=== PATIENT | female | born 1980 | race Caucasian/White ===

== ENCOUNTER 2022-07-12 13:32 | Emergency (ER) | payer MEDICARE, OTHER, MEDICAID, SELFPAY ==
[2022-07-12 14:13] VITALS: BP 127/93; PULSE 88; RESP 18; TEMP 36.2; O2SAT 96; BMI 22.5
--- NOTE | 2022-07-12 14:41 | CRLHL7_ITS ---
For Patients: As a result of the Century Cures Act, medical imaging exams and procedure reports are released immediately into your electronic medical record. You may view this report before your referring provider. If you have questions, please contact your health care provider. INDICATION: Headache, history of MS. Chest pain. TECHNIQUE: Chest 2 views. COMPARISON: None. FINDINGS: No focal consolidation, pleural effusion, or pneumothorax. Normal heart size and pulmonary vascularity. The bones are unremarkable. IMPRESSION: No acute cardiopulmonary findings. Dictated by Judy Mckeon MD @ 07/12/2022 3:40:51 PM (Electronically Signed)
--- NOTE | 2022-07-12 14:41 | CRLHL7_ITS ---
For Patients: As a result of the Century Cures Act, medical imaging exams and procedure reports are released immediately into your electronic medical record. You may view this report before your referring provider. If you have questions, please contact your health care provider. INDICATION: Headache and dizziness. History of MS. TECHNIQUE: CT head without contrast. COMPARISON: None. FINDINGS: CSF spaces: Within normal limits for age. Brain parenchyma and extra-axial spaces: The boss-white differentiation is normal. No sign of mass, hemorrhage, or midline shift. No extra-axial fluid collection. Skull base and calvarium: The visualized paranasal sinuses and mastoid air cells demonstrate no acute or significant findings. The visualized orbits are grossly unremarkable. No skull fractures. IMPRESSION: Unremarkable noncontrast head CT. Please note that all CT scans at this facility use dose modulation, iterative reconstruction, and/or weight-based dosing when appropriate to reduce radiation dose to as low as reasonably achievable. Dictated by Jorge Wallace MD @ 07/12/2022 3:40:21 PM (Electronically Signed)
--- NOTE | 2022-07-12 15:16 | ED.GENADULT ---
HPI - General Adult General Chief complaint: Headache/Migraine <Betzaida Arboleda MD - Last Filed: 07/12/22 15:51> Stated complaint: Headaches Possible M/S flare up <Betzaida Arboleda MD - Last Filed: 07/12/22 15:51> Time Seen by Provider: 07/12/22 14:22 <Betzaida Arboleda MD - Last Filed: 07/12/22 15:51> Source: patient <Betzaida Arboleda MD - Last Filed: 07/12/22 15:51> Mode of arrival: ambulatory <Betzaida Arboleda MD - Last Filed: 07/12/22 15:51> Limitations: no limitations <Betzaida Arboleda MD - Last Filed: 07/12/22 15:51> History of Present Illness HPI narrative: 42-year-old female coming in today with multiple concerns. Number on rash in her head she just noticed, it is uncomfortable. 2. She has a terrible headache. She states that she has never had a headache this bad before she describes as a pressure inside her head. She is very concerned about this. She has taken [id number] medications and they have not helped at all. 3. she feels very tired, low energy. She has tingly all over. She denies any chest pain. Every now and then she will feel short of breath. No fevers or chills. No changes in her appetite. No diarrhea. No urinary symptoms. No abdominal pain. Patient does have history of multiple sclerosis, she is not on any treatment for that and she does not see a neurologist. 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 Past medical history also notable for anxiety, bipolar disorder history of dental abscess and chronic pain. Patient takes Seroquel, Paxil, Adderall, and gabapentin. She denies any night sweats or weight changes that are unintentional. <Betzaida Arboleda MD - Last Filed: 07/12/22 15:51> Related Data Home medications: Home Medications Medication Instructions Recorded Confirmed dextroamphetamine-amphetamine ER PO 07/12/22 20 mg 24hr capsule,extend release gabapentin 300 mg capsule mg 07/12/22 gabapentin 400 mg capsule mg 07/12/22 paroxetine HCl 40 mg tablet mg PO 07/12/22 quetiapine 25 mg tablet mg 07/12/22 Previous Rx's Medication Instructions Recorded triamcinolone acetonide 0.1 % 1 applic topical BID Rash #30 grams 07/12/22 topical cream <Betzaida Arboleda MD - Last Filed: 07/12/22 15:51> Allergies/adverse reactions: Allergies Allergy/AdvReac Type Severity Reaction Status Date / Time No Known Drug Allergies Allergy Verified 07/12/22 14:09 <Betzaida Arboleda MD - Last Filed: 07/12/22 15:51> Review of Systems Status of ROS: Reports: 10 or more systems reviewed and unremarkable except as noted in History and below <Betzaida Arboleda MD - Last Filed: 07/12/22 15:51> [facility] Medical History: Medical History (Updated 07/12/22 @ 16:45 by Beto Marmolejo MD) Rash <Betzaida Arboleda MD - Last Filed: 07/12/22 15:51> Exam Narrative: Exam Narrative: Well-nourished well-developed patient in no acute distress. Alert and oriented. Answers questions appropriately. Mood and affect are appropriate. Thoughts are goal oriented and rational. No tangential or magical thinking noted. Patient speaks in full sentences without needing to catch her breath. Speech is not slurred or pressured. Voice sounds normal. HEENT: Normocephalic atraumatic. Pupils are equally round reactive to light. Extraocular muscles are intact. Conjunctivae are moist without any icterus noted. Moist mucous membranes. Posterior pharynx is normal. Neck is soft without any lymphadenopathy or thyromegaly. No masses are appreciated. Patient does have what appears to be a folliculitis scattered throughout the scalp with some scabbing. Cardiovascular: Heart is regular rate and rhythm S1 and S2 are present without any murmurs. Lungs: Clear to auscultation bilaterally no wheezes rhonchi or rales are appreciated. Patient takes deep breaths without any discomfort. Abdomen: Soft and nontender nondistended with normal bowel sounds. No guarding or rebound. No masses or organomegaly appreciated. Extremities: Bilateral lower extremities are without edema. Normal DP and PT pulses. Skin: Well perfused without any obvious rashes. <Betzaida Arboleda MD - Last Filed: 07/12/22 15:51> Const: Vital Signs, click to edit/add: Vital Signs - 24 hr 07/12/22 14:13 Temperature 97.1 F L Pulse Rate [Right Pulse Oximeter] 88 Respiratory Rate 18 Blood Pressure [Ri ght Upper Arm] 127/93 H Pulse Oximetry 96 Oxygen Delivery Me thod Room Air <Betzaida Arboleda MD - Last Filed: 07/12/22 15:51> Vital Signs, click to edit/add: Vital Signs - 24 hr 07/12/22 14:13 Temperature 97.1 F L Pulse Rate [Right Pulse Oximeter] 88 Respiratory Rate 18 Blood Pressure [Ri ght Upper Arm] 127/93 H Pulse Oximetry 96 Oxygen Delivery Me thod Room Air <Beto Marmolejo MD - Last Filed: 07/12/22 16:46> Course Course Hospital Course: IV was established. Head CT was done and was normal. Chest x-ray was unremarkable. Care be transferred to oncoming physician. <Betzaida Arboleda MD - Last Filed: 07/12/22 15:51> Reevaluation(s) Reevaluation #1: Pt does not want to wait to continue her workup including waiting for her urine that she prescribed. I did explain the risk of doing so but she states that she understands and would very much like to leave. <Beto Marmolejo MD - Last Filed: 07/12/22 16:46> Time: 16:43 <Beto Marmolejo MD - Last Filed: 07/12/22 16:46> Vital Signs Vital signs: Initial Vital Signs Temperature 97.1 F L 07/12/22 14:13 Temperature Source Temporal Artery Scan 07/12/22 14:13 Pulse Rate 88 07/12/22 14:13 Respiratory Rate 18 07/12/22 14:13 Blood Pressure 127/93 H 07/12/22 14:13 Blood Pressure Mean 104 07/12/22 14:13 Blood Pressure Position Sitting 07/12/22 14:13 Pulse Oximetry 96 07/12/22 14:13 Oxygen Delivery Method 07/12/22 14:13 Vital Signs Temperature 97.1 F L 07/12/22 14:13 Pulse Rate 88 07/12/22 14:13 Respiratory Rate 18 07/12/22 14:13 Blood Pressure 127/93 H 07/12/22 14:13 Pulse Oximetry 96 07/12/22 14:13 Oxygen Delivery Method 07/12/22 14:13 Temperature 97.1 F L 07/12/22 14:13 Pulse Rate 88 07/12/22 14:13 Respiratory Rate 18 07/12/22 14:13 Blood Pressure 127/93 H 07/12/22 14:13 Pulse Oximetry 96 07/12/22 14:13 Oxygen Delivery Method 07/12/22 14:13 <Betzaida Arboleda MD - Last Filed: 07/12/22 15:51> Initial Vital Signs Temperature 97.1 F L 07/12/22 14:13 Temperature Source Temporal Artery Scan 07/12/22 14:13 Pulse Rate 88 07/12/22 14:13 Respiratory Rate 18 07/12/22 14:13 Blood Pressure 127/93 H 07/12/22 14:13 Blood Pressure Mean 104 07/12/22 14:13 Blood Pressure Position Sitting 07/12/22 14:13 Pulse Oximetry 96 07/12/22 14:13 Oxygen Delivery Method 07/12/22 14:13 Vital Signs Temperature 97.1 F L 07/12/22 14:13 Pulse Rate 88 07/12/22 14:13 Respiratory Rate 18 07/12/22 14:13 Blood Pressure 127/93 H 07/12/22 14:13 Pulse Oximetry 96 07/12/22 14:13 Oxygen Delivery Method 07/12/22 14:13 Temperature 97.1 F L 07/12/22 14:13 Pulse Rate 88 07/12/22 14:13 Respiratory Rate 18 07/12/22 14:13 Blood Pressure 127/93 H 07/12/22 14:13 Pulse Oximetry 96 07/12/22 14:13 Oxygen Delivery Method 07/12/22 14:13 <Beto Marmolejo MD - Last Filed: 07/12/22 16:46> Medical Decision Making Lab Data Labs: Lab Results 07/12/22 07/12/22 07/12/22 Range/Units 15:40 15:40 15:40 WBC 4.83 (4.50-11.00) K/uL RBC 4.79 (4.00-5.20) m/uL Hgb 13.6 (12.0-16.0) gm/dL Hct 40.7 (33.0-51.0) % MCV 85 (80-100) fL MCH 28 (26-34) pg MCHC 33 (32-36) gm/dL RDW Coeff of Tyrell 14.0 (11.5-15.5) % Plt Count 291 (140-440) K/uL Neut % (Auto) 42.7 (42.0-72.0) % Lymph % (Auto) 44.1 H (20-44) % [place] % (Auto) 11.2 H (0.0-11.0) % Eos % (Auto) 1.4 (0.0-7.0) % Baso % (Auto) 0.4 (0.0-3.0) % Neut # (Auto) 2.06 (1.7-7.0) K/uL Lymph # (Auto) 2.10 (0.90-2.90) K/uL [place] # (Auto) 0.50 (0.00-0.90) K/UL Eos # (Auto) 0.07 (0.00-0.50) K/uL Baso # (Auto) 0.02 (0.00-0.30) K/uL Abs Immat Gran (auto) 0.01 (0.00-0.30) K/uL Sodium 139 (135-149) mmol/L Potassium 3.8 (3.6-5.1) mmol/L Chloride 107 (96-114) mmol/L Carbon Dioxide 27 (20-32) mmol/L BUN 15 (5-24) mg/dL Creatinine 0.7 (0.5-1.5) mg/dL Estimated Creat Clear 102.85 Estimated GFR 111 ml/min Glucose 98 (60-115) mg/dL Lactate (0.5-1.9) mmol/L Calcium 8.8 (8.4-10.6) mg/dL Total Bilirubin 0.4 (0.1-1.5) mg/dL Direct Bilirubin 0.1 (0.0-0.5) mg/dL AST 21 (12-35) U/L ALT 11 (4-35) U/L Alkaline Phosphatase 68 (40-150) U/L Troponin I < 0.01 L (0.01-0.04) ng/mL C-Reactive Protein < 0.5 L (0.5-1.0) mg/dL Total Protein 7.3 (6.0-8.3) g/dL Albumin 4.2 (3.3-5.0) g/dL Monoscreen Negative (Negative) 07/12/22 Range/Units 15:40 WBC (4.50-11.00) K/uL RBC (4.00-5.20) m/uL Hgb (12.0-16.0) gm/dL Hct (33.0-51.0) % MCV (80-100) fL MCH (26-34) pg MCHC (32-36) gm/dL RDW Coeff of Tyrell (11.5-15.5) % Plt Count (140-440) K/uL Neut % (Auto) (42.0-72.0) % Lymph % (Auto) (20-44) % [place] % (Auto) (0.0-11.0) % Eos % (Auto) (0.0-7.0) % Baso % (Auto) (0.0-3.0) % Neut # (Auto) (1.7-7.0) K/uL Lymph # (Auto) (0.90-2.90) K/uL [place] # (Auto) (0.00-0.90) K/UL Eos # (Auto) (0.00-0.50) K/uL Baso # (Auto) (0.00-0.30) K/uL Abs Immat Gran (auto) (0.00-0.30) K/uL Sodium (135-149) mmol/L Potassium (3.6-5.1) mmol/L Chloride (96-114) mmol/L Carbon Dioxide (20-32) mmol/L BUN (5-24) mg/dL Creatinine (0.5-1.5) mg/dL Estimated Creat Clear Estimated GFR ml/min Glucose (60-115) mg/dL Lactate 1.2 (0.5-1.9) mmol/L Calcium (8.4-10.6) mg/dL Total Bilirubin (0.1-1.5) mg/dL Direct Bilirubin (0.0-0.5) mg/dL AST (12-35) U/L ALT (4-35) U/L Alkaline Phosphatase (40-150) U/L Troponin I (0.01-0.04) ng/mL C-Reactive Protein (0.5-1.0) mg/dL Total Protein (6.0-8.3) g/dL Albumin (3.3-5.0) g/dL Monoscreen (Negative) <Betzaida Arboleda MD - Last Filed: 07/12/22 15:51> Lab Results 07/12/22 07/12/22 07/12/22 Range/Units 15:40 15:40 15:40 WBC 4.83 (4.50-11.00) K/uL RBC 4.79 (4.00-5.20) m/uL Hgb 13.6 (12.0-16.0) gm/dL Hct 40.7 (33.0-51.0) % MCV 85 (80-100) fL MCH 28 (26-34) pg MCHC 33 (32-36) gm/dL RDW Coeff of Tyrell 14.0 (11.5-15.5) % Plt Count 291 (140-440) K/uL Neut % (Auto) 42.7 (42.0-72.0) % Lymph % (Auto) 44.1 H (20-44) % [place] % (Auto) 11.2 H (0.0-11.0) % Eos % (Auto) 1.4 (0.0-7.0) % Baso % (Auto) 0.4 (0.0-3.0) % Neut # (Auto) 2.06 (1.7-7.0) K/uL Lymph # (Auto) 2.10 (0.90-2.90) K/uL [place] # (Auto) 0.50 (0.00-0.90) K/UL Eos # (Auto) 0.07 (0.00-0.50) K/uL Baso # (Auto) 0.02 (0.00-0.30) K/uL Abs Immat Gran (auto) 0.01 (0.00-0.30) K/uL Sodium 139 (135-149) mmol/L Potassium 3.8 (3.6-5.1) mmol/L Chloride 107 (96-114) mmol/L Carbon Dioxide 27 (20-32) mmol/L BUN 15 (5-24) mg/dL Creatinine 0.7 (0.5-1.5) mg/dL Estimated Creat Clear 102.85 Estimated GFR 111 ml/min Glucose 98 (60-115) mg/dL Lactate (0.5-1.9) mmol/L Calcium 8.8 (8.4-10.6) mg/dL Total Bilirubin 0.4 (0.1-1.5) mg/dL Direct Bilirubin 0.1 (0.0-0.5) mg/dL AST 21 (12-35) U/L ALT 11 (4-35) U/L Alkaline Phosphatase 68 (40-150) U/L Troponin I < 0.01 L (0.01-0.04) ng/mL C-Reactive Protein < 0.5 L (0.5-1.0) mg/dL Total Protein 7.3 (6.0-8.3) g/dL Albumin 4.2 (3.3-5.0) g/dL Monoscreen Negative (Negative) 07/12/22 Range/Units 15:40 WBC (4.50-11.00) K/uL RBC (4.00-5.20) m/uL Hgb (12.0-16.0) gm/dL Hct (33.0-51.0) % MCV (80-100) fL MCH (26-34) pg MCHC (32-36) gm/dL RDW Coeff of Tyrell (11.5-15.5) % Plt Count (140-440) K/uL Neut % (Auto) (42.0-72.0) % Lymph % (Auto) (20-44) % [place] % (Auto) (0.0-11.0) % Eos % (Auto) (0.0-7.0) % Baso % (Auto) (0.0-3.0) % Neut # (Auto) (1.7-7.0) K/uL Lymph # (Auto) (0.90-2.90) K/uL [place] # (Auto) (0.00-0.90) K/UL Eos # (Auto) (0.00-0.50) K/uL Baso # (Auto) (0.00-0.30) K/uL Abs Immat Gran (auto) (0.00-0.30) K/uL Sodium (135-149) mmol/L Potassium (3.6-5.1) mmol/L Chloride (96-114) mmol/L Carbon Dioxide (20-32) mmol/L BUN (5-24) mg/dL Creatinine (0.5-1.5) mg/dL Estimated Creat Clear Estimated GFR ml/min Glucose (60-115) mg/dL Lactate 1.2 (0.5-1.9) mmol/L Calcium (8.4-10.6) mg/dL Total Bilirubin (0.1-1.5) mg/dL Direct Bilirubin (0.0-0.5) mg/dL AST (12-35) U/L ALT (4-35) U/L Alkaline Phosphatase (40-150) U/L Troponin I (0.01-0.04) ng/mL C-Reactive Protein (0.5-1.0) mg/dL Total Protein (6.0-8.3) g/dL Albumin (3.3-5.0) g/dL Monoscreen (Negative) <Beto Marmolejo MD - Last Filed: 07/12/22 16:46> Imaging Data CT scan - head: Attestation: I have reviewed the pertinent imaging results. <Betzaida Arboleda MD - Last Filed: 07/12/22 15:51> Radiologist's impression: CT head without contrast. COMPARISON: None. FINDINGS: CSF spaces: Within normal limits for age. Brain parenchyma and extra-axial spaces: The boss-white differentiation is normal. No sign of mass, hemorrhage, or midline shift. No extra-axial fluid collection. Skull base and calvarium: The visualized paranasal sinuses and mastoid air cells demonstrate no acute or significant findings. The visualized orbits are grossly unremarkable. No skull fractures. IMPRESSION: Unremarkable noncontrast head CT. <Betzaida Arboleda MD - Last Filed: 07/12/22 15:51> Discharge Plan Discharge Clinical Impression: Folliculitis <Betzaida Arboleda MD - Last Filed: 07/12/22 15:51> Condition: Stable <Betzaida Arboleda MD - Last Filed: 07/12/22 15:51> Instructions: Folliculitis (ED) <Betzaida Arboleda MD - Last Filed: 07/12/22 15:51> Activity Level: No Restrictions <Betzaida Arboleda MD - Last Filed: 07/12/22 15:51> No Restrictions <Beto Marmolejo MD - Last Filed: 07/12/22 16:46> Discharge Diet: Regular <Betzaida Arboleda MD - Last Filed: 07/12/22 15:51> Regular <Beto Marmolejo MD - Last Filed: 07/12/22 16:46> Prescriptions: New triamcinolone acetonide 0.1 % cream 1 applic topical BID Qty: 30 0RF No Action quetiapine 25 mg tablet Label Comments: TAKE 2 TO 3 TABLETS BY MOUTH AT BEDTIME DIRECTED gabapentin 400 mg capsule Label Comments: TAKE 1 CAPSULE BY MOUTH THREE TIMES DAILY dextroamphetamine-amphetamine 20 mg capsule,extended release 24hr PO Label Comments: TAKE 1 CAPSULE BY MOUTH IN THE MORNING gabapentin 300 mg capsule Label Comments: TAKE 1 CAPSULE BY MOUTH THREE TIMES DAILY paroxetine HCl 40 mg tablet PO Label Comments: TAKE 1 TABLET BY MOUTH EVERY DAY <Betzaida Arboleda MD - Last Filed: 07/12/22 15:51> Follow Up/Referrals: Provider,Not a Local [Primary Care Provider] - <Betzaida Arboleda MD - Last Filed: 07/12/22 15:51>
[2022-07-12] MEDS: KETOROLAC 30 MG/ML inj IVP (15:43)
[2022-07-12] MEDS: diphenhydrAMINE 50 MG/ML inj 25 MG IVP (15:43)
[2022-07-12 15:45] LABS: Lactate* 1.2 mmol/L (0.5-1.9)
[2022-07-12 15:48] LABS: Basophils Absolute Auto 0.02 K/uL (0.00-0.30); Basophils Percent Auto 0.4 % (0.0-3.0); Eosinophils Absolute Auto 0.07 K/uL (0.00-0.50); Eosinophils Percent Auto 1.4 % (0.0-7.0); Hematocrit 40.7 % (33.0-51.0); Hemoglobin* 13.6 gm/dL (12.0-16.0); Immature Granulocytes Abs Auto 0.01 K/uL (0.00-0.30); Lymphocytes Percent Auto 44.1 % (20-44); Mean Corpuscular HGB Conc 33 gm/dL (32-36); Mean Corpuscular Hemoglobin 28 pg (26-34); Mean Corpuscular Volume 85 fL (80-100); Monocytes Percent Auto 11.2 % (0.0-11.0); Neutrophils Absolute Auto 2.06 K/uL (1.7-7.0); Neutrophils Percent Auto 42.7 % (42.0-72.0); Platelet Count* 291 K/uL (140-440); Red Blood Count 4.79 m/uL (4.00-5.20); White Blood Count* 4.83 K/uL (4.50-11.00)
[2022-07-12 15:51] LABS: Slide Review Reflex No
--- NOTE | 2022-07-12 16:01 | ED.NURSE ---
Patient refused Covid swab
[2022-07-12 16:03] LABS: Albumin* 4.2 g/dL (3.3-5.0); Chloride* 107 mmol/L (96-114); Sodium* 139 mmol/L (135-149)
[2022-07-12 16:04] LABS: Potassium* 3.8 mmol/L (3.6-5.1)
[2022-07-12 16:06] LABS: Creatinine* 0.7 mg/dL (0.5-1.5); Est. Creatinine Clearance* 102.85; Estimated Glomerular Filt Rate 111 ml/min
[2022-07-12 16:07] LABS: Alanine Aminotransferase* 11 U/L (4-35); Alkaline Phosphatase* 68 U/L (40-150); Aspartate Amino Transferase* 21 U/L (12-35); Bilirubin Direct* 0.1 mg/dL (0.0-0.5); Bilirubin Total* 0.4 mg/dL (0.1-1.5); Blood Urea Nitrogen* 15 mg/dL (5-24); Calcium* 8.8 mg/dL (8.4-10.6); Carbon Dioxide* 27 mmol/L (20-32); Glucose* 98 mg/dL (60-115); Total Protein* 7.3 g/dL (6.0-8.3)
[2022-07-12 16:11] LABS: C Reactive Protein* < 0.5 mg/dL (0.5-1.0)
[2022-07-12 16:17] LABS: Mono Screen* Negative (Negative)
[2022-07-12 16:23] LABS: Troponin I* < 0.01 ng/mL (0.01-0.04)
[2022-07-12 16:47] LABS: Erythrocyte SedimentationRate* 7 mm/hr (2-20)
[2022-07-12 16:49] LABS: Appearance Urine Cloudy (Clear); Bilirubin Urine Negative (Negative); Blood Urine Negative (Negative); Color Urine Yellow (Yellow); Glucose Urine Negative (Negative); Ketones Urine Negative (Negative); Leukocyte Esterase Urine Negative (Negative); Nitrite Urine Negative (Negative); Protein Urine Negative (Negative); Urobilinogen Urine 0.2 (0.2-1.0)
[2022-07-12 16:58] LABS: HCG Qualitative* Negative (Negative)
[2022-07-12 17:05] LABS: Bacteria Urine Moderate; Squamous Epithelial Cell Urine Moderate (None-Few)
[2022-07-12 17:07] LABS: Thyroid Stimulating Hormone* 0.757 uIU/mL (0.270-4.20)
== END 2022-07-12 17:12 | disposition home or self-care (01) ==
PROVIDERS: Emergency Provider Family Medicine
DX: L73.8 Other specified follicular disorders (principal); R51.9 Headache, unspecified
CPT/HCPCS: 36415; 70450; 71046; 80048; 80076; 81001; 83605; 84443; 84484; 84703; 85025; 85651; 86140; 86308; 87086; 87631; 93005; 96374; 96375; 99283; 99284; 99285; J1200; J1885

== ENCOUNTER 2022-09-12 19:44 | Emergency (ER) | payer MEDICARE, OTHER, SELFPAY ==
[2022-09-12 20:03] VITALS: BP 119/84; PULSE 90; RESP 18; TEMP 36.6; O2SAT 99; BMI 20.8
[2022-09-12 20:35] VITALS: BP 119/84; PULSE 90; RESP 18; TEMP 36.6
--- NOTE | 2022-09-12 20:51 | ED.GENADULT ---
HPI - General Adult General Date Seen: 09/12/22 Chief complaint: Ear/Nose/Throat Problem Stated complaint: Congested Ear Pain Time Seen by Provider: 09/12/22 20:01 Source: patient History of Present Illness HPI narrative: Patient is a 42-year-old who has had an upper respiratory infection for the past week. About an hour ago she says she was walking [place] when she developed pain in her right ear, it feels full and uncomfortable. She does not have a fever. No shortness of breath, chest pain, rashes, vomiting, or other complaints. Declines viral testing. Social history positive for tobacco. Related Data Home Medications Medication Instructions Recorded Confirmed dextroamphetamine-amphetamine ER PO 07/12/22 20 mg 24hr capsule,extend release gabapentin 300 mg capsule mg 07/12/22 gabapentin 400 mg capsule mg 07/12/22 paroxetine HCl 40 mg tablet mg PO 07/12/22 quetiapine 25 mg tablet mg 07/12/22 Previous Rx's Medication Instructions Recorded triamcinolone acetonide 0.1 % 1 applic topical BID Rash #30 grams 07/12/22 topical cream Allergies Allergy/AdvReac Type Severity Reaction Status Date / Time No Known Drug Allergies Allergy Verified 09/12/22 20:05 Review of Systems Status of ROS: Reports: 6 or more systems reviewed and unremarkable except as noted in History and below [facility] Medical History No significant past medical history Surgical History No significant past surgical history Social History Smoking Status: Smoker, status unknown Second hand tobacco smoke exposure: No Non-prescribed substance use: former substance user Exam Narrative: Exam Narrative: Vital signs as noted above. In general, an alert, well-appearing patient. Head: Normocephalic, atraumatic. Eyes: Pupils are equal reactive. Extraocular movements are full. Conjunctivae are normal. ENT: Mucous membranes are moist. Throat is normal. Nares are congested. TMs and canals are normal bilaterally Neck: Supple without lymphadenopathy. Heart: Regular rate and rhythm. No murmur or rub. Lungs: Clear bilaterally. No increased work of breathing, crackles or wheezes. Extremities: Well perfused. No edema. No calf tenderness. Pulses intact. Neurologic: Patient is alert and oriented to person and place. Speech is fluent. Face is symmetric. Moves all extremities equally. Affect: Normal. Skin: Warm and dry. Well perfused. Const: Vital Signs, click to edit/add: Vital Signs - 24 hr 09/12/22 20:03 09/12/22 20:35 Temperature 97.9 F 97.9 F Pulse Rate [Right Pulse Oximeter] 90 90 Respiratory Rate 18 18 Blood Pressure [Ri ght Upper Arm] 119/84 119/84 Pulse Oximetry 99 Oxygen Delivery Me thod Room Air Documenting provider has reviewed patient's vital signs: yes Course Course Hospital Course: No evidence of otitis externa or otitis media. Suspect symptoms are secondary to nasal and sinus congestion and eustachian tube malfunction. Recommend use of decongestants such as Sudafed. Told her we can try using prednisone as well, but regardless the symptoms can take a number of days to resolve. For severe or worsening pain, new symptoms such as fever, should be needed. Ibuprofen or Tylenol as needed for discomfort. Vital Signs Vital signs: Initial Vital Signs Temperature 97.9 F 09/12/22 20:03 Temperature Source Temporal Artery Scan 09/12/22 20:03 Pulse Rate 90 09/12/22 20:03 Respiratory Rate 18 09/12/22 20:03 Blood Pressure 119/84 09/12/22 20:03 Blood Pressure Mean 95 09/12/22 20:03 Blood Pressure Position Sitting 09/12/22 20:03 Pulse Oximetry 99 09/12/22 20:03 Oxygen Delivery Method 09/12/22 20:03 Vital Signs Temperature 97.9 F 09/12/22 20:03 Pulse Rate 90 09/12/22 20:03 Respiratory Rate 18 09/12/22 20:03 Blood Pressure 119/84 09/12/22 20:03 Pulse Oximetry 99 09/12/22 20:03 Oxygen Delivery Method 09/12/22 20:03 Temperature 97.9 F 09/12/22 20:35 Pulse Rate 90 09/12/22 20:35 Respiratory Rate 18 09/12/22 20:35 Blood Pressure 119/84 09/12/22 20:35 Pulse Oximetry 99 09/12/22 20:03 Oxygen Delivery Method 09/12/22 20:03 Discharge Plan Discharge Clinical Impression: Sensation of fullness in right ear, Upper respiratory infection Patient Disposition: Home, Self-Care Condition: Stable Instructions: Upper Respiratory Infection (DC) Additional Instructions: Ibuprofen or Tylenol as needed. Prednisone as prescribed. Primary care follow-up if not improving over the next 1-2 weeks. Prescriptions: No Action quetiapine 25 mg tablet Label Comments: TAKE 2 TO 3 TABLETS BY MOUTH AT BEDTIME DIRECTED gabapentin 400 mg capsule Label Comments: TAKE 1 CAPSULE BY MOUTH THREE TIMES DAILY dextroamphetamine-amphetamine 20 mg capsule,extended release 24hr PO Label Comments: TAKE 1 CAPSULE BY MOUTH IN THE MORNING gabapentin 300 mg capsule Label Comments: TAKE 1 CAPSULE BY MOUTH THREE TIMES DAILY paroxetine HCl 40 mg tablet PO Label Comments: TAKE 1 TABLET BY MOUTH EVERY DAY triamcinolone acetonide 0.1 % cream 1 applic topical BID Qty: 30 0RF Follow Up/Referrals: Provider,Not a Local [Primary Care Provider] - Stand Alone Forms: [employer] Info Instructions
== END 2022-09-12 21:13 | disposition home or self-care (01) ==
LOC: ED 20:49
PROVIDERS: Emergency Provider Emergency Medicine
DX: H92.01 Otalgia, right ear (principal); J06.9 Acute upper respiratory infection, unspecified
CPT/HCPCS: 87502; 87634; 87635; 99283; 99284

== ENCOUNTER 2022-09-14 07:51 | Emergency (ER) | payer MEDICARE, OTHER, SELFPAY ==
[2022-09-14 07:56] VITALS: BP 150/87; PULSE 66; RESP 24; TEMP 35.9; O2SAT 95; BMI 20.4
--- NOTE | 2022-09-14 09:00 | ED.NURSE ---
Patient was discharged. Prescription for amoxicillin and fluconazole sent into pharmacy. Discharge instructions reviewed and understood by patient. Left via ambulatory.
--- NOTE | 2022-09-14 14:48 | ED_ITS ---
HPI - Ear Problem General Date Seen: 09/14/22 Chief complaint: Ear/Nose/Throat Problem Stated complaint: ear pain Time Seen by Provider: 09/14/22 07:57 Source: patient Mode of arrival: ambulatory Limitations: no limitations History of Present Illness HPI Narrative: 42-year-old female seen today for continued right ear pain, she was seen a couple days ago, and told she probably has some fluid in her ears, offered prednisone, which she did not take, and presents here with ongoing ear pain, she describes going down her entire neck down her back, with this. She has still able to hear out of her urine maybe a little bit of discharge she says also. She does have a history of ear problems in the past, has not been swimming, no history of trauma, no fevers chills or sweats associated with this. A little bit of cold symptoms for the last 2 weeks, Complaint: ear pain, ear discharge and decreased hearing Location: right ear Duration: constant Severity: moderate Relieving factors: nothing Exacerbating factors: position of head and palpation Discharge from ear: yes - clear Treatment prior to arrival: none Related Data Home Medications Medication Instructions Recorded Confirmed dextroamphetamine-amphetamine ER PO 07/12/22 20 mg 24hr capsule,extend release gabapentin 300 mg capsule mg 07/12/22 gabapentin 400 mg capsule mg 07/12/22 paroxetine HCl 40 mg tablet mg PO 07/12/22 quetiapine 25 mg tablet mg 07/12/22 Previous Rx's Medication Instructions Recorded triamcinolone acetonide 0.1 % 1 applic topical BID Rash #30 grams 07/12/22 topical cream amoxicillin 500 mg tablet 500 mg PO TID #30 tabs 09/14/22 fluconazole 150 mg tablet 150 mg PO DAILY #1 tab 09/14/22 (Diflucan) Allergies Allergy/AdvReac Type Severity Reaction Status Date / Time No Known Drug Allergies Allergy Verified 09/12/22 20:05 Review of Systems Status of ROS: Reports: 10 or more systems reviewed and unremarkable except as noted in History and below [facility] Medical History No significant past medical history Surgical History No significant past surgical history Social History Smoking Status: Smoker, status unknown Second hand tobacco smoke exposure: No Non-prescribed substance use: former substance user Exam Narrative: Exam Narrative: Examination shows a pleasant lady in room 4 she is in no apparent distress, she follows my commands normally, and has normal vital signs. Examination the right ear shows that with drawn and retracted right TM, that is red, there is no external redness, she has no swelling noted of her mastoid and really no tenderness, she has shotty lymphadenopathy bilaterally in her anterior and posterior chains, her neck is supple with absence of meningismus, her mouth opening is normal, chest is clear heart sounds are normal, skin shows no petechiae or rashes Const: Vital Signs, click to edit/add: Vital Signs - 24 hr 09/14/22 07:56 Temperature 96.7 F L Pulse Rate [Pulse Oximeter] 66 Respiratory Rate 24 Blood Pressure [Le ft Upper Arm] 150/87 H Pulse Oximetry 95 Oxygen Delivery Me thod Room Air Course Vital Signs Vital signs: Initial Vital Signs Temperature 96.7 F L 09/14/22 07:56 Temperature Source Temporal Artery Scan 09/14/22 07:56 Pulse Rate 66 09/14/22 07:56 Respiratory Rate 24 09/14/22 07:56 Blood Pressure 150/87 H 09/14/22 07:56 Blood Pressure Mean 108 09/14/22 07:56 Blood Pressure Position Sitting 09/14/22 07:56 Pulse Oximetry 95 09/14/22 07:56 Oxygen Delivery Method 09/14/22 07:56 Vital Signs Temperature 96.7 F L 09/14/22 07:56 Pulse Rate 66 09/14/22 07:56 Respiratory Rate 24 09/14/22 07:56 Blood Pressure 150/87 H 09/14/22 07:56 Pulse Oximetry 95 09/14/22 07:56 Oxygen Delivery Method 09/14/22 07:56 Temperature 96.7 F L 09/14/22 07:56 Pulse Rate 66 09/14/22 07:56 Respiratory Rate 24 09/14/22 07:56 Blood Pressure 150/87 H 09/14/22 07:56 Pulse Oximetry 95 09/14/22 07:56 Oxygen Delivery Method 09/14/22 07:56 Medical Decision Making MDM Narrative Medical decision making narrative: I do not think it would be unreasonable to put her on medications at this point, explained the Tylenol and ibuprofen regularly along with a warm water cloth under year, she asked about drops into her ear I explained to her the pain drops that she was asking about her contraindicated if we think she may have a rupture, she was comfortable this plan discharged ambulatory follow-up with ENT as needed Discharge Plan Discharge Clinical Impression: Acute ear pain, Otitis media Patient Disposition: Home, Self-Care Condition: Stable Instructions: Ear Infection (ED), Earache (ED) Additional Instructions: Home rest and continue with the antibiotics, continue with the tylenol and motrin. Decongestants would be helpful. follwoup with ENT if ongoing symptoms Prescriptions: New amoxicillin 500 mg tablet 500 mg PO TID Qty: 30 0RF fluconazole [Diflucan] 150 mg tablet 150 mg PO DAILY Qty: 1 0RF No Action quetiapine 25 mg tablet Label Comments: TAKE 2 TO 3 TABLETS BY MOUTH AT BEDTIME DIRECTED gabapentin 400 mg capsule Label Comments: TAKE 1 CAPSULE BY MOUTH THREE TIMES DAILY dextroamphetamine-amphetamine 20 mg capsule,extended release 24hr PO Label Comments: TAKE 1 CAPSULE BY MOUTH IN THE MORNING gabapentin 300 mg capsule Label Comments: TAKE 1 CAPSULE BY MOUTH THREE TIMES DAILY paroxetine HCl 40 mg tablet PO Label Comments: TAKE 1 TABLET BY MOUTH EVERY DAY triamcinolone acetonide 0.1 % cream 1 applic topical BID Qty: 30 0RF Follow Up/Referrals: Provider,Not a Local [Referring] - Francis Bains MD [Staff Physician] - Stand Alone [facility]
== END 2022-09-14 09:02 | disposition home or self-care (01) ==
LOC: ED 08:59
PROVIDERS: Emergency Provider Family Medicine; PCP Student in an Organized Health Care Education/Training Program
DX: H66.91 Otitis media, unspecified, right ear (principal); H92.01 Otalgia, right ear
CPT/HCPCS: 99283

== ENCOUNTER 2023-07-17 11:19 | Emergency (ER) | payer MEDICARE, OTHER, SELFPAY ==
[2023-07-17 11:53] VITALS: BP 143/83; PULSE 83; RESP 18; TEMP 36.8; O2SAT 96; BMI 17.2
--- NOTE | 2023-07-17 13:32 | ED.GENADULT ---
HPI - General Adult General Time Seen by Provider: 13:32 Date Seen: 07/17/23 Chief complaint: Skin/Abscess/Foreign Body Stated complaint: head infection Time Seen by Provider: 07/17/23 12:57 History of Present Illness HPI narrative: This is a 43-year-old female who presents to the ER today with her 19-year-old son. He is being seen for URI symptoms and sore throat and she wants to be seen for a swollen painful rash on the vertex of her scalp. She reports that she has had this swollen painful rash on her scalp for the past couple months, since early May. She had been seen more than once by her providers at the [facility]. She says she was put on 2 different courses of antibiotics. While on the medications it sounds like her infection got a little bit better but never resolved. She says in follow-up she apparently had some swabs that revealed 2 strains of staph. And she says that 1 of her providers told her that they were only treating ?half? of her infection. She has been off antibiotics now for several weeks and the areas been getting bigger. It is scaly. It is painful. Somewhat boggy. Sometimes it weeps some fluid. The hair in the area has been falling out. I reviewed her medical record through [employer] [facility] to see Lucy. According to those records past medical history includes MS, cavernous malformation, heterozygous factor 5 Leiden deficiency, toxic multinodular goiter, anxiety/depression, bipolar, schizophrenia, stimulant abuse (in remission), ADHD, depression, kidney stones, nicotine dependence, seizures, chronic pain , controlled substance agreement (possibly for Adderall for ADHD?) 05/04-[facility]. She had a scalp infection related to being scratched by her dog about a month prior to the visit. Wound culture was sent. It grew Staphylococcus pseudointermedius as well as GroupA strep. Rx bactrim because she has a history of MRSA. 05/08-ER visit to [place]. She had apparently been scratched by her dog on her head a month prior to the visit. She had ongoing pain. She had been in the urgent care and had wound culture. She had been started on Bactrim and was recommended to continue this.. 05/15-visit for scalp infection-diagnosed with cellulitis. Per the record she had had a dog bite, had been prescribed some antibiotics. Then had some ongoing pain in her scalp leading up to that ER visit. According to the doctor note, ? There are several scabbed over lesions on the crown of the head. One is quarter sized, scabbed over, without any drainage. The other is dime sized. There is some mild surrounding induration, but no fluctuance, drainage, or surrounding erythema is noted. Prescription for level flexes in 7 infected mg daily for 7 days. Also prescription for Diflucan that she can use for concomitant yeast infection. 06/16- repeat visit to the ER. Ongoing scalp infection. Per exam note, ?There are more supple erythematous rash raised lesion and's on the crown of the scalp that are exquisitely tender to touch. There is crusting of the skin on some of the lesions. No active drainage. There is an area of the size of a quarter over the vertex of the scalp which appears crusted and minimally depressed. Reports that it has gotten somewhat better while on antibiotics but never resolved. Prescribed amoxicillin and doxycycline. Advised to follow up with primary care in 3-5 days. Also prescribed p.r.n. doxycycline Patient reports that she finished her course of antibiotics in June but has been ongoing pain and swelling in her scalp since then. It has been getting a little bit worse. The area has been spreading. It is scaly and slightly raise. There is also some bogginess to it. It has been draining a little bit of fluid. The hair in the area where the rash is has been falling out. Related Data Home Medications Medication Instructions Recorded Confirmed gabapentin 400 mg capsule 1,200 mg 07/12/22 dextroamphetamine-amphetamine ER PO 07/17/23 10 mg 24hr capsule,extend release paroxetine HCl 30 mg tablet mg PO 07/17/23 quetiapine 100 mg tablet mg 07/17/23 Previous Rx's Medication Instructions Recorded griseofulvin microsize 500 mg 500 mg PO Q12H #60 tabs 07/17/23 tablet hydrocodone 5 mg-acetaminophen 325 1 tab PO Q4-6H PRN pain #10 tabs 07/17/23 mg tablet Allergies Allergy/AdvReac Type Severity Reaction Status Date / Time No Known Drug Allergies Allergy Verified 09/12/22 20:05 [facility] Medical History No significant past medical history Surgical History No significant past surgical history Social History Smoking Status: Smoker, status unknown Second hand tobacco smoke exposure: No Non-prescribed substance use: former substance user Exam Narrative: Exam Narrative: Constitutional: Appears well-developed and well-nourished. Alert. Conversant. Non toxic. HENT: Head: Atraumatic. Nose: Nose normal. Mouth/Throat: Oral mucosa is clear and moist. no trismus. Pharynx normal. Tonsils symmetric. No tonsillar enlargement, erythema, or exudate. Eyes: Conjunctivae normal. EOM normal. Pupils equal, round, and reactive to light. No scleral icterus. Neck: Normal range of motion. Neck supple. No tracheal deviation present. Cardiovascular: Normal rate, regular rhythm. No gallop. No friction rub. No murmur heard. Symmetric radial artery pulses Pulmonary/Chest: Effort normal. No stridor. No respiratory distress. No wheezes. No rales. No rhonchi . Musculoskeletal: RUE: Normal range of motion. No tenderness. No deformity LUE: Normal range of motion. No tenderness. No deformity RLE: Normal range of motion. No edema. No tenderness. No deformity LLE: Normal range of motion. No edema. No tenderness. No deformity Lymph: No cervical adenopathy. Neurological: Alert and oriented to person, place, and time. Normal strength. CN II-VII intact. No sensory deficit. GCS eye subscore is 4. GCS verbal subscore is 5. GCS motor subscore is 6. Normal coordination Skin: She has an erythematous raised, dry lichenified rash with some scaling of the skin. Overall size is approximately 6 x 4 cm and it is very irregular in shape, on the vertex of her scalp. Portions of the rash are somewhat boggy appearing. There is no serous or purulent drainage at this time. There is a roughly 3-4 cm round dry ulcer in the anterior portion of it. Other than her scalp, Skin is warm and dry. No rash noted. No pallor. Normal capillary refill. Psychiatric: Normal mood. Normal affect. Const: Vital Signs, click to edit/add: Vital Signs - 24 hr 07/17/23 11:53 Temperature 98.2 F Pulse Rate [Right Pulse Oximeter] 83 Respiratory Rate 18 Blood Pressure [Ri ght Upper Arm] 143/83 H Pulse Oximetry 96 Oxygen Delivery Me thod Room Air Course Vital Signs Vital signs: Initial Vital Signs Temperature 98.2 F 07/17/23 11:53 Temperature Source Temporal Artery Scan 07/17/23 11:53 Pulse Rate 83 07/17/23 11:53 Respiratory Rate 18 07/17/23 11:53 Blood Pressure 143/83 H 07/17/23 11:53 Blood Pressure Mean 103 07/17/23 11:53 Blood Pressure Position Sitting 07/17/23 11:53 Pulse Oximetry 96 07/17/23 11:53 Oxygen Delivery Method Room Air 07/17/23 11:53 Vital Signs Temperature 98.2 F 07/17/23 11:53 Pulse Rate 83 07/17/23 11:53 Respiratory Rate 18 07/17/23 11:53 Blood Pressure 143/83 H 07/17/23 11:53 Pulse Oximetry 96 07/17/23 11:53 Oxygen Delivery Method Room Air 07/17/23 11:53 Temperature 98.2 F 07/17/23 11:53 Pulse Rate 83 07/17/23 11:53 Respiratory Rate 18 07/17/23 11:53 Blood Pressure 143/83 H 07/17/23 11:53 Pulse Oximetry 96 07/17/23 11:53 Oxygen Delivery Method Room Air 07/17/23 11:53 Medical Decision Making MDM Narrative Medical decision making narrative: This is a 43-year-old female with a complex past history presenting to the ER today. She is here with her son because he is being seen for sore throat and an URI symptoms. She has had a painful rash on the vertex of her scalp that is been there since May. She has been seen several times in the [facility] system and at the ER in [place]. She has been put on multiple rounds of antibiotics for what is presumed to be a scalp cellulitis. These have included doxycycline, Bactrim, Levaquin . Despite that the lesion and rash have been continuing. Based on my initial physical exam I am suspicious that this is probably a kerion from tinea capitis. I informed the patient of this and she was extremely skeptical. She is endorsing a lot of pain in her skull as well. We did attempt perform a scraping of the lesion to get some skin flakes for FEMI prep to look for fungal elements. Patient was not able to tolerate this. I did attempt to obtain some skin flakes by using a moistened cotton tip applicator. Sent this for FEMI prep and unfortunately no fungal elements were seen. I am not confident that we have an adequate specimen from her skin to make this test reliable. Clinically I still suspect this is a kerion. We also obtain CT scan to make sure there was no bony erosive lesion or osteomyelitis. CT scan does show evidence for what appears to be an osteoma which is stable and unchanged from prior. I do think there is an overlying skin infection. We will start the patient on griseofulvin 500 mg b.i.d. for 30 days. She will follow-up with her primary care provider within I week to recheck. Discussed that it may take some time for this to start to get better if it is truly a kerion. Discussed precautions for return to the ER and need for follow-up. Patient and her son verbalized understanding. Lab Data Labs: Lab Results 07/17/23 Range/Units 14:00 FEMI Result No Fungal Elements (None Seen) FEMI Prep Source Skin Discharge Plan Discharge Clinical Impression: Kerion Patient Disposition: Home, Self-Care Condition: Stable Instructions: Skin Yeast Infection (ED) Additional Instructions: As we discussed, please start on the new [id number] follow-up with your regular doctor for recheck within 7-10 days. If you have spreading rash, increasing swelling, high fever, or any concerns, please come back to the ER right away to be rechecked. Prescriptions: New griseofulvin microsize 500 mg tablet 500 mg PO Q12H Qty: 60 0RF Rx Instructions: must administer with high-fat meal or food hydrocodone-acetaminophen 5-325 mg tablet 1 tab PO Q4-6H PRN (Reason: pain) Qty: 10 0RF No Action gabapentin 400 mg capsule 1,200 mg Patient Comments: TAKE 1 CAPSULE BY MOUTH THREE TIMES DAILY quetiapine 100 mg tablet paroxetine HCl 30 mg tablet PO Patient Comments: TAKE 2 TABLETS BY MOUTH EVERY DAY dextroamphetamine-amphetamine 10 mg capsule,extended release 24hr PO Patient Comments: TAKE 1 CAPSULE BY MOUTH EVERY MORNING Follow Up/Referrals: HARSH HUSAIN DO [Primary Care Provider] - Stand Alone Forms: [facility] Info Instructions
--- NOTE | 2023-07-17 14:02 | CRLHL7_ITS ---
For Patients: As a result of the Century Cures Act, medical imaging exams and procedure reports are released immediately into your electronic medical record. You may view this report before your referring provider. If you have questions, please contact your health care provider. Indication: Scalp lesion with swelling Technique: Noncontrast head CT Comparison: Head CT 07/12/2022 Findings: Oval homogeneous dense 1.8 x 0.8 centimeter exophytic osseous lesion off the right frontal bone, outer table this is unchanged in appearance and size from July/2022 probably reflecting an osteoma. No other lesions are seen no acute intracranial hemorrhage or mass. No midline shift no abnormal extra-axial air or fluid collections are seen. Impression: 1. No acute intracranial hemorrhage or mass. 2. Exophytic bony lesion off the right frontal bone unchanged in appearance and size from July 2022 likely reflecting an osteoma. Please note that all CT scans at this facility use dose modulation, iterative reconstruction, and/or weight-based dosing when appropriate to reduce radiation dose to as low as reasonably achievable. Dictated by Melisa Mccormack MD @ 07/17/2023 2:43:31 PM (Electronically Signed)
== END 2023-07-17 15:52 | disposition home or self-care (01) ==
PROVIDERS: Emergency Provider Emergency Medicine; PCP Student in an Organized Health Care Education/Training Program
DX: B35.0 Tinea barbae and tinea capitis (principal)
CPT/HCPCS: 70450; 87210; 99283; 99284

== ENCOUNTER 2023-11-27 13:21 | Emergency (ER) | payer OTHER, MEDICARE, SELFPAY ==
[2023-11-27 13:26] VITALS: BP 120/74; PULSE 72; RESP 18; TEMP 36.9; O2SAT 98; BMI 17.2
--- NOTE | 2023-11-27 13:42 | XR_ITS ---
Patient: DORIE EISENBERG Facility:?[facility] Patient ID:?[id number] Site Patient ID:?[id number]. Site :?[id number] Study:?XRay-Chest Portable-11/27/2023 1:59:04 PM Ordering Physician:Alejo Grimaldo Final Report: Indication: Chest pain. Technique: Chest one view Comparison: Chest radiograph 07/12/2022. FINDINGS: The cardiomediastinal silhouette size is normal. There is no focal pulmonary opacity, pleural effusion or pneumothorax. The visualized osseous structures are unremarkable for age. Impression: No acute cardiopulmonary abnormality. Dictated by Luz Marina Williamson MD @ 11/27/2023 2:12:47 PM Signed by:?Luz Marina Williamson MD @11/27/2023 2:12:47 PM (Electronic Signature)
--- NOTE | 2023-11-27 13:49 | ED_ITS ---
HPI - General Adult General Chief complaint: Unspecified Complaint, Adult Stated complaint: Heart attack 2 weeks ago, pain all over, headache Time Seen by Provider: 11/27/23 13:34 History of Present Illness HPI narrative: Patient is a 43-year-old female who lives in [place] who has a history of anxiety/depression/bipolar 1 disorder/polysubstance abuse including methamphetamine in the past was seen for non ST elevation ME at [facility] from [id number] she had an angiogram that showed no meaningful cardiac coronary artery disease. She did have some small septal wall motion abnormality consistent with a prior ME, and given that she has had a history of what appears to be antiphospholipid syndrome she was started on aspirin and Plavix . She comes ER today with pinpoint chest discomfort in left sternal area and feeling like she has bruising on her legs where ?her dogs bump into her legs.She also reports she has a frontal headache and she has had headaches in the past by her report. She denies recent drug use. She denies diaphoresis, nausea vomiting, arm pain neck pain jaw pain any radiation of discomfort. ' Related Data Home Medications Medication Instructions Recorded Confirmed gabapentin 400 mg capsule 1,200 mg PO 07/12/22 dextroamphetamine-amphetamine ER 20 mg PO 07/17/23 10 mg 24hr capsule,extend release paroxetine HCl 30 mg tablet 30 mg PO 07/17/23 quetiapine 100 mg tablet mg 07/17/23 Previous Rx's Medication Instructions Recorded griseofulvin microsize 500 mg 500 mg PO Q12H #60 tabs 07/17/23 tablet Allergies Allergy/AdvReac Type Severity Reaction Status Date / Time No Known Drug Allergies Allergy Verified 09/12/22 20:05 Review of Systems Status of ROS: Reports: 6 or more systems reviewed and unremarkable except as noted in History and below PFSH PFS Medical History No significant past medical history Surgical History No significant past surgical history Social History Smoking Status: Smoker, status unknown Second hand tobacco smoke exposure: No Non-prescribed substance use: former substance user Exam Narrative: Exam Narrative: Objective: The patient's vital signs are normal within normal limits She is alert orient x3 HEENT is unremarkable no facial asymmetry neck is supple Chest is clear Heart rhythm regular heart murmur No palpable chest wall pain Abdomen is benign soft she has got bruising where she was getting an injection in her abdomen Extremities show couple of bruises over anterior shins bilaterally Neurologic is nonfocal upper lower extremities Const: Vital Signs, click to edit/add: Vital Signs - 24 hr 11/27/23 13:26 Temperature 98.5 F Pulse Rate [Right Pulse Oximeter] 72 Respiratory Rate 18 Blood Pressure [Le ft Upper Arm] 120/74 Pulse Oximetry 98 Oxygen Delivery Me thod Room Air Course Vital Signs Vital signs: Initial Vital Signs Temperature 98.5 F 11/27/23 13:26 Temperature Source Temporal Artery Scan 11/27/23 13:26 Pulse Rate 72 11/27/23 13:26 Respiratory Rate 18 11/27/23 13:26 Blood Pressure 120/74 11/27/23 13:26 Blood Pressure Mean 89 11/27/23 13:26 Blood Pressure Position Sitting 11/27/23 13:26 Pulse Oximetry 98 11/27/23 13:26 Oxygen Delivery Method Room Air 11/27/23 13:26 Vital Signs Temperature 98.5 F 11/27/23 13:26 Pulse Rate 72 11/27/23 13:26 Respiratory Rate 18 11/27/23 13:26 Blood Pressure 120/74 11/27/23 13:26 Pulse Oximetry 98 11/27/23 13:26 Oxygen Delivery Method Room Air 11/27/23 13:26 Temperature 98.5 F 11/27/23 13:26 Pulse Rate 72 11/27/23 13:26 Respiratory Rate 18 11/27/23 13:26 Blood Pressure 120/74 11/27/23 13:26 Pulse Oximetry 98 11/27/23 13:26 Oxygen Delivery Method Room Air 11/27/23 13:26 Medications Administered Medications: Discontinued Medications Generic Name Dose Route Start Last Admin Trade Name Freq PRN Reason Stop Dose Admin Acetaminophen 1,000 mg 11/27/23 13:45 11/27/23 14:15 Acetaminophen 500 Mg Tablet PO 11/27/23 13:46 1,000 mg ONCE ONE Administration Hydrocodone Bitart/Acetaminophen 1 tab 11/27/23 13:42 11/27/23 15:13 Hydrocodone/Acetamin 7.5-325 Tablet PO 11/27/23 13:43 Not Given ONCE ONE Medical Decision Making MDM Narrative Medical decision making narrative: [age] year white female with a history of polysubstance abuse, mental illness presents about a week after discharge from [facility] with a non ST elevation ME, thought possibly related her antiphospholipid syndrome, the patient was started on aspirin and Plavix. She has had some bruising likely result of these medications. She had no significant coronary disease noted. I think today given her presenting complaints will do an EKG chest x-ray and laboratory studies including a troponin I in the lab if these are reassuring I think we can safely allow to go home and continue her same medications she has a frontal headache as well should be given Tylenol given her history of substance abuse. By my read the patient's EKG shows normal sinus rhythm no acute ST T wave changes. Addendum; patient has an x-ray that by my read looks unremarkable radiology confirms, EKG shows normal sinus rhythm no acute ST T wave changes. Troponin is negative. Her lab studies look reassuring thus far and when they were completely back and if no abnormality should be discharged home, Tylenol as needed for headache. Her viral studies are also negative. Rest of her labs came back and looked relatively reassuring, her troponin is negative she will be discharged home, Tylenol as needed, continue home medications. Follow up with primary care in [place] and as planned. Lab Data Labs: Lab Results 11/27/23 11/27/23 Range/Units 13:55 14:10 WBC 6.30 (4.50-11.00) K/uL RBC 4.40 (4.00-5.20) m/uL Hgb 12.9 (12.0-16.0) gm/dL Hct 39.8 (33.0-51.0) % MCV 91 (80-100) fL MCH 29 (26-34) pg MCHC 32 (32-36) gm/dL RDW Coeff of Tyrell 13.8 (11.5-15.5) % Plt Count 295 (140-440) K/uL Neut % (Auto) 53.1 (42.0-72.0) % Lymph % (Auto) 36.3 (20-44) % [place] % (Auto) 7.6 (0.0-11.0) % Eos % (Auto) 2.7 (0.0-7.0) % Baso % (Auto) 0.3 (0.0-3.0) % Neut # (Auto) 3.34 (1.7-7.0) K/uL Lymph # (Auto) 2.29 (0.90-2.90) K/uL [place] # (Auto) 0.50 (0.00-0.90) K/UL Eos # (Auto) 0.17 (0.00-0.50) K/uL Baso # (Auto) 0.02 (0.00-0.30) K/uL Abs Immat Gran (auto) 0.00 (0.00-0.30) K/uL Imm/Tot Granulo (auto) 0.0 % INR 0.87 L (0.91-1.10) Sodium 142 (135-149) mmol/L Potassium 4.5 (3.6-5.1) mmol/L Chloride 104 (96-114) mmol/L Carbon Dioxide 31 (20-32) mmol/L Anion Gap 7 (7-15) mEq/L BUN 20 (5-24) mg/dL Creatinine 0.8 (0.5-1.5) mg/dL Estimated Creat Clear 72.16 Estimated GFR 94 ml/min Glucose 79 (60-115) mg/dL Calcium 8.9 (8.4-10.6) mg/dL Total Bilirubin 0.6 (0.1-1.5) mg/dL Direct Bilirubin 0.2 (0.0-0.5) mg/dL AST 33 (12-35) U/L ALT 24 (4-35) U/L Alkaline Phosphatase 72 (40-150) U/L Troponin I < 0.01 L (0.01-0.04) ng/mL C-Reactive Protein < 0.5 L (0.5-1.0) mg/dL NT-Pro-B Natriuret Pep 124 pg/mL Total Protein 7.3 (6.0-8.3) g/dL Albumin 4.1 (3.3-5.0) g/dL SARS-CoV-2 (PCR) Negative SARS-CoV-2 (Negative) Influenza Type A (PCR) Negative PCR FLU A (Negative) Influenza Type B (PCR) Negative PCR FLU B (Negative) RSV (PCR) Negative PCR RSV (Negative) Discharge Plan Discharge Clinical Impression: Acute chest wall pain, Bruising Patient Disposition: Home w/ Parent or Adult Condition: Stable Additional Instructions: Observe, continue home medications, rest, light activity, follow up with her regular doctor in the next few days, certainly sooner return to the ED as needed. Activity Level: Light activity Discharge Diet: Regular Prescriptions: No Action gabapentin 400 mg capsule 1,200 mg PO Patient Comments: TAKE 1 CAPSULE BY MOUTH THREE TIMES DAILY quetiapine 100 mg tablet paroxetine HCl 30 mg tablet 30 mg PO Patient Comments: TAKE 2 TABLETS BY MOUTH EVERY DAY dextroamphetamine-amphetamine 10 mg capsule,extended release 24hr 20 mg PO Patient Comments: TAKE 1 CAPSULE BY MOUTH EVERY MORNING griseofulvin microsize 500 mg tablet 500 mg PO Q12H Qty: 60 0RF Rx Instructions: must administer with high-fat meal or food Follow Up/Referrals: HARSH HUSAIN DO [Referring] - Stand Alone Forms: [facility] Info Instructions
[2023-11-27] MEDS: ACETAMINOPHEN 500 MG TABLET 1000 MG PO (14:15)
[2023-11-27 14:20] LABS: Basophils Absolute Auto 0.02 K/uL (0.00-0.30); Basophils Percent Auto 0.3 % (0.0-3.0); Eosinophils Absolute Auto 0.17 K/uL (0.00-0.50); Eosinophils Percent Auto 2.7 % (0.0-7.0); Hematocrit 39.8 % (33.0-51.0); Hemoglobin* 12.9 gm/dL (12.0-16.0); Lymphocytes Absolute Auto 2.29 K/uL (0.90-2.90); Lymphocytes Percent Auto 36.3 % (20-44); Mean Corpuscular HGB Conc 32 gm/dL (32-36); Mean Corpuscular Hemoglobin 29 pg (26-34); Mean Corpuscular Volume 91 fL (80-100); Monocytes Percent Auto 7.6 % (0.0-11.0); Neutrophils Absolute Auto 3.34 K/uL (1.7-7.0); Neutrophils Percent Auto 53.1 % (42.0-72.0); Platelet Count* 295 K/uL (140-440); RDW Coefficient of Variation % 13.8 % (11.5-15.5)
[2023-11-27 14:21] LABS: Slide Review Reflex No
[2023-11-27 14:40] LABS: Albumin* 4.1 g/dL (3.3-5.0)
[2023-11-27 14:43] LABS: Alanine Aminotransferase* 24 U/L (4-35); Alkaline Phosphatase* 72 U/L (40-150); Aspartate Amino Transferase* 33 U/L (12-35); Bilirubin Direct* 0.2 mg/dL (0.0-0.5); Bilirubin Total* 0.6 mg/dL (0.1-1.5); Total Protein* 7.3 g/dL (6.0-8.3)
[2023-11-27 14:47] LABS: PCR FLU A Negative PCR FLU A (Negative); PCR FLU B Negative PCR FLU B (Negative); PCR RSV Negative PCR RSV (Negative); SARS PCR* Negative SARS-CoV-2 (Negative)
[2023-11-27 14:58] LABS: NT Pro B Type NatriureticPept* 124 pg/mL; Troponin I* < 0.01 ng/mL (0.01-0.04)
[2023-11-27 15:23] LABS: INR 0.87 (0.91-1.10); Prothrombin Time 12.3 Seconds
[2023-11-27 15:24] LABS: Chloride* 104 mmol/L (96-114); Sodium* 142 mmol/L (135-149)
[2023-11-27 15:25] LABS: Potassium* 4.5 mmol/L (3.6-5.1)
[2023-11-27 15:27] LABS: Creatinine* 0.8 mg/dL (0.5-1.5); Est. Creatinine Clearance* 72.16; Estimated Glomerular Filt Rate 94 ml/min
[2023-11-27 15:28] LABS: Anion Gap 7 mEq/L (7-15); Blood Urea Nitrogen* 20 mg/dL (5-24); Calcium* 8.9 mg/dL (8.4-10.6); Carbon Dioxide* 31 mmol/L (20-32); Glucose* 79 mg/dL (60-115)
[2023-11-27 15:31] LABS: C Reactive Protein* < 0.5 mg/dL (0.5-1.0)
== END 2023-11-27 15:49 | disposition home or self-care (01) ==
PROVIDERS: Emergency Provider Family Medicine
DX: R07.89 Other chest pain (principal)
CPT/HCPCS: 36415; 71045; 80048; 80076; 83880; 84484; 85025; 85610; 86140; 87631; 93005; 99284; 99285; A9270

== ENCOUNTER 2024-12-12 19:47 | Emergency (ER) | payer MEDICARE, SELFPAY ==
--- OUTSIDE RECORDS SUMMARY | 2024-12-12 19:49 | XMS_ITS | CCD ---
Author Organization Unknown Care Team Providers Care Control Panel Tester Name Role Phone Pharmacy Technician [place], [place] Primary Care Provider Unava ilable Unavailable Chronic Care Management Unavaila ble Summary Purpose DataExchange Insurance Providers Payer name Policy type / Coverage type Covered green party ID Effective Begin Date Effective End Date Medicare [place] Medicare Part B [id number] Unknown Unknown [employer] ([facility]) Medicare Part B [id number] Unknown Unknow n Family History Family History data not found Medication Administered No Medication Administered data Reason For Visit No Reason For Visit data
--- OUTSIDE RECORDS SUMMARY | 2024-12-12 19:49 | XMS_ITS | Clinical Summary ---
Author Organization [employer] [facility] [employer] [facility] Address [address] [place] [address] Care Team Providers Care [employer] Name Role Phone JensenBenjamin romero Hardik Unavailable Marce Mota NP Primary Care Provider [phone] Allergies Active Allergy Reactions Criticality Noted Date Comments Codeine 01/13/2010 Lidocaine Edema 03/25/2008 Morphine Anxiety,Agitation 11/11/2023 Procaine 01/13/2010 Medications clopidogreL (PLAVIX) 75 mg tabletIndications: NSTEMI (non-ST elevated myocardial infarction) (HC) Take 1 Tablet (75 mg) by mouth every morning. Take once daily by mouth x 1 year without interruption 90 Tablet 3 02/07/20 24 Active Blood Pressure Monitor KitIndications:NST MARTHA (non-ST elevated myocardial infarction) (HC) Frequency of testing: daily 1 Each 02/07/20 24 Active metoprolol succinate (TOPROL XL) 25 mg Sustained-Release tabletIndications: NSTEMI (non-ST elevated myocardial infarction) (HC) TAKE 1/2 TABLET(12.5 MG) BY MOUTH DAILY 45 Tablet 2 05/18/20 24 Active rizatriptan (MAXALT LACE MENDER) 10 mg disintegrating tabletIndications: Atypical migraine Place 1 Tablet (10 mg) on the tongue 2 times daily if needed for Migraine. Give at minimum 2hrs apart. Max Dose: 30mg per 24hrs. 10 Tablet 05/18/20 24 Active Blood Pressure Test (Wireless BP Monitor) Kit Use as directed to test blood pressure daily 1 Each 07/31/20 24 Active atorvastatin (LIPITOR) 40 mg tabletIndications: NSTEMI (non-ST elevated myocardial infarction) (HC),Mixed hyperlipidemia Take 1 Tablet (40 mg) by mouth once daily with evening meal. 90 Tablet 1 08/27/20 24 Active losartan (COZAAR) 25 mg tabletIndications: NSTEMI (non-ST elevated myocardial infarction) (HC),Hypertension Take 1 Tablet (25 mg) by mouth once daily. 90 Tablet 1 08/27/20 24 Active albuterol HFA (PRO-AIR; VENTOLIN; PROVENTIL) 90 mcg/actuation inhalerIndications :History of asthma Inhale 2 Puffs by mouth every 4 hours if needed for Wheezing. 8.5 g 1 10/01/20 24 Active dextroamphetamine- amphetamine (Adderall XR) 20 mg Extended-Release capsuleIndications :Attention deficit hyperactivity disorder (ADHD), unspecified ADHD type Take 1 Capsule (20 mg) by mouth once daily. 30 Capsule 11/07/19 25 Active dextroamphetamine- amphetamine (AdderalL) 10 mg tabletIndications: Attention deficit hyperactivity disorder (ADHD), unspecified ADHD type Take 1 Tablet (10 mg) by mouth once daily in the afternoon. 30 Tablet 11/07/19 25 Active Magnesium Glycinate 100 mg tabIndications:Sle ep disturbance Take 100-200 mg by mouth at bedtime. 60 Tablet 2 12/06/19 25 Active gabapentin (NEURONTIN) 300 mg capsuleIndications :Anxiety Take 3 Capsules (900 mg) by mouth three times daily. 270 Capsule 2 12/06/19 25 Active PARoxetine (PAXIL) 30 mg tabletIndications: Anxiety,Depression , unspecified depression type Take 2 Tablets (60 mg) by mouth once daily. 60 Tablet 2 12/06/19 25 Active QUEtiapine (SEROQUEL) 25 mg tabletIndications: Anxiety,Depression , unspecified depression type Take 1 Tablet (25 mg) by mouth at bedtime if needed (sleep). 90 Tablet 12/06/19 25 Active dextroamphetamine- amphetamine (Adderall XR) 20 mg Extended-Release capsuleIndications :Attention deficit hyperactivity disorder (ADHD), unspecified ADHD type Take 1 Capsule (20 mg) by mouth once daily. 30 Capsule 12/29/19 25 025 Active dextroamphetamine- amphetamine (Adderall XR) 20 mg Extended-Release capsuleIndications :Attention deficit hyperactivity disorder (ADHD), unspecified ADHD type Take 1 Capsule (20 mg) by mouth once daily. 30 Capsule 01/28/20 25 025 Active dextroamphetamine- amphetamine (Adderall XR) 20 mg Extended-Release capsuleIndications :Attention deficit hyperactivity disorder (ADHD), unspecified ADHD type Take 1 Capsule (20 mg) by mouth once daily. 30 Capsule 02/27/20 25 Active dextroamphetamine- amphetamine (AdderalL) 10 mg tabletIndications: Attention deficit hyperactivity disorder (ADHD), unspecified ADHD type Take 1 Tablet (10 mg) by mouth once daily in the afternoon. 30 Tablet 12/06/19 25 025 Active dextroamphetamine- amphetamine (AdderalL) 10 mg tabletIndications: Attention deficit hyperactivity disorder (ADHD), unspecified ADHD type Take 1 Tablet (10 mg) by mouth once daily in the afternoon. 30 Tablet 01/05/20 25 025 Active dextroamphetamine- amphetamine (AdderalL) 10 mg tabletIndications: Attention deficit hyperactivity disorder (ADHD), unspecified ADHD type Take 1 Tablet (10 mg) by mouth once daily in the afternoon. 30 Tablet 02/04/20 25 Active PARoxetine (PAXIL) 30 mg tabletIndications: Anxiety,Depression , unspecified depression type Take 2 Tablets (60 mg) by mouth once daily. 60 Tablet 2 09/19/20 24 025 Discontin ued(*Avai lability/ Formulary change/Co st of medicatio n) QUEtiapine (SEROQUEL) 25 mg tabletIndications: Anxiety,Depression , unspecified depression type Take 1 Tablet (25 mg) by mouth at bedtime if needed (sleep). 90 Tablet 09/19/20 24 025 Discontin ued(*Avai lability/ Formulary change/Co st of medicatio n) gabapentin (NEURONTIN) 300 mg capsuleIndications :Anxiety Take 3 Capsules (900 mg) by mouth three times daily. 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 Elevated troponin 11/13/2023 Chest pain of uncertain etiology 11/13/2023 NSTEMI (non-ST elevated myocardial infarction) 0 11/10/2023 Other stimulant abuse, in remission 03/28/2023 Attention deficit hyperactivity disorder (ADHD) 03/28/2023 Depression 03/28/2023 ASCUS with positive high risk HPV cervical 03/22 Overview (10/26/2024): 07/2017 ASCUS/HPV+ 08/2017 [place]: No abnormality 01/2023 ASCUS/HPV Negative 09/2024 ASCUS/HPV 16+, HPV 18 Negative 10/2024: reassuring colposcopy: no biopsy, next Pap smear with HPV testing 09/2025 Controlled substance agreement signed 12/01/2022 Overview (12/01/2022): 12/01/22, Nancy Mcdaniel NP, Psychiatry Dental abscess 01/15/2022 Pain due to dental caries 09/24/2020 Seizures 09/24/2020 MS (multiple sclerosis) 05/20/2017 Ocular migraine 05/20/2017 Cavernous malformation 12/25/2014 Spells 11/21/2014 Nicotine dependence 11/21/2014 Chronic pain 11/21/2014 Nontoxic multinodular goiter 05/17/2008 Resolved Problems Problem Noted Date Diagnosed Date Resolved Date Generalized anxiety disorder 05/18/2024 06/12/2024 Polysubstance abuse 11/10/2023 06/12/20 24 Anxiety 03/28/2023 06/12/2024 Anxiety and depression 09/24/202006/12 Menstrual period late 09/24/20202023 Bipolar 1 disorder, depressed, moderate 05/20/2017 06/12/2024 Schizophrenia 05/20/2017 06/12/2024 Gestational diabetes mellitus 11/08/2011 02/10/2012 History of oligohydramnios i n prior , currently 09/03/2011 02/07/2024 Kidney stones 01/13/2010 02/07/2024 Chondromalacia of patella 01/13/2010 Encounters Date Type Department Care Team Description 12/10/2024 Telephone [facility] [address] [place] [address] Nancy Mcdaniel NP Prior Authorization (dextroamphetamine-amp hetamine (Adderall XR) 20 mg Extended-Release capsule Approved - 10/02/25) 12/10/2024 Telephone [facility] [address] [place] [address] Nancy Mcdaniel NP Prior Authorization (dextroamphetamine-amp hetamine (AdderalL) 10 mg tablet) 12/05/2024 12:45 PM [employer] Telemedicine [facility] [address] [place] [address] Nancy Mcdaniel NP Telehealth; Medication Management 12/05/2024 Travel 11/10/2024 Refill [facility] [address] [place] [address] Nancy Mcdaniel NP Refill Request (Gabapentin) 11/06/2024 Refill [facility] [address] [place] [address] Nancy Mcdaniel NP Refill Request (Adderall ) 10/26/2024 8:15 AM 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 AND 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 Procedure Only [address] [phone] Kiya Ovalles MD Procedure (colposcopy ) 10/26/2024 Travel 10/24/2024 2:30 PM [employer] M[employer]PLIER Telemedicine [facility] [address] [place] [phone] Left without seen 10/24/2024 1:30 PM [employer]ER [employer]PLIER Office Visit [facility] at [address] [phone] Nga Martinez MD Follow Up (NSTEMI ) 10/24/2024 Travel 10/05/2024 Telephone [facility] [address] [place] [address] Marce Mota NP Pap Plan 09/30/2024 Refill [facility] [address] [place] [address] Nancy Mcdaniel NP Refill Request (Gabapentin) 09/30/2024 Refill [facility] [address] [place] [address] Marce Mota NP Refill Request (Albuterol Hfa) 09/19/2024 2:15 PM [employer] Telemedicine [facility] [address] [place] [address] Nancy Mcdaniel NP Telehealth 09/19/2024 1:05 PM [employer] Office Visit [address] [phone] Marce Mota NP Physical (Discuss menopause /URI) 09/19/2024 Travel from Last 3 Months Immunizations Immunization Administration Dates Next Due Hepatitis B (Adult) 05/17/2023,09/07/2000 Hepatitis B, Unspecified 09/07/2000 Influenza A (H1N1), Inactivated 08/05/2009 Influenza, IIV3 (Age 6-35 mos) 09/03/2011 Influenza, IIV3 (Age >=3 years) 09/03/2011,06/29,08/18/2004 Tdap 02/21/2024,09/03/2011 Family History Medical History Relation Name Comments Cancer Maternal Grandmother lung Hypertension Maternal Grandmother Hypertension Mother Other Mother MS Relation Name Status Comments Father Alive Maternal Grandfather Maternal Grandmother Mother Alive Son 1 Alive Son 2 Alive Social History Tobacco Use Types Packs/Day Years Used Date Smoking Tobacco: Every Day Cigarettes 0.5 20 Smokeless Tobacco: Never Tobacco Cessation:Ready to Q uit: No; Counseling Given: Yes Alcohol Use Standard Drinks/Week Comments Not Currently 0 (1 standard drink = 0.6 oz pur e alcohol) one or two per month PHQ-2 Answer Date Recorded PHQ-2 TOTAL SCORE 6 12/05/2024 Social Connections Answer Date Recorded Do you often feel lonely or isolated from those around you? 4 11/10/2023 Financial Resource Strain Answer Date R ecorded Difficulty of Paying Living Expenses 1 11/10/2023 Difficulty of Paying Living Expenses 2 11/10/2023 Food Insecurity Answer Date Recorded Do you worry your food will run out before you are able to buy more? 1 11/10/2023 Transportation Needs Answer Date Record ed Does lack of transportation keep you from medica l appointments? 1 11/10/2023 Does lack of transportation keep you from work, meetings or getting things that you need? 1 11/10/2023 Housing Stability Answer Date Recorded What is your housing situation today? 1 11/10/2023 Interpersonal Safety Answer Date Record ed Are you being hit, kicked, p ushed or yelled at (see row info)? No 03/31/2024 Interpersonal Safety Abuse 12 - 18 Not on file 03/31/2024 Interpersonal Safety Ambulatory Vulnerability No t on file 03/31/2024 Utilities Answer Date Recorded Do you have trouble paying f or utilities (for example, heat, electricity, water, phone)? 2 11/10/2023 Comments No Sex and Gender Information Value Date Recorded Sex Assigned at Not on file Legal Sex Female 5:31 AM [employer] Gender Identity Not on file Sexual Orientation Not on file Obstetrics History Para Term AB IAB SAB Ectopic Multiple Livin g Live Births 9 5 4 1 4 4 5 5 Date Outcome GA Total Labor Labor/2nd/3rd Weight Sex Type Anes PTL Kamini A1 A5 Name Clin SAB 2004 36w 0d M Vag Livin g Leonel Comments:placenta stop ped working at 36 weeks per pt. ( induce)d 2006 Term 37w 0d M Vag Livin g Sd 2007 SAB 5w0 d 2007 SAB 9 SAB 8w0 d Comments:d&c x2 after that preg. 2008 Term F Vag Livin g [place] y 2010 Term 39w 0d 9h 00m/ F Vag Livin g Jaqueline Toth 2011 Term 40w 0d 5h 00m/ 2.89 kg (6 lb 6 oz) M Vag Valeriano Ovalles Delivery Location:[facility] Comments:System Genera maritza. Please review and update details. Last Filed Vital Signs Vital Sign Reading Time Taken Comments Blood Pressure 112/62 10/26/2024 8:33 AM PUTTY MIXER [employer]PLIER Pulse 83 10/26/2024 8:33 AM [employer] M[employer]ER [employer]PLIER Temperature 37.1 C (98.7 F) 09/19/2024 1:17 PM [employer]UT[employer] M[employer]ER [employer]PLIER Respiratory Rate 14 08/02/2024 5:01 PM CDT Oxygen Saturation 97% 10/26/2024 8:33 AM PUT[employer] M[employer]ER [employer]IER Inhaled Oxygen Concentration - - Weight 57.2 kg (126 lb) 10/26/2024 8:33 AM [employer]UT[employer] MIXER [employer]PLIER Height 170.2 cm (5' 7) 09/19/2024 1:17 PM [employer] M[employer]ER [employer]IER Body Mass Index 19.73 09/19/2024 1:17 PM [employer]UT[employer] MIXER [employer]IER Plan of Treatment Upcoming Encounters Date Type Department Care Team (Late st Contact Info) Description 03/06/2025 12:45 PM CDT Office Visit [facility] [address] [place] [address] Nancy Mcdaniel NP [address] [place] [address] Health Maintenance Due Date Last Done Comments Pneumococcal series for age 6-49 (1 of 2 - PCV) 2000 COVID-19 vaccine series ( - season) 2024 Influenza Vaccine (#1) 2024 1, 09/03/2011, 06/29/2010, Additional history exists BMI (ht and wt on same day) for age 18+ 09/19/2025 09/19/2024, 02/21/2024, 03/01/2023, Additional history exists Pap test for age 21-65 10/26/2025 5 (Verified in Care Everywhere or Patient Record), 09/19/2024, 09/19/2024, Additional history exists Depression screening for age 12+ 12/05/2025 12/05/2024, 07/24/2024, 05/11/2024, Additional history exists Tetanus booster 02/20/2034 02/21/2024, 09/03/2011 Hepatitis C screening for ag e 18-79 Completed 05/10/2023, 09/23/2020 HIV for age 15-65 Completed 02/04/2024, , 11/02/2021, Additional history exists Tdap Completed 02/21/2024, 09/03/2011 Procedures Procedure Name Priority Date/Time Associated Diagnosis Comments GC CHLAMYDIA TRACH PROBE Routine 10/26/2024 9:14 AM [employer] M[employer]ER [employer]PLIER Subacute vaginitis Screening examination for STD (sexually transmitted disease) TRICHOMONAS, REZA, AND BACTERIAL VAGINOSIS BY TAE Routine 10/26/2024 9:14 AM [employer] MIXER AND APPLIER Subacute vaginitis TRIMMING CUTTER MACHINE THIN PREP PAP DIAGNOSTIC IMAGED Routine 09/19/2024 2:17 PM [employer]UT[employer] MIXER [employer]PLIER ASCUS with positive high risk HPV cervical HPV HIGH RISK Routine 09/19/2024 1:05 PM PUT[employer] MIXER [employer]PLIER ASCUS with positive high risk HPV cervical ANTI HIV 1/2 Routine 02/04/2024 9:14 AM CDT Screen for STD (sexually transmitted disease) LC HCV ANTIBODY RFX TO QUANT PCR Routine 05/10/2023 1:30 PM CDT Need for hepatitis C screening test from Last 3 Months or Most Recently Relevant to Health Maintenance Results * (ABNORMAL) TRICHOMONAS, REZA, AND BACTERIAL VAGINOSIS BY TAE (10/26/2024 9:14 AM PUTTY MIXER AND APPLIER) REZA SPECIES Negative Negative 5 12:07 PM PUTTY MIXER AND APPLIER [facility] REZA GLABRATA Negative Negative 10/27/2024 12:07 PM PUTTY MIXER AND APPLIER [facility] TRICHOMONAS VVA Negative Negative 5 12:07 PM PUTTY MIXER AND APPLIER [facility] BACTERIAL VAGINOSIS Positive(A) Negative 10/27/2024 12:07 PM PUTTY MIXER AND APPLIER [facility] N[facility]AL [facility] Other VAGINAL SWAB / Unknown Non-Blood / Unknown 10/26/2024 9:14 AM PUTTY MIXER AND APPLIER 10/26/2024 9:15 AM PUT[employer] MIXER [employer] APPLIER Kiya Ovalles MD MICROBIOLOGY Final Resu lt Performing Organization Address City/[facility]/ZIP Co de Phone Number [facility] [address] [place] [id number], [place] * GC & CHLAMYDIA DNA PCR [[id number]] (10/26/2024 9:14 AM PUTTY MIXER AND APPLIER) CHLAMYDIA PROBE Negative 12:39 PM PUTTY MIXER AND APPLIER [facility] TR[facility] N GONORRHOEAE PROBE Negative 10/27/2024 12:39 PM PUTTY MIXER AND APPLIER [facility] Other VAGINAL SWAB / Unknown Non-Blood / Unknown 10/26/2024 9:14 AM PUTTY MIXER AND APPLIER 10/26/2024 9:15 AM PUTTY MIXER AND APPLIER Kiya Ovalles MD MICROBIOLOGY Final Resu lt Performing Organization Address City/[facility]/ZIP Co de Phone Number [facility] [address] [place] [phone], [place] * (ABNORMAL) TRIMMING CUTTER MACHINE THIN PREP PAP DIAGNOSTIC IMAGED (09/19/2024 2:17 PM PUTTY MIXER AND APPLIER) Case Report Gynecologic Cytology Report Case: [id number] Authorizing Provider: Marce Mota NP Collected: 09/19/2024 1417 Ordering Location: [facility] Received: 09/19/2024 1417 Clinic First Screen: Yehuda Burnette Pathologist: Gisela Brandon MD Specimen: TRIMMING CUTTER MACHINE ThinPrep Vial Diagnostic, Cervical 10/05/2024 12:59 PM PUTTY MIXER AND APPLIER [facility]- ENTRAL LABORATORY INTERPRETATION/ RESULT LOW GRADE SQUAMOUS INTRAEPITHELIAL LESION (LSIL)(A) (none) 10/05/2024 12:59 PM PUTTY MIXER AND APPLIER [facility] R NON-NEOPLASTIC FINDING(S) Parakeratosis 10/05/2024 12:59 PM PUTTY MIXER AND APPLIER [facility] SPECIMEN ADEQUACY Satisfactory for evaluation Endocervical component present 10/05/2024 12:59 PM PUTTY MIXER AND APPLIER [facility] HPV REQUEST HPV and PAP 10/05/2024 12:59 PM PUTTY MIXER AND APPLIER [facility] Date of LMP 09/15/24 10/05/2024 12:59 PM PUTTY MIXER AND APPLIER [facility] Last Pap Date 02/10/23 10/05/2024 12:59 PM PUTTY MIXER AND APPLIER [facility] Last Pap Result ASCUS 12:59 PM PUTTY MIXER AND APPLIER [facility] Abnormal Pap or [place] Bx in last 5 years Yes 10/05/2024 12:59 PM PUTTY MIXER AND APPLIER [facility] Menstrual Status Regular Periods 10/05/2024 12:59 PM PUTTY MIXER AND APPLIER [facility] [place] Bx Done Today No 10/05/2024 12:59 PM PUTTY MIXER AND APPLIER [facility] Additional Information None Given 10/05/2024 12:59 PM PUTTY MIXER AND APPLIER [facility] Comment: Cytology is screened at [facility] - [address], [place] [address] and [facility] - [address] [place] [address] and [facility] - [address] [place] [address] Interpreted at [facility] - [address], [place] [address] Automated Review Successful 10/05/2024 12:59 PM PUTTY MIXER AND APPLIER [facility] Comment:Specimen processed s uccessfully by automated eeg technician device, ThinPrep Imaging System, [employer] ANCILLARY TESTING TRIMMING CUTTER MACHINE HPV Ordered, Please see separate report 10/05/2024 12:59 PM PUTTY MIXER AND APPLIER [facility] Note The pap test is a screening technique, not a diagnostic procedure. It is used primarily to screen for squamous cancers and precursor lesions. Published studies have shown that it is subject to both false negative and false positive results. The pap test should not be used as the sole means to diagnose or exclude pre-malignant and malignant lesions. 10/05/2024 12:59 PM PUTTY MIXER AND APPLIER [facility] EN[facility]AL [facility] Other (Cervical) Non-Blood / Unknown 09/19/2024 2:17 PM PUTTY MIXER AND APPLIER 09/19/2024 2:17 PM PUTTY MIXER AND APPLIER Comment:07/2017 ASCUS/HPV+ [place]: No [id number] ASCUS/HPV Negative Marce Mota NP PATHOLOGY/CYTOLOGY Final Result Performing Organization Address City/[facility]/ZIP Co de Phone Number [facility] [address] [address], * (ABNORMAL) HPV HIGH RISK (09/19/2024 1:05 PM PUTTY MIXER AND APPLIER) TYPE 16 Positive(A) Negative 09/22/2024 1:31 PM PUTTY MIXER AND APPLIER [facility] TRAL LAB[facility] TYPE 18 Negative Negative 09/22/2024 1:31 PM PUTTY MIXER AND APPLIER [facility] TRAL LAB[facility] OTHER HIGH RISK TYPES Negative Negative 09/22/2024 1:31 PM PUTTY MIXER AND APPLIER [facility] Other (Cervical) Non-Blood / Unknown 09/19/2024 1:05 PM PUTTY MIXER AND APPLIER 09/20/2024 2:07 PM PUTTY MIXER AND APPLIER Narrative [facility] - 09/22/2024 1:31 PM PUTTY MIXER AND APPLIER Specimen is positive for HPV type 16 DNA. HPV types 18, 31, 33, 35, 39, 45, 51, 52, 56, 58, 59, 66 and 68 DNA were undetectable or below the pre-set threshold Methodology: Radames Bright 4800 HPV Test Marce Mota NP MICROBIOLOGY Final Result Performing Organization Address City/[facility] Co de Phone Number [facility] [address] [address], [place] * ANTI HIV 1/2 (02/04/2024 9:14 AM CDT) HIV-1/HIV-2 SCREEN Non-Reacti ve Non-Reacti ve 02/04/2024 2:01 PM CDT [facility] Comment:HIV-1 p24 and HIV-1/ HIV-2 Ab Not Detected. Blood BLOOD SPECIMEN / Unknown Venipuncture / Unknown 02/04/2024 9:14 AM CDT 02/04/2024 9:19 AM CDT us Kary Johns GRAIN RECEIVER SEND OUTS Final Res ult [facility] [address] [place] [address], * LC HCV ANTIBODY RFX TO QUANT PCR (05/10/2023 1:30 PM CDT) Pathologist [facility] [place] HCV Ab Non Reactive Non Reactive 05/13/2023 4:08 AM CDT [facility] Blood BLOOD SPECIMEN / Unknown Venipuncture / Unknown 05/10/2023 1:30 PM CDT 05/10/2023 1:30 PM CDT Narrative [facility] - 05/13/2023 4:08 AM CDT Performed at: [address] [place] [id number] Associate Art Director: Michael Umana MD, Phone: [phone] us Milena Purvis MD LABORATORY Final Result [facility] [place] [address], from Last 3 Months or Most Recently Relevant to Health Maintenance Additional Health Concerns Infection Onset Date Last Indicated MRSA Clearance Comment:+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, right hand +MRSA 2014, arm Negative Nare 11/11/23 11/14/2023 11/14/[id number] [place] [id number] MEDICARE PART A HB ONLY MEDICARE PB ONLY MEDICARE PART B HB ONLY [facility] MEDICA MR HB ONLY [address] [place] [id number] FORMERLY [facility] [address] [place] [id number] MEDICARE PROVID[facility] Advance Directives * Full Code (Latest Code Status on File) Date Activated Date Inactivated Comments 11/10/2023 7:18 PM 11/15/2023 2:14 PM Question Answer Comments Code Status Discussion: Reviewed Preferences * Full Code Date Activated Date Inactivated Comments 11/10/2023 4:49 AM 11/10/2023 6:31 PM Question Answer Comments Code Status Discussion: Reviewed Preferences * Full Code Date Activated Date Inactivated Comments 11/19/2014 12:40 PM 11/22/2014 4:20 PM Care Teams Firer Diesel Locomotive Relationship Specialty Start Date End Date Marce Mota NP [address] [place] [address] PCP - General Nurse Practitioner - Family 02/21/24 Benjamin Almaraz Internal Medicine 09/24/14
--- NOTE | 2024-12-12 19:53 | ED.GENADULT ---
HPI - General Adult General Date Seen: 12/12/24 Chief complaint: Dental/Oral/Mouth Injury/Pain Stated complaint: Tooth infection Time Seen by Provider: 12/12/24 19:52 History of Present Illness HPI narrative: 44 yo F with history of anxiety, depression, bipolar, previous polysubstance abuse including methamphetamine, previous NSTEMI in November 2023 (per previous ER records records angiogram at [facility] showed no meaningful coronary artery disease). She presents to the ER today with pain in her right jaw at the angle of her mandible and also pain in her right upper jaw, next to the her nose on the right maxillary cheek. She knows that she has ?bad teeth. ? She developed bad teeth years ago when she is using methamphetamine. She says she has now been sober from meth about 5 years. She had promised herself that she would go to her dentist and get her teeth fixed after 1 year of sobriety, but that date came and went without her going to the dentist. She says she did go because she was afraid. Few months ago she went to her dentist and was arranging a referral to see a dentist in [place] or [place]. However she says that that referral never went through. Last night she started having some pain in the angle of her jaw that was a sharp stabbing pain from that tooth. She also noticed that her jaw seemed a little bit hard and swollen but that swelling came and went. Today she was at work and she had recurrent pain there and also little bit of pain in the right cheek lateral to her nose. She has not had any swelling under her jaw. No other facial swelling. No fever or chills. She has been on an antibiotic recently, prescribed for BV. She thinks that cephalexin but cannot find it in her electronic prescription record. She is not sure. It starts with a letter C. Related Data Home Medications ?Medication ?Instructions ?Recorded ?Confirmed gabapentin 400 mg capsule 1,200 mg PO 07/12/22 dextroamphetamine-amphetamine ER 20 mg PO 07/17/23 10 mg 24hr capsule,extend release paroxetine HCl 30 mg tablet 30 mg PO 07/17/23 quetiapine 100 mg tablet mg 07/17/23 Previous Rx's ?Medication ?Instructions ?Recorded griseofulvin microsize 500 mg 500 mg PO Q12H #60 tabs 07/17/23 tablet fluconazole 150 mg tablet 150 mg PO DAILY PRN #2 tabs 12/12/24 Allergies Allergy/AdvReac Type Severity Reaction Status Date / Time No Known Drug Allergies Allergy Verified 12/12/24 20:11 [facility] Medical History No significant past medical history Surgical History No significant past surgical history Social History Smoking Status: Current every day smoker Second hand tobacco smoke exposure: No How often do you have a drink containing alcohol: never AUDIT-C Alcohol total score: 0 Non-prescribed substance use: former substance user and marijuana (any form) Exam Narrative: Exam Narrative: Constitutional: Appears well-developed and well-nourished. Active. Non-toxic appearing. Remembers me from her previous ER visit and thanks me for making the right diagnosis for a scalp infection HENT: Head: Atraumatic. No signs of injury. Nose: No nasal discharge. Mouth/Throat: Mucous membranes are moist. Pharynx is normal. Tonsils symmetric. Uvula midline. Airway patent. No submandibular swelling. No trismus. Facial inspection and jaw inspection are normal. At this time there is no swelling, erythema, induration. Evaluating the teeth she is missing several molars and has dental caries on multiple teeth. It appears that she has her right mandibular wisdom tooth but the rest of the molars and her premolars on the right lower jaw are gone. There is no definite erythema or swelling of the jaw. No swelling of the cheek. No swelling of the submandibular tissues. The parotid is not tender or swollen Eyes: Conjunctivae normal and EOM are normal. Pupils are equal, round, and reactive to light. Right eye exhibits no discharge. Left eye exhibits no discharge. No icterus. Neck: Normal range of motion. Neck supple. No adenopathy. No stridor. Cardiovascular: Normal rate and regular rhythm. No murmur heard. No murmurs, rubs, or gallops. Brisk capillary refill Pulmonary/Chest: Effort normal. No stridor. No respiratory distress. No wheezes.No rhonchi. No rales. No retractions. Musculoskeletal: Normal range of motion. No edema. No tenderness. No deformity. Neurological: Alert. Normal strength. No cranial nerve deficit or sensory deficit. Coordination normal. GCS eye subscore is 4. GCS verbal subscore is 5. GCS motor subscore is 6. Skin: Skin is warm. No rash noted. Const: Vital Signs, click to edit/add: Vital Signs - 24 hr 12/12/24 19:57 12/12/24 20:24 12/12/24 20:25 Temperature 98.5 F 98.5 F 98.5 F Pulse Rate [Pulse Oximeter] 77 74 74 Respiratory Rate 16 16 16 Blood Pressure [Le ft Upper Arm] 146/105 H 135/84 135/84 Pulse Oximetry 100 100 Oxygen Delivery Me thod Room Air Room Air Course Vital Signs Vital signs: Initial Vital Signs Temperature 98.5 F 12/12/24 19:57 Temperature Source Temporal Artery Scan 12/12/24 19:57 Pulse Rate 77 12/12/24 19:57 Respiratory Rate 16 12/12/24 19:57 Blood Pressure 146/105 H 12/12/24 19:57 Blood Pressure Mean 118 H 12/12/24 19:57 Blood Pressure Position Sitting 12/12/24 19:57 Pulse Oximetry 100 12/12/24 19:57 Oxygen Delivery Method Room Air 12/12/24 19:57 Vital Signs Temperature 98.5 F 12/12/24 19:57 Pulse Rate 77 12/12/24 19:57 Respiratory Rate 16 12/12/24 19:57 Blood Pressure 146/105 H 12/12/24 19:57 Pulse Oximetry 100 12/12/24 19:57 Oxygen Delivery Method Room Air 12/12/24 19:57 Temperature 98.5 F 12/12/24 20:25 Pulse Rate 74 12/12/24 20:25 Respiratory Rate 16 12/12/24 20:25 Blood Pressure 135/84 12/12/24 20:25 Pulse Oximetry 100 12/12/24 20:24 Oxygen Delivery Method Room Air 12/12/24 20:24 Medical Decision Making MDM Narrative Medical decision making narrative: This patient presents with a tooth ache involving her right side, she thinks it is the right mandibular wisdom tooth/back molar.. The differential diagnosis includes: cracked tooth syndrome, pulpitis, sub-apical abscess, amongst others. Differential would also include Tightest but there is no evidence for any parotid swelling or tenderness at this time. I do not think this pain represents some sort a referred cardiac pain. No other facial pain or rash to suggest shingles, trigeminal neuralgia, or other diagnoses. There is no abscess detected around the tooth amenable to incision and drainage. There is no evidence of buccinator/canine space infections, significant facial swelling, or Daryn's angina. There are no posterior pharyngeal space infections detected. Suspect pulpitis. Treatment with NSAID, opiates, antibiotics. Instymeds prescription for Augmentin. Instymeds prescription for [place]. Patient does have history of methamphetamine abuse but says she has no history of opiate abuse. I think it is reasonable to give her a small supply of opiates with low risk of triggering new addiction. Follow up with a dentist/wood form builder in the coming days is indicated for further work up and treatment. She will call her dentist in the morning to arrange follow-up. Instructions for return to the ER were reviewed with the patient. She often gets vaginal yeast infections from antibiotics so will send a prescription for fluconazole that she can use as needed. Discharge Plan Discharge Clinical Impression: Toothache Patient Disposition: Home, Self-Care Condition: Stable Instructions: Toothache (ED) Additional Instructions: As we discussed, please follow-up with your dentist tomorrow for recheck Return to the ER right away if you have worsening or uncontrolled pain, high fever, swelling in your face, swelling under your jaw or trouble opening her mouth, or if you have other concerns To manage the pain use [id number] medications such as ibuprofen-600 mg every 6 hours as needed. Only use the prescription pain killer if needed for pain uncontrolled by the regular [id number]-[id number]-[id number] medications. Be careful with Percocet because it can cause dizziness, drowsiness, constipation, and can be addictive Please start on the new antibiotic to treat for possible dental infection. See your dentist tomorrow Use the fluconazole if needed for yeast infection. Prescriptions: New fluconazole 150 mg tablet 150 mg PO DAILY PRNQty: 2 0RF No Action gabapentin 400 mg capsule 1,200 mg PO Patient Comments: TAKE 1 CAPSULE BY MOUTH THREE TIMES DAILY quetiapine 100 mg tablet paroxetine HCl 30 mg tablet 30 mg PO Patient Comments: TAKE 2 TABLETS BY MOUTH EVERY DAY dextroamphetamine-amphetamine 10 mg capsule,extended release 24hr 20 mg PO Patient Comments: TAKE 1 CAPSULE BY MOUTH EVERY MORNING griseofulvin microsize 500 mg tablet 500 mg PO Q12H Qty: 60 0RF Rx Instructions: must administer with high-fat meal or food Follow Up/Referrals: Provider,Not a Local [Non-Staff] - Stand Alone Forms: MyHealth Info Instructions
[2024-12-12 19:57] VITALS: BP 146/105; PULSE 77; RESP 16; TEMP 36.9; O2SAT 100
--- OUTSIDE RECORDS SUMMARY | 2024-12-12 20:20 | XMS_ITS | Clinical Summary ---
Author Organization [employer] [facility] [employer] [facility] Address [address] [place] [address] Care Team Providers Care Plate Finisher Name Role Phone JensenBenjamin romero Hardik Unavailable Marce Mota NP Primary Care Provider Allergies Active Allergy Reactions Criticality Noted Date [...] Tablet 2 05/18/20 24 Active rizatriptan (MAXALT PICKING BELT OPERATOR) 10 mg disintegrating tabletIndications: Atypical migraine Place [...] cervical 03/22 Overview (10/26/2024): 07/2017 ASCUS/HPV+ 08/2017 Dresher: No abnormality 01/2023 ASCUS/HPV Negative 09/2024 ASCUS/HPV [...] Type Department Care Team Description 12/10/2024 Telephone [facility] [address] [place] [address] Nancy Mcdaniel NP Prior Authorization (dextroamphetamine-amp hetamine (Adderall XR) 20 mg Extended-Release capsule Approved - 10/02/25) 12/10/2024 Telephone [facility] [address] [place] [address] Nancy Mcdaniel NP Prior Authorization (dextroamphetamine-amp hetamine (AdderalL) 10 mg tablet) 12/05/2024 12:45 PM JOB FOREMAN Telemedicine [facility] [address] [place] [address] Nancy Mcdaniel NP Telehealth; Medication Management 12/05/2024 Travel 11/10/2024 Refill [facility] [address] [place] [address] Nancy Mcdaniel NP Refill Request (Gabapentin) 11/06/2024 Refill [facility] [address] [place] [address] Nancy Mcdaniel NP Refill Request (Adderall ) 10/26/2024 8:15 AM JOB FOREMAN Procedure Only [address] [phone] Kiya Ovalles MD Procedure (colposcopy ) 10/26/2024 Travel 10/24/2024 2:30 PM JOB FOREMAN Telemedicine [facility] [address] [place] [phone] Left without seen 10/24/2024 1:30 PM JOB FOREMAN Office Visit [facility] at [address] [phone] Nga Martinez MD Follow Up (NSTEMI ) 10/24/2024 Travel 10/05/2024 Telephone [facility] [address] [place] [address] Marce Mota NP Pap Plan 09/30/2024 Refill [facility] [address] [place] [address] Nancy Mcdaniel NP Refill Request (Gabapentin) 09/30/2024 Refill [facility] [address] [place] [address] Marce Mota NP Refill Request (Albuterol Hfa) 09/19/2024 2:15 PM JOB FOREMAN Telemedicine [facility] [address] [place] [address] Nancy Mcdaniel NP Telehealth 09/19/2024 1:05 PM JOB FOREMAN Office Visit [address] [phone] Marce Mota NP Physical (Discuss menopause /URI) [...] on file Legal Sex Female 5:31 AM JOB FOREMAN Gender Identity Not on file Sexual Orientation [...] preg. 2008 Term F Vag Livin g [place] y 2010 Term 39w 0d 9h 00m/ F Vag Livin g Jaqueline Toth 2011 Term 40w 0d 5h 00m/ 2.89 kg (6 lb 6 oz) M Vag Valeriano Ovalles Delivery Location:[facility] Comments:System Genera maritza. Please review and update details. Last Filed Vital Signs Vital Sign Reading Time Taken Comments Blood Pressure 112/62 10/26/2024 8:33 AM JOB FOREMAN Pulse 83 10/26/2024 8:33 AM JOB FOREMAN Temperature 37.1 C (98.7 F) 09/19/2024 1:17 PM JOB FOREMAN Respiratory Rate 14 08/02/2024 5:01 PM CDT Oxygen Saturation 97% 10/26/2024 8:33 AM JOB FOREMAN Inhaled Oxygen Concentration - - Weight 57.2 kg (126 lb) 10/26/2024 8:33 AM JOB FOREMAN Height 170.2 cm (5' 7) 09/19/2024 1:17 PM JOB FOREMAN Body Mass Index 19.73 09/19/2024 1:17 PM JOB FOREMAN Plan of Treatment Upcoming Encounters Date Type Department Care Team (Late st Contact Info) Description 03/06/2025 12:45 PM CDT Office Visit [facility] [address] [place] [address] Nancy Mcdaniel NP [address] [place] [address] Health Maintenance Due Date Last Done Comments [...] CHLAMYDIA TRACH PROBE Routine 10/26/2024 9:14 AM JOB FOREMAN Subacute vaginitis Screening examination for STD (sexually transmitted disease) TRICHOMONAS, REZA, AND BACTERIAL VAGINOSIS BY TAE Routine 10/26/2024 9:14 AM JOB FOREMAN Subacute vaginitis COORDINATE MEASURING MACHINE PROGRAMMER THIN PREP PAP DIAGNOSTIC IMAGED Routine 09/19/2024 2:17 PM JOB FOREMAN ASCUS with positive high risk HPV cervical HPV HIGH RISK Routine 09/19/2024 1:05 PM JOB FOREMAN ASCUS with positive high risk HPV cervical ANTI HIV 1/2 Routine 02/04/2024 9:14 AM CDT Screen for STD (sexually transmitted disease) LC HCV ANTIBODY RFX TO QUANT PCR Routine 05/10/2023 1:30 PM CDT Need for hepatitis C screening test from Last 3 Months or Most Recently Relevant to Health Maintenance Results * (ABNORMAL) TRICHOMONAS, REZA, AND BACTERIAL VAGINOSIS BY TAE (10/26/2024 9:14 AM JOB FOREMAN) REZA SPECIES Negative Negative 5 12:07 PM JOB FOREMAN [facility] REZA GLABRATA Negative Negative 10/27/2024 12:07 PM JOB FOREMAN [facility] TRICHOMONAS VVA Negative Negative 5 12:07 PM JOB FOREMAN [facility] BACTERIAL VAGINOSIS Positive(A) Negative 10/27/2024 12:07 PM JOB FOREMAN [facility]AL [facility] Other VAGINAL SWAB / Unknown Non-Blood / Unknown 10/26/2024 9:14 AM JOB FOREMAN 10/26/2024 9:15 AM JOB FOREMAN Kiya Ovalles MD MICROBIOLOGY Final Resu lt Performing Organization Address City/[facility]/ZIP Co de Phone Number [facility] [address] [place] [id number], [place] * GC & CHLAMYDIA DNA PCR [[id number]] (10/26/2024 9:14 AM JOB FOREMAN) CHLAMYDIA PROBE Negative 12:39 PM JOB FOREMAN [facility] N GONORRHOEAE PROBE Negative 10/27/2024 12:39 PM JOB FOREMAN [facility] Other VAGINAL SWAB / Unknown Non-Blood / Unknown 10/26/2024 9:14 AM JOB FOREMAN 10/26/2024 9:15 AM JOB FOREMAN Kiya Ovalles MD MICROBIOLOGY Final Resu lt Performing Organization Address City/[facility]/ZIP Co de Phone Number [facility] [address] [place] [address], [place] * (ABNORMAL) COORDINATE MEASURING MACHINE PROGRAMMER THIN PREP PAP DIAGNOSTIC IMAGED (09/19/2024 2:17 PM JOB FOREMAN) Case Report Gynecologic Cytology Report Case: [id number] Authorizing Provider: Marce Mota NP Collected: 09/19/2024 1417 Ordering Location: [facility] Received: 09/19/2024 1417 Clinic First Screen: Yehuda Burnette Pathologist: Gisela Brandon MD Specimen: COORDINATE MEASURING MACHINE PROGRAMMER ThinPrep Vial Diagnostic, Cervical 10/05/2024 12:59 PM JOB FOREMAN [facility]- ENTRAL LABORATORY INTERPRETATION/ RESULT LOW GRADE SQUAMOUS INTRAEPITHELIAL LESION (LSIL)(A) (none) 10/05/2024 12:59 PM JOB FOREMAN [facility] R NON-NEOPLASTIC FINDING(S) Parakeratosis 10/05/2024 12:59 PM JOB FOREMAN [facility] SPECIMEN ADEQUACY Satisfactory for evaluation Endocervical component present 10/05/2024 12:59 PM JOB FOREMAN [facility] HPV REQUEST HPV and PAP 10/05/2024 12:59 PM JOB FOREMAN [facility] Date of LMP 09/15/24 10/05/2024 12:59 PM JOB FOREMAN [facility] Last Pap Date 02/10/23 10/05/2024 12:59 PM JOB FOREMAN [facility] Last Pap Result ASCUS 12:59 PM JOB FOREMAN [facility] Abnormal Pap or Dresher Bx in last 5 years Yes 10/05/2024 12:59 PM JOB FOREMAN [facility] Menstrual Status Regular Periods 10/05/2024 12:59 PM JOB FOREMAN [facility] Dresher Bx Done Today No 10/05/2024 12:59 PM JOB FOREMAN [facility] Additional Information None Given 10/05/2024 12:59 PM JOB FOREMAN [facility] Comment: Cytology is screened at [facility] - [address] [address] and [facility] - [address] [place] [address] and [facility] - [address] [place] [address] Interpreted at [facility] - [address], [place] [address] Automated Review Successful 10/05/2024 12:59 PM JOB FOREMAN [facility] Comment:Specimen processed s uccessfully by automated ssn/ssbn assistant navigator device, ThinPrep Imaging System, [employer] ANCILLARY TESTING COORDINATE MEASURING MACHINE PROGRAMMER HPV Ordered, Please see separate report 10/05/2024 12:59 PM JOB FOREMAN [facility] Note The pap test is a screening technique, not a diagnostic procedure. It is used primarily to screen for squamous cancers and precursor lesions. Published studies have shown that it is subject to both false negative and false positive results. The pap test should not be used as the sole means to diagnose or exclude pre-malignant and malignant lesions. 10/05/2024 12:59 PM JOB FOREMAN [facility] EN[facility]AL [facility] Other (Cervical) Non-Blood / Unknown 09/19/2024 2:17 PM JOB FOREMAN 09/19/2024 2:17 PM JOB FOREMAN Comment:07/2017 ASCUS/HPV+ Dresher: No [id number] ASCUS/HPV Negative Marce Mota NP PATHOLOGY/CYTOLOGY Final Result Performing Organization Address City/[facility]/ZIP Co de Phone Number [facility] [address] [address], * (ABNORMAL) HPV HIGH RISK (09/19/2024 1:05 PM JOB FOREMAN) TYPE 16 Positive(A) Negative 09/22/2024 1:31 PM JOB FOREMAN [facility] TYPE 18 Negative Negative 09/22/2024 1:31 PM JOB FOREMAN [facility] OTHER HIGH RISK TYPES Negative Negative 09/22/2024 1:31 PM JOB FOREMAN [facility] Other (Cervical) Non-Blood / Unknown 09/19/2024 1:05 PM JOB FOREMAN 09/20/2024 2:07 PM JOB FOREMAN Narrative [facility] - 09/22/2024 1:31 PM JOB FOREMAN Specimen is positive for HPV type 16 DNA. HPV types 18, 31, 33, 35, 39, 45, 51, 52, 56, 58, 59, 66 and 68 DNA were undetectable or below the pre-set threshold Methodology: Radames Bright 4800 HPV Test Marce Mota NP MICROBIOLOGY Final Result Performing Organization Address City/[facility] Co de Phone Number [facility] [address] [address], [place] * ANTI HIV 1/2 (02/04/2024 9:14 AM CDT) HIV-1/HIV-2 SCREEN Non-Reacti ve Non-Reacti ve 02/04/2024 2:01 PM CDT [facility] Comment:HIV-1 p24 and HIV-1/ HIV-2 Ab Not Detected. Blood BLOOD SPECIMEN / Unknown Venipuncture / Unknown 02/04/2024 9:14 AM CDT 02/04/2024 9:19 AM CDT us Kary Johns HOTEL GENERAL MANAGER SEND OUTS Final Res ult [facility] [address] [place] [address], * LC HCV ANTIBODY RFX TO QUANT PCR (05/10/2023 1:30 PM CDT) Pathologist [facility] HCV Ab Non Reactive Non Reactive 05/13/2023 4:08 AM CDT [facility] Blood BLOOD SPECIMEN / Unknown Venipuncture / Unknown 05/10/2023 1:30 PM CDT 05/10/2023 1:30 PM CDT Narrative [facility] - 05/13/2023 4:08 AM CDT Performed at: [address] [place] [id number] Case Assistant: Michael Umana MD, Phone: [phone] us Milena Purvis MD LABORATORY Final Result [facility]) [facility] [place] [address], from Last 3 Months or Most Recently Relevant to Health Maintenance Additional Health Concerns Infection Onset Date Last Indicated MRSA Clearance Comment:+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, right hand +MRSA 2014, arm Negative Nare 11/11/23 11/14/2023 11/14/[id number] [place] [id number] MEDICARE PART A HB ONLY MEDICARE PB ONLY MEDICARE PART B HB ONLY [facility] MEDICA MR HB ONLY [id number] [place] [id number] [facility] [address] [place] [id number] MEDICARE PROVIDER BASED [facility] Advance Directives * Full Code (Latest [...] 12:40 PM 11/22/2014 4:20 PM Care Teams Plate Finisher Relationship Specialty Start Date End Date Marce Mota NP [address] [place] [address] PCP - General Nurse Practitioner - Family 02/21/24 Benjamin Almaraz Internal Medicine 09/24/14
--- OUTSIDE RECORDS SUMMARY | 2024-12-12 20:20 | XMS_ITS | CCD ---
Author Organization Unknown Care Team Providers Care Honey Extractor Name Role Phone [employer], [place] Primary Care Provider Unava ilable Unavailable Chronic Care Management Unavaila ble Summary Purpose DataExchange Insurance Providers Payer name Policy type / Coverage type Covered constitution party ID Effective Begin Date Effective End Date Medicare [place] Medicare Part B [id number] Unknown Unknown [employer] ([facility]) Medicare Part B [id number] Unknown Unknow n Family History Family History data not found Medication Administered No Medication Administered data Reason For Visit No Reason For Visit data
--- OUTSIDE RECORDS SUMMARY | 2024-12-12 20:20 | XMS_ITS | CCD ---
Author Organization Unknown Care Team Providers Care Camp Boss Name Role Phone [employer] Teacher, [place] Primary Care Provider Unava ilable Unavailable Chronic Care Management Unavaila ble Summary Purpose DataExchange Insurance Providers Payer name Policy type / Coverage type Covered constitution party ID Effective Begin Date Effective End Date Medicare [place] Medicare Part B [id number] Unknown Unknown [employer] ([facility]) Medicare Part B [id number] Unknown Unknow n Family History Family History data not found Medication Administered No Medication Administered data Reason For Visit No Reason For Visit data
[2024-12-12 20:24] VITALS: BP 135/84; PULSE 74; RESP 16; TEMP 36.9; O2SAT 100
[2024-12-12 20:25] VITALS: BP 135/84; PULSE 74; RESP 16; TEMP 36.9
== END 2024-12-12 20:25 | disposition home or self-care (01) ==
PROVIDERS: Emergency Provider Emergency Medicine; PCP Family Medicine
DX: K08.89 Other specified disorders of teeth and supporting structures (principal)
CPT/HCPCS: 99282

== ENCOUNTER 2025-01-08 14:21 | Emergency (ER) | payer MEDICARE, SELFPAY ==
[2025-01-08 15:13] VITALS: BP 148/83; PULSE 70; RESP 18; TEMP 36.8; O2SAT 98; BMI 19.7
--- NOTE | 2025-01-08 16:12 | ED_ITS ---
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 She reports that she injured her low back today when she was putting on her shoes. She had put on her right shoe when she was bending over at a on angle to bulk picker her left shoe when she had sudden onset of pain located in her lower midline back. She says the pain is roughly in the area of her ?tailbone. ?. The pain does not radiate down her legs or to her hips. No pain in her flanks or posterior ribcage. No anterior abdominal pain. She says the pain is reasonably comfortable when she is laying on her back with her left hip and knee bent at about a 45 degree angle. If she tries to straighten up from that position she gets a bad spasm like a shock pain in the middle of her low back. Urination has been normal. She has not had a bowel movement this afternoon. She has not had any recent fever or chills. She says after throwing her back out she tried to go to work but since she was having so much trouble standing up her boss told her to come get checked out. She does take Plavix for history of NSTEMI. She recently had a toothache and has not yet been able to see her dentist/oral surgeon. She is not having any new swelling or signs of infection in her mouth. She is not here for dental pain today. Related Data Home Medications ?Medication ?Instructions ?Recorded ?Confirmed gabapentin 400 mg capsule 1,200 mg PO TID 07/12/22 01/08/25 dextroamphetamine-amphetamine ER 20 mg PO DAILY 07/17/23 01/08/25 10 mg 24hr capsule,extend release paroxetine HCl 30 mg tablet 30 mg PO DAILY 07/17/23 01/08/25 quetiapine 100 mg tablet 100 mg PO DAILY 07/17/23 01/08/25 losartan 25 mg tablet 25 mg PO DAILY 01/08/25 01/08/25 metoprolol succinate 25 mg 25 mg PO DAILY 01/08/25 01/08/25 tablet,extended release 24 hr quetiapine 25 mg tablet 25 mg PO QPM 01/08/25 01/08/25 Previous Rx's ?Medication ?Instructions ?Recorded griseofulvin microsize 500 mg 500 mg PO Q12H #60 tabs 07/17/23 tablet Allergies Allergy/AdvReac Type Severity Reaction Status Date / Time codeine AdvReac Mild Makes Her Verified 01/08/25 15:15 Feel Weird morphine AdvReac Mild Makes Her Verified 01/08/25 15:15 Feel Weird [facility] Medical History (Updated 01/08/25 @ 18:53 by Christos Villalobos MD) Nontoxic multinodular goiter ?E04.2 - Nontoxic multinodular goiter (ICD-10) Nicotine dependence ?F17.200 - Nicotine dependence, unspecified, uncomplicated (ICD-10) Cavernous malformation ?Q28.3 - Other malformations of cerebral vessels (ICD-10) Ocular migraine ?G43.109 - Migraine with aura, not intractable, without status migrainosus (ICD-10) Seizures ?R56.9 - Unspecified convulsions (ICD-10) Dental abscess ?K04.7 - Periapical abscess without sinus (ICD-10) ASCUS with positive high risk HPV cervical ?R87.610 - Atypical squamous cells of undetermined significance on cytologic smear of cervix (ASC-US) (ICD-10) ?R87.810 - Cervical high risk human papillomavirus (HPV) DNA test positive (ICD-10) ADHD (attention deficit hyperactivity disorder) ?F90.9 - Attention-deficit hyperactivity disorder, unspecified type (ICD-10) NSTEMI (non-ST elevated myocardial infarction) ?I21.4 - Non-ST elevation (NSTEMI) myocardial infarction (ICD-10) Thyroid nodule ?E04.1 - Nontoxic single thyroid nodule (ICD-10) Polysubstance abuse ?F19.10 - Other psychoactive substance abuse, uncomplicated (ICD-10) Multiple sclerosis ?G35 - Multiple sclerosis (ICD-10) MRSA (methicillin resistant Staphylococcus aureus) ?A49.02 - Methicillin resistant Staphylococcus aureus infection, unspecified site (ICD-10) Kyphosis ?M40.209 - Unspecified kyphosis, site unspecified (ICD-10) Kidney stones ?N20.0 - Calculus of kidney (ICD-10) MIREILLE (generalized anxiety disorder) ?F41.1 - Generalized anxiety disorder (ICD-10) 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 - Hereditary deficiency of other clotting factors (ICD-10) Bipolar 1 disorder, depressed, moderate ?F31.32 - Bipolar disorder, current episode depressed, moderate (ICD-10) Asthma ?J45.909 - Unspecified asthma, uncomplicated (ICD-10) Arthritis ?M19.90 - Unspecified osteoarthritis, unspecified site (ICD-10) Controlled substance agreement signed ?Z79.899 - Other alf (current) drug therapy (ICD-10) Surgical History (Updated 12/12/24 @ 20:38 by Melquiades Hua RN) History of colposcopy ?Z98.890 - Other specified postprocedural states (ICD-10) History of dilation and curettage ?Z98.890 - Other specified postprocedural states (ICD-10) History of arthroscopic knee surgery ?Z98.890 - Other specified postprocedural states (ICD-10) Social History Smoking Status: Current every day smoker Second hand tobacco smoke exposure: No How often do you have a drink containing alcohol: never AUDIT-C Alcohol total score: 0 Non-prescribed substance use: former substance user and marijuana (any form) Exam Narrative: Exam Narrative: Constitutional: Appears well-developed and well-nourished. Alert. Conversant. Non toxic. He is laying flat in her bed with her left hip flexed at about 60? in her left knee at about 90. She says her back is much more comfortable if she keeps her leg flexed up like this. She has uncomfortable appearing paroxysm is a pain when she tries to roll over or sit up or stand the bedside. He HENT: Head: Atraumatic. Nose: Nose normal. Mouth/Throat: Oral mucosa is clear and moist. no trismus. Eyes: Conjunctivae normal. EOM normal. Pupils equal, round, and reactive to light. No scleral icterus. Neck: Normal range of motion. Neck supple. No tracheal deviation present. Cardiovascular: Normal rate, regular rhythm. No gallop. No friction rub. No murmur heard. Symmetric PT artery pulses Pulmonary/Chest: Effort normal. No stridor. No respiratory distress. No wheezes. No rales. No rhonchi . No tenderness. Abdominal: Soft.No distension. No mass. No tenderness. No rebound. No guarding. Musculoskeletal: RUE: Normal range of motion. No tenderness. No deformity LUE: Normal range of motion. No tenderness. No deformity RLE: Normal range of motion. No edema. No tenderness. No deformity LLE: Normal range of motion. No edema. No tenderness. No deformity Neurological: Alert and oriented to person, place, and time. Normal strength. CN II-VII intact. No sensory deficit. GCS eye subscore is 4. GCS verbal subscore is 5. GCS motor subscore is 6. Normal coordination Sensory: Normal light touch sensation bilaterally on the anteromedial thigh (L3), medial malleolus (L4), dorsal first web space (L5), lateral malleolus (S1). Strength: 5/5 strength hip flexors (L3) on the rig ht and left 5/5 strength in the quadriceps (L4) on t he right and left 5/5 strength in the tibialis anterior 5/5 strength in the EHL (L5) on the righ t and left 5/5 strength in the gastrocnemius (S1) o n the right and left 5/5 strength in the hamstring on the rig ht and left DTRs: symmetric in the patella (2/4) and in the achilles tendons. Negative straight leg raise bilaterally. Skin: Skin is warm and dry. No rash noted. No pallor. Normal capillary refill. Psychiatric: Normal mood. Mildly anxious. Uncomfortable Const: Vital Signs, click to edit/add: Vital Signs - 24 hr 01/08/25 15:13 01/08/25 17:01 Temperature 98.3 F 97.8 F Pulse Rate [Right Pulse Oximeter] 70 58 L Respiratory Rate 18 18 Blood Pressure [Ri ght Upper Arm] 148/83 H 161/102 H Pulse Oximetry 98 99 Oxygen Delivery Me thod Room Air Room Air Course Course ED Course: Recheck -1800. Patient resting more comfortably in bed but still has a lot of p ain located in her central low back right around the sacrum/lower lumbar spine. The pain is not radiate down her legs. When she is able to stand the bedside she is hunched over at about a 45 degree bend at the waist. She gets a lot of spasming pain when she tries to stand up straight. No pain radiating down her legs. No other numbness. No changing pain such as in her mid or upper back. No flank pain. Reevaluation(s) Reevaluation #1: Recheck-pain improved after Dilaudid. Able to ambulate in the hallway. Nurse reports he is feeling well enough that she can get home. Vital Signs Vital signs: Initial Vital Signs Temperature 98.3 F 01/08/25 15:13 Temperature Source Temporal Artery Scan 01/08/25 15:13 Pulse Rate 70 01/08/25 15:13 Respiratory Rate 18 01/08/25 15:13 Blood Pressure 148/83 H 01/08/25 15:13 Blood Pressure Mean 104 01/08/25 15:13 Blood Pressure Position Sitting 01/08/25 15:13 Pulse Oximetry 98 01/08/25 15:13 Oxygen Delivery Method Room Air 01/08/25 15:13 Vital Signs Temperature 98.3 F 01/08/25 15:13 Pulse Rate 70 01/08/25 15:13 Respiratory Rate 18 01/08/25 15:13 Blood Pressure 148/83 H 01/08/25 15:13 Pulse Oximetry 98 01/08/25 15:13 Oxygen Delivery Method Room Air 01/08/25 15:13 Temperature 97.8 F 01/08/25 17:01 Pulse Rate 58 L 01/08/25 17:01 Respiratory Rate 18 01/08/25 17:01 Blood Pressure 161/102 H 01/08/25 17:01 Pulse Oximetry 99 01/08/25 17:01 Oxygen Delivery Method Room Air 01/08/25 17:01 Medications Administered Medications: Discontinued Medications Generic Name Dose Route Start Last Admin Trade Name Freq PRN Reason Stop Dose Admin Cyclobenzaprine HCl 10 mg 01/08/25 16:41 01/08/25 16:54 Cyclobenzaprine Hcl 10 Mg Tablet PO 01/08/25 16:42 10 mg ONCE ONE Administration Hydromorphone HCl 1 mg 01/08/25 18:05 01/08/25 18:28 Hydromorphone 0.5 Mg/0.5 Ml Inj IM 01/08/25 18:06 1 mg ONCE ONE Administration Ibuprofen 600 mg 01/08/25 17:00 01/08/25 19:10 Ibuprofen 200 Mg Tablet PO 01/08/25 17:01 Not Given ONCE ONE Ondansetron HCl 4 mg 01/08/25 16:41 01/08/25 16:58 Ondansetron Odt 4 Mg Tab PO 01/08/25 16:42 4 mg ONCE ONE Administration Oxycodone HCl 10 mg 01/08/25 16:42 01/08/25 16:57 Oxycodone 5 Mg Tablet PO 01/08/25 16:43 10 mg ONCE ONE Administration Medical Decision Making MDM Narrative Medical decision making narrative: This patient presented with back pain. Broad differential considered. The patient did not sustain any trauma, therefore x-rays are not necessary due to the low likelihood of fracture or subluxation. No red flag symptoms to suggest CT and/or MRI is indicated at this point. The patient has not had a fever, saddle/perineal anesthesia, bilateral foot numbness, or bowel or bladder dysfunction. There is no clinical evidence of cauda equina syndrome, discitis, spinal/epidural space hematoma or epidural abscess. The neurological exam is normal and the patient's symptoms seem consistent with a musculoskeletal issues and significant muscle spasm. Pain has improved with interventions in the emergency department. The patient will be discharged with pain medications to use as directed. Ice or heat to the back and stretching exercises. No heavy lifting, bending or twisting. Return if increasing pain, numbness, weakness, or bowel or bladder dysfunction. The patient was advised to schedule follow-up with their primary doctor within 2-3 days to re-assess symptoms. Return precautions reviewed and questions answered. Discharge Plan Discharge Clinical Impression: Low back pain Patient Disposition: Home, Self-Care Condition: Stable Instructions: Acute Low Back Pain (ED) Additional Instructions: As we discussed, please come back to the ER right away if you have worsening or uncontrolled back pain, numbness or weakness going down her leg, malfunction of your bladder or bowels, fever, or any other concerns. Use oney-hqe-bzrxftc medications such as Tylenol or ibuprofen 1st for your pain. If you have pain uncontrolled by those medications use the prescription muscle relaxers or pain killers. Be careful because prescription pain killers and muscle relaxers have side effects such as drowsiness, dizziness, constipation and can be addictive. Please recheck with your regular doctor within 2-3 days You should avoid heavy activity such as lifting more than 5 lb, bending or twisting at the waist, lifting objects overhead or other activities that exacerbate your back pain for the next 5-7 days. Prescriptions: No Action gabapentin 400 mg capsule 1,200 mg PO TID Patient Comments: TAKE 1 CAPSULE BY MOUTH THREE TIMES DAILY quetiapine 100 mg tablet 100 mg PO DAILY paroxetine HCl 30 mg tablet 30 mg PO DAILY Patient Comments: TAKE 2 TABLETS BY MOUTH EVERY DAY Rx Instructions: 2 tablets by mouth daily dextroamphetamine-amphetamine 10 mg capsule,extended release 24hr 20 mg PO DAILY Patient Comments: TAKE 1 CAPSULE BY MOUTH EVERY MORNING griseofulvin microsize 500 mg tablet 500 mg PO Q12H Qty: 60 0RF Rx Instructions: must administer with high-fat meal or food quetiapine 25 mg tablet 25 mg PO QPM metoprolol succinate 25 mg tablet extended release 24 hr 25 mg PO DAILY losartan 25 mg tablet 25 mg PO DAILY Follow Up/Referrals: Marce Mota [employer] [Primary Care Provider] - Stand Alone Forms: [facility] [employer] Info Instructions
--- OUTSIDE RECORDS SUMMARY | 2025-01-08 16:32 | XMS_ITS | Clinical Summary ---
Author Organization [facility] Address [address] [place] [id number] Care Team Providers Care Director Treasurer Name Role Phone Benjamin Almaraz Unavailable Marce Mota NP Primary Care Provider [phone] Allergies Active Allergy Reactions Criticality Noted Date Comments Codeine 01/13/2010 Lidocaine Edema 03/25/2008 Morphine Anxiety,Agitation 11/11/2023 Procaine 01/13/2010 Medications rizatriptan (MAXALT ADOBE MAKER) 10 mg disintegrating tabletIndications :Atypical migraine Place 1 Tablet (10 mg) on the tongue 2 times daily if needed for Migraine. Give at minimum 2hrs apart. Max Dose: 30mg per 24hrs. 10 Tablet 024 Active albuterol HFA (PRO-AIR; VENTOLIN; PROVENTIL) 90 mcg/actuation inhalerIndication s:History of asthma Inhale 2 Puffs by mouth every 4 hours if needed for Wheezing. 8.5 g 1 024 Active Magnesium Glycinate 100 mg tabIndications:Sl eep disturbance Take 100-200 mg by mouth at bedtime. 60 Tablet 2 025 Active gabapentin (NEURONTIN) 300 mg capsuleIndication s:Anxiety Take 3 Capsules (900 mg) by mouth three times daily. 270 Capsule 2 025 Active PARoxetine (PAXIL) 30 mg tabletIndications :Anxiety,Depressi on, unspecified depression type Take 2 Tablets (60 mg) by mouth once daily. 60 Tablet 2 025 Active QUEtiapine (SEROQUEL) 25 mg tabletIndications :Anxiety,Depressi on, unspecified depression type Take 1 Tablet (25 mg) by mouth at bedtime if needed (sleep). 90 Tablet 025 Active dextroamphetamine -amphetamine (Adderall XR) 20 mg Extended-Release capsuleIndication s:Attention deficit hyperactivity disorder (ADHD), unspecified ADHD type Take 1 Capsule (20 mg) by mouth once daily. 30 Capsule 025 2024 Active dextroamphetamine -amphetamine (Adderall XR) 20 mg Extended-Release capsuleIndication s:Attention deficit hyperactivity disorder (ADHD), unspecified ADHD type Take 1 Capsule (20 mg) by mouth once daily. 30 Capsule 025 2024 Active dextroamphetamine -amphetamine (Adderall XR) 20 mg Extended-Release capsuleIndication s:Attention deficit hyperactivity disorder (ADHD), unspecified ADHD type Take 1 Capsule (20 mg) by mouth once daily. 30 Capsule 025 Active dextroamphetamine -amphetamine (AdderalL) 10 mg tabletIndications :Attention deficit hyperactivity disorder (ADHD), unspecified ADHD type Take 1 Tablet (10 mg) by mouth once daily in the afternoon. 30 Tablet 025 2024 Active dextroamphetamine -amphetamine (AdderalL) 10 mg tabletIndications :Attention deficit hyperactivity disorder (ADHD), unspecified ADHD type Take 1 Tablet (10 mg) by mouth once daily in the afternoon. 30 Tablet 025 Active metoprolol succinate 25 mg Sustained-Release tabletIndications :NSTEMI (non-ST elevated myocardial infarction) (HC) Take 0.5 Tablets (12.5 mg) by mouth once daily. 45 Tablet 2 025 Active Blood Pressure Monitor KitIndications:NS KARLO (non-ST elevated myocardial infarction) (HC) Frequency of testing: daily 1 Each 025 Active losartan 25 mg tabletIndications :NSTEMI (non-ST elevated myocardial infarction) (HC),Hypertension Take 1 Tablet (25 mg) by mouth once daily. 90 Tablet 025 Active atorvastatin 40 mg tabletIndications :NSTEMI (non-ST elevated myocardial infarction) (HC),Mixed hyperlipidemia Take 1 Tablet (40 mg) by mouth once daily with evening meal. 90 Tablet 025 Active clopidogreL 75 mg tabletIndications :NSTEMI (non-ST elevated myocardial infarction) (HC) TAKE 1 TABLET BY MOUTH EVERY AM 90 Tablet 2 025 Active clopidogreL (PLAVIX) 75 mg tabletIndications :NSTEMI (non-ST elevated myocardial infarction) (HC) Take 1 Tablet (75 mg) by mouth every morning. Take once daily by mouth x 1 year without interruption 90 Tablet 3 024 2024 Discontinued Blood Pressure Monitor KitIndications:NS KARLO (non-ST elevated myocardial infarction) (HC) Frequency of testing: daily 1 Each 024 2024 Discontinued(* Med complete/Regim en complete/Level of care change) metoprolol succinate (TOPROL XL) 25 mg Sustained-Release tabletIndications :NSTEMI (non-ST elevated myocardial infarction) (HC) TAKE 1/2 TABLET(12.5 MG) BY MOUTH DAILY 45 Tablet 2 024 2024 Discontinued(R eorder (E-cancel not sent)) Blood Pressure Test (Wireless BP Monitor) Kit Use as directed to test blood pressure daily 1 Each 024 2024 Discontinued(* Med complete/Regim en complete/Level of care change) atorvastatin (LIPITOR) 40 mg tabletIndications :NSTEMI (non-ST elevated myocardial infarction) (HC),Mixed hyperlipidemia Take 1 Tablet (40 mg) by mouth once daily with evening meal. 90 Tablet 1 024 2024 Discontinued(R eorder (E-cancel not sent)) losartan (COZAAR) 25 mg tabletIndications :NSTEMI (non-ST elevated myocardial infarction) (HC),Hypertension Take 1 Tablet (25 mg) by mouth once daily. 90 Tablet 1 024 2024 Discontinued(R eorder (E-cancel not sent)) dextroamphetamine -amphetamine (Adderall XR) 20 mg Extended-Release capsuleIndication s:Attention deficit hyperactivity disorder (ADHD), unspecified ADHD type Take 1 Capsule (20 mg) by mouth once daily. 30 Capsule 025 2024 Discontinued(* Med complete/Regim en complete/Level of care change) dextroamphetamine -amphetamine (AdderalL) 10 mg tabletIndications :Attention deficit hyperactivity disorder (ADHD), unspecified ADHD type Take 1 Tablet (10 mg) by mouth once daily in the afternoon. 30 Tablet 025 2024 Discontinued(* Med complete/Regim en complete/Level of care change) dextroamphetamine -amphetamine (AdderalL) 10 mg tabletIndications :Attention deficit hyperactivity disorder (ADHD), unspecified ADHD type Take 1 Tablet (10 mg) by mouth once daily in the afternoon. 30 Tablet 025 2024 losartan 25 mg tabletIndications :NSTEMI (non-ST elevated myocardial infarction) (HC),Hypertension Take 1 Tablet (25 mg) by mouth once daily. 90 Tablet 1 025 2024 Discontinued(R eorder (E-cancel not sent)) atorvastatin 40 mg tabletIndications :NSTEMI (non-ST elevated myocardial infarction) (HC),Mixed hyperlipidemia Take 1 Tablet (40 mg) by mouth once daily with evening meal. 90 Tablet 1 025 2024 Discontinued(R eorder (E-cancel not sent)) Active Problems Problem Noted Date Diagnosed Date [...] cervical 03/22 Overview (10/26/2024): 07/2017 ASCUS/HPV+ 08/2017 Fabius: No abnormality 01/2023 ASCUS/HPV Negative 09/2024 ASCUS/HPV [...] Encounters Date Type Department Care Team Description 01/01/[address] [phone] Marce Mota NP Refill Request (Clopidogrel) 12/21/2024 9:35 AM CDT Office Visit [address] [place] [phone] Marce Mota NP Letter (Needing a letter for restrictions for her job ); Pain (Having so much pain can that cause a heart attack ) 12/21/[address] [phone] Marce Mota NP Appointment 12/21/2024 Travel 12/20/[address] [phone] Marce Mota NP Form (Restrictions ) 12/10/[address] [facility] [address] [place] [address] Nancy Mcdaniel NP Prior Authorization (dextroamphetamine-amp hetamine (Adderall XR) 20 mg Extended-Release capsule Approved - 10/02/25) 12/10/[address] [facility] [address] [place] [address] Nancy Mcdaniel NP Prior Authorization (dextroamphetamine-amp hetamine (AdderalL) 10 mg tablet (APPROVED 10/03/24 - 10/02/25)) 12/05/2024 12:45 PM [employer] Telemedicine [facility] [address] [place] [address] Nancy Mcdaniel NP Telehealth; Medication Management 12/05/2024 Travel 11/10/[address] [facility] [address] [place] [address] Nancy Mcdaniel NP Refill Request (Gabapentin) 11/06/[address] [facility] [address] [place] [address] Nancy Mcdaniel NP Refill Request (Adderall ) 10/26/2024 8:15 AM [employer] Procedure Only [address] [phone] Kiya Ovalles MD Procedure (colposcopy ) 10/26/2024 Travel 10/24/2024 2:30 PM [employer] Telemedicine [facility] [address] [place] [phone] Left without seen 10/24/2024 1:30 PM [employer] Office Visit [facility] at [address] [phone] Nga Martinez MD Follow Up (NSTEMI ) 10/24/2024 Travel from Last 3 Months Immunizations Immunization [...] Cessation:Ready to Q uit: No; Counseling Given: Not Answered Alcohol Use Standard Drinks/Week Comments Not Currently [...] on file Legal Sex Female 5:31 AM [employer] Gender Identity Not on file Sexual Orientation Not on file Obstetrics History Para Term AB IAB SAB Ectopic Multiple Livin g Live Births 9 5 4 1 4 4 5 5 Date Outcome GA Total Labor Labor/2nd/3rd Weight Sex Type Anes PTL Kamini A1 A5 Name Clin SAB 2003 36w 0d M Vag Livin g Leonel Comments:placenta stop ped working at 36 weeks per pt. ( induce)d 2006 Term 37w 0d M Vag Livin g Sd 2007 SAB 5w0 d 2007 SAB SAB 8w0 d Comments:d&c x2 after that preg. 2008 Term F Vag Livin g [place] y 2010 Term 39w 0d 9h 00m/ F Vag Livin g Baya Toth 2011 Term 40w 0d 5h 00m/ 2.89 kg (6 lb 6 oz) M Vag Livin g Douglas Ovalles Delivery Location:[facility] Comments:System [facility]. Please review and update details. Last Filed Vital Signs Vital Sign Reading Time Taken Comments Blood Pressure 158/98 12/21/2024 9:53 AM CDT having pain Pulse 80 12/21/2024 9:53 AM CDT Temperature 37.1 C (98.7 F) 09/19/2024 1:17 PM [employer] Respiratory Rate 14 08/02/2024 5:01 PM CDT Oxygen Saturation 97% 10/26/2024 8:3 3 AM [employer] Inhaled Oxygen Concentration - - Weight 56.2 kg (123 lb 12.8 oz) 12/21/2024 9:53 AM CDT Height 170.2 cm (5' 7) 09/19/2024 1:17 PM [employer] Body Mass Index 19.39 09/19/2024 1:17 PM [employer] Plan of Treatment Upcoming Encounters Date Type Department Care Team (Late st Contact Info) Description 01/11/2025 11:30 AM CDT Orders Only [facility] [address] [place] [phone] Martin, Edie 03/06/2025 12:45 PM CDT Office Visit [facility] [address] [place] [address] Nancy Mcdaniel, [employer] [address] [place] [address] 06/28/2025 10:25 AM CDT Office Visit [facility] [address] [place] [phone] Marce Mota NP [address] [place] [address] Health Maintenance Due Date Last Done Comments Pneumococcal series for age 6-49 (1 of 2 - PCV) 2000 COVID-19 vaccine series ( - season) 2024 Influenza Vaccine (Season Ended) 2025 09/03/2011, 09/03/2011, 06/29/2010, Additional history exists BMI (ht [...] CHLAMYDIA TRACH PROBE Routine 10/26/2024 9:14 AM [employer] Subacute vaginitis Screening examination for STD (sexually transmitted disease) TRICHOMONAS, REZA, AND BACTERIAL VAGINOSIS BY TAE Routine 10/26/2024 9:14 AM [employer] Subacute vaginitis HPV HIGH RISK Routine 09/19/2024 1:05 PM [employer] ASCUS with positive high risk HPV cervical ANTI HIV 1/2 Routine 02/04/2024 9:14 AM CDT Screen for STD (sexually transmitted disease) LC HCV ANTIBODY RFX TO QUANT PCR Routine 05/10/2023 1:30 PM CDT Need for hepatitis C screening test from Last 3 Months or Most Recently Relevant to Health Maintenance Results * (ABNORMAL) TRICHOMONAS, REZA, AND BACTERIAL VAGINOSIS BY TAE (10/26/2024 9:14 AM [employer]) REZA SPECIES Negative Negative 12:07 PM [employer] [facility] REZA GLABRATA Negative Negative 10/27/2024 12:07 PM [employer] [facility] TRICHOMONAS VVA Negative Negative 12:07 PM [employer] [facility] BACTERIAL VAGINOSIS Positive(A) Negative 10/27/2024 12:07 PM [employer] [facility] Other VAGINAL SWAB / Unknown Non-Blood / Unknown 10/26/2024 9:14 AM [employer] 10/26/2024 9:15 AM [employer] us Kiya Ovalles MD MICROBIOLOGY Final Resu lt [facility] [address] [place] [address], * GC & CHLAMYDIA DNA PCR [[id number]] (10/26/2024 9:14 AM [employer]) CHLAMYDIA PROBE Negative 12:39 PM [employer] [facility] N GONORRHOEAE PROBE Negative 10/27/2024 12:39 PM [employer] [facility] Other VAGINAL SWAB / Unknown Non-Blood / Unknown 10/26/2024 9:14 AM [employer] 10/26/2024 9:15 AM [employer] Kiya Ovalles MD MICROBIOLOGY Final Resu lt [facility] [address] [place] [phone], * (ABNORMAL) HPV HIGH RISK (09/19/2024 1:05 PM [employer]) TYPE 16 Positive(A) Negative 09/22/2024 1:31 PM [employer] [facility] TYPE 18 Negative Negative 09/22/2024 1:31 PM [employer] [facility] OTHER HIGH RISK TYPES Negative Negative 09/22/2024 1:31 PM [employer] [facility] Other (Cervical) Non-Blood / Unknown 09/19/2024 1:05 PM [employer] 09/20/2024 2:07 PM [employer] Narrative [facility] - 09/22/2024 1:31 PM [employer] Specimen is positive for HPV type 16 DNA. HPV types 18, 31, 33, 35, 39, 45, 51, 52, 56, 58, 59, 66 and 68 DNA were undetectable or below the pre-set threshold Methodology: Radames Bright 4800 HPV Test Marce Mota NP MICROBIOLOGY Final Result Performing Organization Address City[facility]/ZIP Co de Phone Number [facility] [address] [place] [phone], [place] * ANTI HIV 1/2 (02/04/2024 9:14 AM CDT) HIV-1/HIV-2 SCREEN Non-Reacti ve Non-Reacti ve 02/04/2024 2:01 PM CDT [facility] Comment:HIV-1 p24 and HIV-1/ HIV-2 Ab Not Detected. Blood BLOOD SPECIMEN / Unknown Venipuncture / Unknown 02/04/2024 9:14 AM CDT 02/04/2024 9:19 AM CDT us Kary Johns [employer] S[employer]S Final Res ult [facility] [address] [place] [address], * LC HCV ANTIBODY RFX TO QUANT PCR (05/10/2023 1:30 PM CDT) [facility] HCV Ab Non Reactive Non Reactive 05/13/2023 4:08 AM CDT [facility] Blood BLOOD SPECIMEN / Unknown Venipuncture / Unknown 05/10/2023 1:30 PM CDT 05/10/2023 1:30 PM CDT Narrative [facility] - 05/13/2023 4:08 AM CDT Performed at: [address] [place] [id number] [employer] Boat Captain: Michael Umana MD, Phone: [phone] us Milena Purvis MD LABORATORY Final Result Performing Organization Address City/[facility]/ZIP Co de Phone Number [facility] [address] [place] [phone], from Last 3 Months or Most Recently Relevant to Health Maintenance Additional Health Concerns Infection Onset Date Last Indicated MRSA Clearance Comment:+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, right hand +MRSA 2014, arm Negative Nare 11/11/23 11/14/2023 11/14/[id number] [place] [id number] MEDICARE PART A HB ONLY MEDICARE PB ONLY MEDICARE PART B HB ONLY [facility] MEDICA MR HB ONLY [address] [place] [id number] [facility] [address] [place] [id number] MEDICARE PROVIDER BASED [facility] Advance Directives * Full Code (Latest Code [...] 12:40 PM 11/22/2014 4:20 PM Care Teams Director Treasurer Relationship Specialty Start Date End Date Marce Mota NP [address] [place] [address] PCP - General Nurse Practitioner - Family 02/21/24 Benjamin Almaraz Internal Medicine 09/24/14
--- OUTSIDE RECORDS SUMMARY | 2025-01-08 16:32 | XMS_ITS | CCD ---
Author Organization Unknown Care Team Providers Care Floor Hand Name Role Phone [place], [place] Primary Care Provider Unava ilable Unavailable Chronic Care Management Unavaila ble Summary Purpose DataExchange Insurance Providers Payer name Policy type / Coverage type Covered alliance party ID Effective Begin Date Effective End Date Medicare [place] Medicare Part B [id number] Unknown Unknown [employer] ([facility]) Medicare Part B [id number] Unknown Unknow n Family History Family History data not found Medication Administered No Medication Administered data Reason For Visit No Reason For Visit data
--- OUTSIDE RECORDS SUMMARY | 2025-01-08 16:32 | XMS_ITS | CCD ---
Author Organization Unknown Care Team Providers Care Gripper Attacher Name Role Phone [place], [place] Primary Care Provider Unava ilable Unavailable Chronic Care Management Unavaila ble Summary Purpose DataExchange Insurance Providers Payer name Policy type / Coverage type Covered democrat ID Effective Begin Date Effective End Date Medicare [place] Medicare Part B [id number] Unknown Unknown [employer] ([facility]) Medicare Part B [id number] Unknown Unknow n Family History Family History data not found Medication Administered No Medication Administered data Reason For Visit No Reason For Visit data
[2025-01-08] MEDS: CYCLOBENZAPRINE HCL 10 MG TABLET PO (16:54)
[2025-01-08] MEDS: OXYCODONE 5 MG TABLET 10 MG PO (16:57)
[2025-01-08] MEDS: ONDANSETRON ODT 4 MG TAB PO (16:58)
[2025-01-08 17:01] VITALS: BP 161/102; PULSE 58; RESP 18; TEMP 36.6; O2SAT 99
--- OUTSIDE RECORDS SUMMARY | 2025-01-08 17:03 | XMS_ITS | Clinical Summary ---
Author Organization [facility] Address [address] [place] [id number] Care Team Providers Care Animal Control Officer Name Role Phone Benjamin Almaraz Unavailable Marce Mota NP Primary Care Provider [phone] Allergies Active Allergy Reactions Criticality Noted Date Comments Codeine 01/13/2010 Lidocaine Edema 03/25/2008 Morphine Anxiety,Agitation 11/11/2023 Procaine 01/13/2010 Medications rizatriptan ([employer]ET[employer] MA[employer]GER) 10 mg disintegrating tabletIndications :Atypical migraine Place [...] cervical 03/22 Overview (10/26/2024): 07/2017 ASCUS/HPV+ 08/2017 [place]: No abnormality 01/2023 ASCUS/HPV Negative 09/2024 ASCUS/HPV [...] Type Department Care Team Description 01/01/[address] [phone] Marce Mota NP Refill Request (Clopidogrel) 12/21/2024 9:35 AM CDT Office Visit [address] [place] [phone] Marce Mota NP Letter (Needing a letter for restrictions for her job ); Pain (Having so much pain can that cause a heart attack ) 12/21/[address] [phone] Marce Mota NP Appointment 12/21/2024 Travel 12/20/[address] [phone] Marce Mota NP Form (Restrictions ) 12/10/2024 Telephone [facility] [address] [place] [address] Nancy Mcdaniel NP Prior Authorization (dextroamphetamine-amp hetamine (Adderall XR) 20 mg Extended-Release capsule Approved - 10/02/25) 12/10/2024 Telephone [facility] [address] [place] [address] Nancy Mcdaniel NP Prior Authorization (dextroamphetamine-amp hetamine (AdderalL) 10 mg tablet (APPROVED 10/03/24 - 10/02/25)) 12/05/2024 12:45 PM HEAD COUNSELOR Telemedicine [facility] [address] [place] [address] Nancy Mcdaniel NP Telehealth; Medication Management 12/05/2024 Travel 11/10/2024 Refill [facility] [address] [place] [address] Nancy Mcdaniel NP Refill Request (Gabapentin) 11/06/2024 Refill [facility] [address] [place] [address] Nancy Mcdaniel NP Refill Request (Adderall ) 10/26/2024 8:15 AM HEAD COUNSELOR Procedure Only [address] [phone] Kiya Ovalles MD Procedure (colposcopy ) 10/26/2024 Travel 10/24/2024 2:30 PM HEAD COUNSELOR Telemedicine [facility] [address] [place] [phone] Left without seen 10/24/2024 1:30 PM HEAD COUNSELOR Office Visit [facility] at [address] [phone] Nga Martinez MD Follow Up [...] on file Legal Sex Female 5:31 AM HEAD COUNSELOR Gender Identity Not on file Sexual Orientation [...] preg. 2008 Term F Vag Livin g [place] y 2010 Term 39w 0d 9h 00m/ [...] 37.1 C (98.7 F) 09/19/2024 1:17 PM HEAD COUNSELOR Respiratory Rate 14 08/02/2024 5:01 PM CDT Oxygen Saturation 97% 10/26/2024 8:3 3 AM HEAD COUNSELOR Inhaled Oxygen Concentration - - Weight 56.2 kg (123 lb 12.8 oz) 12/21/2024 9:53 AM CDT Height 170.2 cm (5' 7) 09/19/2024 1:17 PM HEAD COUNSELOR Body Mass Index 19.39 09/19/2024 1:17 PM HEAD COUNSELOR Plan of Treatment Upcoming Encounters Date Type Department Care Team (Late st Contact Info) Description 01/11/2025 11:30 AM CDT Orders Only [facility] [address] [facility] [place] [phone] Martin, Edie 03/06/2025 12:45 PM CDT Office Visit [facility] [address] [place] [address] Nancy Mcdaniel, COMMUNITY RELATIONS MANAGER [address] [place] [address] 06/28/2025 10:25 AM CDT Office Visit [facility] [address] [facility] [place] [phone] Marce Mota NP [address] [facility] [place] [address] Health Maintenance Due Date Last Done Comments [...] CHLAMYDIA TRACH PROBE Routine 10/26/2024 9:14 AM HEAD COUNSELOR Subacute vaginitis Screening examination for STD (sexually transmitted disease) TRICHOMONAS, REZA, AND BACTERIAL VAGINOSIS BY TAE Routine 10/26/2024 9:14 AM HEAD COUNSELOR Subacute vaginitis HPV HIGH RISK Routine 09/19/2024 1:05 PM HEAD COUNSELOR ASCUS with positive high risk HPV cervical ANTI HIV 1/2 Routine 02/04/2024 9:14 AM CDT Screen for STD (sexually transmitted disease) LC HCV ANTIBODY RFX TO QUANT PCR Routine 05/10/2023 1:30 PM CDT Need for hepatitis C screening test from Last 3 Months or Most Recently Relevant to Health Maintenance Results * (ABNORMAL) TRICHOMONAS, REZA, AND BACTERIAL VAGINOSIS BY TAE (10/26/2024 9:14 AM HEAD COUNSELOR) REZA SPECIES Negative Negative 12:07 PM HEAD COUNSELOR [facility] REZA GLABRATA Negative Negative 10/27/2024 12:07 PM HEAD COUNSELOR [facility] TRICHOMONAS VVA Negative Negative 12:07 PM HEAD COUNSELOR [facility] BACTERIAL VAGINOSIS Positive(A) Negative 10/27/2024 12:07 PM HEAD COUNSELOR [facility] Other VAGINAL SWAB / Unknown Non-Blood / Unknown 10/26/2024 9:14 AM HEAD COUNSELOR 10/26/2024 9:15 AM HEAD COUNSELOR us Kiya Ovalles MD MICROBIOLOGY Final Resu lt [facility] [address] [place] [address], * GC & CHLAMYDIA DNA PCR [[id number]] (10/26/2024 9:14 AM HEAD COUNSELOR) CHLAMYDIA PROBE Negative 12:39 PM HEAD COUNSELOR [facility] N GONORRHOEAE PROBE Negative 10/27/2024 12:39 PM HEAD COUNSELOR [facility] Other VAGINAL SWAB / Unknown Non-Blood / Unknown 10/26/2024 9:14 AM HEAD COUNSELOR 10/26/2024 9:15 AM HEAD COUNSELOR Kiya Ovalles MD MICROBIOLOGY Final Resu lt [facility] [address] [place] [id number], * (ABNORMAL) HPV HIGH RISK (09/19/2024 1:05 PM HEAD COUNSELOR) TYPE 16 Positive(A) Negative 09/22/2024 1:31 PM HEAD COUNSELOR [facility] TYPE 18 Negative Negative 09/22/2024 1:31 PM HEAD COUNSELOR [facility] OTHER HIGH RISK TYPES Negative Negative 09/22/2024 1:31 PM HEAD COUNSELOR [facility] Other (Cervical) Non-Blood / Unknown 09/19/2024 1:05 PM HEAD COUNSELOR 09/20/2024 2:07 PM HEAD COUNSELOR Narrative [facility] - 09/22/2024 1:31 PM HEAD COUNSELOR Specimen is positive for HPV type 16 DNA. HPV types 18, 31, 33, 35, 39, 45, 51, 52, 56, 58, 59, 66 and 68 DNA were undetectable or below the pre-set threshold Methodology: Radames Bright 4800 HPV Test Marce Mota NP MICROBIOLOGY Final Result Performing Organization Address City/[facility]/ZIP Co de Phone Number [facility] [address] [place] [phone], [place] * ANTI HIV 1/2 (02/04/2024 9:14 AM CDT) HIV-1/HIV-2 SCREEN Non-Reacti ve Non-Reacti ve 02/04/2024 2:01 PM CDT [facility] Comment:HIV-1 p24 and HIV-1/ HIV-2 Ab Not Detected. Blood BLOOD SPECIMEN / Unknown Venipuncture / Unknown 02/04/2024 9:14 AM CDT 02/04/2024 9:19 AM CDT us Kary Johns COMMUNITY RELATIONS MANAGER SEND OUTS Final Res ult [facility] [address] [place] [address], * LC HCV ANTIBODY RFX TO QUANT PCR (05/10/2023 1:30 PM CDT) [facility] HCV Ab Non Reactive Non Reactive 05/13/2023 4:08 AM CDT [facility] Blood BLOOD SPECIMEN / Unknown Venipuncture / Unknown 05/10/2023 1:30 PM CDT 05/10/2023 1:30 PM CDT Narrative [facility] - 05/13/2023 4:08 AM CDT Performed at: [address] [place] [id number] Insurance Administrator: Michael Umana MD, Phone: [phone] us Milena Purvis MD LABORATORY Final Result Performing Organization Address City/[facility]/ZIP Co de Phone Number [facility] [address] [place] [phone], from Last 3 Months or Most Recently Relevant to Health Maintenance Additional Health Concerns Infection Onset Date Last Indicated MRSA Clearance Comment:+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, right hand +MRSA 2014, arm Negative Nare 11/11/23 11/14/2023 11/14/[id number] [place] [id number] MEDICARE PART A HB ONLY MEDICARE PB ONLY MEDICARE PART B HB ONLY [facility] MEDICA MR HB ONLY [address] [place] [id number] [facility] [address] [place] [address] MEDICARE PROVIDER BASED [facility] Advance Directives * Full Code (Latest Code [...] 12:40 PM 11/22/2014 4:20 PM Care Teams Animal Control Officer Relationship Specialty Start Date End Date Marce Mota NP [address] [place] [address] PCP - General Nurse Practitioner - Family 02/21/24 Benjamin Almaraz Internal Medicine 09/24/14
--- OUTSIDE RECORDS SUMMARY | 2025-01-08 17:03 | XMS_ITS | CCD ---
Author Organization Unknown Care Team Providers Care Media Librarian Name Role Phone Admissions Gate Attendant, [place] Primary Care Provider Unava ilable Unavailable Chronic Care Management Unavaila ble Summary Purpose DataExchange Insurance Providers Payer name Policy type / Coverage type Covered republican ID Effective Begin Date Effective End Date Medicare [place] Medicare Part B [id number] Unknown Unknown [employer] ([facility] Medicare Part B [id number] Unknown Unknow n Family History Family History data not found Medication Administered No Medication Administered data Reason For Visit No Reason For Visit data
--- OUTSIDE RECORDS SUMMARY | 2025-01-08 17:03 | XMS_ITS | CCD ---
Author Organization Unknown Care Team Providers Care Framing Mill Operator Name Role Phone Deskidding Machine Operator, [place] Primary Care Provider Unava ilable Unavailable Chronic Care Management Unavaila ble Summary Purpose DataExchange Insurance Providers Payer name Policy type / Coverage type Covered libertarian ID Effective Begin Date Effective End Date Medicare [place] Medicare Part B [id number] Unknown Unknown [employer] ([facility]) Medicare Part B [id number] Unknown Unknow n Family History Family History data not found Medication Administered No Medication Administered data Reason For Visit No Reason For Visit data
[2025-01-08] MEDS: HYDROmorphone 0.5 mg/0.5 ml inj 1 MG IM (18:28)
== END 2025-01-08 19:09 | disposition home or self-care (01) ==
PROVIDERS: Emergency Provider Emergency Medicine; PCP Family Medicine
DX: M54.50 Low back pain, unspecified (principal)
CPT/HCPCS: 96372; 99283; 99284; A9270; J1171

== ENCOUNTER 2025-02-08 17:18 | Outpatient (CLI) | payer MEDICARE, SELFPAY ==
[2025-02-08 22:55] LABS: Chlamydia DNA Amplified* NOT DETECTED (No Detected); GC DNA Amplified* NOT DETECTED (No Detected)
== END 2025-02-08 17:19 | disposition home or self-care (01) ==
PROVIDERS: PCP Family Medicine; Visit Provider Nurse Practitioner Family
DX: R35.0 Frequency of micturition (principal); N89.8 Other specified noninflammatory disorders of vagina; J02.9 Acute pharyngitis, unspecified
CPT/HCPCS: 87070; 87086; 87491; 87591

== ENCOUNTER 2025-03-08 16:36 | Inpatient (IN) | payer MEDICARE, SELFPAY ==
[2025-03-08] VITALS (13 sets, daily range): BP systolic 131–201; BP diastolic 94–137; PULSE 80–111; RESP 16–20; TEMP 36.2–36.6; O2SAT 88–100; BMI 18.0
--- NOTE | 2025-03-08 16:39 | CRLHL7_ITS ---
For Patients: As a result of the Century Cures Act, medical imaging exams and procedure reports are released immediately into your electronic medical record. You may view this report before your referring provider. If you have questions, please contact your health care provider. INDICATION: Abdominal pain. TECHNIQUE: CT abdomen and pelvis acquired with 56 cc Isovue 370 IV contrast. COMPARISON: None. FINDINGS: Lower chest: Scattered atelectasis. Liver: Unremarkable. Normal in size and attenuation. No suspicious masses. Gallbladder and bile ducts: Unremarkable. No stones or inflammation. No biliary dilatation. Pancreas: Unremarkable. No mass or inflammation. Spleen: Unremarkable. Normal in size. No masses. Adrenal glands: Unremarkable. No nodules. Kidneys: Unremarkable. No suspicious masses, stones, or hydronephrosis. GI tract: Moderately distended fluid-filled appendix with hyperemia and subtle periappendiceal inflammatory stranding. Multiple dilated loops of small bowel with some collapsed loops of distal ileum. Vasculature: Abdominal aorta is normal in caliber. Mesenteric arteries are patent. Lymph nodes: No lymphadenopathy. Peritoneum/Abdominal Wall: Some swirling of mesenteric vasculature in the right lower quadrant (series 2/image 101). No sign of mass or infiltration. No free air or significant free fluid. Pelvis: Unremarkable. Bones: Unremarkable for age. IMPRESSION: Moderately distended fluid-filled appendix with hyperemia and subtle periappendiceal inflammatory stranding. Constellation of findings are concerning for acute uncomplicated appendicitis in the appropriate clinical setting. No drainable fluid collections. Recommend correlation with localized physical examination and laboratory values. Multiple dilated loops of small bowel with some collapsed loops of distal ileum. Constellation of findings are favored to reflect reactive ileus in the setting of acute uncomplicated appendicitis. Early small-bowel obstruction secondary to internal hernia not entirely excluded given adjacent visualization of some swirling of mesenteric vasculature in the right lower quadrant but this is thought less likely. Please note that all CT scans at this facility use dose modulation, iterative reconstruction, and/or weight-based dosing when appropriate to reduce radiation dose to as low as reasonably achievable. Dictated by Benjamin eParce MD @ 03/08/2025 6:36:55 PM (Electronically Signed)
--- OUTSIDE RECORDS SUMMARY | 2025-03-08 16:39 | XMS_ITS | Clinical Summary ---
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 Give at minimum 2hrs apart. Max Dose: 30mg per 24hrs. 10 Tablet 05/18/20 24 Active albuterol HFA (PRO-AIR; VENTOLIN; PROVENTIL) 90 mcg/actuation inhalerIndications :History of asthma Inhale 2 Puffs by mouth every 4 hours if needed for Wheezing. 8.5 g 1 10/01/20 24 Active Magnesium Glycinate 100 mg tabIndications:Sle ep disturbance Take 100-200 mg by mouth at bedtime. 60 Tablet 2 12/06/19 25 Active PARoxetine (PAXIL) 30 [...] the afternoon. 30 Tablet 02/04/20 25 Active metoprolol succinate 25 mg Sustained-Release tabletIndications: NSTEMI (non-ST elevated myocardial infarction) (HC) Take 0.5 Tablets (12.5 mg) by mouth once daily. 45 Tablet 2 12/22/19 25 Active Blood Pressure Monitor KitIndications:NST MARTHA (non-ST elevated myocardial infarction) (HC) Frequency of testing: daily 1 Each 12/22/19 25 Active atorvastatin 40 mg tabletIndications: NSTEMI (non-ST elevated myocardial infarction) (HC),Mixed hyperlipidemia Take 1 Tablet (40 mg) by mouth once daily with evening meal. 90 Tablet 12/22/19 25 Active clopidogreL 75 mg tabletIndications: NSTEMI (non-ST elevated myocardial infarction) (HC) TAKE 1 TABLET BY MOUTH EVERY AM 90 Tablet 2 01/03/20 25 Active losartan 25 mg tabletIndications: NSTEMI (non-ST elevated myocardial infarction) (HC),Hypertension Take 2 Tablets (50 mg) by mouth once daily. Dose increase 02/01/25 02/02/20 25 Active gabapentin 300 mg capsuleIndications :Anxiety Take 3 Capsules (900 mg) by mouth three times daily. 270 Capsule 1 02/26/20 25 Active gabapentin (NEURONTIN) 300 mg capsuleIndications :Anxiety Take 3 Capsules (900 mg) by mouth three times daily. 270 Capsule 2 12/06/19 25 025 Discontinu ed(*Availa bility/For mulary change/Cos t of medication ) dextroamphetamine- amphetamine (Adderall XR) 20 mg Extended-Release capsuleIndications :Attention deficit hyperactivity disorder (ADHD), unspecified ADHD type Take 1 Capsule (20 mg) by mouth once daily. 30 Capsule 01/28/20 25 025 Active Problems Problem Noted Date Diagnosed Date [...] cervical 03/22 Overview (10/26/2024): 07/2017 ASCUS/HPV+ 08/2017 [place]: No abnormality 01/2023 ASCUS/HPV Negative 09/2024 ASCUS/HPV [...] Encounters Date Type Department Care Team Description 03/06/[address] [facility] [address] [place] [address] Chavo Billy, [facility] F/U (Discussed patient with radiology, Dr. Cooper who reviewed patient's imaging again from yesterday and inquired about potential appendiceal mediated symptoms behind abdominal pain. //Attempted to reach out to patient via telephone, but no answer this morning. No identifying voicemail. Will try again to assess if patient still having abdominal pain for potential return to the ED for serial exams/imaging. ) 03/05/2025 8:50 AM CDT - 03/05/2025 1:[address] [facility] [address] [place] [address] Emmy Escudero MD Nausea and vomiting, unspecified vomiting type (Primary Dx); Ovarian cyst, follicular Discharge Disposition: Home Self Care 03/05/2025 Travel 02/23/2025 Refill [facility] [address] [place] [address] Nancy Mcdaniel NP Refill Request (Gabapentin) 02/01/2025 10:55 AM CDT - 02/01/2025 11:[address] [facility] [address] [place] [address] Genny Maynard DO Sore throat (Primary Dx); Elevated blood pressure reading Discharge Disposition: Home Self Care 02/01/2025 10:30 AM CDT Nurse/Clinic Staff Only [facility] [address] [place] [address] Blood Pressure 02/01/[address] [place] [address] Marce Mota NP Blood Pressure 02/01/2025 Travel 01/20/[address] [address] Marce Mota NP Blood Pressure 01/11/2025 11:30 AM CDT Orders Only [address] [address] Lab, [facility] 01/11/2025 Travel 01/01/[address] [address] Marce Mota NP Refill Request (Clopidogrel) 12/21/2024 9:35 AM CDT Office Visit [address] [address] Marce Mota NP Letter (Needing a letter for restrictions for her job ); Pain (Having so much pain can that cause a heart attack ) 12/21/[address] [address] Marce Mota NP Appointment 12/21/2024 Travel 12/20/[address] [address] Marce Mota NP Form (Restrictions ) 12/10/2024 Telephone [facility] [address] [place] [address] Nancy Mcdaniel NP Prior Authorization (dextroamphetamine-am phetamine (Adderall XR) 20 mg Extended-Release capsule Approved - 10/02/25) 12/10/2024 Telephone [facility] [address] [place] [address] Nancy Mcdaniel NP Prior Authorization (dextroamphetamine-am phetamine (AdderalL) 10 mg tablet (APPROVED 10/03/24 - 10/02/25)) from Last 3 Months Immunizations Immunization Administration [...] or yelled at (see row info)? No 03/05/2025 Interpersonal Safety Abuse 12 - 18 Not on file 03/05/2025 Interpersonal Safety Ambulatory Vulnerability No t on file 03/05/2025 Utilities Answer Date Recorded Do you have trouble paying f or utilities (for example, heat, electricity, water, phone)? 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 2008 Term F Vag Livin g Maxwell y 2010 Term 39w 0d 9h 00m/ F Vag Livin g Baya Toth 2011 Term 40w 0d 5h 00m/ 2.89 kg (6 lb 6 oz) M Vag Livin g Douglas Ovalles Delivery Location:[facility] Comments:System Genera maritza. Please review and update details. Last Filed Vital Signs Vital Sign Reading Time Taken Comments Blood Pressure 168/109 03/05/2025 11:15 AM CDT Pulse 57 03/05/2025 11:15 AM CDT Temperature 36.4 C (97.6 F) 03/05/2025 9:00 AM CDT Respiratory Rate 20 03/05/2025 9:00 AM CDT Oxygen Saturation 98% 03/05/2025 11:15 AM CDT Inhaled Oxygen Concentration - - Weight 54.2 kg (119 lb 8 oz) 03/05/2025 9:16 AM CDT Height 170.2 cm (5' 7) 03/05/2025 9:16 AM CDT Body Mass Index 18.72 03/05/2025 9:16 AM CDT Plan of Treatment Upcoming Encounters Date Type Department Care Team (Late st Contact Info) Description 06/28/2025 10:25 AM CDT Office Visit [facility] [address] [place] [address] Marce Mota, RENETTA [address] [facility] [place] [address] Health Maintenance Due Date Last Done Comments Pneumococcal series for age 6-49 (1 of 2 - PCV) 2000 Hepatitis B series for 19+ ( 3 of 3 - 19+ 3-dose series) 07/12/2023 05/17/2023, 09/07/2000, 09/07/2000 COVID-19 vaccine series ( season) 2024 Influenza Vaccine (Season Ended) 2025 09/03/2011, 09/03/2011, 06/29/2010, Additional history exists BMI (ht and wt on same day) for age 18+ 09/19/2025 09/19/2024, 02/21/2024, 03/01/2023, Additional history exists Pap test for age 21-65 10/26/2025 (Verified in Care Everywhere or Patient Record), 09/19/2024, 09/19/2024, Additional history exists Depression screening for age 12+ 12/05/2025 12/05/2024, 07/24/2024, 05/11/2024, Additional history exists Tetanus booster 02/20/2034 02/21/2024, 09/03/2011 Hepatitis C screening for ag e 18-79 Completed 05/10/2023, 09/23/2020 HIV for age 15-65 Completed 02/04/2024, , 11/02/2021, Additional history exists Tdap Completed 02/21/2024, 09/03/2011 Procedures Procedure Name Priority Date/Time Associated Diagnosis Comments US PELVIS COMPLETE TA AND TV WITH DUPLEX STAT 03/05/2025 1:06 PM CDT LACTATE VENOUS STAT 03/05/2025 11:[address] ABDOMEN PELVIS W STAT 03/05/2025 1 1:02 AM CDT URINALYSIS MICROSCOPIC STAT 03/05/2025 10:04 AM CDT URINE STAT 03/05/2025 10:04 AM CDT UA W/ SEDIMENT EXAM REFLEXED PER CRITERIA STAT 03/05/2025 10:04 AM CDT CBC WITH AUTO DIFFERENTIAL STAT 03/05/2025 9:22 AM CDT LIPASE STAT 03/05/2025 9:22 AM CDT HEPATIC FUNCTION PANEL STAT 03/05/2025 9:22 AM CDT LACTATE VENOUS STAT 03/05/2025 9:22 AM CDT BASIC METABOLIC PANEL STAT 03/05/2025 9:22 AM CDT CBC WITH AUTO DIFFERENTIAL STAT 03/05/2025 9:22 AM CDT STREP A PCR STAT 02/01/2025 11:02 AM CDT THROAT RAPID STREP A WITH REFLEX STAT 02/01/2025 11:02 AM CDT LIPID PANEL Routine 01/11/2025 12:07 PM CDT Non-ST elevation myocardial infarction (NSTEMI) (HC) COMP METABOLIC PANEL Routine 01/11/2025 12:07 PM CDT MS (multiple sclerosis) (HC) Non-ST elevation myocardial infarction (NSTEMI) (HC) CBC WITH AUTO DIFFERENTIAL Routine 01/11/2025 12:07 PM CDT MS (multiple sclerosis) (HC) Non-ST elevation myocardial infarction (NSTEMI) (HC) HEMOGLOBIN A1C Routine 01/11/2025 12:07 PM CDT Diabetes mellitus screening 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 Normal endometrial stripe thickness at 7 mm. 2. Simple 3.5 cm right ovarian follicular cyst. Dictated by Jairo Eric MD @ 03/05/2025 1:32:04 PM (Electronically Signed) Narrative 03/05/2025 1:32 PM CDT For Patients: As a result of the Cures Act, medical imaging exams and procedure reports are released immediately into your electronic medical record. You may view this report before your referring provider. If you have questions, please contact your health care provider. INDICATION: Abnormal bleeding TECHNIQUE: Transabdominal and transvaginal scanning was performed. Transvaginal scanning was performed to optimally evaluate the endometrium and adnexa. Ovarian blood flow was evaluated with color-flow and pulsed Doppler. COMPARISON: Abdomen/pelvis CT of 03/05/2025 FINDINGS: The uterus is normal in size and shape. The uterus measures 8.6 x 3.9 x 5.6 cm. No myometrial mass is evident. The endometrial stripe is normal in thickness at 7 mm. The left ovary is not visualized. A 3.5 x 3.1 x 2.7 cm right ovarian follicular cyst is noted. The right ovary measures 3.8 x 3.7 x 3.3 cm. Right ovarian blood flow is demonstrated with color-flow and pulsed Doppler. No adnexal mass is evident. No free fluid is demonstrated. Procedure Note Jairo Eric MD - 03/05/2025 For Patients: As a result of the Cures Act, medical imagingexams and procedure reports are released immediately into your electronicmedical record. You may view this report before your referring provider.If you have questions, please contact your health care provider. INDICATION: Abnormal bleeding TECHNIQUE: Transabdominal and transvaginal scanning was performed. Transvaginalscanning was performed to optimally evaluate the endometrium and adnexa.Ovarian blood flow was evaluated with color-flow and pulsed Doppler. COMPARISON: Abdomen/pelvis CT of 03/05/2025 FINDINGS: The uterus is normal in size and shape. The uterus measures 8.6 x 3.9 x5.6 cm. No myometrial mass is evident. The endometrial stripe is normal inthickness at 7 mm. The left ovary is not visualized. A 3.5 x 3.1 x 2.7 cm right ovarianfollicular cyst is noted. The right ovary measures 3.8 x 3.7 x 3.3 cm.Right ovarian blood flow is demonstrated with color-flow and pulsedDoppler. No adnexal mass is evident. No free fluid is demonstrated. IMPRESSION: 1. Normal endometrial stripe thickness at 7 mm. 2. Simple 3.5 cm right ovarian follicular cyst. Dictated by Jairo Eric MD @ 03/05/2025 1:32:04 PM (Electronically Signed) Emmy Escudero MD US Final Result * LACTATE VENOUS (03/05/2025 11:37 AM CDT) Only the most recent of2 resultswithin the time period is included. LACTATE,VENOUS 0.8 0.5 - 2.0 mmol/L 03/05/2025 12:04 PM CDT [facility] Blood BLOOD SPECIMEN / Unknown Venipuncture / Unknown 03/05/2025 11:37 AM CDT 03/05/2025 11:43 AM CDT Emmy Escudero MD CHEMISTRY Final Result [facility] [address] [place] [address] * CT ABD/PELVIS W IV CONTRAST (03/05/2025 11:02 AM CDT) Anatomical Region Laterality Modality Abdomen, Pelvis, AORTA, LIVER, SPLEEN Computed Tomography 03/05/2025 11:3 1 AM CDT Addenda Addendum by Benjamin Walters MD on 03/06/2025 1:30 PM CDT ADDENDUM ADDENDUM ADDENDUM ADDENDUM: Since the ultrasound did not identify a dilated fallopian tube, the tubular structure in the right lower quadrant may represent a dilated appendix with small appendicoliths. No inflamation in the adjacent fat, but still this raises the consideration of acute or chronic appendicitis. These additional comments were shared with the ER physician Dr. Bansal on 03/06/2025 at 8:45 a.m. BENJAMIN WALTERS M.D. [email or web address] Impressions 03/05/2025 11:31 AM CDT 1. Right Side hydrosalpinx and 3.3 cm right ovarian cyst. 2. Hypodensities in the liver as described. Please note that all CT scans at this facility use dose modulation, iterative reconstruction, and/or weight-based dosing when appropriate to reduce radiation dose to as low as reasonably achievable. Dictated by Zenia Walters MD @ 03/05/2025 11:31:47 AM (Electronically Signed) Narrative 03/05/2025 11:31 AM CDT For Patients: As a result of the Century Cures Act, medical imaging exams and procedure reports are released immediately into your electronic medical record. You may view this report before your referring provider. If you have questions, please contact your health care provider. INDICATION: Acute abdominal pain TECHNIQUE: CT abdomen and pelvis acquired with IV contrast. COMPARISON: CT abdomen pelvis without contrast 06/11/2017 FINDINGS: Lower chest: Lung bases are clear. Heart size normal. Liver: Hypodensities anterior margin of the right lobe are nonenhancing and may have been present on the previous study. Nonenhancing 9 millimeter hypodensity in the lateral right lobe liver too small to characterize but likely a cyst. Spleen: Unremarkable. Pancreas: Unremarkable. Gallbladder and bile ducts: Unremarkable. Kidneys: Unremarkable. No stones or hydronephrosis. Adrenal glands: Unremarkable. GI tract: Colon and small bowel are normal. Appendix not visible. No inflammation or bowel obstruction. Vascular structures: Aorta, SMA and portal venous system normal. Lymph nodes: No lymphadenopathy. Miscellaneous: Unremarkable. No free air or significant free fluid. No abdominal wall or inguinal hernia. Pelvic Organs: Fluid dilated right fallopian tube (2/123-158) and 4/42-52). 3.3 cm right ovary cyst. Small oblong cyst in what is presumed to be the left ovary. Uterus and bladder are normal. Bones: Unremarkable for age. Emmy Escudero MD CT Edite d Result - Final * (ABNORMAL) URINALYSIS MICROSCOPIC (03/05/2025 10:04 AM CDT) RBC 6-10(A) 0-2, None Seen /HPF 03/05/2025 10:22 AM CDT [facility] WBC 0-2 0-2, 3-5, None Seen /HPF 03/05/2025 10:22 AM T [facility] BACTERIA Few None Seen, Rare, Few Bacteria/ HPF 03/05/2025 10:22 AM T [facility] EPITHELIAL CELLS Moderate(A) None Seen, Few Epi/HPF 03/05/2025 10:22 AM T [facility] Mucus Present 03/05/2025 10:22 AM T [facility] Urine URINE SPECIMEN / Unknown Non-Blood / Unknown 03/05/2025 10:04 AM CDT 03/05/2025 10:11 AM CDT Emmy Escudero MD URINE Final Result [facility] [address] [place] [address] * (ABNORMAL) URINALYSIS W REFLEX MICROSCOPIC IF POSITIVE (03/05/2025 10:04 AM CDT) COLOR Yellow Yellow Color 03/05/2025 10:14 AM CDT [facility] CLARITY Slightly Cloudy(A) Clear Clarity 03/05/2025 10:14 AM [facility] SPECIFIC GRAVITY,URINE 1.015 1.010, 1.015, 1.020, 1.025 03/05/2025 10:14 AM [facility] PH,URINE 7.0 6.0, 7.0, 8.0, 5.5, 6.5, 7.5, 8.5 03/05/2025 10:14 AM [facility] UROBILINOGEN, QUALITATIVE Normal Normal EU/dl 03/05/2025 10:14 AM [facility] PROTEIN, URINE Trace(A) Negative mg/dL 03/05/2025 10:14 AM [facility] GLUCOSE, URINE Negative Negative mg/dL 03/05/2025 10:14 AM [facility] KETONES,URINE 15(A) Negative mg/dL 03/05/2025 10:14 AM [facility] BILIRUBIN,URI NE Negative Negative 03/05/2025 10:14 AM [facility] OCCULT BLOOD,URINE Large(A) Negative 03/05/2025 10:14 AM [facility] NITRITE Negative Negative 03/05/2025 10:14 AM [facility] LEUKOCYTE ESTERASE Negative Negative 03/05/2025 10:14 AM [facility] Urine URINE SPECIMEN / Unknown Non-Blood / Unknown 03/05/2025 10:04 AM CDT 03/05/2025 10:11 AM T us Emmy Escudero MD URINE Final Result [facility] [address] [place] [address] * URINE (03/05/2025 10:04 AM T) ,URIN E Negative Negative 03/05/2025 10:15 AM [facility] Urine URINE SPECIMEN / Unknown Non-Blood / Unknown 03/05/2025 10:04 AM CDT 03/05/2025 10:11 AM CDT us Emmy Escudero MD URINE Final Result [facility] [address] [facility] [place] [address] * CBC WITH AUTO DIFFERENTIAL (03/05/2025 9:22 AM CDT) WHITE BLOOD COUNT 9.0 4.5 - 11.0 thou/cu mm 03/05/2025 9:32 AM [facility] RED BLOOD COUNT 4.94 4.00 - 5.20 mil/cu mm 03/05/2025 9:32 AM [facility] HEMOGLOBIN 15.2 12.0 - 16.0 g/dL 03/05/2025 9:32 AM [facility] HEMATOCRIT 45.3 33.0 - 51.0 % 03/05/2025 9:32 AM [facility] MCV 92 80 - 100 fL 03/05/2025 9:32 AM [facility] MCH 30.8 26.0 - 34.0 pg 03/05/2025 9:32 AM [facility] MCHC 33.6 32.0 - 36.0 g/dL 03/05/2025 9:32 AM [facility] RDW 13.8 11.5 - 15.5 % 03/05/2025 9:32 AM [facility] PLATELET COUNT 273 140 - 440 thou/cu mm 03/05/2025 9:32 AM [facility] MPV 10.1 6.5 - 11.0 fL 03/05/2025 9:32 AM [facility] % NEUT 72.9 % 03/05/2025 9:32 AM [facility] % LYMPH 20.1 % 03/05/2025 9:32 AM [facility] % MONO 6.5 % 03/05/2025 9:32 AM [facility] % EOS 0.3 % 03/05/2025 9:32 AM [facility] % BASO 0.2 % 03/05/2025 9:32 AM T [facility] ABSOLUTE NEUTROPHILS 6.6 1.7 - 7.0 thou/cu mm 03/05/2025 9:32 AM T [facility] ABSOLUTE LYMPHOCYTES 1.8 0.9 - 2.9 thou/cu mm 03/05/2025 9:32 AM T [facility] ABSOLUTE MONOCYTES 0.6 <0.9 thou/cu mm 03/05/2025 9:32 AM [facility] ABSOLUTE EOSINOPHILS 0.0 <0.5 thou/cu mm 03/05/2025 9:32 AM [facility] ABSOLUTE BASOPHILS 0.0 <0.3 thou/cu mm 03/05/2025 9:32 AM T [facility] Blood BLOOD SPECIMEN / Unknown Butterfly / Unknown 03/05/2025 9:22 AM CDT 03/05/2025 9:26 AM CDT us Emmy Escudero MD HEMATOLOGY Final Result Performing Organization Address City/[facility]/ZIP Co de Phone Number [facility] [address] [place] [address] * LIPASE (03/05/2025 9:22 AM CDT) LIPASE 15.8 13.0 - 60.0 IU/L 03/05/2025 9:50 AM CDT [facility] Blood BLOOD SPECIMEN / Unknown Butterfly / Unknown 03/05/2025 9:22 AM CDT 03/05/2025 9:26 AM CDT us Emmy Escudero MD CHEMISTRY Final Result Performing Organization Address City/[facility]/ZIP Co de Phone Number [facility] [address] [place] [address] * (ABNORMAL) HEPATIC FUNCTION PANEL (03/05/2025 9:22 AM CDT) ALBUMIN 4.8 4.0 - 4.9 g/dL 03/05/2025 9:50 AM T [facility] PROTEIN,TOTAL 7.9 6.0 - 8.0 g/dL 03/05/2025 9:50 AM T [facility] BILIRUBIN,TOTAL 0.3 0.0 - 1.2 mg/dL 03/05/2025 9:50 AM T [facility] BILIRUBIN,DIRECT 0.2 0.0 - 0.2 mg/dL 03/05/2025 9:50 AM T [facility] BILIRUBIN,INDIRE CT 0.1(L) 0.2 - 0.8 mg/dL 03/05/2025 9:50 AM T [facility] ALK PHOSPHATASE 83 35 - 104 IU/L 03/05/2025 9:50 AM [facility] ALT (SGPT) 14 10 - 35 IU/L 03/05/2025 9:50 AM [facility] AST (SGOT) 23 10 - 35 IU/L 03/05/2025 9:50 AM [facility] Blood BLOOD SPECIMEN / Unknown Butterfly / Unknown 03/05/2025 9:22 AM CDT 03/05/2025 9:26 AM CDT us Emmy Escudero MD CHEMISTRY Final Result [facility] [address] [place] [address] * (ABNORMAL) BASIC METABOLIC PANEL (03/05/2025 9:22 AM CDT) Pathologist [facility] SODIUM 140 136 - 145 mmol/L 03/05/2025 9:50 AM T [facility] POTASSIUM 3.3(L) 3.5 - 5.1 mmol/L 03/05/2025 9:50 AM [facility] CHLORIDE 102 98 - 107 mmol/L 03/05/2025 9:50 AM [facility] CO2,TOTAL 24 22 - 29 mmol/L 03/05/2025 9:50 AM [facility] ANION GAP 14 5 - 18 03/05/2025 9:50 AM [facility] GLUCOSE 137(H) 70 - 99 mg/dL 03/05/2025 9:50 AM [facility] CALCIUM 9.0 8.8 - 10.4 mg/dL 03/05/2025 9:50 AM [facility] Comment: Reference ranges for this test were updated on 08/07/2024 to reflect our healthy population more accurately. Reference range changes are not retroactively applied to results, but previous results using the same methodology can be interpreted in the context of the new reference range. BUN 10 6 - 20 mg/dL 03/05/2025 9:50 AM [facility] CREATININE 0.70 0.50 - 0.90 mg/dL 03/05/2025 9:50 AM [facility] BUN/CREAT RATIO 14 10 - 20 9:50 AM [facility] eGFR >90 >90 mL/min/1. 73m2 03/05/2025 9:50 AM [facility] Comment:As of 2021, eG FR is calculated by the CKD-EPI creatinine equation without race adjustment. eGFR can be influenced by muscle mass, exercise, and diet. The reported eGFR is an estimation only and is only applicable if the renal function is stable. Blood BLOOD SPECIMEN / Unknown Butterfly / Unknown 03/05/2025 9:22 AM CDT 03/05/2025 9:26 AM CDT us Emmy Escudero MD CHEMISTRY Final Result [facility] [address] [place] [address] * STREP A PCR (02/01/2025 11:02 AM CDT) GROUP A STREP Negative 02/02/2025 12:32 AM CDT [facility] Throat SPECIMEN FROM THROAT / Unknown Non-Blood / Unknown 02/01/2025 11:02 AM CDT 02/01/2025 11:15 AM CDT Genny Cantubabak Gardunoutt DO MICROBIOLOGY Final Result [facility] [address] [place] [address], * THROAT RAPID STREP A WITH REFLEX (02/01/2025 11:02 AM CDT) STREP A ANTIGEN Negative 02/01/2025 11:15 AM CDT [facility] Comment:PCR to follow. Throat SPECIMEN FROM THROAT / Unknown Non-Blood / Unknown 02/01/2025 11:02 AM CDT 02/01/2025 11:06 AM CDT Genny Cantubabak Gardunout DO MICROBIOLOGY Final Result Performing Organization Address City/[facility]/ZIP Co de Phone Number [facility] [address] [place] [address] * HEMOGLOBIN A1C (01/11/2025 12:07 PM CDT) HEMOGLOBIN A1C 5.5 <5.7 % of total Hgb [facility] Comment: For the purpose of screening for the presence of diabetes: <5.7% Consistent with the absence of diabetes 5.7-6.4% Consistent with increased risk for diabetes (prediabetes) > or =6.5% Consistent with diabetes This assay result is consistent with a decreased risk of diabetes. Currently, no consensus exists regarding use of hemoglobin A1c for diagnosis of diabetes in children. According to [place] [employer] (ADA) guidelines, hemoglobin A1c <7.0% represents optimal control in non- diabetic patients. Different metrics may apply to specific patient populations. Standards of Medical Care in Diabetes(ADA). Blood BLOOD SPECIMEN / Unknown 01/11/2025 12:07 PM CDT 01/11/2025 12:08 PM CDT Marce Mota RENETTA CHEMISTRY Final Result Liquid [facility] [address] [place] [address], [facility] [address] [place] [address] * CBC AND DIFFERENTIAL (01/11/2025 12:07 PM CDT) Pathologist [facility] WHITE BLOOD CELL COUNT 7.9 3.8 - 10.8 Thousand/u L [facility] RED BLOOD CELL COUNT 4.50 3.80 - 5.10 Million/uL [facility] HEMOGLOBIN 14.0 11.7 - 15.5 g/dL [facility] HEMATOCRIT 41.4 35.0 - 45.0 % [facility] MCV 92.0 80.0 - 100.0 fL [facility] MCH 31.1 27.0 - 33.0 pg [facility] MCHC 33.8 32.0 - 36.0 g/dL [facility] Comment: For adults, a slight decrease in the calculated MCHC value (in the range of 30 to 32 g/dL) is most likely not clinically significant; however, it should be interpreted with caution in correlation with other red cell parameters and the patient's clinical condition. RDW 13.1 11.0 - 15.0 % [facility] PLATELET COUNT 295 140 - 400 Thousand/u L [facility] MPV 10.4 7.5 - 12.5 fL [facility] ABSOLUTE NEUTROPHILS 4,432 1,500 - 7,800 cells/uL [facility] ABSOLUTE LYMPHOCYTES 2,457 850 - 3,900 cells/uL [facility] ABSOLUTE MONOCYTES 822 200 - 950 cells/uL [facility] ABSOLUTE EOSINOPHILS 150 15 - 500 cells/uL [facility] ABSOLUTE BASOPHILS 40 0 - 200 cells/uL [facility] NEUTROPHILS 56.1 % [facility] LYMPHOCYTES 31.1 % [facility] MONOCYTES 10.4 % [facility] EOSINOPHILS 1.9 % [facility] BASOPHILS 0.5 % [facility] Blood BLOOD SPECIMEN / Unknown 01/11/2025 12:07 PM CDT 01/11/2025 12:08 PM CDT Marce Mota NP HEMATOLOGY Final Result Liquid [facility] [address] [place] [address], [facility] [address] [place] [address] * LIPID PANEL (01/11/2025 12:07 PM CDT) CHOLESTEROL, TOTAL 150 <200 mg/dL [facility] HDL CHOLESTEROL 68 > OR = 50 mg/dL [facility] TRIGLYCERIDES 100 <150 mg/dL [facility] LDL-CHOLESTEROL 63 mg/dL (calc) [facility] Comment: Reference range: <100 Desirable range <100 mg/dL for primary prevention; <70 mg/dL for patients with CHD or diabetic patients with > or = 2 CHD risk factors. LDL-C is now calculated using the Lawrence-Anushka calculation, which is a validated novel method providing better accuracy than the Friedewald equation in the estimation of LDL-C. Lawrence SS et al. ESCOBAR. 2013;310(19): 9048-0259 (http://education.TappnGo/faq/LBC250) CHOL/HDLC RATIO 2.2 <5.0 (calc) [facility] NON HDL CHOLESTEROL 82 <130 mg/dL (calc) [facility] Comment: For patients with diabetes plus 1 major ASCVD risk factor, treating to a non-HDL-C goal of <100 mg/dL (LDL-C of <70 mg/dL) is considered a therapeutic option. Blood BLOOD SPECIMEN / Unknown 01/11/2025 12:07 PM CDT 01/11/2025 12:08 PM CDT Marce Mota NP CHEMISTRY Final Result Liquid [facility] [address] [place] [address], [place] [phone] [facility] [address] [place] [address] * COMP METABOLIC PANEL (01/11/2025 12:07 PM CDT) Pathologist [facility] GLUCOSE 86 65 - 99 mg/dL [facility] Comment: Fasting reference interval UREA NITROGEN (BUN) 14 7 - 25 mg/dL [facility] CREATININE 0.63 0.50 - 0.99 mg/dL [facility] EGFR 113 > OR = 60 mL/min/1. 73m2 [facility] BUN/CREATININE RATIO SEE NOTE: 6 - 22 (calc) [facility] Comment: Not Reported: BUN and Creatinine are within reference range. SODIUM 140 135 - 146 mmol/L [facility] POTASSIUM 4.9 3.5 - 5.3 mmol/L [facility] CHLORIDE 105 98 - 110 mmol/L [facility] CARBON DIOXIDE 30 20 - 32 mmol/L [facility] CALCIUM 9.0 8.6 - 10.2 mg/dL [facility] PROTEIN, TOTAL 7.1 6.1 - 8.1 g/dL [facility] ALBUMIN 4.1 3.6 - 5.1 g/dL [facility] GLOBULIN 3.0 1.9 - 3.7 g/dL (calc) [facility] ALBUMIN/GLOBULIN RATIO 1.4 1.0 - 2.5 (calc) [facility] BILIRUBIN, TOTAL 0.3 0.2 - 1.2 mg/dL [facility] ALKALINE PHOSPHATASE 70 31 - 125 U/L [facility] AST 17 10 - 30 U/L [facility] ALT 11 6 - 29 U/L [facility] Blood BLOOD SPECIMEN / Unknown 01/11/2025 12:07 PM CDT 01/11/2025 12:08 PM CDT Marce Mota NP CHEMISTRY Final Result [facility] [address] [place] [address], [facility] [address] [place] [address] * (ABNORMAL) TOWER EXCAVATOR OPERATOR THIN PREP PAP DIAGNOSTIC IMAGED (09/19/2024 2:17 PM FIELD COLLECTOR) Case Report Gynecologic Cytology Report Case: [id number] Authorizing Provider: Marce Mota NP Collected: 09/19/2024 1417 Ordering Location: [facility] Received: 09/19/2024 1417 Clinic First Screen: Yehuda Burnette Pathologist: Gisela Brandon MD Specimen: TOWER EXCAVATOR OPERATOR ThinPrep Vial Diagnostic, Cervical 10/05/2024 12:59 PM [facility]ELD [facility] INTERPRETATION/ RESULT LOW GRADE SQUAMOUS INTRAEPITHELIAL LESION (LSIL)(A) (none) 10/05/2024 12:59 PM FIELD COL[facility]OR [facility] at 1259 FIELD COLLECTOR OTHER NON-NEOPLASTIC FINDING(S) Parakeratosis 10/05/2024 12:59 PM [facility]ELD [facility]OR [facility] SPECIMEN ADEQUACY Satisfactory for evaluation Endocervical component present 10/05/2024 12:59 PM FIELD COLLECTOR [facility] HPV REQUEST HPV and PAP 10/05/2024 12:59 PM FIELD COLLECTOR [facility] Date of LMP 09/15/24 10/05/2024 12:59 PM [facility]ELD [facility] Last Pap Date 02/10/23 10/05/2024 12:59 PM FIELD COLLECTOR [facility] Last Pap Result ASCUS 12:59 PM FIELD COLLECTOR [facility] Abnormal Pap or [place] Bx in last 5 years Yes 10/05/2024 12:59 PM FIELD COLLECTOR [facility] Menstrual Status Regular Periods 10/05/2024 12:59 PM FIELD COLLECTOR [facility] [place] Bx Done Today No 10/05/2024 12:59 PM FIELD COLLECTOR [facility] Additional Information None Given 10/05/2024 12:59 PM FIELD COLLECTOR [facility] Comment: Cytology is screened at [facility] - [address], [place] [address] and [facility] - [address], [place] [address] and [facility] - [address] [place] [address] Interpreted at [facility] - [address], [place] [address] Automated Review Successful 10/05/2024 12:59 PM FIELD COLLECTOR [facility] Comment:Specimen processed s uccessfully by automated bait maker device, ThinPrep Imaging System, [employer] ANCILLARY TESTING TOWER EXCAVATOR OPERATOR HPV Ordered, Please see separate report 10/05/2024 12:59 PM FIELD COLLECTOR [facility] Note The pap test is a screening technique, not a diagnostic procedure. It is used primarily to screen for squamous cancers and precursor lesions. Published studies have shown that it is subject to both false negative and false positive results. The pap test should not be used as the sole means to diagnose or exclude pre-malignant and malignant lesions. 10/05/2024 12:59 PM FIELD COLLECTOR [facility] Other (Cervical) Non-Blood / Unknown 09/19/2024 2:17 PM FIELD COLLECTOR 09/19/2024 2:17 PM FIELD COLLECTOR Comment:07/2017 ASCUS/HPV+ [place]: No /2023 ASCUS/HPV Negative Marce Mota NP PATHOLOGY/CYTOLOGY Final Result [facility] [address] [place] [address], [place] * ANTI HIV 1/2 (02/04/2024 9:14 AM CDT) Pathologist [facility] HIV-1/HIV-2 SCREEN Non-Reacti ve Non-Reacti ve 02/04/2024 2:01 PM CDT [facility] Comment:HIV-1 p24 and HIV-1/ HIV-2 Ab Not Detected. Blood BLOOD SPECIMEN / Unknown Venipuncture / Unknown 02/04/2024 9:14 AM CDT 02/04/2024 9:19 AM CDT us Kary Johns NP SEND OUTS Final Res ult Performing Organization Address [facility]/ZIP Co de Phone Number [facility] [address] [place] [address], [place] * LC HCV ANTIBODY RFX TO QUANT PCR (05/10/2023 1:30 PM CDT) [facility] HCV Ab Non Reactive Non Reactive 05/13/2023 4:08 AM CDT [facility] ([facility] Blood BLOOD SPECIMEN / Unknown Venipuncture / Unknown 05/10/2023 1:30 PM CDT 05/10/2023 1:30 PM CDT Narrative [facility] ([facility] - 05/13/2023 4:08 AM CDT Performed at: [address] [place] [address] [id number] Cheese Supervisor: Michael Umana MD, Phone: [phone] us Milena Purvis MD LABORATORY Final Result Performing Organization Address City/[facility]/ZIP Co de Phone Number [facility] ([facility]) [address] [place] [address], from Last 3 Months or Most Recently Relevant to Health Maintenance Additional Health Concerns Infection Onset Date Last Indicated MRSA Clearance Comment:+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, right hand +MRSA 2014, arm Negative Nare 11/11/23 11/14/2023 11/14/[address] [place] [address] MEDICARE PART A [place] ONLY Member Subscriber Plan / Payer (Ef fective 2014-Present) Name:Marita Cunningham Member ID:[id number] Relation to Subscriber:Self Name:Marita Cunningham Subscriber ID:[id number] Payer ID:Not on file Group ID:Not on file Type:Not on file Address: ATTN: CLAIMS [address] MEDICARE [place] ONLY Member Subscriber Plan / Payer (Ef fective 2014-Present) Name:Marita Cunningham Member ID:[id number] Relation to Subscriber:Self Name:Marita Cunningham Subscriber ID:[id number] Payer ID:Not on file Group ID:Not on file Type:Not on file Address: ATTN: CLAIMS [address] MEDICARE PART B [place] ONLY Member Subscriber Plan / Payer (Ef fective 2014-Present) Name:Marita Cunningham Member ID:[id number] Relation to Subscriber:Self Name:Marita Cunningham Subscriber ID:[id number] Payer ID:Not on file Group ID:Not on file Type:Not on file Address: ATTN: CLAIMS [address] [place] [id number] [facility] [address] [place] [address] MEDICARE PROVIDER BASED [facility] Advance Directives * Full Code (Latest Code [...] 12:40 PM 11/22/2014 4:20 PM Care Teams Ladder Operator Relationship Specialty Start Date End Date Marce Mota NP [address] [place] [address] PCP - General Nurse Practitioner - Family 02/21/24 Benjamin Almaraz Internal Medicine 09/24/14
[2025-03-08 17:23] LABS: Appearance Urine Clear (Clear); Bilirubin Urine 2+ (Negative); Blood Urine 2+ (Negative); Color Urine Yellow (Yellow); Glucose Urine Negative (Negative); Ketones Urine Trace (Negative); Leukocyte Esterase Urine Negative (Negative); Nitrite Urine Negative (Negative); Protein Urine 2+ (Negative)
[2025-03-08 17:33] LABS: Bacteria Urine Moderate; Fine Granular Casts Urine Few; Squamous Epithelial Cell Urine Moderate (None-Few)
[2025-03-08 17:34] LABS: Ur HCG Qualitative* Negative (Negative)
--- OUTSIDE RECORDS SUMMARY | 2025-03-08 17:38 | XMS_ITS | CCD ---
Author Organization Unknown Care Team Providers Care Galvanometer Assembler Name Role Phone Coroner Transport Technician, [place] Primary Care Provider Unava ilable Unavailable Chronic Care Management Unavaila ble Summary Purpose DataExchange Insurance Providers Payer name Policy type / Coverage type Covered constitution party ID Effective Begin Date Effective End Date Medicare [place] Medicare Part B [id number] Unknown Unknown [employer] ([facility]) Medicare Part B [id number] Unknown Unknow n Family History Family History data not found Medication Administered No Medication Administered data Reason For Visit No Reason For Visit data
--- OUTSIDE RECORDS SUMMARY | 2025-03-08 17:38 | XMS_ITS | CCD ---
Author Organization Unknown Care Team Providers Care Director Of Nursing Name Role Phone Agricultural Equipment Sales Manager, [place] Primary Care Provider Unava ilable Unavailable Chronic Care Management Unavaila ble Summary Purpose DataExchange Insurance Providers Payer name Policy type / Coverage type Covered constitution party ID Effective Begin Date Effective End Date Medicare [place] Medicare Part B [id number] Unknown Unknown [employer] ([facility]) Medicare Part B [id number] Unknown Unknow n Family History Family History data not found Medication Administered No Medication Administered data Reason For Visit No Reason For Visit data
--- NOTE | 2025-03-08 17:40 | ED.GENADULT ---
HPI - General Adult General Chief complaint: Abdominal Pain Stated complaint: appendix Time Seen by Provider: 03/08/25 16:38 Source: patient Mode of arrival: ambulatory Limitations: no limitations History of Present Illness HPI narrative: 44-year-old female coming in with abdominal pain for the last 2-3 days. Pain is diffuse started periumbilically. She denies fevers or chills. No diarrhea. She does have some constipation which is not necessarily new for her. She does have stool output but are small and hard, is passing gas. No vomiting. Currently menstruating. Patient was seen at the emergency department in [facility] where she had lab work done and a CT scan. CT report shows acute or chronic appendicitis (per the urgent care provider). However, per the provider who saw the patient in the urgent care there is no mention of this in the ER note which I have not seen. The pain continues and patient was sent to the ER for further evaluation. Related Data Home Medications ?Medication ?Instructions ?Recorded ?Confirmed gabapentin 400 mg capsule 1,200 mg PO TID 07/12/22 03/08/25 dextroamphetamine-amphetamine ER 20 mg PO DAILY 07/17/23 03/08/25 10 mg 24hr capsule,extend release paroxetine HCl 30 mg tablet 30 mg PO DAILY 07/17/23 03/08/25 losartan 25 mg tablet 25 mg PO DAILY 01/08/25 03/08/25 metoprolol succinate 25 mg 25 mg PO DAILY 01/08/25 03/08/25 tablet,extended release 24 hr quetiapine 25 mg tablet 25 mg PO QPM 01/08/25 03/08/25 Allergies Allergy/AdvReac Type Severity Reaction Status Date / Time codeine AdvReac Mild Makes Her Verified 03/08/25 17:55 Feel Weird morphine AdvReac Mild Makes Her Verified 03/08/25 17:55 Feel Weird Review of Systems Status of ROS: Reports: 10 or more systems reviewed and unremarkable except as noted in History and below [facility] Medical History Nontoxic multinodular goiter ?E04.2 - Nontoxic multinodular goiter (ICD-10) Nicotine dependence ?F17.200 - Nicotine dependence, unspecified, uncomplicated (ICD-10) Cavernous malformation ?Q28.3 - Other malformations of cerebral vessels (ICD-10) Ocular migraine ?G43.109 - Migraine with aura, not intractable, without status migrainosus (ICD-10) Seizures ?R56.9 - Unspecified convulsions (ICD-10) Dental abscess ?K04.7 - Periapical abscess without sinus (ICD-10) ASCUS with positive high risk HPV cervical ?R87.610 - Atypical squamous cells of undetermined significance on cytologic smear of cervix (ASC-US) (ICD-10) ?R87.810 - Cervical high risk human papillomavirus (HPV) DNA test positive (ICD-10) ADHD (attention deficit hyperactivity disorder) ?F90.9 - Attention-deficit hyperactivity disorder, unspecified type (ICD-10) NSTEMI (non-ST elevated myocardial infarction) ?I21.4 - Non-ST elevation (NSTEMI) myocardial infarction (ICD-10) Thyroid nodule ?E04.1 - Nontoxic single thyroid nodule (ICD-10) Polysubstance abuse ?F19.10 - Other psychoactive substance abuse, uncomplicated (ICD-10) Multiple sclerosis ?G35 - Multiple sclerosis (ICD-10) MRSA (methicillin resistant Staphylococcus aureus) ?A49.02 - Methicillin resistant Staphylococcus aureus infection, unspecified site (ICD-10) Kyphosis ?M40.209 - Unspecified kyphosis, site unspecified (ICD-10) Kidney stones ?N20.0 - Calculus of kidney (ICD-10) MIREILLE (generalized anxiety disorder) ?F41.1 - Generalized anxiety disorder (ICD-10) 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 - Hereditary deficiency of other clotting factors (ICD-10) Bipolar 1 disorder, depressed, moderate ?F31.32 - Bipolar disorder, current episode depressed, moderate (ICD-10) Asthma ?J45.909 - Unspecified asthma, uncomplicated (ICD-10) Arthritis ?M19.90 - Unspecified osteoarthritis, unspecified site (ICD-10) Controlled substance agreement signed ?Z79.899 - Other watermaster (current) drug therapy (ICD-10) Surgical History History of colposcopy ?Z98.890 - Other specified postprocedural states (ICD-10) History of dilation and curettage ?Z98.890 - Other specified postprocedural states (ICD-10) History of arthroscopic knee surgery ?Z98.890 - Other specified postprocedural states (ICD-10) Social History Smoking Status: Current every day smoker Second hand tobacco smoke exposure: No How often do you have a drink containing alcohol: never AUDIT-C Alcohol total score: 0 Non-prescribed substance use: former substance user and marijuana (any form) Exam Narrative: Exam Narrative: Thin, well-developed patient, clearly uncomfortable. Alert and oriented. Answers questions appropriately. Mood and affect are appropriate. Thoughts are goal oriented and rational. No tangential or magical thinking noted. Patient speaks in full sentences without needing to catch her breath. HEENT: Normocephalic atraumatic. Pupils are equally round reactive to light. Extraocular muscles are intact. Conjunctivae are moist without any icterus noted. Moist mucous membranes. Poor dentition. Cardiovascular: Heart is regular rate and rhythm S1 and S2 are present without any murmurs. Lungs: Clear to auscultation bilaterally no wheezes rhonchi or rales are appreciated. Deep breaths cause abdominal discomfort. Abdomen: Soft, distended with hypoactive bowel sounds. Diffuse tenderness however tenderness localizes at McBurney's point. Extremities: Bilateral lower extremities are without edema. Skin: Well perfused. Const: Vital Signs, click to edit/add: Vital Signs - 24 hr 03/08/25 17:04 Temperature 97.8 F Pulse Rate [Right Pulse Oximeter] 104 H Respiratory Rate 18 Blood Pressure [Ri ght Upper Arm] 142/100 H Pulse Oximetry 98 Oxygen Delivery Me thod Room Air Course Course ED Course: Reviewed CBC from Urgent Care which shows a white cell count of 16.99 with 91% neutrophils. Chemistries show slightly low sodium and slightly low potassium. CRP markedly elevated at 41.2. Unremarkable LFTs, lactate and lipase. UA with 2+ blood, 5-10 rbc's-patient is menstruating. Abdominal CT shows appendicitis with dilated loops of bowel thought to be likely secondary to ileus secondary to appendicitis, however obstruction cannot be definitively ruled out at this daniel Spoke to Dr. Martinez who recommends NG tube and IV Zosyn. Admission and plan for surgery in the morning. Vital Signs Vital signs: Initial Vital Signs Temperature 97.8 F 03/08/25 17:04 Temperature Source Temporal Artery Scan 03/08/25 17:04 Pulse Rate 104 H 03/08/25 17:04 Pulse Rhythm Regular 03/08/25 17:04 Pulse Strength 3+ Normal 03/08/25 17:04 Respiratory Rate 18 03/08/25 17:04 Blood Pressure 142/100 H 03/08/25 17:04 Blood Pressure Mean 114 H 03/08/25 17:04 Blood Pressure Position Sitting 03/08/25 17:04 Pulse Oximetry 98 03/08/25 17:04 Oxygen Delivery Method Room Air 03/08/25 17:04 Vital Signs Temperature 97.8 F 03/08/25 17:04 Pulse Rate 104 H 03/08/25 17:04 Respiratory Rate 18 03/08/25 17:04 Blood Pressure 142/100 H 03/08/25 17:04 Pulse Oximetry 98 03/08/25 17:04 Oxygen Delivery Method Room Air 03/08/25 17:04 Temperature 97.8 F 03/08/25 17:04 Pulse Rate 104 H 03/08/25 17:04 Respiratory Rate 18 03/08/25 17:04 Blood Pressure 142/100 H 03/08/25 17:04 Pulse Oximetry 98 03/08/25 17:04 Oxygen Delivery Method Room Air 03/08/25 17:04 Medications Administered Medications: Generic Name Dose Route Start Last Admin Trade Name Freq PRN Reason Stop Dose Admin Hydromorphone HCl 0.5 mg 03/08/25 18:54 03/08/25 19:09 Hydromorphone 0.5 Mg/0.5 Ml Inj IVP 03/08/25 18:55 0.5 mg ONCE ONE Administration Discontinued Medications Generic Name Dose Route Start Last Admin Trade Name Freq PRN Reason Stop Dose Admin Morphine Sulfate 2 mg 03/08/25 18:34 03/08/25 19:05 Morphine 2 Mg/Ml Inj IVP 03/08/25 18:35 Not Given ONCE ONE Medical Decision Making MDM Narrative Medical decision making narrative: 44-year-old with appendicitis. Plan per above. Medical Records Medical records reviewed: Yes I reviewed the patient's medical records Lab Data Lab results reviewed: Yes I reviewed the patient's lab results Labs: Lab Results 03/08/25 03/08/25 Range/Units 17:15 17:28 Sodium 133 L (135-149) mmol/L Potassium 3.3 L (3.6-5.1) mmol/L Chloride 96 (96-114) mmol/L Carbon Dioxide 27 (20-32) mmol/L Anion Gap 10 (7-15) mEq/L BUN 20 (5-24) mg/dL Creatinine 0.9 (0.5-1.5) mg/dL Estimated Creat Clear 66.37 Estimated GFR 81 ml/min Glucose 120 H (60-115) mg/dL Lactate 1.4 (0.5-1.9) mmol/L Calcium 8.8 (8.4-10.6) mg/dL Total Bilirubin 0.9 (0.1-1.5) mg/dL Direct Bilirubin 0.3 (0.0-0.5) mg/dL AST 24 (12-35) U/L ALT 14 (4-35) U/L Alkaline Phosphatase 109 (40-150) U/L C-Reactive Protein 41.2 H (0.5-1.0) mg/dL Total Protein 7.9 (6.0-8.3) g/dL Albumin 4.1 (3.3-5.0) g/dL Lipase 15 L (23-300) U/L Urine Color Yellow (Yellow) Urine Appearance Clear (Clear) Urine pH 6.0 (5.0-8.5) Ur Specific [place] 1.020 (1.000-1.030) Urine Protein 2+ A (Negative) Urine Glucose (UA) Negative (Negative) Urine Ketones Trace A (Negative) Urine Blood 2+ A (Negative) Urine Nitrite Negative (Negative) Urine Bilirubin 2+ A (Negative) Urine Urobilinogen 1.0 (0.2-1.0) Ur Leukocyte Esterase Negative (Negative) Urine RBC 5-10 A (0-2) Urine WBC 5-10 A (0-5) Ur Squamous Epith Cells Moderate A (None-Few) Urine Bacteria Moderate A (None) Fine Granular Casts Few A (None) Urine HCG, Qual Negative (Negative) Imaging Data CT scan - abdomen: Attestation: I have reviewed the pertinent imaging results. Radiologist's impression: TECHNIQUE: CT abdomen and pelvis acquired with 56 cc Isovue 370 IV contrast. COMPARISON: None. FINDINGS: Lower chest: Scattered atelectasis. Liver: Unremarkable. Normal in size and attenuation. No suspicious masses. Gallbladder and bile ducts: Unremarkable. No stones or inflammation. No biliary dilatation. Pancreas: Unremarkable. No mass or inflammation. Spleen: Unremarkable. Normal in size. No masses. Adrenal glands: Unremarkable. No nodules. Kidneys: Unremarkable. No suspicious masses, stones, or hydronephrosis. GI tract: Moderately distended fluid-filled appendix with hyperemia and subtle periappendiceal inflammatory stranding. Multiple dilated loops of small bowel with some collapsed loops of distal ileum. Vasculature: Abdominal aorta is normal in caliber. Mesenteric arteries are patent. Lymph nodes: No lymphadenopathy. Peritoneum/Abdominal Wall: Some swirling of mesenteric vasculature in the right lower quadrant (series 2/image 101). No sign of mass or infiltration. No free air or significant free fluid. Pelvis: Unremarkable. Bones: Unremarkable for age. IMPRESSION: Moderately distended fluid-filled appendix with hyperemia and subtle periappendiceal inflammatory stranding. Constellation of findings are concerning for acute uncomplicated appendicitis in the appropriate clinical setting. No drainable fluid collections. Recommend correlation with localized physical examination and laboratory values. Multiple dilated loops of small bowel with some collapsed loops of distal ileum. Constellation of findings are favored to reflect reactive ileus in the setting of acute uncomplicated appendicitis. Early small-bowel obstruction secondary to internal hernia not entirely excluded given adjacent visualization of some swirling of mesenteric vasculature in the right lower quadrant but this is thought less likely. Discharge Plan Discharge Clinical Impression: Acute appendicitis Patient Disposition: Admitted As Observation Condition: Stable
[2025-03-08 17:45] LABS: Lactate* 1.4 mmol/L (0.5-1.9)
[2025-03-08 18:01] LABS: Albumin* 4.1 g/dL (3.3-5.0); Chloride* 96 mmol/L (96-114); Potassium* 3.3 mmol/L (3.6-5.1); Sodium* 133 mmol/L (135-149)
[2025-03-08 18:03] LABS: Blood Urea Nitrogen* 20 mg/dL (5-24); Creatinine* 0.9 mg/dL (0.5-1.5); Est. Creatinine Clearance* 66.37; Estimated Glomerular Filt Rate 81 ml/min
[2025-03-08 18:04] LABS: Alanine Aminotransferase* 14 U/L (4-35); Alkaline Phosphatase* 109 U/L (40-150); Anion Gap 10 mEq/L (7-15); Aspartate Amino Transferase* 24 U/L (12-35); Bilirubin Direct* 0.3 mg/dL (0.0-0.5); Bilirubin Total* 0.9 mg/dL (0.1-1.5); Calcium* 8.8 mg/dL (8.4-10.6); Carbon Dioxide* 27 mmol/L (20-32); Glucose* 120 mg/dL (60-115); Lipase* 15 U/L (23-300); Total Protein* 7.9 g/dL (6.0-8.3)
[2025-03-08 18:46] LABS: C Reactive Protein* 41.2 mg/dL (0.5-1.0)
--- OUTSIDE RECORDS SUMMARY | 2025-03-08 18:59 | XMS_ITS | CCD ---
Author Organization Unknown Care Team Providers Care Public Health Social Worker Name Role Phone [employer], [place] Primary Care Provider Unava ilable Unavailable Chronic Care Management Unavaila ble Summary Purpose DataExchange Insurance Providers Payer name Policy type / Coverage type Covered libertarian ID Effective Begin Date Effective End Date Medicare [place] Medicare Part B [id number] Unknown Unknown [employer] ([facility]) Medicare Part B [id number] Unknown Unknow n Family History Family History data not found Medication Administered No Medication Administered data Reason For Visit No Reason For Visit data
--- OUTSIDE RECORDS SUMMARY | 2025-03-08 18:59 | XMS_ITS | CCD ---
Author Organization Unknown Care Team Providers Care Hydraulic Design Engineer Name Role Phone Analytics Manager, [place] Primary Care Provider Unava ilable Unavailable Chronic Care Management Unavaila ble Summary Purpose DataExchange Insurance Providers Payer name Policy type / Coverage type Covered libertarian ID Effective Begin Date Effective End Date Medicare [place] Medicare Part B [id number] Unknown Unknown [employer] ([facility]) Medicare Part B [id number] Unknown Unknow n Family History Family History data not found Medication Administered No Medication Administered data Reason For Visit No Reason For Visit data
--- NOTE | 2025-03-08 19:08 | PM.GSCN ---
History of Present Illness Consult details Date Seen: 03/08/25 Consult date: 03/08/25 Narrative: The patient is a 44-year-old female who presents to the emergency department with 4 days of abdominal pain. Her pain 1st started as mentioned 4 days ago. She had cramping in her lower abdomen and she thought it was related to menses. She was seen at an outside hospital and workup revealed a white blood cell count of 9. Initial CT showed hydrosalpinx with a right ovarian cyst. She states that she was discharged home and told that it was an ovarian cyst. There is an addendum which shows the patient has possibly a dilated appendix with small appendicolith. There was no periappendiceal inflammation. She states that she also had abdominal distention at the time. She could not get out of bed for a few days but today felt better. She decided she should go into urgent care to be seen. In the ER she was found to have acute appendicitis with concern for bowel obstruction given significantly dilated small bowel. The patient states that she has not had nausea or vomiting. She has had constipation and has not had any bowel movement since the pain began. Denies fevers. She has not really been eating much. She has not eaten today. Her pain is primarily in her upper abdomen today she states. [facility] Medical History (Updated 03/08/25 @ 21:34 by Flor Martinez MD) Nontoxic multinodular goiter ?E04.2 - Nontoxic multinodular goiter (ICD-10) Nicotine dependence ?F17.200 - Nicotine dependence, unspecified, uncomplicated (ICD-10) Cavernous malformation ?Q28.3 - Other malformations of cerebral vessels (ICD-10) Ocular migraine ?G43.109 - Migraine with aura, not intractable, without status migrainosus (ICD-10) Seizures ?R56.9 - Unspecified convulsions (ICD-10) Dental abscess ?K04.7 - Periapical abscess without sinus (ICD-10) ASCUS with positive high risk HPV cervical ?R87.610 - Atypical squamous cells of undetermined significance on cytologic smear of cervix (ASC-US) (ICD-10) ?R87.810 - Cervical high risk human papillomavirus (HPV) DNA test positive (ICD-10) ADHD (attention deficit hyperactivity disorder) ?F90.9 - Attention-deficit hyperactivity disorder, unspecified type (ICD-10) NSTEMI (non-ST elevated myocardial infarction) ?I21.4 - Non-ST elevation (NSTEMI) myocardial infarction (ICD-10) Thyroid nodule ?E04.1 - Nontoxic single thyroid nodule (ICD-10) Polysubstance abuse ?F19.10 - Other psychoactive substance abuse, uncomplicated (ICD-10) Multiple sclerosis ?G35 - Multiple sclerosis (ICD-10) MRSA (methicillin resistant Staphylococcus aureus) ?A49.02 - Methicillin resistant Staphylococcus aureus infection, unspecified site (ICD-10) Kyphosis ?M40.209 - Unspecified kyphosis, site unspecified (ICD-10) Kidney stones ?N20.0 - Calculus of kidney (ICD-10) MIREILLE (generalized anxiety disorder) ?F41.1 - Generalized anxiety disorder (ICD-10) 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 - Hereditary deficiency of other clotting factors (ICD-10) Bipolar 1 disorder, depressed, moderate ?F31.32 - Bipolar disorder, current episode depressed, moderate (ICD-10) Asthma ?J45.909 - Unspecified asthma, uncomplicated (ICD-10) Arthritis ?M19.90 - Unspecified osteoarthritis, unspecified site (ICD-10) Controlled substance agreement signed ?Z79.899 - Other extermination inspector (current) drug therapy (ICD-10) Surgical History (Updated 03/08/25 @ 20:51 by Yasmine Hall MD) History of colposcopy ?Z98.890 - Other specified postprocedural states (ICD-10) History of dilation and curettage ?Z98.890 - Other specified postprocedural states (ICD-10) History of arthroscopic knee surgery ?Z98.890 - Other specified postprocedural states (ICD-10) Family History (Updated 03/08/25 @ 20:52 by Yasmine Hall MD) Maternal Grandmother Lung cancer High blood pressure Mother High blood pressure Multiple sclerosis Social History (Updated 03/08/25 @ 20:54 by Yasmine Hall MD) Narrative: Works at a [employer]. Has children who are in foster care due to her h/o meth use. She says she has not used meth for 5 years. She uses medical marijuana. She smokes 3/4 pack cigarettes per day for 30 years. She drinks 1-3 alcoholic drinks per month. Smoking Status: Current every day smoker Second hand tobacco smoke exposure: No How often do you have a drink containing alcohol: never AUDIT-C Alcohol total score: 0 Non-prescribed substance use: former substance user and marijuana (any form) Meds Home Medications and Allergies Home Medications ?Medication ?Instructions ?Recorded ?Confirmed ?Type dextroamphetamine-amphetamine ER 20 mg PO DAILY 07/17/23 03/08/25 History 10 mg 24hr capsule,extend release paroxetine HCl 30 mg tablet 30 mg PO DAILY 07/17/23 03/08/25 History losartan 25 mg tablet 25 mg PO DAILY 01/08/25 03/08/25 History metoprolol succinate 25 mg 25 mg PO DAILY 01/08/25 03/08/25 History tablet,extended release 24 hr quetiapine 25 mg tablet 25 mg PO QPM PRN 01/08/25 03/08/25 History gabapentin 300 mg capsule 900 mg PO 3XD 03/08/25 03/08/25 History Allergies Allergy/AdvReac Type Severity Reaction Status Date / Time codeine AdvReac Mild Makes Her Verified 03/08/25 17:55 Feel Weird morphine AdvReac Mild Makes Her Verified 03/08/25 17:55 Feel Weird Exam Narrative: Exam Narrative: General appearance: Alert, cooperative, and in no distress Eyes: PERRLA, eye lids clear, and sclera white HENT Head: Normocephalic Ears: External ears normal Pulmonary: Clear to auscultation bilaterally Cardiovascular Heart: Regular rate and rhythm Extremities: warm and well perfused Gastrointestinal Abdominal: Distended. Upper abdomen without tenderness. Right lower quadrant is tender with guarding and rebound. Musculoskeletal: Extremities: Upper: Both upper extremities have normal joint range of motion and intact strength. Lower: Both lower extremities have normal joint range of motion and intact strength. Skin: Normal skin color, texture, and turgor. Neurologic: No focal deficits Psychiatric: Alert, oriented, cooperative, normal affect. Const: Vital Signs, click to edit/add: Vital Signs - 24 hr 03/08/25 17:04 Temperature 97.8 F Pulse Rate [Right Pulse Oximeter] 104 H Respiratory Rate 18 Blood Pressure [Ri ght Upper Arm] 142/100 H Pulse Oximetry 98 Oxygen Delivery Me thod Room Air Results Labs Labs: Abnormal lab results 03/08/25 03/08/25 Range/Units 17:15 17:28 Sodium 133 L (135-149) mmol/L Potassium 3.3 L (3.6-5.1) mmol/L Glucose 120 H (60-115) mg/dL C-Reactive Protein 41.2 H (0.5-1.0) mg/dL Lipase 15 L (23-300) U/L Urine Protein 2+ A (Negative) Urine Ketones Trace A (Negative) Urine Blood 2+ A (Negative) Urine Bilirubin 2+ A (Negative) Urine RBC 5-10 A (0-2) Urine WBC 5-10 A (0-5) Ur Squamous Epith Cells Moderate A (None-Few) Urine Bacteria Moderate A (None) Fine Granular Casts Few A (None) Diabetes panel 03/08/25 Range/Units 17:28 Sodium 133 L (135-149) mmol/L Potassium 3.3 L (3.6-5.1) mmol/L Chloride 96 (96-114) mmol/L Carbon Dioxide 27 (20-32) mmol/L BUN 20 (5-24) mg/dL Creatinine 0.9 (0.5-1.5) mg/dL Glucose 120 H (60-115) mg/dL Calcium 8.8 (8.4-10.6) mg/dL AST 24 (12-35) U/L ALT 14 (4-35) U/L Alkaline Phosphatase 109 (40-150) U/L Total Protein 7.9 (6.0-8.3) g/dL Albumin 4.1 (3.3-5.0) g/dL Calcium panel 03/08/25 Range/Units 17:28 Calcium 8.8 (8.4-10.6) mg/dL Albumin 4.1 (3.3-5.0) g/dL Pituitary panel 03/08/25 Range/Units 17:28 Sodium 133 L (135-149) mmol/L Potassium 3.3 L (3.6-5.1) mmol/L Chloride 96 (96-114) mmol/L Carbon Dioxide 27 (20-32) mmol/L BUN 20 (5-24) mg/dL Creatinine 0.9 (0.5-1.5) mg/dL Glucose 120 H (60-115) mg/dL Calcium 8.8 (8.4-10.6) mg/dL Adrenal panel 03/08/25 Range/Units 17:28 Sodium 133 L (135-149) mmol/L Potassium 3.3 L (3.6-5.1) mmol/L Chloride 96 (96-114) mmol/L Carbon Dioxide 27 (20-32) mmol/L BUN 20 (5-24) mg/dL Creatinine 0.9 (0.5-1.5) mg/dL Glucose 120 H (60-115) mg/dL Calcium 8.8 (8.4-10.6) mg/dL Total Bilirubin 0.9 (0.1-1.5) mg/dL AST 24 (12-35) U/L ALT 14 (4-35) U/L Alkaline Phosphatase 109 (40-150) U/L Total Protein 7.9 (6.0-8.3) g/dL Albumin 4.1 (3.3-5.0) g/dL All other labs normal. Imaging Abdomen CT scan report/results: report reviewed and image reviewed Additional studies: IMPRESSION: Moderately distended fluid-filled appendix with hyperemia and subtle periappendiceal inflammatory stranding. Constellation of findings are concerning for acute uncomplicated appendicitis in the appropriate clinical setting. No drainable fluid collections. Recommend correlation with localized physical examination and laboratory values. Multiple dilated loops of small bowel with some collapsed loops of distal ileum. Constellation of findings are favored to reflect reactive ileus in the setting of acute uncomplicated appendicitis. Early small-bowel obstruction secondary to internal hernia not entirely excluded given adjacent visualization of some swirling of mesenteric vasculature in the right lower quadrant but this is thought less likely. Dictated by Benjamin Pearce MD @ 03/08/2025 6:36:[address] scan from outside hospital reviewed: ADDENDUM: Since the ultrasound did not identify a dilated fallopian tube, the tubular structure in the right lower quadrant may represent a dilated appendix with small appendicoliths. No inflamation in the adjacent fat, but still this raises the consideration of acute or chronic appendicitis. These additional comments were shared with the ER physician Dr. Bansal on 03/06/2025 at 8:45 a.m. BENJAMIN PERRIN M.D. [email or web address] Addended by: Benjamin Perrin MD on 03/06/2025 1:30 PM For Patients: As a result of the Century Cures Act, medical imaging exams and procedure reports are released immediately into your electronic medical record. You may view this report before your referring provider. If you have questions, please contact your health care provider. INDICATION: Acute abdominal pain TECHNIQUE: CT abdomen and pelvis acquired with IV contrast. COMPARISON: CT abdomen pelvis without contrast 06/11/2017 FINDINGS: Lower chest: Lung bases are clear. Heart size normal. Liver: Hypodensities anterior margin of the right lobe are nonenhancing and may have been present on the previous study. Nonenhancing 9 millimeter hypodensity in the lateral right lobe liver too small to characterize but likely a cyst. Spleen: Unremarkable. Pancreas: Unremarkable. Gallbladder and bile ducts: Unremarkable. Kidneys: Unremarkable. No stones or hydronephrosis. Adrenal glands: Unremarkable. GI tract: Colon and small bowel are normal. Appendix not visible. No inflammation or bowel obstruction. Vascular structures: Aorta, SMA and portal venous system normal. Lymph nodes: No lymphadenopathy. Miscellaneous: Unremarkable. No free air or significant free fluid. No abdominal wall or inguinal hernia. Pelvic Organs: Fluid dilated right fallopian tube (2/123-158) and 4/42-52). 3.3 cm right ovary cyst. Small oblong cyst in what is presumed to be the left ovary. Uterus and bladder are normal. Bones: Unremarkable for age. Progress Note:A&P Assessment and plan (1) Acute appendicitis: Status: Acute (2) Ileus due to infection: Status: Acute (3) Factor V deficiency: Status: Chronic (4) MIREILLE (generalized anxiety disorder): Status: Chronic (5) Hypokalemia: Status: Acute Plan The patient is a 44-year-old female with acute appendicitis, possibly ruptured with likely reactive inflammation causing possible small-bowel obstruction versus ileus. -I discussed the management with the patient and I recommended appendectomy. We will attempt this laparoscopically a, however her bowel dilatation may be prohibitive. She understands that the open incision may be necessary. We discussed the risks the procedure including bleeding, injury to other structures and the risk of abscess if her appendix is perforated. I do think she is at higher risk for perforation given the timing of her symptoms and the appearance of her CT scan. She understands that this will mean that she will likely continue as inpatient on IV antibiotics. An NG tube was placed to help prevent aspiration and decompress her small bowel. This will stay in place until she has return of bowel function. -antibiotics were administered in the emergency department. -hospitalist is following -patient has a history of factor 5 Leiden. She does not take anticoagulation. I suspect she is heterozygous. Will require DVT prophylaxis at minimum during the postoperative period. -planning on surgery emergently this evening
[2025-03-08] MEDS: HYDROmorphone 0.5 mg/0.5 ml inj IVP ×2 (19:09→20:37)
--- NOTE | 2025-03-08 19:46 | CRLHL7_ITS ---
For Patients: As a result of the Century Cures Act, medical imaging exams and procedure reports are released immediately into your electronic medical record. You may view this report before your referring provider. If you have questions, please contact your health care provider. INDICATION: NG tube placement. TECHNIQUE: Chest 1 views. COMPARISON: None. FINDINGS: Cardiovascular and mediastinum: Heart size and vasculature are normal in caliber and appearance. Subdiaphragmatic enteric tube with tip and proximal port in the stomach. Lungs and pleural spaces: Lungs are clear. No sign of infiltrate or mass. No sign of pleural effusion. No pneumothorax. Bones and soft tissues: No significant findings. IMPRESSION: No acute or significant findings. Dictated by Benjamin Pearce MD @ 03/08/2025 8:21:38 PM (Electronically Signed)
--- NOTE | 2025-03-08 20:14 | PM.IMHP1 ---
Assessment and Plan Assessment and plan (1) Acute appendicitis: Problem comment: - surgery by Dr. Martinez this evening - postop cares per Dr. Martinez Status: Acute (2) Hypokalemia: Problem comment: - mild, replace IV, recheck in the morning Status: Acute (3) MIREILLE (generalized anxiety disorder): Problem comment: Continue paroxetine Status: Chronic (4) Heterozygous factor V Leiden mutation: Problem comment: VTE prophylaxis with SCDs and low-dose Lovenox. I spoke with the surgeon who is agreeable with starting this tomorrow evening. Status: Chronic (5) Ileus due to infection: Status: Acute Hospitalist- H&P: HPI History of Present Illness Time Seen by Provider: 20:30 Date Seen: 03/08/25 Chief complaint: appendix Narrative: Marita Cunningham is a 44 year old female with an extensive medical history who started having diffuse abdominal pain 3 days ago. She went to the ER in [place]. I reviewed Dr. Escudero's ER note from 03/05/25 on [facility], and it states CT scan obtained which shows ovarian mass and hydrosalpinx. Ultrasound obtained which showed no evidence of torsion. She continued to have abdominal pain which increased dramatically this morning, causing her to roll around in the bed in pain for several hours. She had taken her morning medications very early this morning, but has not taken anything or had any food or water since due to pain. Nothing has helped to improve the pain. Sitting forward, deep breaths, and movement make her pain worse. She had a small pebble-like stool this morning, which is unusual for her. She denies any nausea. She had some emesis [address] into [place] ER, but none since then. She feels very bloated today, but she is on her period. She denies CP, SOB, fever, chills, leg pain or swelling. She denies melena or hematochezia. I viewed the CT report from 03/05/25 in [facility]. There is an addendum from 03/06/25 that states, ADDENDUM: Since the ultrasound did not identify a dilated fallopian tube, the tubular structure in the right lower quadrant may represent a dilated appendix with small appendicoliths. No inflamation in the adjacent fat, but still this raises the consideration of acute or chronic appendicitis. These additional comments were shared with the ER physician Dr. Bansal on 03/06/2025 at 8:45 a.m. Review of Systems Status of ROS: Reports: 10 or more systems reviewed and unremarkable except as noted in History and below [facility] Medical History (Updated 03/08/25 @ 23:56 by Yasmine Hall MD) Heterozygous factor V Leiden mutation ?D68.51 - Activated protein C resistance (ICD-10) Nontoxic multinodular goiter ?E04.2 - Nontoxic multinodular goiter (ICD-10) Nicotine dependence ?F17.200 - Nicotine dependence, unspecified, uncomplicated (ICD-10) Cavernous malformation ?Q28.3 - Other malformations of cerebral vessels (ICD-10) Ocular migraine ?G43.109 - Migraine with aura, not intractable, without status migrainosus (ICD-10) Seizures ?R56.9 - Unspecified convulsions (ICD-10) Dental abscess ?K04.7 - Periapical abscess without sinus (ICD-10) ASCUS with positive high risk HPV cervical ?R87.610 - Atypical squamous cells of undetermined significance on cytologic smear of cervix (ASC-US) (ICD-10) ?R87.810 - Cervical high risk human papillomavirus (HPV) DNA test positive (ICD-10) ADHD (attention deficit hyperactivity disorder) ?F90.9 - Attention-deficit hyperactivity disorder, unspecified type (ICD-10) NSTEMI (non-ST elevated myocardial infarction) ?I21.4 - Non-ST elevation (NSTEMI) myocardial infarction (ICD-10) Thyroid nodule ?E04.1 - Nontoxic single thyroid nodule (ICD-10) Polysubstance abuse ?F19.10 - Other psychoactive substance abuse, uncomplicated (ICD-10) Multiple sclerosis ?G35 - Multiple sclerosis (ICD-10) MRSA (methicillin resistant Staphylococcus aureus) ?A49.02 - Methicillin resistant Staphylococcus aureus infection, unspecified site (ICD-10) Kyphosis ?M40.209 - Unspecified kyphosis, site unspecified (ICD-10) Kidney stones ?N20.0 - Calculus of kidney (ICD-10) MIREILLE (generalized anxiety disorder) ?F41.1 - Generalized anxiety disorder (ICD-10) 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 - Hereditary deficiency of other clotting factors (ICD-10) Bipolar 1 disorder, depressed, moderate ?F31.32 - Bipolar disorder, current episode depressed, moderate (ICD-10) Asthma ?J45.909 - Unspecified asthma, uncomplicated (ICD-10) Arthritis ?M19.90 - Unspecified osteoarthritis, unspecified site (ICD-10) Controlled substance agreement signed ?Z79.899 - Other long term care phlebotomist (current) drug therapy (ICD-10) Surgical History (Updated 03/08/25 @ 20:51 by Yasmien Hall MD) History of colposcopy ?Z98.890 - Other specified postprocedural states (ICD-10) History of dilation and curettage ?Z98.890 - Other specified postprocedural states (ICD-10) History of arthroscopic knee surgery ?Z98.890 - Other specified postprocedural states (ICD-10) Family History (Updated 03/08/25 @ 20:52 by Yasmine Hall MD) Maternal Grandmother Lung cancer High blood pressure Mother High blood pressure Multiple sclerosis Social History (Updated 03/08/25 @ 20:54 by Yasmine Hall MD) Narrative: Works at a [employer]. Has children who are in foster care due to her h/o meth use. She says she has not used meth for 5 years. She uses medical marijuana. She smokes 3/4 pack cigarettes per day for 30 years. She drinks 1-3 alcoholic drinks per month. Smoking Status: Current every day smoker Second hand tobacco smoke exposure: No How often do you have a drink containing alcohol: never AUDIT-C Alcohol total score: 0 Non-prescribed substance use: former substance user and marijuana (any form) Meds Home Medications and Allergies Home Medications ?Medication ?Instructions ?Recorded ?Confirmed ?Type dextroamphetamine-amphetamine ER 20 mg PO DAILY 07/17/23 03/08/25 History 10 mg 24hr capsule,extend release paroxetine HCl 30 mg tablet 30 mg PO DAILY 07/17/23 03/08/25 History losartan 25 mg tablet 25 mg PO DAILY 01/08/25 03/08/25 History metoprolol succinate 25 mg 25 mg PO DAILY 01/08/25 03/08/25 History tablet,extended release 24 hr quetiapine 25 mg tablet 25 mg PO QPM PRN 01/08/25 03/08/25 History gabapentin 300 mg capsule 900 mg PO 3XD 03/08/25 03/08/25 History Home Medication Comments: I tried to clarify home meds. Patient stated she was only taking Adderall, paxil (one tab a day), gabapentin and prn quetiapine. She had stopped all others. She doesn't think she needs them. Allergies Allergy/AdvReac Type Severity Reaction Status Date / Time codeine AdvReac Mild Makes Her Verified 03/08/25 17:55 Feel Weird morphine AdvReac Mild Makes Her Verified 03/08/25 17:55 Feel Weird Exam Narrative: Exam Narrative: General: Anxious. Sitting straight upright in a small chair next to the ER bed. Awake alert oriented x3. NG tube is in her nare. HEENT: Normocephalic atraumatic, pupils equally round and reactive to light and accommodation. Oropharynx clear. Mucous membranes are dry. No cervical lymphadenopathy, thyromegaly or carotid bruits. No JVD. Cardiovascular: Tachycardic, regular. No murmurs, gallops, or rubs. Chest: No increased work of breathing. Shallow breaths. Clear to auscultation bilaterally. No crackles or wheezes. Abdomen: Bowel sounds present. Distended, diffusely tender. No hepatosplenomegaly or masses. Extremities: No edema, no cyanosis or clubbing. Skin: No jaundice, no pallor, no rashes. Const: Vital Signs, click to edit/add: Vital Signs - 24 hr 03/08/25 17:04 Temperature 97.8 F Pulse Rate [Right Pulse Oximeter] 104 H Respiratory Rate 18 Blood Pressure [Ri ght Upper Arm] 142/100 H Pulse Oximetry 98 Oxygen Delivery Me thod Room Air Hospitalist - H&P: Result Labs Labs: [facility] 03/08/25 17:28 Sodium 133 L Potassium 3.3 L Chloride 96 Carbon Dioxide 27 BUN 20 Creatinine 0.9 Glucose 120 H Calcium 8.8 Liver Function 03/08/25 Range/Units 17:28 Total Bilirubin 0.9 (0.1-1.5) mg/dL Direct Bilirubin 0.3 (0.0-0.5) mg/dL AST 24 (12-35) U/L ALT 14 (4-35) U/L Alkaline Phosphatase 109 (40-150) U/L Albumin 4.1 (3.3-5.0) g/dL Urine 06/06/25 Range/Units 17:15 Urine Color Yellow (Yellow) Urine Appearance Clear (Clear) Urine pH 6.0 (5.0-8.5) Ur Specific [place] 1.020 (1.000-1.030) Urine Protein 2+ A (Negative) Urine Glucose (UA) Negative (Negative) U tox positive for marijuana, amphetamines, methamphetamines, otherwise negative. Ordering Physician: Betzaida Arboleda M.D. Date of Service: 03/08/25 Procedure(s): CT abdomen pelvis w con Accession Number(s): [id number] cc: Marce Mota CNP; Betzaida Arboleda M.D.~ For Patients: As a result of the Century Cures Act, medical imaging exams and procedure reports are released immediately into your electronic medical record. You may view this report before your referring provider. If you have questions, please contact your health care provider. INDICATION: Abdominal pain. TECHNIQUE: CT abdomen and pelvis acquired with 56 cc Isovue 370 IV contrast. COMPARISON: None. FINDINGS: Lower chest: Scattered atelectasis. Liver: Unremarkable. Normal in size and attenuation. No suspicious masses. Gallbladder and bile ducts: Unremarkable. No stones or inflammation. No biliary dilatation. Pancreas: Unremarkable. No mass or inflammation. Spleen: Unremarkable. Normal in size. No masses. Adrenal glands: Unremarkable. No nodules. Kidneys: Unremarkable. No suspicious masses, stones, or hydronephrosis. GI tract: Moderately distended fluid-filled appendix with hyperemia and subtle periappendiceal inflammatory stranding. Multiple dilated loops of small bowel with some collapsed loops of distal ileum. Vasculature: Abdominal aorta is normal in caliber. Mesenteric arteries are patent. Lymph nodes: No lymphadenopathy. Peritoneum/Abdominal Wall: Some swirling of mesenteric vasculature in the right lower quadrant (series 2/image 101). No sign of mass or infiltration. No free air or significant free fluid. Pelvis: Unremarkable. Bones: Unremarkable for age. IMPRESSION: Moderately distended fluid-filled appendix with hyperemia and subtle periappendiceal inflammatory stranding. Constellation of findings are concerning for acute uncomplicated appendicitis in the appropriate clinical setting. No drainable fluid collections. Recommend correlation with localized physical examination and laboratory values. Multiple dilated loops of small bowel with some collapsed loops of distal ileum. Constellation of findings are favored to reflect reactive ileus in the setting of acute uncomplicated appendicitis. Early small-bowel obstruction secondary to internal hernia not entirely excluded given adjacent visualization of some swirling of mesenteric vasculature in the right lower quadrant but this is thought less likely. Please note that all CT scans at this facility use dose modulation, iterative reconstruction, and/or weight-based dosing when appropriate to reduce radiation dose to as low as reasonably achievable. Dictated by Benjamin Pearce MD @ 03/08/2025 6:36:55 PM (Electronically Signed) Ordering Physician: Prudence Paul PA-C Date of Service: 03/08/25 Procedure(s): XR abdomen min 2V Accession Number(s): [id number] cc: Marce Mota CNP; Prudence Paul PA-C~ For Patients: As a result of the Cures Act, medical imaging exams and procedure reports are released immediately into your electronic medical record. You may view this report before your referring provider. If you have questions, please contact your health care provider. INDICATION: Abdominal pain. TECHNIQUE: Abdominal radiographs, 2 views. COMPARISON: None. FINDINGS: Lower chest: Unremarkable. Bowel: Prominent loops of air-filled colon and small bowel, without definite bowel obstruction identified. There may be a small air-fluid level on the erect projection in the mid abdomen and left lower quadrant. Moderate colonic stool burden, correlate for constipation. Soft tissues: Unremarkable. Bones: No acute osseous abnormalities. Mild degenerative changes of the lumbar spine. IMPRESSION: Prominent loops of small bowel and colon, with some air-fluid levels identified. Recommend CT for further evaluation of a possible small bowel obstruction. Dictated by Collin Arnold MD @ 03/08/2025 4:36:19 PM (Electronically Signed) Ordering Physician: Betzaida Arboleda M.D. Date of Service: 03/08/25 Procedure(s): XR chest 1V portable Accession Number(s): [id number] cc: Marce Mota CNP; Betzaida Arboleda M.D.~ For Patients: As a result of the Cures Act, medical imaging exams and procedure reports are released immediately into your electronic medical record. You may view this report before your referring provider. If you have questions, please contact your health care provider. INDICATION: NG tube placement. TECHNIQUE: Chest 1 views. COMPARISON: None. FINDINGS: Cardiovascular and mediastinum: Heart size and vasculature are normal in caliber and appearance. Subdiaphragmatic enteric tube with tip and proximal port in the stomach. Lungs and pleural spaces: Lungs are clear. No sign of infiltrate or mass. No sign of pleural effusion. No pneumothorax. Bones and soft tissues: No significant findings. IMPRESSION: No acute or significant findings. Dictated by Benjamin Pearce MD @ 03/08/2025 8:21:38 PM (Electronically Signed)
[2025-03-08] MEDS: PIPERACILLIN/TAZOBACTAM 4.5 GM in 0.9 % SODIUM CHLORIDE Mini-bag 100 ML IVPB (20:22)
[2025-03-08] MEDS: ONDANSETRON 2 MG/ML inj 4 MG IVP (20:37)
[2025-03-08 21:21] LABS: Amphetamine Screen Urine POSITIVE (Negative); Barbiturate Screen Urine Negative (Negative); Benzodiazepines Screen Urine Negative (Negative); Cannabinoid Screen Urine POSITIVE (Negative); Cocaine Screen Urine Negative (Negative); Methadone Screen Urine Negative (Negative); Methamphetamines Screen Urine POSITIVE (Negative); Opiate Screen Urine Negative (Negative); Oxycodone Screen Urine Negative (Negative); Phencyclidine Screen Urine Negative (Negative); Tricyclic Antidepressant Urine Negative (Negative)
[2025-03-08] MEDS: LACTATED RINGERS 1000 ML 1,000 ML 100 ML IV (21:30)
--- NOTE | 2025-03-08 21:37 | PM.GSPRC ---
Operative Note Date of procedure: 03/08/25 Pre-op diagnosis: Acute appendicitis with ileus Post-op diagnosis: 1. Same 2. Purulent peritonitis, possible perforation Type of Procedure: Laparoscopic appendectomy Indications: The patient is a 44-year-old female who presented to the emergency department with abdominal pain for 4 days. Previous workup was unrevealing, however today she was found have acute appendicitis with significant dilatation of her small bowel concerning for bowel obstruction. I recommended appendectomy and after discussion of risks and benefits she agreed to proceed. Procedure Description: After discussing the risks and benefits of the procedure, the patient signed informed consent.? The operative site was marked and the patient was brought to the operating room and placed on the operating table in supine position.? Care was taken to pad the patient's pressure points.?? The patient was then intubated by anesthesia.?? The operative site was then prepped and draped in the usual sterile fashion.? A time-out was then performed. Entrance to the abdomen was obtained via a 5 mm optical trocar in the left upper quadrant. The abdomen was insufflated and briefly surveyed for any signs of injury. There were none. The patient had purulent peritonitis and her bowel was dilated. Omentum was stuck to the right pelvic sidewall. A 12 mm port was placed inferior to the umbilicus as well as a 5 mm port in the left lower quadrant. Both were done under direct vision. The patient was then placed in Trendelenburg position with the right side up. The omentum and small bowel was gently moved out of the way and the appendix was in view. The proximal small bowel is dilated, and the terminal ileum was adherent to an inflammatory mass in the pelvis which was the appendix. A small amount of dissection was necessary to free the appendix from the surrounding pelvic attachments. The appendix was grasped and pulled into view. It was markedly inflamed. Appear gangrenous. There was no obvious perforation, however the patient had fibrinous exudate across much of her small bowel and purulent-appearing fluid in the pelvis. A mesenteric window was created between the base of the appendix and the mesoappendix. An Endo-NICK vascular load stapler was then used to transect the mesoappendix. I was then able to identify the base of the appendix easily at the cecum. A purple load Endo-NICK stapler was then used to transect the appendix at its base. The staple lines were inspected for bleeding. There was none. The appendix was then removed from the abdomen using an Endo-Catch bag. The specimen was sent to pathology. The right fallopian tube was examined. It appeared normal. No evidence of hydrosalpinx. Purulent fluid was suctioned from the pelvis. I elected to leave a drain. This was placed through the left lower quadrant port. This was positioned in the pelvis with the tip in the appendiceal bed. The omentum was placed over the top of the appendiceal bed. The drain was then sutured in place. The ports were removed and the abdomen was desufflated. The umbilical fascia was closed with 0 Vicryl. The skin was then closed with absorbable subcuticular suture. Sterile dressings were then applied. Instrument sponge and needle counts were correct at the end of the case. The patient was then woken and transported to the PACU in stable condition. ? The patient tolerated the procedure well. Findings: Acute appendicitis with purulent peritonitis Anesthesia: GETA Surgeon: Flor Martinez MD Estimated blood loss (mL): 5 Specimen: Appendix Condition: stable Disposition: PACU
[2025-03-08] MEDS: BUPIVACAINE 0.25% 30 ML INJECTION (22:20)
[2025-03-08] MEDS: diphenhydrAMINE 50 MG/ML inj IVP (22:55)
[2025-03-08] MEDS: MIDAZOLAM HCL 1 MG/ML inj 2 MG IVP (23:10)
--- NOTE | 2025-03-08 23:30 | P.ANES_ITS ---
Anesthesia Charges Start Date/Time Anesthesia Start Date: 03/08/25 Anesthesia Start Time: 21:29 Stop Date/Time Anesthesia Stop Date: 03/08/25 Anesthesia Stop Time: 22:49 Summary Emergency: INTEGRATED MARKETING SPECIALIST Coding CPT Codes CPT Codes: ANESTH SURG LOWER ABDOMEN - 84841 ([id number]) P3 - PATIENT W/SEVERE SYS DISEASE, QZ - INTEGRATED MARKETING SPECIALIST SVC W/O MOULDER OPERATOR BY Additional Codes: Summary - Emergency: INTEGRATED MARKETING SPECIALIST ([id number])
--- NOTE | 2025-03-08 23:30 | W.ANESCHARGE ---
Anesthesia Charges Start Date/Time Anesthesia Start Date: 03/08/25 Anesthesia Start Time: 21:29 Stop Date/Time Anesthesia Stop Date: 03/08/25 Anesthesia Stop Time: 22:49 Summary Emergency: SHIFT LEADER Coding CPT Codes CPT Codes: ANESTH SURG LOWER ABDOMEN - 82465 ([id number]) P3 - PATIENT W/SEVERE SYS DISEASE, QZ - SHIFT LEADER SVC W/O CARE COMPANION BY Additional Codes: Summary - Emergency: SHIFT LEADER ([id number])
[2025-03-09] VITALS (17 sets, daily range): BP systolic 128–178; BP diastolic 83–114; PULSE 56–90; RESP 15–20; TEMP 36.1–36.7; O2SAT 93–98
[2025-03-09] MEDS: POTASSIUM CHLORIDE 10 MEQ/100 ML PIGGYBACK 100 MEQ IVPB (00:21)
[2025-03-09] MEDS: HYDROmorphone 0.5 mg/0.5 ml inj IVP ×7 (00:25→22:52)
[2025-03-09] MEDS: ONDANSETRON 2 MG/ML inj IVP ×4 (01:47→22:57)
[2025-03-09] MEDS: PIPERACILLIN/TAZOBACTAM 3.375 GM in 0.9 % SODIUM CHLORIDE Mini-bag 100 ML IVPB ×4 (01:47→19:33)
[2025-03-09] MEDS: LACTATED RINGERS 1000 ML 1,000 ML 100 ML IV ×3 (02:50→23:39)
[2025-03-09] MEDS: LORazepam 2 MG/ML inj 0.5 MG IVP (05:41)
--- NOTE | 2025-03-09 06:25 | PC.NURSE ---
End of shift report [id number]: Patient admitted to floor at 2340 post appendectomy. 3 laparoscopic sites with small amount of bloody drainage. GUY drain to left lower abdomen draining serosanguineous drainage, 75ml out this shift. Pain to lower abdomen migrating between right and left lower abdomen with moderate relief after PRN dilaudid. Bowel sounds absent, abdomen firm and distended. NG placed in ER and confirmed placement with x-ray. NG to LIS, 200cc of green drainage removed. Min assist x 1 with pivot transfer to BSC and into chair. Patient repetitive questions regarding IV and when it can be removed along with NG tube removal and when she can eat. Education provided. Increased anxiety, requesting to get back into bed from chair and as soon as she sat on the bed she requested to go back to chair.
[2025-03-09 06:43] LABS: Basophils Percent Auto 0.2 % (0.0-3.0); Hematocrit 38.5 % (33.0-51.0); Hemoglobin* 13.2 gm/dL (12.0-16.0); Immature Granulocytes Pct Auto 0.5 %; Lymphocytes Percent Auto 4.3 % (20-44); Mean Corpuscular HGB Conc 34 gm/dL (32-36); Mean Corpuscular Hemoglobin 31 pg (26-34); Mean Corpuscular Volume 90 fL (80-100); Monocytes Percent Auto 2.4 % (0.0-11.0); Neutrophils Percent Auto 92.6 % (42.0-72.0); Platelet Count* 257 K/uL (140-440); RDW Coefficient of Variation % 13.2 % (11.5-15.5); Red Blood Count 4.28 m/uL (4.00-5.20); White Blood Count* 11.68 K/uL (4.50-11.00)
[2025-03-09 06:44] LABS: Slide Review Reflex No
[2025-03-09 06:48] LABS: Chloride* 99 mmol/L (96-114); Sodium* 136 mmol/L (135-149)
[2025-03-09 06:49] LABS: Potassium* 3.8 mmol/L (3.6-5.1)
[2025-03-09 06:52] LABS: Anion Gap 9 mEq/L (7-15); Blood Urea Nitrogen* 16 mg/dL (5-24); Calcium* 8.2 mg/dL (8.4-10.6); Carbon Dioxide* 28 mmol/L (20-32); Creatinine* 0.7 mg/dL (0.5-1.5); Est. Creatinine Clearance* 85.33; Estimated Glomerular Filt Rate 110 ml/min; Glucose* 144 mg/dL (60-115)
[2025-03-09] MEDS: METOPROLOL SUCCINATE (XL) 25 MG TAB 12.5 MG PO (09:27)
[2025-03-09] MEDS: CLOPIDOGREL 75 MG TABLET PO (09:27)
[2025-03-09] MEDS: GABAPENTIN 300 MG CAPSULE 900 MG PO ×3 (09:27→20:36)
[2025-03-09] MEDS: PARoxetine 20 MG TABLET 30 MG PO (09:28)
[2025-03-09] MEDS: ENOXAPARIN 40 MG/0.4 ML INJ SUBCUT (09:30)
[2025-03-09] MEDS: LOSARTAN POTASSIUM 50 MG TABLET 25 MG PO (09:31)
--- NOTE | 2025-03-09 11:06 | PM.GSPN ---
Subjective Subjective Date Seen: 03/09/25 Interval history: Marita is somewhat tearful today. She is hoping that she can eat. She is concerned because she has to stay in the hospital for a few days. She has been ambulating. Exam Narrative: Exam Narrative: General appearance: Alert, cooperative, and in no distress Eyes: PERRLA, eye lids clear, and sclera white HENT: NG in place. Brownish green fluid noted in the canister. No output recorded yet, however there are a few 100 mL in the canister. Pulmonary: Breathing nonlabored on room air Cardiovascular Heart: Regular rate Extremities: warm and well perfused Gastrointestinal Abdominal: Still mildly distended. Appropriately tender for the postop state. Incisions are clean and dry. Drain in place with 75 mL of cloudy pink tinged fluid. Musculoskeletal: Extremities: Upper: Both upper extremities have normal joint range of motion and intact strength. Lower: Both lower extremities have normal joint range of motion and intact strength. Skin: Normal skin color, texture, and turgor. Neurologic: No focal deficits Psychiatric: Alert, oriented, cooperative, normal affect. Const: Vital Signs, click to edit/add: Vital Signs - 24 hr 03/08/25 17:04 03/08/25 22:46 03/08/25 22:49 Temperature 97.8 F 98 F Pulse Rate 111 H 101 H Pulse Rate [Right Pulse Oximeter] 104 H Respiratory Rate 18 20 18 Blood Pressure 201/137 H 190/126 H Blood Pressure [Le ft Arm] Blood Pressure [Ri ght Upper Arm] 142/100 H Pulse Oximetry 98 100 100 Oxygen Delivery Me thod Room Air Room Air Room Air Oxygen Flow Rate 03/08/25 22:55 03/08/25 22:58 03/08/25 23:05 Temperature Pulse Rate 89 91 94 Pulse Rate [Right Pulse Oximeter] Respiratory Rate 18 18 18 Blood Pressure 180/128 H 174/129 H 172/133 H Blood Pressure [Le ft Arm] Blood Pressure [Ri ght Upper Arm] Pulse Oximetry 98 98 100 Oxygen Delivery Me thod Room Air Room Air Room Air Oxygen Flow Rate 03/08/25 23:10 03/08/25 23:15 03/08/25 23:20 Temperature Pulse Rate 95 93 90 Pulse Rate [Right Pulse Oximeter] Respiratory Rate 18 16 16 Blood Pressure 171/132 H 153/117 H 151/109 H Blood Pressure [Le ft Arm] Blood Pressure [Ri ght Upper Arm] Pulse Oximetry 97 88 99 Oxygen Delivery Me thod Room Air Nasal Cannula Nasal Cannula Oxygen Flow Rate 5 3 03/08/25 23:25 03/08/25 23:30 03/08/25 23:35 Temperature 97.5 F L Pulse Rate 85 83 80 Pulse Rate [Right Pulse Oximeter] Respiratory Rate 16 16 16 Blood Pressure 143/99 H 134/97 H 131/94 H Blood Pressure [Le ft Arm] Blood Pressure [Ri ght Upper Arm] Pulse Oximetry 98 98 98 Oxygen Delivery Me thod Nasal Cannula Nasal Cannula Nasal Cannula Oxygen Flow Rate 1 1 1 03/08/25 23:41 03/09/25 00:00 03/09/25 00:15 Temperature 97.2 F L 97.1 F L 97.1 F L Pulse Rate 80 86 82 Pulse Rate [Right Pulse Oximeter] Respiratory Rate 18 20 18 Blood Pressure 146/98 H 150/105 H 143/102 H Blood Pressure [Le ft Arm] Blood Pressure [Ri ght Upper Arm] Pulse Oximetry 96 94 94 Oxygen Delivery Me thod Room Air Room Air Room Air Oxygen Flow Rate 03/09/25 00:30 03/09/25 00:45 03/09/25 01:15 Temperature 97.0 F L 97.0 F L Pulse Rate 85 90 80 Pulse Rate [Right Pulse Oximeter] Respiratory Rate 18 20 17 Blood Pressure 144/110 H 140/108 H 146/114 H Blood Pressure [Le ft Arm] Blood Pressure [Ri ght Upper Arm] Pulse Oximetry 93 95 95 Oxygen Delivery Me thod Room Air Room Air Room Air Oxygen Flow Rate 03/09/25 01:45 03/09/25 02:45 03/09/25 03:45 Temperature 97.0 F L 97.0 F L Pulse Rate 84 88 82 Pulse Rate [Right Pulse Oximeter] Respiratory Rate 16 16 18 Blood Pressure 128/97 H 140/108 H 142/104 H Blood Pressure [Le ft Arm] Blood Pressure [Ri ght Upper Arm] Pulse Oximetry 97 95 98 Oxygen Delivery Me thod Room Air Room Air Room Air Oxygen Flow Rate 03/09/25 04:45 03/09/25 05:45 03/09/25 07:00 Temperature 97.0 F L 97.0 F L Pulse Rate 86 76 Pulse Rate [Right Pulse Oximeter] Respiratory Rate 16 15 16 Blood Pressure 145/93 H 137/96 H Blood Pressure [Le ft Arm] Blood Pressure [Ri ght Upper Arm] Pulse Oximetry 96 97 95 Oxygen Delivery Me thod Room Air Room Air Room Air Oxygen Flow Rate 03/09/25 08:00 Temperature 97.8 F Pulse Rate Pulse Rate [Right Pulse Oximeter] 70 Respiratory Rate 16 Blood Pressure Blood Pressure [Le ft Arm] 145/113 H Blood Pressure [Ri ght Upper Arm] Pulse Oximetry 95 Oxygen Delivery Me thod Room Air Oxygen Flow Rate Labs/Imaging Labs Labs: White blood cell count 11 from 16 Electrolytes today are normalized. Progress Note:A&P Assessment and plan (1) Heterozygous factor V Leiden mutation: Status: Chronic (2) Ileus due to infection: Status: Acute (3) Acute appendicitis: Status: Acute (4) S/P laparoscopic appendectomy: Status: Acute (5) MIREILLE (generalized anxiety disorder): Status: Chronic (6) Bipolar 1 disorder, depressed, moderate: Status: Acute Plan The patient is a 44-year-old female who is now postop day 1 from laparoscopic appendectomy for diffuse purulent peritonitis without obvious perforation. The patient is understandably teary and frustrated as she had been seen several days prior and was told that the diagnosis of cystitis was missed. Review of her outside records shows that after her ultrasound, an addendum was made to the CT scan demonstrating that she had a dilated appendix without inflammation suggesting early acute or chronic appendicitis. Attempts were made to contact the patient. Unfortunately the patient states she did not get any phone calls. She was reassured that she will be okay, however she will need to stay into the hospital with IV antibiotics until she is clinically improved. -possible small bowel obstruction seen on imaging. This is likely secondary to ileus from inflammation. Okay to DC NG today, however patient should continue with sips of ice chips only as she will likely have persistent ileus. -continue IV antibiotics for appendicitis with purulent peritonitis -continue to follow labs. -Plavix restarted by Dr. Farooq for history of myocardial infarction. -Lovenox for DVT prophylaxis given history of heterozygous factor 5 Leiden mutation -encouraged IS and ambulation.
[2025-03-09] MEDS: NICOTINE 14 mg PATCH 1 PATCH TRANSDERMA (14:19)
--- NOTE | 2025-03-09 14:31 | PC.NURSE ---
Pt is doing well. Hypertensive, provider aware, no new orders at this time. Afebrile. Pt has been anxious and impulsive, requiring frequent redirection. Pt states mild, intermittent pain to the abdomen, however able to rest well throughout the day. Surgical dressings are clean, dry and intact. NG was removed at approximately 1200, pt is tolerating well. Pt is walking in the halls frequently and states she is passing gas.
--- NOTE | 2025-03-09 15:26 | P.IMPN_ITS ---
Assessment and Plan Assessment and plan (1) Acute appendicitis: Problem comment: Status post appendectomy. Admission complicated by presence of ileus on admission Status: Acute (2) Ileus due to infection: Problem comment: Likely secondary to acute appendicitis Status: Acute (3) Peritonitis: Problem comment: Secondary to appendicitis with unknown perforation Status: Acute (4) MIREILLE (generalized anxiety disorder): Problem comment: Continue paroxetine. P.r.n. lorazepam for severe agitation Status: Chronic (5) Heterozygous factor V Leiden mutation: Problem comment: VTE prophylaxis with SCDs and low-dose Lovenox. I spoke with the surgeon who is agreeable with starting this tomorrow evening. Status: Chronic (6) S/P laparoscopic appendectomy: Status: Acute (7) Bipolar 1 disorder, depressed, moderate: Problem comment: Continue normal home medications. 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 Continue clopidogrel and statin Status: Acute Plan Continue in hospital for management of postoperative ileus, pain management, monitoring for complications of peritonitis. Total Time Spent Total Time Spent: Total time spent today is 60 minutes in reviewing outside records, coordination of care, discussing with other providers, patient friend and family ongoing plan of care. Subjective Date Seen: 03/09/25 Interval history: Marita Cunningham is a 44 year old female with an extensive medical history who started having diffuse abdominal pain 3 days ago. She went to the ER in [place]. I reviewed Dr. Escudero's ER note from 03/05/25 on [facility], and it states CT scan obtained which shows ovarian mass and hydrosalpinx. Ultrasound obtained which showed no evidence of torsion. She continued to have abdominal pain which increased dramatically this morning, causing her to roll around in the bed in pain for several hours. She had taken her morning medications very early this morning, but has not taken anything or had any food or water since due to pain. Nothing has helped to improve the pain. Sitting forward, deep breaths, and movement make her pain worse. She had a small pebble-like stool this morning, which is unusual for her. She denies any nausea. She had some emesis [address] into [place] [facility], but none since then. She feels very bloated today, but she is on her period. She denies CP, SOB, fever, chills, leg pain or swelling. She denies melena or hematochezia. I viewed the CT report from 03/05/25 in [facility]. There is an addendum from 03/06/25 that states, ADDENDUM: Since the ultrasound did not identify a dilated fallopian tube, the tubular structure in the right lower quadrant may represent a dilated appendix with small appendicoliths. No inflamation in the adjacent fat, but still this raises the consideration of acute or chronic appendicitis. These additional comments were shared with the ER physician Dr. Bansal on 03/06/2025 at 8:45 a.m. Marita was taken to the OR by Dr. Martinez where she underwent appendectomy. During that surgery evaluation of the fallopian tubes and ovary which were normal in appearance. She was found to have cloudy peritoneal fluid but no definite perforation of her inflamed appendix. She was also seen to have dilated loops of bowel suggestive of a inflamed abdomen with an ileus. Postoperatively she has had ongoing problems with pain and episodes where she gets agitated. She became agitated when I discussed with her the series of events this week where the initial diagnosis of appendicitis was delayed. She also became upset when I talked with her about the possibility that she might need to be in the hospital for couple days with her ileus. She also became upset when I asked her to provide a healthcare power of deputy attorney general. She indicated that she would not want to designate anybody as healthcare power of deputy attorney general except her children who are too young to play that role. 03/09/2025: She is very anxious to get the NG tube out. She would like to eat and take her oral medications. Exam Narrative: Exam Narrative: She is alert and gives her own history. Intermittently becomes quite agitated. Speech is fluent. Respirations are clear to auscultation. Cardiovascular: S1, S2, regular rate and rhythm. No murmur gallop or rub. Abdomen diminished bowel sounds. A drain in the left lower quadrant is noted. NG tube in place minimal drainage coming from that. She has mild lower abdominal tenderness. Extremities without edema. No rash. She moves all 4 extremities well. Good perfusion and pulses. Const: Vital Signs, click to edit/add: Vital Signs - 24 hr 03/08/25 17:04 03/08/25 22:46 03/08/25 22:49 Temperature 97.8 F 98 F Pulse Rate 111 H 101 H Pulse Rate [Right Pulse Oximeter] 104 H Respiratory Rate 18 20 18 Blood Pressure 201/137 H 190/126 H Blood Pressure [Le ft Arm] Blood Pressure [Ri ght Upper Arm] 142/100 H Pulse Oximetry 98 100 100 Oxygen Delivery Me thod Room Air Room Air Room Air Oxygen Flow Rate 03/08/25 22:55 03/08/25 22:58 03/08/25 23:05 Temperature Pulse Rate 89 91 94 Pulse Rate [Right Pulse Oximeter] Respiratory Rate 18 18 18 Blood Pressure 180/128 H 174/129 H 172/133 H Blood Pressure [Le ft Arm] Blood Pressure [Ri ght Upper Arm] Pulse Oximetry 98 98 100 Oxygen Delivery Me thod Room Air Room Air Room Air Oxygen Flow Rate 03/08/25 23:10 03/08/25 23:15 03/08/25 23:20 Temperature Pulse Rate 95 93 90 Pulse Rate [Right Pulse Oximeter] Respiratory Rate 18 16 16 Blood Pressure 171/132 H 153/117 H 151/109 H Blood Pressure [Le ft Arm] Blood Pressure [Ri ght Upper Arm] Pulse Oximetry 97 88 99 Oxygen Delivery Me thod Room Air Nasal Cannula Nasal Cannula Oxygen Flow Rate 5 3 03/08/25 23:25 03/08/25 23:30 03/08/25 23:35 Temperature 97.5 F L Pulse Rate 85 83 80 Pulse Rate [Right Pulse Oximeter] Respiratory Rate 16 16 16 Blood Pressure 143/99 H 134/97 H 131/94 H Blood Pressure [Le ft Arm] Blood Pressure [Ri ght Upper Arm] Pulse Oximetry 98 98 98 Oxygen Delivery Me thod Nasal Cannula Nasal Cannula Nasal Cannula Oxygen Flow Rate 1 1 1 03/08/25 23:41 03/09/25 00:00 03/09/25 00:15 Temperature 97.2 F L 97.1 F L 97.1 F L Pulse Rate 80 86 82 Pulse Rate [Right Pulse Oximeter] Respiratory Rate 18 20 18 Blood Pressure 146/98 H 150/105 H 143/102 H Blood Pressure [Le ft Arm] Blood Pressure [Ri ght Upper Arm] Pulse Oximetry 96 94 94 Oxygen Delivery Me thod Room Air Room Air Room Air Oxygen Flow Rate 03/09/25 00:30 03/09/25 00:45 03/09/25 01:15 Temperature 97.0 F L 97.0 F L Pulse Rate 85 90 80 Pulse Rate [Right Pulse Oximeter] Respiratory Rate 18 20 17 Blood Pressure 144/110 H 140/108 H 146/114 H Blood Pressure [Le ft Arm] Blood Pressure [Ri ght Upper Arm] Pulse Oximetry 93 95 95 Oxygen Delivery Me thod Room Air Room Air Room Air Oxygen Flow Rate 03/09/25 01:45 03/09/25 02:45 03/09/25 03:45 Temperature 97.0 F L 97.0 F L Pulse Rate 84 88 82 Pulse Rate [Right Pulse Oximeter] Respiratory Rate 16 16 18 Blood Pressure 128/97 H 140/108 H 142/104 H Blood Pressure [Le ft Arm] Blood Pressure [Ri ght Upper Arm] Pulse Oximetry 97 95 98 Oxygen Delivery Me thod Room Air Room Air Room Air Oxygen Flow Rate 03/09/25 04:45 03/09/25 05:45 03/09/25 07:00 Temperature 97.0 F L 97.0 F L Pulse Rate 86 76 Pulse Rate [Right Pulse Oximeter] Respiratory Rate 16 15 16 Blood Pressure 145/93 H 137/96 H Blood Pressure [Le ft Arm] Blood Pressure [Ri ght Upper Arm] Pulse Oximetry 96 97 95 Oxygen Delivery Me thod Room Air Room Air Room Air Oxygen Flow Rate 03/09/25 08:00 03/09/25 11:00 Temperature 97.8 F 98.1 F Pulse Rate Pulse Rate [Right Pulse Oximeter] 70 66 Respiratory Rate 16 18 Blood Pressure Blood Pressure [Le ft Arm] 145/113 H 178/110 H Blood Pressure [Ri ght Upper Arm] Pulse Oximetry 95 94 Oxygen Delivery Me thod Room Air Room Air Oxygen Flow Rate Documenting provider has reviewed patient's vital signs: yes Labs Labs: Laboratory Results - last 24 hr 03/08/25 03/08/25 03/08/25 17:15 17:28 21:04 WBC RBC Hgb Hct MCV MCH MCHC RDW Coeff of Tyrell Plt Count Neut % (Auto) Lymph % (Auto) [place] % (Auto) Eos % (Auto) Baso % (Auto) Neut # (Auto) Lymph # (Auto) [place] # (Auto) Eos # (Auto) Baso # (Auto) Abs Immat Gran (auto) Imm/Tot Granulo (auto) Sodium 133 L Potassium 3.3 L Chloride 96 Carbon Dioxide 27 Anion Gap 10 BUN 20 Creatinine 0.9 Estimated Creat Clear 66.37 Estimated GFR 81 Glucose 120 H Lactate 1.4 Calcium 8.8 Total Bilirubin 0.9 Direct Bilirubin 0.3 AST 24 ALT 14 Alkaline Phosphatase 109 C-Reactive Protein 41.2 H Total Protein 7.9 Albumin 4.1 Lipase 15 L Urine Color Yellow Urine Appearance Clear Urine pH 6.0 Ur Specific [place] 1.020 Urine Protein 2+ A Urine Glucose (UA) Negative Urine Ketones Trace A Urine Blood 2+ A Urine Nitrite Negative Urine Bilirubin 2+ A Urine Urobilinogen 1.0 Ur Leukocyte Esterase Negative Urine RBC 5-10 A Urine WBC 5-10 A Ur Squamous Epith Cells Moderate A Urine Bacteria Moderate A Fine Granular Casts Few A Urine HCG, Qual Negative Urine Opiates Screen Negative Ur Oxycodone Screen Negative Urine Methadone Screen Negative Ur Barbiturates Screen Negative U Tricyclic Antidepress Negative Ur Phencyclidine Scrn Negative Ur Amphetamines Screen POSITIVE A U Methamphetamines Scrn POSITIVE A U Benzodiazepines Scrn Negative Urine Cocaine Screen Negative U Marijuana (THC) Screen POSITIVE A Ur Drug Screen Comment See Note Lab Acknowledgement Test Added 03/09/25 05:40 WBC 11.68 H RBC 4.28 Hgb 13.2 Hct 38.5 MCV 90 MCH 31 MCHC 34 RDW Coeff of Tyrell 13.2 Plt Count 257 Neut % (Auto) 92.6 H Lymph % (Auto) 4.3 L [place] % (Auto) 2.4 Eos % (Auto) 0.0 Baso % (Auto) 0.2 Neut # (Auto) 10.80 H Lymph # (Auto) 0.50 L [place] # (Auto) 0.30 Eos # (Auto) 0.00 Baso # (Auto) 0.00 Abs Immat Gran (auto) 0.10 Imm/Tot Granulo (auto) 0.5 Sodium 136 Potassium 3.8 Chloride 99 Carbon Dioxide 28 Anion Gap 9 BUN 16 Creatinine 0.7 Estimated Creat Clear 85.33 Estimated GFR 110 Glucose 144 H Lactate Calcium 8.2 L Total Bilirubin Direct Bilirubin AST ALT Alkaline Phosphatase C-Reactive Protein Total Protein Albumin Lipase Urine Color Urine Appearance Urine pH Ur Specific [place] Urine Protein Urine Glucose (UA) Urine Ketones Urine Blood Urine Nitrite Urine Bilirubin Urine Urobilinogen Ur Leukocyte Esterase Urine RBC Urine WBC Ur Squamous Epith Cells Urine Bacteria Fine Granular Casts Urine HCG, Qual Urine Opiates Screen Ur Oxycodone Screen Urine Methadone Screen Ur Barbiturates Screen U Tricyclic Antidepress Ur Phencyclidine Scrn Ur Amphetamines Screen U Methamphetamines Scrn U Benzodiazepines Scrn Urine Cocaine Screen U Marijuana (THC) Screen Ur Drug Screen Comment Lab Acknowledgement
[2025-03-09] MEDS: ATORVASTATIN CALCIUM 40 MG TABLET PO (20:36)
--- NOTE | 2025-03-09 22:00 | PC.NURSE ---
Patient lacks safety awareness and utilizes bed and chair alarm. Patient up with assist of one, walker, and gaitbelt. GUY patent and stripped and drained per order with minimal bloody output. Patients lap sites clean dry and intact. Patient tolerating sips and chips, utilizing prn medications for Pain and nausea. LR @ 125/hr to PIV in Right AC. Patients BS hypoactive in all 4 quadrants and patient states she is passing gas.
[2025-03-09] MEDS: HYDROCODONE-ACETAMIN 5-325 MG 1 TAB PO (22:51)
[2025-03-09] MEDS: LORazepam 1 MG TABLET PO (22:51)
[2025-03-10] VITALS (8 sets, daily range): BP systolic 120–166; BP diastolic 76–97; PULSE 56–74; RESP 16–18; TEMP 36.7–36.9; O2SAT 93–98
[2025-03-10] MEDS: HYDROmorphone 0.5 mg/0.5 ml inj IVP (00:57)
[2025-03-10] MEDS: PIPERACILLIN/TAZOBACTAM 3.375 GM in 0.9 % SODIUM CHLORIDE Mini-bag 100 ML IVPB ×4 (01:35→20:22)
[2025-03-10] MEDS: HYDROCODONE-ACETAMIN 5-325 MG 1 TAB PO (05:59)
[2025-03-10 06:23] LABS: Basophils Absolute Auto 0.01 K/uL (0.00-0.30); Basophils Percent Auto 0.1 % (0.0-3.0); Eosinophils Absolute Auto 0.16 K/uL (0.00-0.50); Eosinophils Percent Auto 1.5 % (0.0-7.0); Hematocrit 38.7 % (33.0-51.0); Hemoglobin* 12.9 gm/dL (12.0-16.0); Immature Granulocytes Abs Auto 0.07 K/uL (0.00-0.30); Immature Granulocytes Pct Auto 0.6 %; Lymphocytes Percent Auto 17.4 % (20-44); Mean Corpuscular HGB Conc 33 gm/dL (32-36); Mean Corpuscular Hemoglobin 31 pg (26-34); Mean Corpuscular Volume 92 fL (80-100); Monocytes Percent Auto 11.1 % (0.0-11.0); Neutrophils Absolute Auto 7.51 K/uL (1.7-7.0); Neutrophils Percent Auto 69.3 % (42.0-72.0); Platelet Count* 284 K/uL (140-440); RDW Coefficient of Variation % 13.5 % (11.5-15.5); Slide Review Reflex No; White Blood Count* 10.84 K/uL (4.50-11.00)
--- NOTE | 2025-03-10 06:31 | PC.NURSE ---
End of shift [id number]: A&O. Upon initial assessment, sitting up in recliner playing on phone. Pt had a friend visit at 2300 who lives an hour and a half away and stayed for 10 minutes. Pt slept heavily the rest of the night.?Pulse ox placed on pt. Stats remained >93% on RA and RR WNL. Slept through vitals and IV medications. She reports worsening pain in abdomen with movement. Dressings to abdomen c/d/i. BS hypoactive throughout. Pt reports passing gas. VSS. Bed alarm in place.
[2025-03-10 06:37] LABS: Chloride* 101 mmol/L (96-114); Potassium* 3.7 mmol/L (3.6-5.1); Sodium* 138 mmol/L (135-149)
[2025-03-10 06:40] LABS: Anion Gap 6 mEq/L (7-15); Blood Urea Nitrogen* 17 mg/dL (5-24); Calcium* 8.2 mg/dL (8.4-10.6); Carbon Dioxide* 31 mmol/L (20-32); Creatinine* 0.7 mg/dL (0.5-1.5); Est. Creatinine Clearance* 85.33; Estimated Glomerular Filt Rate 110 ml/min; Glucose* 83 mg/dL (60-115)
[2025-03-10 06:56] LABS: C Reactive Protein* 19.2 mg/dL (0.5-1.0)
[2025-03-10] MEDS: METOPROLOL SUCCINATE (XL) 25 MG TAB 12.5 MG PO (09:12)
[2025-03-10] MEDS: ENOXAPARIN 40 MG/0.4 ML INJ SUBCUT (09:12)
[2025-03-10] MEDS: LACTATED RINGERS 1000 ML 1,000 ML 75 ML IV (09:12)
[2025-03-10] MEDS: LOSARTAN POTASSIUM 50 MG TABLET 25 MG PO (09:13)
[2025-03-10] MEDS: CLOPIDOGREL 75 MG TABLET PO (09:13)
[2025-03-10] MEDS: GABAPENTIN 300 MG CAPSULE 900 MG PO ×3 (09:14→20:22)
[2025-03-10] MEDS: PARoxetine 20 MG TABLET 30 MG PO (09:15)
[2025-03-10] MEDS: NICOTINE 14 mg PATCH 1 PATCH TRANSDERMA ×2 (09:17→13:52)
[2025-03-10] MEDS: OXYCODONE 5 MG TABLET PO ×5 (11:29→20:33)
--- NOTE | 2025-03-10 12:57 | P.IMPN_ITS ---
Assessment and Plan Assessment and plan (1) Acute appendicitis: Problem comment: Status post appendectomy. Admission complicated by presence of ileus on admission. Improving. Status: Acute (2) Ileus due to infection: Problem comment: Likely secondary to acute appendicitis. Improving. Advance diet. Status: Acute (3) Peritonitis: Problem comment: Secondary to appendicitis with unknown perforation. GUY drain with serosanguineous fluid in place. Status: Acute (4) MIREILLE (generalized anxiety disorder): Problem comment: Continue paroxetine. P.r.n. lorazepam for severe agitation Status: Chronic (5) Heterozygous factor V Leiden mutation: Problem comment: VTE prophylaxis with SCDs and low-dose Lovenox. I spoke with the surgeon who is agreeable with starting this tomorrow evening. Status: Chronic (6) S/P laparoscopic appendectomy: Status: Acute (7) Bipolar 1 disorder, depressed, moderate: Problem comment: Continue normal home medications. 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 Continue clopidogrel and statin Status: Acute Plan Continue in hospital for management of postoperative care for appendicitis and peritonitis. Continue IV antibiotics and advanced diet and wean off IV fluids. Continue to monitor and manage mental health concerns. Total Time Spent Total Time Spent: Total time spent today is 45 minutes in coordination of care and discussing with patient and other providers ongoing management of appendicitis, peritonitis, abdominal pain. Subjective Date Seen: 03/10/25 Interval history: Marita Cunningham is a 44 year old female with an extensive medical history who started having diffuse abdominal pain 3 days ago. She went to the ER in [place]. I reviewed Dr. Escudero's ER note from 03/05/25 on [facility], and it states CT scan obtained which shows ovarian mass and hydrosalpinx. Ultrasound obtained which showed no evidence of torsion. She continued to have abdominal pain which increased dramatically this morning, causing her to roll around in the bed in pain for several hours. She had taken her morning medications very early this morning, but has not taken anything or had any food or water since due to pain. Nothing has helped to improve the pain. Sitting forward, deep breaths, and movement make her pain worse. She had a small pebble-like stool this morning, which is unusual for her. She denies any nausea. She had some emesis [address] into [place] [facility], but none since then. She feels very bloated today, but she is on her period. She denies CP, SOB, fever, chills, leg pain or swelling. She denies melena or hematochezia. I viewed the CT report from 03/05/25 in [facility]. There is an addendum from 03/06/25 that states, ADDENDUM: Since the ultrasound did not identify a dilated fallopian tube, the tubular structure in the right lower quadrant may represent a dilated appendix with small appendicoliths. No inflamation in the adjacent fat, but still this raises the consideration of acute or chronic appendicitis. These additional comments were shared with the ER physician Dr. Bansal on 03/06/2025 at 8:45 a.m. Marita was taken to the OR by Dr. Martinez where she underwent appendectomy. During that surgery evaluation of the fallopian tubes and ovary which were normal in appearance. She was found to have cloudy peritoneal fluid but no definite per foration of her inflamed appendix. She was also seen to have dilated loops of bowel suggestive of a inflamed abdomen with an ileus. Postoperatively she has had ongoing problems with pain and episodes where she gets agitated. She became agitated when I discussed with her the series of events this week where the initial diagnosis of appendicitis was delayed. She also became upset when I talked with her about the possibility that she might need to be in the hospital for couple days with her ileus. She also became upset when I asked her to provide a healthcare power of visual presentation manager. She indicated that she would not want to designate anybody as healthcare power of visual presentation manager except her children who are too young to play that role. 03/09/2025: She is very anxious to get the NG tube out. She would like to eat and take her oral medications. 03/10/2025: Patient had NG tube removed yesterday and is tolerating this well. She is passing gas. No bowel movement. Clear liquids today were started and she is tolerating this well. She still reports having variable abdominal pain primarily in the area of her incisions. No breathing problems. She is urinating regularly. We had another discussion about power of visual presentation manager. Today she tells me that she puts the most trust in her son, Sd, who is currently 17 years old but will be 18 in September 2025. She reports there is no one else who she would trust with medical decision making. On that basis, I will list Sd as her healthcare power of visual presentation manager. Exam Narrative: Exam Narrative: She is alert and appears in no distress. Speech is normal. Mood and affect are fluctuating, sometimes she is tearful and appears upset and other times is laughing and joking. Respirations are clear to auscultation. Cardiovascular: S1, S2, regular rate and rhythm. Abdomen: Bowel sounds are present. Abdomen is soft. She has mild diffuse tenderness. Left lower quadrant drain is producing a serosanguineous fluid. Const: Vital Signs, click to edit/add: Vital Signs - 24 hr 03/09/25 15:00 03/09/25 15:00 03/09/25 15:00 Temperature 98.0 F Pulse Rate [Right Pulse Oximeter] 56 L 56 L Respiratory Rate 18 18 18 Blood Pressure [Le ft Arm] 169/94 H Pulse Oximetry 94 94 Oxygen Delivery Me thod Room Air Oxygen Flow Rate 03/09/25 19:00 03/09/25 23:00 03/09/25 23:04 Temperature 98.0 F 97.9 F Pulse Rate [Right Pulse Oximeter] 62 60 Respiratory Rate 18 16 Blood Pressure [Le ft Arm] 132/91 H 145/83 H Pulse Oximetry 94 96 98 Oxygen Delivery Me thod Room Air Room Air Room Air Oxygen Flow Rate 03/10/25 02:45 03/10/25 07:00 03/10/25 07:00 Temperature Pulse Rate [Right Pulse Oximeter] 69 74 Respiratory Rate 16 16 16 Blood Pressure [Le ft Arm] 122/77 Pulse Oximetry 94 93 Oxygen Delivery Me thod Room Air Room Air Oxygen Flow Rate 1 03/10/25 08:31 03/10/25 11:00 Temperature 98.1 F 98.2 F Pulse Rate [Right Pulse Oximeter] 74 68 Respiratory Rate 16 16 Blood Pressure [Le ft Arm] 120/76 158/93 H Pulse Oximetry 93 97 Oxygen Delivery Me thod Room Air Room Air Oxygen Flow Rate Documenting provider has reviewed patient's vital signs: yes Labs Labs: Laboratory Results - last 24 hr 03/10/25 05:57 WBC 10.84 RBC 4.20 Hgb 12.9 Hct 38.7 MCV 92 MCH 31 MCHC 33 RDW Coeff of Tyrell 13.5 Plt Count 284 Neut % (Auto) 69.3 Lymph % (Auto) 17.4 L [place] % (Auto) 11.1 H Eos % (Auto) 1.5 Baso % (Auto) 0.1 Neut # (Auto) 7.51 H Lymph # (Auto) 1.90 [place] # (Auto) 1.20 H Eos # (Auto) 0.16 Baso # (Auto) 0.01 Abs Immat Gran (auto) 0.07 Imm/Tot Granulo (auto) 0.6 Sodium 138 Potassium 3.7 Chloride 101 Carbon Dioxide 31 Anion Gap 6 L BUN 17 Creatinine 0.7 Estimated Creat Clear 85.33 Estimated GFR 110 Glucose 83 Calcium 8.2 L C-Reactive Protein 19.2 H
--- NOTE | 2025-03-10 15:10 | PC.NURSE ---
Pt doing okay today. VSS. Pain was switched to PRN oxycodone which has been effective for pts abdominal pain. Pt needs multiple reminders, redirection and education on her diagnosis and hospital stay plan and expectations. Pt is tolerating clear liquid diet. Ambulating frequently. Resting well at this time.
--- NOTE | 2025-03-10 18:12 | W.PM.CROSSCO ---
Subjective Subjective Time Seen by Provider: 18:00 Date Seen: 03/10/25 Interval history: Marita's nurse notified me that Marita is complaining of increased bloating and abdominal pain. When I walked in, Marita stated that she is bleeding out inside. I asked her why she thought that and she said that she is in pain deep in the abdomen and is getting more bloated. I discussed with her that her hemoglobins have been stable, her BP is not low and her HR is not elevated (in fact they are the opposite), and her GUY drain has only a scant amount of serosanguineous output, and all of these are reassuring findings. We also discussed that bowel gas and air from the laparoscopy can cause this type of pain. She received 5mg oxycodone just before I came in the room. She tells me the pain medicine is not working and she wants double the dose or a different narcotic. She denies CP, but notes that there is pain in her abdomen that radiates to her right back and right shoulder. She says the bloating and pain make it difficult to take deep breaths. When we talked about getting up to walk to hasten return of bowel function and that it would likely help with her pain, she refused because it would make her double over like a pancake. Objective Objective Data Details: General: Agitated. Awake, alert, oriented x3. No pallor. No jaundice. Oropharynx: Clear. Mucous membranes moist. Cardiovascular: Regular rate and rhythm. No murmurs, gallops, or rubs. Respiratory: Clear to auscultation bilaterally. No wheezes or crackles. Abdomen: Bowel sounds hyperactive. Soft, mildly distended, nontender to palpation with the stethoscope while I am listening. Mildly tender in RUQ, no rebound tenderness or guarding. Extremities: No lower extremity edema. Assessment and Plan Assessment and plan (1) S/P laparoscopic appendectomy: Problem comment: - I do not see any evidence that she is bleeding internally, nor any other concerning symptoms at this time. Her abdomen appears to be mildly distended as would be expected at this stage postoperatively. I think bowel gas and air from the laproscopy are contributing to her pain and would like her to ambulate more frequently. She is highly anxious and painful, which I believe are contributing to each other. She has not gotten any ativan since yesterday. I encouraged her to use that now and to give the oxycodone she was just given a chance as she had just gotten it. I spoke with Dr. Martinez after speaking with and examining Marita. Dr. Martinez agreed with the plan and that no further imaging was needed at this time. Status: Acute (2) Acute appendicitis: Problem comment: Status post appendectomy. Admission complicated by presence of ileus on admission. Improving. Status: Acute (3) Ileus due to infection: Problem comment: Likely secondary to acute appendicitis. Improving. Advance diet. Status: Acute (4) Peritonitis: Problem comment: Secondary to appendicitis with unknown perforation. GUY drain with serosanguineous fluid in place. Status: Acute (5) MIREILLE (generalized anxiety disorder): Problem comment: Continue paroxetine. P.r.n. lorazepam for severe agitation Status: Chronic (6) Bipolar 1 disorder, depressed, moderate: Problem comment: Continue normal home medications. Exhibiting some fluctuations in mood Status: Acute Total Time Spent Total Time Spent: I spent 30 minutes this evening seeing the patient, reviewing [facility]se and EPIC notes/diagnostics/labs, discussing with the patient's nurse and surgeon and documenting my impressions and plan in the medical record. Therefore total Physician Service time today, including myriam and Dr. Farooq's, was 75 minutes.
[2025-03-10] MEDS: ATORVASTATIN CALCIUM 40 MG TABLET PO (20:23)
[2025-03-10] MEDS: LORazepam 1 MG TABLET PO (21:23)
--- NOTE | 2025-03-10 23:54 | PC.NURSE ---
Patient lacks safety awareness and is utilizing bed and chair alarm. She Ambulating with SBA and walking outside Patient managing pain with prn medications. GUY stripped and drained per order with a total of 10 mls this shift. Patient states she is passing and bowel sounds are active in all quadrants. She is tolerating clear liquid diet and received antibiotics as ordered.
[2025-03-11] MEDS: HYDROmorphone 0.5 mg/0.5 ml inj IVP ×2 (02:16→05:40)
[2025-03-11] MEDS: ONDANSETRON 2 MG/ML inj IVP (02:16)
[2025-03-11] MEDS: LORazepam 1 MG TABLET PO ×3 (02:16→19:01)
[2025-03-11] MEDS: LACTATED RINGERS 1000 ML 1,000 ML 75 ML IV (02:25)
[2025-03-11] MEDS: PIPERACILLIN/TAZOBACTAM 3.375 GM in 0.9 % SODIUM CHLORIDE Mini-bag 100 ML IVPB ×4 (02:29→21:22)
[2025-03-11 04:00] VITALS: BP 126/80; PULSE 76; RESP 18; TEMP 36.6; O2SAT 92
[2025-03-11 05:59] LABS: Basophils Absolute Auto 0.02 K/uL (0.00-0.30); Basophils Percent Auto 0.2 % (0.0-3.0); Eosinophils Absolute Auto 0.18 K/uL (0.00-0.50); Eosinophils Percent Auto 1.6 % (0.0-7.0); Hematocrit 36.1 % (33.0-51.0); Hemoglobin* 12.1 gm/dL (12.0-16.0); Immature Granulocytes Pct Auto 1.8 %; Lymphocytes Percent Auto 17.7 % (20-44); Mean Corpuscular HGB Conc 34 gm/dL (32-36); Mean Corpuscular Hemoglobin 31 pg (26-34); Mean Corpuscular Volume 92 fL (80-100); Monocytes Percent Auto 11.1 % (0.0-11.0); Neutrophils Absolute Auto 7.39 K/uL (1.7-7.0); Neutrophils Percent Auto 67.6 % (42.0-72.0); Platelet Count* 284 K/uL (140-440); RDW Coefficient of Variation % 13.8 % (11.5-15.5); Red Blood Count 3.94 m/uL (4.00-5.20); White Blood Count* 10.93 K/uL (4.50-11.00)
[2025-03-11 06:03] LABS: Slide Review Reflex No
[2025-03-11 06:12] LABS: Chloride* 102 mmol/L (96-114); Potassium* 3.2 mmol/L (3.6-5.1); Sodium* 138 mmol/L (135-149)
[2025-03-11 06:16] LABS: Anion Gap 3 mEq/L (7-15); Blood Urea Nitrogen* 7 mg/dL (5-24); Calcium* 7.8 mg/dL (8.4-10.6); Carbon Dioxide* 33 mmol/L (20-32); Creatinine* 0.6 mg/dL (0.5-1.5); Est. Creatinine Clearance* 99.56; Estimated Glomerular Filt Rate 114 ml/min; Glucose* 101 mg/dL (60-115)
[2025-03-11 06:31] LABS: C Reactive Protein* 17.4 mg/dL (0.5-1.0)
--- NOTE | 2025-03-11 06:59 | PC.NURSE ---
Shift Note -: Pt alert and oriented. VSS on room air. PRN Dilaudid given for pain with pt reporting relief. Pt passing flatus, GUY drain patent 30cc of serosanguineous drainage out, lap sites intact with no drainage noted. Pt up SBA, impulsive and forgets she is hooked up to an IV, reoriented as needed. Tolerating clears.
[2025-03-11 07:00] VITALS: BP 152/96; PULSE 82; RESP 18; TEMP 37.1; O2SAT 96
--- NOTE | 2025-03-11 07:45 | PM.GSPN ---
Subjective Subjective Date Seen: 03/11/25 Interval history: Marita states that yesterday she had a lot of abdominal pain. She is passing some gas. Had rare nausea. Would like to eat. Her main area of discomfort she states is around the drain site. Exam Narrative: Exam Narrative: General: No acute distress Respiratory: Breathing nonlabored on room air CV: Regular rate Abdomen: Soft, minimally distended. Incisions with some ecchymosis around the umbilicus. She also has an area of ecchymosis in the right lower abdomen which was away from her incisions. No erythema noted. Drain with serous output 70 cc from drain. Const: Vital Signs, click to edit/add: Vital Signs - 24 hr 03/10/25 08:31 03/10/25 11:00 03/10/25 15:00 Temperature 98.1 F 98.2 F 98.4 F Pulse Rate [Right Pulse Oximeter] 74 68 56 L Respiratory Rate 16 16 18 Blood Pressure [Le ft Arm] 120/76 158/93 H 154/96 H Pulse Oximetry 93 97 96 Oxygen Delivery Me thod Room Air Room Air Room Air Oxygen Flow Rate 03/10/25 15:00 03/10/25 15:00 03/10/25 19:00 Temperature 98.4 F Pulse Rate [Right Pulse Oximeter] 56 L 56 L Respiratory Rate 18 18 18 Blood Pressure [Le ft Arm] 154/96 H Pulse Oximetry 96 96 [facility] Oxygen Flow Rate 1 03/10/25 20:00 03/10/25 23:00 03/10/25 23:00 Temperature 98.1 F Pulse Rate [Right Pulse Oximeter] 72 74 Respiratory Rate 18 18 18 Blood Pressure [Le ft Arm] 166/97 H Pulse Oximetry 98 98 Oxygen Delivery Ny thod Room Air Room Air Oxygen Flow Rate 03/10/25 23:00 03/11/25 04:00 Temperature 98.0 F 97.8 F Pulse Rate [Right Pulse Oximeter] 74 76 Respiratory Rate 18 18 Blood Pressure [Le ft Arm] 125/78 126/80 Pulse Oximetry 98 92 Oxygen Delivery Ny thod Room Air Room Air Oxygen Flow Rate Labs/Imaging Labs Labs: White blood cell count today is 10.9. Hemoglobin stable at 12.1 Potassium 3.2 CRP 17.4 from 19.2 Progress Note:A&P Assessment and plan (1) Peritonitis: Status: Acute (2) Bipolar 1 disorder, depressed, moderate: Status: Acute (3) S/P laparoscopic appendectomy: Status: Acute Plan The patient is a 44-year-old female who is postop day 3 status post laparoscopic appendectomy for acute appendicitis with purulent peritonitis. She is doing well overall. Would like to see return of bowel function since she did have an ileus seen on imaging. I discussed with the patient that an additional day of IV antibiotics will be beneficial given that her white blood cell count, well normal remains at the upper limits of normal. CRP is trending down as well which is reassuring. Will recheck labs tomorrow and if improved and she is tolerating a diet and moving her bowels, she could discharge home. Would plan to remove her drain prior to discharge. The patient is agreeable with this plan.
[2025-03-11 08:31] LABS: Magnesium* 1.9 mg/dL (1.5-2.6)
[2025-03-11] MEDS: ENOXAPARIN 40 MG/0.4 ML INJ SUBCUT (09:20)
[2025-03-11] MEDS: LOSARTAN POTASSIUM 50 MG TABLET 25 MG PO (09:20)
[2025-03-11] MEDS: CLOPIDOGREL 75 MG TABLET PO (09:21)
[2025-03-11] MEDS: PARoxetine 20 MG TABLET 30 MG PO (09:21)
[2025-03-11] MEDS: METOPROLOL SUCCINATE (XL) 25 MG TAB 12.5 MG PO (09:22)
[2025-03-11] MEDS: OXYCODONE 5 MG TABLET PO ×4 (09:35→21:21)
[2025-03-11] MEDS: GABAPENTIN 300 MG CAPSULE 900 MG PO ×3 (10:04→21:22)
[2025-03-11 10:44] VITALS: BMI 18.0
[2025-03-11 11:00] VITALS: BP 160/101; PULSE 64; RESP 16; TEMP 36.8; O2SAT 96
[2025-03-11] MEDS: POTASSIUM CHLORIDE 10 MEQ CAPSULE ER 40 MEQ PO (11:26)
--- NOTE | 2025-03-11 11:38 | PC.SOCIAL ---
Social Work Consult: SW met with patient to see if there are any resources or supports that she needs. Patient states that she will not be able to pay [employer] rent. SW provided information for [employer] through the [facility] and the [facility]. SW reviewed demographic contact information. Patient states she believe her friend who is caring for her dogs will be able to give her a ride home. Patient denied any other basic need concerns such as food insecurity, mental health, transportation, etc. SW to assist if new needs arise.
[2025-03-11] MEDS: NICOTINE 14 mg PATCH 1 PATCH TRANSDERMA (14:36)
[2025-03-11 14:42] VITALS: BP 152/105; PULSE 77; RESP 16; TEMP 36.7; O2SAT 97
[2025-03-11 14:52] VITALS: RESP 16; O2SAT 97
--- NOTE | 2025-03-11 14:52 | PM.IMPN1 ---
Assessment and Plan Assessment and plan (1) Acute appendicitis: Problem comment: Status post appendectomy. Admission complicated by presence of ileus on admission. Improving. Status: Acute (2) S/P laparoscopic appendectomy: Problem comment: March 08 2025, Dr. Martinez. Status: Acute (3) Peritonitis: Problem comment: Secondary to appendicitis with unknown perforation. Purulent peritoneal fluid found at the time of surgery GUY drain with serosanguineous fluid in place. Status: Acute (4) Ileus due to infection: Problem comment: Likely secondary to acute appendicitis. Improving. Advance diet. Status: Acute (5) MIREILLE (generalized anxiety disorder): Problem comment: Continue paroxetine. P.r.n. lorazepam for severe agitation Status: Chronic (6) Bipolar 1 disorder, depressed, moderate: Problem comment: Continue normal home medications. Exhibiting some fluctuations in mood Status: Acute (7) Heterozygous factor V Leiden mutation: Problem comment: VTE prophylaxis with SCDs and low-dose Lovenox. I spoke with the surgeon who is agreeable with starting this tomorrow evening. 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 Continue clopidogrel and statin Status: Acute Plan Continue in hospital for ongoing management of peritonitis, pain. Anticipate discharge when she is able to tolerate p.o. food and fluid and is clinically improving with regards to pain and bowel function and signs and symptoms of peritonitis Total Time Spent Total Time Spent: Total time spent today is 35 minutes in coordination of care discussing with patient and other providers management of peritonitis following appendicitis Subjective Date Seen: 03/11/25 Interval history: Marita Cunningham is a 44 year old female with an extensive medical history who started having diffuse abdominal pain 3 days ago. She went to the ER in [place]. I reviewed Dr. Escudero's ER note from 03/05/25 on [facility], and it states CT scan obtained which shows ovarian mass and hydrosalpinx. Ultrasound obtained which showed no evidence of torsion. She continued to have abdominal pain which increased dramatically this morning, causing her to roll around in the bed in pain for several hours. She had taken her morning medications very early this morning, but has not taken anything or had any food or water since due to pain. Nothing has helped to improve the pain. Sitting forward, deep breaths, and movement make her pain worse. She had a small pebble-like stool this morning, which is unusual for her. She denies any nausea. She had some emesis [address] her way into [place] ER, but none since then. She feels very bloated today, but she is on her period. She denies CP, SOB, fever, chills, leg pain or swelling. She denies melena or hematochezia. I viewed the CT report from 03/05/25 in [facility]. There is an addendum from 03/06/25 that states, ADDENDUM: Since the ultrasound did not identify a dilated fallopian tube, the tubular structure in the right lower quadrant may represent a dilated appendix with small appendicoliths. No inflamation in the adjacent fat, but still this raises the consideration of acute or chronic appendicitis. These additional comments were shared with the ER physician Dr. Bansal on 03/06/2025 at 8:45 a.m. Marita was taken to the OR by Dr. Martinez where she underwent appendectomy. During that surgery evaluation of the fallopian tubes and ovary which were normal in appearance. She was found to have cloudy peritoneal fluid but no definite perforation of her inflamed appendix. She was also seen to have dilated loops of bowel suggestive of a inflamed abdomen with an ileus. Postoperatively she has had ongoing problems with pain and episodes where she gets agitated. She became agitated when I discussed with her the series of events this week where the initial diagnosis of appendicitis was delayed. She also became upset when I talked with her about the possibility that she might need to be in the hospital for couple days with her ileus. She also became upset when I asked her to provide a healthcare power of real estate associate attorney. She indicated that she would not want to designate anybody as healthcare power of real estate associate attorney except her children who are too young to play that role. 03/09/2025: She is very anxious to get the NG tube out. She would like to eat and take her oral medications. 03/10/2025: Patient had NG tube removed yesterday and is tolerating this well. She is passing gas. No bowel movement. Clear liquids today were started and she is tolerating this well. She still reports having variable abdominal pain primarily in the area of her incisions. No breathing problems. She is urinating regularly. We had another discussion about power of real estate associate attorney. Today she tells me that she puts the most trust in her son, Sd, who is currently 17 years old but will be 18 in September 2025. She reports there is no one else who she would trust with medical decision making. On that basis, I will list Sd as her healthcare power of real estate associate attorney 03/11/2025: Patient had a flare of pain in her abdomen last night. See notes from Dr. Hall for details. A little better this morning. Still reports abdominal pain more right-sided in even right flank especially with deep breathing. She ate part of a baked potato this morning and felt full. She is passing gas and had 1 small diarrhea stool. Exam Narrative: Exam Narrative: She is alert appears in no distress. Respirations are clear to auscultation. Cardiovascular: S1, S2, regular rhythm. No murmur gallop or rub. Abdomen: Bowel sounds active. Abdomen is soft with mild diffuse tenderness somewhat more on the right than the left. Drain is still in place. Const: Vital Signs, click to edit/add: Vital Signs - 24 hr 03/10/25 15:00 03/10/25 15:00 03/10/25 15:00 Temperature 98.4 F Pulse Rate [Right Pulse Oximeter] 56 L 56 L Respiratory Rate 18 18 18 Blood Pressure [Le ft Arm] 154/96 H Pulse Oximetry 96 96 Oxygen Delivery Me thod Room Air Room Air Oxygen Flow Rate 03/10/25 19:00 03/10/25 20:00 03/10/25 23:00 Temperature 98.4 F 98.1 F Pulse Rate [Right Pulse Oximeter] 56 L 72 74 Respiratory Rate 18 18 18 Blood Pressure [Le ft Arm] 154/96 H 166/97 H Pulse Oximetry 96 98 Oxygen Delivery Me thod Room Air Room Air Oxygen Flow Rate 1 03/10/25 23:00 03/10/25 23:00 03/11/25 04:00 Temperature 98.0 F 97.8 F Pulse Rate [Right Pulse Oximeter] 74 76 Respiratory Rate 18 18 18 Blood Pressure [Le ft Arm] 125/78 126/80 Pulse Oximetry 98 98 92 Oxygen Delivery Me thod Room Air Room Air Room Air Oxygen Flow Rate 03/11/25 07:00 03/11/25 07:00 03/11/25 11:00 Temperature 98.7 F 98.2 F Pulse Rate [Right Pulse Oximeter] 82 64 Respiratory Rate 18 18 16 Blood Pressure [Le ft Arm] 152/96 H 160/101 H Pulse Oximetry 96 96 96 Oxygen Delivery Me thod Room Air Room Air Room Air Oxygen Flow Rate 03/11/25 14:42 Temperature 98.1 F Pulse Rate [Right Pulse Oximeter] 77 Respiratory Rate 16 Blood Pressure [Le ft Arm] 152/105 H Pulse Oximetry 97 Oxygen Delivery Me thod Room Air Oxygen Flow Rate Documenting provider has reviewed patient's vital signs: yes Labs Labs: Laboratory Results - last 24 hr 03/11/25 03/11/25 05:32 07:53 WBC 10.93 RBC 3.94 L Hgb 12.1 Hct 36.1 MCV 92 MCH 31 MCHC 34 RDW Coeff of Tyrell 13.8 Plt Count 284 Neut % (Auto) 67.6 Lymph % (Auto) 17.7 L [place] % (Auto) 11.1 H Eos % (Auto) 1.6 Baso % (Auto) 0.2 Neut # (Auto) 7.39 H Lymph # (Auto) 1.90 [place] # (Auto) 1.20 H Eos # (Auto) 0.18 Baso # (Auto) 0.02 Abs Immat Gran (auto) 0.20 Imm/Tot Granulo (auto) 1.8 Sodium 138 Potassium 3.2 L Chloride 102 Carbon Dioxide 33 H Anion Gap 3 L BUN 7 Creatinine 0.6 Estimated Creat Clear 99.56 Estimated GFR 114 Glucose 101 Calcium 7.8 L Magnesium 1.9 C-Reactive Protein 17.4 H Lab Acknowledgement Test Added
--- NOTE | 2025-03-11 19:44 | PC.NURSE ---
Addendum entered by Michelle Herrera RN 03/11/25 19:50: DALIA Caraballo reported vape found by previous nurse and gave education to the Pt on keeping the personal item in bag and not to be used on the property. Dentistry Teacher found a second vape and gave education on not using item on property. Placed back into personal belongings bag. Pt agreed to not use in the hospital. Continuing to monitor. Original Note: End of shift [id number]: AxOx4, pleasant, and cooperative with cares. PRN Oxycodone given for pain with pt reporting relief. Pt passing flatus with multiple diarrhea episodes throughout the shift. GUY drain patent 20 cc of serosanguineous drainage out, lap sites CDI. Pt indep in room. SL. Advanced to regular diet and tolerating well. Pt requested Ativan due to feeling anxious. Pt appears resting with call light in reach. Family visited during the day.
[2025-03-11 20:00] VITALS: BP 151/96; PULSE 81; RESP 16; TEMP 36.7; O2SAT 97
[2025-03-11] MEDS: ATORVASTATIN CALCIUM 40 MG TABLET PO (21:21)
[2025-03-12 00:15] VITALS: BP 130/76; PULSE 71; RESP 14; RESP 16; O2SAT 94
[2025-03-12 02:40] VITALS: BP 135/86; PULSE 59; RESP 16; TEMP 36.4; O2SAT 94
[2025-03-12] MEDS: PIPERACILLIN/TAZOBACTAM 3.375 GM in 0.9 % SODIUM CHLORIDE Mini-bag 100 ML IVPB ×2 (02:40→08:19)
[2025-03-12 07:00] VITALS: RESP 18; O2SAT 97
--- NOTE | 2025-03-12 08:07 | PC.NURSE ---
Pt alert and oriented x3. Afebrile. Pt denies pain, chest pain, SOB and N/V. Pt's GUY is patent and draining with no output overnight. Pt's lap site are dry and intact. Pt slept throughout most of night. Son at bed side.
[2025-03-12] MEDS: METOPROLOL SUCCINATE (XL) 25 MG TAB 12.5 MG PO (08:16)
[2025-03-12] MEDS: GABAPENTIN 300 MG CAPSULE 900 MG PO (08:16)
[2025-03-12] MEDS: CLOPIDOGREL 75 MG TABLET PO (08:17)
[2025-03-12] MEDS: PARoxetine 20 MG TABLET 30 MG PO (08:18)
[2025-03-12] MEDS: ENOXAPARIN 40 MG/0.4 ML INJ SUBCUT (08:18)
[2025-03-12] MEDS: LOSARTAN POTASSIUM 50 MG TABLET 25 MG PO (08:18)
[2025-03-12] MEDS: OXYCODONE 5 MG TABLET PO ×2 (08:20→11:49)
[2025-03-12] MEDS: LORazepam 1 MG TABLET PO (08:20)
--- NOTE | 2025-03-12 09:18 | PM.GSPN ---
Subjective Subjective Date Seen: 03/12/25 Interval history: Marita is moving her bowels. She had a small amount of diarrhea. She is tolerating a diet. She is not having nausea. She is concerned about abdominal pain. The pain is located at her drain site. She states that when she urinated earlier the drain filled up. Per her nurse she had about 20 mL of fluid in her drain. The patient is concerned that she is urinating into her abdomen. No fevers. Exam Narrative: Exam Narrative: General: No acute distress but some anxiety. Respiratory: Breathing nonlabored on room air Abdomen: Soft. Minimally tender. Nondistended. Ecchymosis noted at the umbilicus. No erythema. Drain with no output noted. 20 cc out total Const: Vital Signs, click to edit/add: Vital Signs - 24 hr 03/11/25 11:00 03/11/25 14:42 03/11/25 14:52 Temperature 98.2 F 98.1 F Pulse Rate [Right Pulse Oximeter] 64 77 Respiratory Rate 16 16 16 Blood Pressure [Le ft Arm] 160/101 H 152/105 H Pulse Oximetry 96 97 97 Oxygen Delivery Me thod Room Air Room Air Room Air 03/11/25 20:00 03/12/25 00:15 03/12/25 00:15 Temperature 98.1 F Pulse Rate [Right Pulse Oximeter] 81 71 Respiratory Rate 16 16 14 Blood Pressure [Le ft Arm] 151/96 H 130/76 Pulse Oximetry 97 94 94 Oxygen Delivery Me thod Room Air Room Air Room Air 03/12/25 02:40 Temperature 97.6 F Pulse Rate [Right Pulse Oximeter] 59 L Respiratory Rate 16 Blood Pressure [Le ft Arm] 135/86 Pulse Oximetry 94 Oxygen Delivery Me thod Room Air Progress Note:A&P Assessment and plan (1) Bipolar 1 disorder, depressed, moderate: Status: Acute (2) S/P laparoscopic appendectomy: Status: Acute (3) Heterozygous factor V Leiden mutation: Status: Chronic (4) MIREILLE (generalized anxiety disorder): Status: Chronic Plan Marita is post-op day 4 from laparoscopic appendectomy for purulent peritonitis. Overall she is doing well. She is not having fevers. She is having pain mainly at her drain site. The drain was removed today. I reassured her that I am not concerned about a urine leak given that the bladder was not involved in the operation and the output from the drain is actually quite minimal. I would expect serous fluid at this point. -she is tolerating a diet and does have some return of bowel function. Abdomen is soft. -she is safe for discharge home today. I discussed with her thinks look out for after discharge including fevers, severe pain or nausea and vomiting. -will DC home on antibiotics.
[2025-03-12 10:43] VITALS: BP 183/106; PULSE 71; RESP 18; TEMP 37; O2SAT 97
[2025-03-12 11:07] LABS: Basophils Percent Auto 0.2 % (0.0-3.0); Eosinophils Percent Auto 2.3 % (0.0-7.0); Hematocrit 38.8 % (33.0-51.0); Hemoglobin* 12.8 gm/dL (12.0-16.0); Immature Granulocytes Pct Auto 2.6 %; Lymphocytes Percent Auto 17.9 % (20-44); Mean Corpuscular HGB Conc 33 gm/dL (32-36); Mean Corpuscular Hemoglobin 31 pg (26-34); Mean Corpuscular Volume 93 fL (80-100); Platelet Count* 332 K/uL (140-440); RDW Coefficient of Variation % 13.8 % (11.5-15.5); Red Blood Count 4.19 m/uL (4.00-5.20); White Blood Count* 11.17 K/uL (4.50-11.00)
[2025-03-12 11:21] LABS: Slide Review Reflex Yes
[2025-03-12 11:22] LABS: Chloride* 101 mmol/L (96-114); Sodium* 138 mmol/L (135-149)
[2025-03-12 11:26] LABS: Anion Gap 5 mEq/L (7-15); Blood Urea Nitrogen* 4 mg/dL (5-24); Calcium* 8.2 mg/dL (8.4-10.6); Carbon Dioxide* 32 mmol/L (20-32); Creatinine* 0.6 mg/dL (0.5-1.5); Est. Creatinine Clearance* 99.56; Estimated Glomerular Filt Rate 114 ml/min; Glucose* 149 mg/dL (60-115)
[2025-03-12 11:47] LABS: C Reactive Protein* 14.5 mg/dL (0.5-1.0)
[2025-03-12 12:04] LABS: Slide Review Acceptable Review (Acceptable)
--- NOTE | 2025-03-12 12:34 | PM.DS1 ---
DS: Providers Provider Date Seen: 03/12/25 Date of admission: 03/09/25 07:43 Primary care physician: Marce Mota CNP Admitting Clinician: Yasmine Hall MD Attending Physician on discharge: Evelio Farooq MD Date of Discharge: 03/12/25 DS: Diagnosis Discharge Diagnosis (1) Acute appendicitis: Status: Acute Problem details: Status post appendectomy. Admission complicated by presence of ileus on admission. Improving. (2) S/P laparoscopic appendectomy: Status: Acute Problem details: March 08 2025, Dr. Martinez. (3) Peritonitis: Status: Acute Problem details: Secondary to appendicitis with unknown perforation. Purulent peritoneal fluid found at the time of surgery GUY drain with serosanguineous fluid in place. Clinically improving. (4) Ileus due to infection: Status: Acute Problem details: Likely secondary to acute appendicitis. Improving. Tolerating a regular diet (5) Bipolar 1 disorder, depressed, moderate: Status: Acute Problem details: Continue normal home medications. Exhibiting some fluctuations in mood (6) Heterozygous factor V Leiden mutation: Status: Chronic Problem details: VTE prophylaxis with SCDs and low-dose Lovenox. I spoke with the surgeon who is agreeable with starting this tomorrow evening. (7) MIREILLE (generalized anxiety disorder): Status: Chronic Problem details: Continue paroxetine. P.r.n. lorazepam for severe agitation DS: Summary Hospital Course Hospital Course: Marita Cunningham is a 44 year old female with an extensive medical history who started having diffuse abdominal pain 3 days ago. She went to the ER in [place]. I reviewed Dr. Escudero's ER note from 03/05/25 on [facility], and it states CT scan obtained which shows ovarian mass and hydrosalpinx. Ultrasound obtained which showed no evidence of torsion. She continued to have abdominal pain which increased dramatically this morning, causing her to roll around in the bed in pain for several hours. She had taken her morning medications very early this morning, but has not taken anything or had any food or water since due to pain. Nothing has helped to improve the pain. Sitting forward, deep breaths, and movement make her pain worse. She had a small pebble-like stool this morning, which is unusual for her. She denies any nausea. She had some emesis [address] into [place] [facility], but none since then. She feels very bloated today, but she is on her period. She denies CP, SOB, fever, chills, leg pain or swelling. She denies melena or hematochezia. I viewed the CT report from 03/05/25 in [facility]. There is an addendum from 03/06/25 that states, ADDENDUM: Since the ultrasound did not identify a dilated fallopian tube, the tubular structure in the right lower quadrant may represent a dilated appendix with small appendicoliths. No inflamation in the adjacent fat, but still this raises the consideration of acute or chronic appendicitis. These additional comments were shared with the ER physician Dr. Bansal on 03/06/2025 at 8:45 a.m. Marita was taken to the OR by Dr. Martinez where she underwent appendectomy. During that surgery evaluation of the fallopian tubes and ovary which were normal in appearance. She was found to have cloudy peritoneal fluid but no definite perforation of her inflamed appendix. She was also seen to have dilated loops of bowel suggestive of a inflamed abdomen with an ileus. Postoperatively she has had ongoing problems with pain and episodes where she gets agitated. She became agitated when I discussed with her the series of events this week where the initial diagnosis of appendicitis was delayed. She also became upset when I talked with her about the possibility that she might need to be in the hospital for couple days with her ileus. She also became upset when I asked her to provide a healthcare power of tax attorney. She indicated that she would not want to designate anybody as healthcare power of tax attorney except her children who are too young to play that role. 03/09/2025: She is very anxious to get the NG tube out. She would like to eat and take her oral medications. 03/10/2025: Patient had NG tube removed yesterday and is tolerating this well. She is passing gas. No bowel movement. Clear liquids today were started and she is tolerating this well. She still reports having variable abdominal pain primarily in the area of her incisions. No breathing problems. She is urinating regularly. We had another discussion about power of tax attorney. Today she tells me that she puts the most trust in her son, Sd, who is currently 17 years old but will be 18 in September 2025. She reports there is no one else who she would trust with medical decision making. On that basis, I will list Sd as her healthcare power of tax attorney 03/11/2025: Patient had a flare of pain in her abdomen last night. See notes from Dr. Hall for details. A little better this morning. Still reports abdominal pain more right-sided in even right flank especially with deep breathing. She ate part of a baked potato this morning and felt full. She is passing gas and had 1 small diarrhea stool. 03/12/2025: She continues to pass gas. No significant bowel movement today. She has been eating a regular diet without difficulties. No increased pain or nausea. No fever. Status at Discharge Overall status at discharge: patient is progressing back to baseline Time Spent with Patient Time attestation: Total time spent providing and/or coordinating discharge services: 40 minutes Exam Narrative: Exam Narrative: She is alert and appears in no distress. Mood and affect are bright. Breathing is unlabored. Abdomen: Bowel sounds are present. Abdomen is soft she has mild diffuse tenderness. No erythema incisions are healing well. Extremities without edema. Const: Vital Signs, click to edit/add: Vital Signs - 24 hr 03/11/25 14:42 03/11/25 14:52 03/11/25 20:00 Temperature 98.1 F 98.1 F Pulse Rate [Right Pulse Oximeter] 77 81 Respiratory Rate 16 16 16 Blood Pressure [Le ft Arm] 152/105 H 151/96 H Pulse Oximetry 97 97 97 Oxygen Delivery Me thod Room Air Room Air Room Air 03/12/25 00:15 03/12/25 00:15 03/12/25 02:40 Temperature 97.6 F Pulse Rate [Right Pulse Oximeter] 71 59 L Respiratory Rate 16 14 16 Blood Pressure [Le ft Arm] 130/76 135/86 Pulse Oximetry 94 94 94 Oxygen Delivery Me thod Room Air Room Air Room Air 03/12/25 07:00 03/12/25 10:43 Temperature 98.6 F Pulse Rate [Right Pulse Oximeter] 71 Respiratory Rate 18 18 Blood Pressure [Le ft Arm] 183/106 H Pulse Oximetry 97 97 Oxygen Delivery Me thod Room Air Room Air Documenting provider has reviewed patient's vital signs: yes DS: Data Data Completed and Pending Labs on day of discharge: Labs from last 24 hours 03/12/25 11:00 WBC 11.17 H RBC 4.19 Hgb 12.8 Hct 38.8 MCV 93 MCH 31 MCHC 33 RDW Coeff of Tyrell 13.8 Plt Count 332 Neut % (Auto) 70.0 Lymph % (Auto) 17.9 L School[place] % (Auto) 7.0 Eos % (Auto) 2.3 Baso % (Auto) 0.2 Neut # (Auto) 7.80 H Lymph # (Auto) 2.00 [place] # (Auto) 0.80 Eos # (Auto) 0.30 Baso # (Auto) 0.00 Abs Immat Gran (auto) 0.30 Imm/Tot Granulo (auto) 2.6 Diff Slide Review Acceptable Review Sodium 138 Potassium 4.0 Chloride 101 Carbon Dioxide 32 Anion Gap 5 L BUN 4 L Creatinine 0.6 Estimated Creat Clear 99.56 Estimated GFR 114 Glucose 149 H Calcium 8.2 L C-Reactive Protein 14.[address] scan - abdomen: Radiologist's impression: NDICATION: Abdominal pain. TECHNIQUE: CT abdomen and pelvis acquired with 56 cc Isovue 370 IV contrast. COMPARISON: None. FINDINGS: Lower chest: Scattered atelectasis. Liver: Unremarkable. Normal in size and attenuation. No suspicious masses. Gallbladder and bile ducts: Unremarkable. No stones or inflammation. No biliary dilatation. Pancreas: Unremarkable. No mass or inflammation. Spleen: Unremarkable. Normal in size. No masses. Adrenal glands: Unremarkable. No nodules. Kidneys: Unremarkable. No suspicious masses, stones, or hydronephrosis. GI tract: Moderately distended fluid-filled appendix with hyperemia and subtle periappendiceal inflammatory stranding. Multiple dilated loops of small bowel with some collapsed loops of distal ileum. Vasculature: Abdominal aorta is normal in caliber. Mesenteric arteries are patent. Lymph nodes: No lymphadenopathy. Peritoneum/Abdominal Wall: Some swirling of mesenteric vasculature in the right lower quadrant (series 2/image 101). No sign of mass or infiltration. No free air or significant free fluid. Pelvis: Unremarkable. Bones: Unremarkable for age. IMPRESSION: Moderately distended fluid-filled appendix with hyperemia and subtle periappendiceal inflammatory stranding. Constellation of findings are concerning for acute uncomplicated appendicitis in the appropriate clinical setting. No drainable fluid collections. Recommend correlation with localized physical examination and laboratory values. Multiple dilated loops of small bowel with some collapsed loops of distal ileum. Constellation of findings are favored to reflect reactive ileus in the setting of acute uncomplicated appendicitis. Early small-bowel obstruction secondary to internal hernia not entirely excluded given adjacent visualization of some swirling of mesenteric vasculature in the right lower quadrant but this is thought less likely. Chest x-ray: Radiologist's impression: NDICATION: NG tube placement. TECHNIQUE: Chest 1 views. COMPARISON: None. FINDINGS: Cardiovascular and mediastinum: Heart size and vasculature are normal in caliber and appearance. Subdiaphragmatic enteric tube with tip and proximal port in the stomach. Lungs and pleural spaces: Lungs are clear. No sign of infiltrate or mass. No sign of pleural effusion. No pneumothorax. Bones and soft tissues: No significant findings. IMPRESSION: No acute or significant findings. Discharge Plan Discharge Disposition: Home, Self-Care Date of Admission: 03/09/25 07:43 Attending Provider on Discharge: Jairo Farooq Primary Care Provider: Marce Mota Condition: Stable Anticipated Discharge Date/Time: 03/12/25 13:00 Discharge Medications: New amoxicillin-pot clavulanate 875-125 mg tablet 1 tab PO BID Qty: 8 0RF oxycodone 5 mg Tablet 5 - 10 mg PO Q6H PRNQty: 20 0RF Continued paroxetine HCl 30 mg tablet 60 mg PO DAILY Patient Comments: TAKE 2 TABLETS BY MOUTH EVERY DAY - Patient states she is only taking 1 tablet daily Rx Instructions: 2 tablets by mouth daily quetiapine 25 mg tablet 25 mg PO HS PRN Patient Comments: Takes 1-2 times a week metoprolol succinate 25 mg tablet extended release 24 hr 12.5 mg PO DAILY losartan 25 mg tablet 25 mg PO DAILY gabapentin 300 mg capsule 900 mg PO TID dextroamphetamine-amphetamine 10 mg tablet 1 tab PO DAILY atorvastatin 40 mg tablet 40 mg PO HS clopidogrel 75 mg tablet 75 mg PO DAILY albuterol sulfate 90 mcg/actuation HFA aerosol inhaler 2 puff INHALATION Q4H PRN (Reason: wheezing) Discharge Orders: Discharge Order (Routine); Ordered 03/12/25 Ordered By: Jairo Farooq Patient Education: Amoxicillin (By mouth), Oxycodone, Rapid Release (By mouth), Post-Operative Instructions: Appendectomy Additional Instructions: Wound care: Your sutures are under the skin and will dissolve over time. Leave steri strips (white bandages) over incisions until they fall off (or remove after 7 days). Change gauze to left lower abdominal incision (drain site) daily. OK to shower tomorrow but avoid bathing, soaking or swimming for 2 weeks. Pat the incisions dry. No need to wash or scrub the area. Apply ice to the area as needed for swelling. It is also OK to use a heating pad if this provides more comfort to you. Pain control: You were prescribed a pain medication. This medication contains acetaminophen (Tylenol). If you are taking your prescribed pain pills 4 times daily, do not take additional acetaminophen. As your pain improves, you can try taking acetaminophen instead of the prescribed pain pill. It is ok to take Ibuprofen or Naproxen (per directions on packaging). This medication helps with inflammation and swelling. Take an [id number] stool softener while you are taking prescribed pain medications to help alleviate constipation. I recommend Senna and/or Colace. Take as directed on package. If you have not had a bowel movement in 3 days, try taking Miralax as directed on the package. All of these are available over the counter. Follow-up Follow up with Dr. Martinez in 2-3 weeks Please call if you are experiencing severe pain, nausea, vomiting, difficulty urinating, fever or have not had bowel movement in 4 days after surgery. Activity Level: Activity as Tolerated and No strenuous activity Activity Detail: No lifting more than 20 pounds for 2 weeks. Discharge Diet: Regular Follow Up Appointments: Marce Mota CNP [Primary Care Provider, Family Practice] Flor Martinez MD [Staff Physician, General Surgery] - 03/26/25 9:15 am Referral Note: [facility] for hospital follow-up. Forms: Work/School Release, [facility] Info Instructions
--- NOTE | 2025-03-12 12:37 | PC.NURSE ---
Discharge - Pt alert, oriented, cooperative. Reported feeling anxious related to her pain, drain, and discharge. Reported to RN that she thought her GUY drain was filling with pee , RN emptied drain and provided education to pt. MD alerted to pt concerns. Up independently in room, tolerating RA and regular diet/fluids. Pt reported abdominal pain as 7/10, given medication per MAR with pt behavior indicating relief. Lap sites x 3 open to air, drain dressing changed. IV removed with catheter intact, d/c instructions given to pt and family member with verbalized understanding. D/c'd to home via wheelchair with family at approximately 1217.
== END 2025-03-12 12:17 | disposition home or self-care (01) | DRG 398 ==
LOC: ED 19:48 → MEDSURG 20:03
PROVIDERS: Surgery; Admitting Provider Family Medicine; Emergency Provider Family Medicine; PCP Family Medicine; Visit Provider Family Medicine
PROC: 0DTJ4ZZ Resection of Appendix, Percutaneous Endoscopic Approach (ICD-10-PCS; CPT 44970; principal; 2025-03-08 21:00)
DX: K35.32 Acute appendicitis with perforation, localized peritonitis, and gangrene, without abscess (principal); D68.51 Activated protein C resistance; K56.7 Ileus, unspecified; F31.32 Bipolar disorder, current episode depressed, moderate; E44.0 Moderate protein-calorie malnutrition; Z68.1 Body mass index [BMI] 19.9 or less, adult; E87.6 Hypokalemia; G35 Multiple sclerosis; E04.2 Nontoxic multinodular goiter; I25.2 Old myocardial infarction; J45.909 Unspecified asthma, uncomplicated; F41.1 Generalized anxiety disorder; F90.9 Attention-deficit hyperactivity disorder, unspecified type; F17.210 Nicotine dependence, cigarettes, uncomplicated
CPT/HCPCS: 00840; 36415; 71045; 74177; 80048; 80076; 80306; 81001; 81025; 83605; 83690; 83735; 85025; 86140; 87086; 88304; 99140; 99284; 99285; A9270; J0330; J0665; J1100; J1171; J1200; J1650; J2060; J2250; J2405; J2543; J2704; J3010; J3480; J3490; J7120; Q9967; S4990

== ENCOUNTER 2025-03-26 11:19 | Emergency (ER) | payer MEDICARE, SELFPAY ==
--- OUTSIDE RECORDS SUMMARY | 2025-03-13 22:42 | XMS_ITS | Encounter Summary ---
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 Name Role Phone No Ref-Primary, Physician Primary Care Provider Reason for Visit * Reason Comments Post-op Problem * Auth/Cert Specialty Diagnoses / Procedures Referred By Chandler t Referred To Contact EMERGENCY MEDICINE Diagnoses Peritonitis (H) Intraabdominal fluid collection Ricci Hunt MD [address] [place] [address] Phone: tel: fax: [facility] Emergency Dept [address] [place] [address] Phone: tel: fax: Referral ID Status Reason Start Date Expiration Date Visits Re quested Visits Authorized [id number] 1 1 Encounter Details Date Type Department Care Team (Late st Contact Info) Description 03/13/2025 10:42 PM CDT - 03/15/2025 12:16 PM CDT Hospital Encounter [facility] Observation Dept [address] [place] [id number] Rubén Burnett MD [facility] [address] [id number] Shahida Dorsey DO [facility] [address] [id number] Ricci Hunt MD [address] [place] [address] Abscess of abdominal cavity (H) (Primary Dx); Peritonitis (H); Intraabdominal fluid collection; Intra-abdominal abscess post-procedure (H); Drug-induced constipation Discharge Disposition: Home or Self Care Social History Tobacco Use Types Packs/Day Years Used Date Smoking Tobacco: Every Day Cigarettes Alcohol Use Standard Drinks/Week Comments Not Asked 0 (1 standard drink = 0.6 oz pur e alcohol) Food Insecurity Answer Date Recorded Within the past 12 months, d id you worry that your food would run out before you got money to buy more? No 03/14/2025 Within the past 12 months, d id the food you bought just not last and you didn t have money to get more? No 03/14/2025 Housing Stability Answer Date Recorded Do you have housing? ([place] is defined as stable permanent housing and does not include staying outside in a car, in a tent, in an abandoned building, in an overnight fci, or couch-surfing.) Yes 03/14/2025 Are you worried about losing your housing? No 03/14/2025 Financial Resource Strain Answer Date R ecorded Within the past 12 months, h ave you or your family members you live with been unable to get utilities (heat, electricity) when it was really needed? No 03/14/2025 Transportation Needs Answer Date Record ed Within the past 12 months, h as lack of transportation kept you from medical appointments, getting your medicines, non-medical meetings or appointments, work, or from getting things that you need? No 03/14/2025 Interpersonal Safety Answer Date Record ed Do you feel physically and e motionally safe where you currently live? No 03/14/2025 Within the past 12 months, h ave you been hit, slapped, kicked or otherwise physically hurt by someone? No 03/14/2025 Within the past 12 months, h ave you been humiliated or emotionally abused in other ways by your partner or ex-partner? No 03/14/2025 Comments Unknown Sex and Gender Information Value Date Recorded Sex Assigned at Not on file Legal Sex Female 8:45 AM CDT Gender Identity Not on file Sexual Orientation Not on file documented as of this encounter Last Filed Vital Signs Vital Sign Reading Time Taken Comments Blood Pressure 146/109 03/15/2025 11:50 AM CDT Pulse 75 03/15/2025 11:50 AM CDT Temperature 36.8 C (98.2 F) 03/15/2025 8:15 AM CDT Respiratory Rate 18 03/15/2025 11:5 0 AM CDT Oxygen Saturation 98% 03/15/2025 11: 50 AM CDT Inhaled Oxygen Concentration - - Weight 53.9 kg (118 lb 12.8 oz) 03/14/2025 2:55 AM CDT Height 170.2 cm (5' 7) 03/15/2025 10:0 7 AM CDT Body Mass Index 18.61 03/14/2025 2:55 AM CDT documented in this encounter Discharge Summaries * Armin Anne MD - 03/15/2025 11:05 AM CDT [facility] Hospitalist Discharge Summary Date of Admission: 03/13/2025 Date of Discharge: 03/15/2025 Discharging Provider: Armin Anne MD Discharge Service: Hospitalist Service Discharge Diagnoses Sepsis due to peritonitis Developing peritoneal abscess S/p laparoscopic appendectomy (03/08/2024 at [facility]) Hyponatremia Clinically Significant Risk Factors Follow-ups Needed After Discharge Follow-up Appointments Follow Up Follow up with Dr. Flor Martinez on TuesdayMarch 19 at 2:45pm. Flor Martinez MD [address] [place] [id number] Unresulted Labs Ordered in the Past 30 Days of this Admission Date and Time Order Name Status Description 03/13/2025 11:22 PM Blood Culture Peripheral blood (BC) Arm, Left Preliminary 03/13/2025 10:56 PM Blood Culture Peripheral blood (BC) Hand, Right Preliminary These results will be followed up by Hospitalist group Discharge Disposition Discharged to home Condition at discharge: Stable Hospital Course Marita Cunningham is a 44 year old female who has medical history significant for recent diagnosis of perforated appendicitis status post appendectomy and discharged home on 03/11/2025, chronic back pain since 2014, generalized anxiety disorder, multiple sclerosis, tobacco abuse, ADHD, depression, embolic myocardial infarction, nontoxic multinodular goiter, ocular migraine, depression, and seizures. She presented to the ED with complaints of worsening abdominal pain. Patient reports that she had abdominal pain on 12/20/2024. She presented to the ED at outside facility. She reports that she was discharged home after imaging showed that she had a cyst. Reports that she continued to have abdominal pain and went to the ED 3 days later. She was found to have appendicitis and underwent surgical repair. She reports that she was discharged on 03/11/2025 with antibiotics. States that she has been taking antibiotics as prescribed. However, continued to have significant abdominal pain so she decided come to the ED. She reports that she has been taking pain medications at home without any improvement.She reports that her abdomen has felt very warm to touch but did not check her temperature. She reports chills. Reports constipation. Reports that her menses started about 10 days ago but she is still spotting. She otherwise denies hematuria, dysuria, chest pain, shortness of breath, or any other new symptoms. In the ED, she was tachycardic and also had elevated blood pressures. WBC count was 14.5. Sodium was 133 with potassium of 4.9 but reported to be slightly hemolyzed. Calcium was 8.3 with chloride of 96. Lactic acid was 0.9.CT abdomen/pelvis showed postoperative changes of laparoscopic appendectomy.Also showed findings suggestive of peritonitis. Additionally, CT showed, A few loops of pelvic small bowel have a mildly thickened wall and demonstrate prominent enhancement probably explained as a reactive enteritis as well as at the appendectomy bed, there is a 2.5 x 0.6 cm loculation of rim-enhancing fluid suspicious for developing abscess. Additionally, there is a thin peripheral enhancingtubular fluid-filled structure extending from the left anterior pelvic wall near the laparoscopy port to the left adnexal region which may also be a developing abscess. Both appear to be too small for percutaneous drain placement. # Sepsis due to peritonitis # Developing peritoneal abscess # S/p laparoscopic appendectomy (03/08/2024 at [facility]) Patient with recent perforated appendicitis status post laparoscopic appendectomy at outside facility. Presented to the ED with complaints of worsening abdominal pain. Initially tachycardic with leukocytosis. CT showing peritonitis and also developing abscesses. -continue IV Zosyn -CLD initially, will advance to full liquid this afternoon with passing flatus and had a BM -General Surgery consult, no current intervention, developing abscesses on CT are too small to drain -pain control, may have difficult to control pain with history of polysubstance abuse -continue IVFs for today, reassess if needed pending intake on 03/15 -once pain has significantly improved then patient can transition to PO antibiotics to finish course pending how long she is admitted -will need outpatient follow up with primary surgeon as well follow up CT for monitoring # Hyponatremia, resolved Initially sodium of 133 with improvement to 140 after IVFs -continue IVFs until able to advance to full diet -follow BMP # CAD, h/o NSTEMI History of embolic SC in 11/2023. Initial coronary angiography demonstrated no significant obstructive CAD. Echocardiogram at that time showed anterior wall motion abnormality with preserved global LV function of 50-55%. MRI demonstrated discrete basilar anterior septal serpiginous infarction consistent with a for septal embolic infarction. Patient was started on dual antiplatelet therapy at thattime. Seen by hematology as an outpatient with labs nonconclusive and did not feel that patient needed to convert to anticoagulation and agreed with continuation of dual antiplatelet therapy. Followswith cardiology through [facility]. -completed 1 year of DAPT, should be able to stop Plavix, currently on hold in case procedure needed related to above -follow up with primary public address system mechanic about continuation of ASA, appears this was stopped in 10/2024due to desire to take NSAIDs and okayed to just continue Plavix -continue TELEPHONE REPAIRER Atorvastatin, Losartan, and Metoprolol with parameters # ADHD # Anxiety # Depression #H/o polysubstance abuse Previous regular meth use, sober since 2019. Follows with psychiatry for management. -continue Xanax, Paxil, Gabapentin, and Seroquel -hold Adderrall for ADHD for now # Chronic pain syndrome Chronic back pain, not on daily opioids. -continue TELEPHONE REPAIRER Gabapentin # Tobacco abuse Smoking cessation counseling. - Nicotine replacement therapy I assumed care of the patient today. She is hungry and would like to eat. Her pain is controlled. She was seen by surgery. There are no plans for any type of surgical intervention. They recommended follow-up with a CAT scan at some point. I called her original surgeons office. I have set her up with an appointment with that surgeon for Tuesday the at 245. We will send her with the disc with her imaging on it. I will send her with Augmentin. She still has some of this at home but she does not home know how much so I will send her with enough to get her through next Tuesday. She is also asked to for narcotics on discharge. I will give her a small supply with bowel meds. I offered to call family, she declined. Consultations This Hospital Stay SURGERY GENERAL IP CONSULT Code Status Full Code Time Spent on this Encounter I, Armin Anne MD, personally saw the patient today and spent greater than 30 minutes discharging this patient. Armin Anne MD [facility] OBSERVATION DEPT [address] [facility] [id number] Physical Exam Vital Signs: Temp: 98.2 ??F (36.8 ??C) Temp src: Oral BP: (!) 144/101 Pulse: 70 Resp: 18 SpO2: 98 %O2 Device: None (Room air) Weight: 118 lbs 12.8 oz Constitutional: awake, alert, cooperative, no apparent distress, and appears stated age Eyes: Lids and lashes normal, pupils equal, round and reactive to light, extra ocular muscles intact, sclera clear, conjunctiva normal ENT: Normocephalic, without obvious abnormality, atraumatic, sinuses nontender on palpation, external ears without lesions, oral pharynx with moist mucous membranes, tonsils without erythema or exudates, gums normal and good dentition. GI: soft, +BS, generalized tenderness lower abdomen Primary Care Physician Physician No Ref-Primary Discharge Orders Reason for your hospital stay Post-operative intra-abdominal abscess (early) Activity Your activity upon discharge: activity as tolerated Follow Up Follow up with Dr. Flor Martinez on TuesdayMarch 19 at 2:45pm. Flor Martinez MD [address] [place] [id number] Diet Follow this diet upon discharge: Current Diet:Orders Placed This Encounter Regular Diet Adult Significant Results and Procedures Most Recent 3 CBC's: Recent Labs Lab Test 03/15/25 0543 03/14/25 0543 03/13/25 2321 WBC 9.6 11.2* 14.5* HGB 11.3* 11.9 12.7 MCV 92 91 90 PLT 424 423 458* Most Recent 3 BMP's: Recent Labs Lab Test 03/15/25 0543 03/14/25 0543 03/13/25 2321 NA 144 140 133* POTASSIUM 4.3 3.5 4.9 CHLORIDE 111* 104 96* CO2 26 26 24 BUN 4.2* 5.5* 6.6 CR 0.59 0.56 0.57 ANIONGAP 7 10 13 RENÉ 7.9* 7.9* 8.3* GLC 92 105* 118* Most Recent 2 LFT's: Recent Labs Lab Test 03/13/25 2321 AST 34 ALT 12 ALKPHOS 74 BILITOTAL 0.2 , Results for orders placed or performed during the hospital encounter of 03/13/25 CT Abdomen Pelvis w Contrast Narrative EXAM: CT ABDOMEN PELVIS W CONTRAST LOCATION: [facility] DATE: 03/14/2025 INDICATION: post op pain COMPARISON: Pelvic ultrasound and CT of the abdomen and pelvis 03/05/2025. TECHNIQUE: CT scan of the abdomen and pelvis was performed following injection of IV contrast. Multiplanar reformats were obtained. Dose reduction techniques were used. CONTRAST: 60mL Isovue 370 FINDINGS: LOWER CHEST: Normal. HEPATOBILIARY: Tiny hypodensity in the right hepatic lobe too small to characterize has a benign appearance not warranting follow-up. Normal gallbladder and bile ducts. PANCREAS: Normal. SPLEEN: Normal. ADRENAL GLANDS: Normal. KIDNEYS/BLADDER: Normal. BOWEL: Postoperative changes of laparoscopic appendectomy including trace free air. Generalized edema, small amount of free fluid, and prominent peritoneal enhancement in the pelvis concerning for peritonitis. A few loops of pelvic small bowel have a mildly thickened wall and demonstrate prominent enhancement suggestive of a reactive enteritis. In the appendectomy bed, there is a 3.5 x 0.6 cm loculation of rim-enhancing fluid suspicious for developing abscess (images 126-131 of axial series 3, images 30-32 of coronal series 4). Additionally, there is a thin peripherally enhancing tubular fluid-filled structure of the anterior left pelvis extending from the left anterior pelvic wall near the laparoscopy port to the left adnexal region which measures 4 mm wide and about 8 cm long which is new from 03/05/2025 and may also be a developing abscess (images 122-154 of axial series 3, 17-25 of coronal series 4). No bowel obstruction. Liquid stool throughout the colon. LYMPH NODES: Normal. VASCULATURE: Normal. PELVIC ORGANS: Normal. MUSCULOSKELETAL: Normal. Impression IMPRESSION: 1. Postoperative changes of laparoscopic appendectomy. 2. Edema, small amount of free fluid, and generalized peritoneal enhancement in the pelvis suggestive of peritonitis. 3. A few loops of pelvic small bowel have a mildly thickened wall and demonstrate prominent enhancement probably explained as a reactive enteritis. 4. At the appendectomy bed, there is a 2.5 x 0.6 cm loculation of rim-enhancing fluid suspicious for developing abscess. Additionally, there is a thin peripheral enhancing tubular fluid-filled structure extending from the left anterior pelvic wall near the laparoscopy port to the left adnexal region which may also be a developing abscess. Both appearto be too small for percutaneous drain placement. 5. Liquid stool throughout colon consistent with a diarrheal state. Discharge Medications Current Discharge Medication List START taking these medications Details !! amoxicillin-clavulanate (AUGMENTIN) 875-125 MG tablet Take 1 tablet by mouth 2 times daily for 5days. Qty: 10 tablet, Refills: 0 Associated Diagnoses: Intra-abdominal abscess post-procedure (H) HYDROmorphone (DILAUDID) 2 MG tablet Take 0.5 tablets (1 mg) by mouth every 6 hours as needed. Qty: 12 tablet, Refills: 0 Associated Diagnoses: Intra-abdominal abscess post-procedure (H) polyethylene glycol (MIRALAX) 17 GM/Dose powder Take 17 g (1 Capful) by mouth daily. Qty: 116 g, Refills: 0 Associated Diagnoses: Drug-induced constipation senna-docusate (SENOKOT-S/PERICOLACE) 8.6-50 MG tablet Take 1 tablet by mouth 2 times daily as needed for constipation. Qty: 30 tablet, Refills: 0 Associated Diagnoses: Drug-induced constipation !! - Potential duplicate medications found. Please discuss with provider. CONTINUE these medications which have NOT CHANGED Details acetaminophen (TYLENOL) 500 MG tablet Take 1,000 mg by mouth every 6 hours as needed for mild pain. albuterol (PROAIR HFA/PROVENTIL HFA/VENTOLIN HFA) 108 (90 Base) MCG/ACT inhaler Inhale 1-2 puffs into the lungs every 6 hours as needed for shortness of breath, wheezing or cough. !! amoxicillin-clavulanate (AUGMENTIN) 875-125 MG tablet Take 1 tablet by mouth 2 times daily. amphetamine-dextroamphetamine (ADDERALL XR) 20 MG 24 hr capsule Take 20 mg by mouth every morning. amphetamine-dextroamphetamine (ADDERALL) 10 MG tablet Take 10 mg by mouth daily. At lunch time atorvastatin (LIPITOR) 40 MG tablet Take 40 mg by mouth daily. clopidogrel (PLAVIX) 75 MG tablet Take 75 mg by mouth daily. !! gabapentin (NEURONTIN) 300 MG capsule Take 1,500 mg by mouth every morning. !! gabapentin (NEURONTIN) 300 MG capsule Take 1,200 mg by mouth every evening. ibuprofen (ADVIL/MOTRIN) 200 MG tablet Take 800 mg by mouth every 6 hours as needed for pain. losartan (COZAAR) 25 MG tablet Take 25 mg by mouth daily. oxyCODONE (ROXICODONE) 5 MG tablet Take 5 mg by mouth every 6 hours as needed for severe pain. PARoxetine (PAXIL) 30 MG tablet Take 60 mg by mouth every morning. QUEtiapine (SEROQUEL) 25 MG tablet Take 25 mg by mouth nightly as needed (sleep). metoprolol succinate ER (TOPROL XL) 25 MG 24 hr tablet Take 12.5 mg by mouth daily. !! - Potential duplicate medications found. Please discuss with provider. Allergies Allergies Allergen Reactions Codeine Unknown Lidocaine Swelling edema Procaine Unknown Pyridium [Phenazopyridine] Unknown documented in this encounter Medications at Time of Discharge acetaminophen (TYLENOL) 500 MG tablet Take 1,000 mg by mouth every 6 hours as needed for mild pain. albuterol (PROAIR HFA/PROVENTIL HFA/VENTOLIN HFA) 108 (90 Base) MCG/ACT inhaler Inhale 1-2 puffs into the lungs every 6 hours as needed for shortness of breath, wheezing or cough. amphetamine-dextro amphetamine (ADDERALL XR) 20 MG 24 hr capsule Take 20 mg by mouth every morning. amphetamine-dextro amphetamine (ADDERALL) 10 MG tablet Take 10 mg by mouth daily. At lunch time atorvastatin (LIPITOR) 40 MG tablet Take 40 mg by mouth daily. clopidogrel (PLAVIX) 75 MG tablet Take 75 mg by mouth daily. gabapentin (NEURONTIN) 300 MG capsule Take 1,500 mg by mouth every morning. gabapentin (NEURONTIN) 300 MG capsule Take 1,200 mg by mouth every evening. HYDROmorphone (DILAUDID) 2 MG tabletIndications: Intra-abdominal abscess post-procedure (H) Take 0.5 tablets (1 mg) by mouth every 6 hours as needed. 12 tablet 03/15/2025 ibuprofen (ADVIL/MOTRIN) 200 MG tablet Take 800 mg by mouth every 6 hours as needed for pain. losartan (COZAAR) 25 MG tablet Take 25 mg by mouth daily. oxyCODONE (ROXICODONE) 5 MG tablet Take 5 mg by mouth every 6 hours as needed for severe pain. PARoxetine (PAXIL) 30 MG tablet Take 60 mg by mouth every morning. polyethylene glycol (MIRALAX) 17 GM/Dose powderIndications: Drug-induced constipation Take 17 g (1 Capful) by mouth daily. 116 g 03/15/2025 QUEtiapine (SEROQUEL) 25 MG tablet Take 25 mg by mouth nightly as needed (sleep). senna-docusate (SENOKOT-S/PERICOL KATJA) 8.6-50 MG tabletIndications: Drug-induced constipation Take 1 tablet by mouth 2 times daily as needed for constipation. 30 tablet 03/15/2025 metoprolol succinate ER (TOPROL XL) 25 MG 24 hr tablet Take 12.5 mg by mouth daily. amoxicillin-clavul anate (AUGMENTIN) 875-125 MG tabletIndications: Intra-abdominal abscess post-procedure (H) Take 1 tablet by mouth 2 times daily for 5 days. 10 tablet 03/15/2025 5 documented as of this encounter Progress Notes * Idalmis Bowen - 03/14/2025 3:24 PM CDT [facility] - Progress Note Obs 2 Referral Source/ Reason for Visit: Length of stay visit for emotional support. Summary and Recommendations - According to medical record, patient had an appendectomy 03/08/25. She began experiencing signs of infection; so returned to the hospital and was readmitted. Plan: No spiritual needs. [facility] remains available for emotional support upon request. Rev. Flaquito Macdonald. Staff Quality Analyst [facility] available 25/04 for emergent requests/ referrals, either by paging the on- call manager audio or by entering an RO/STAT consult in [facility], which will also page the on-call manager audio. Assessment Saw pt Marita Cunningham regarding length of stay visit for emotional support. Patient/Family Understanding of Illness and Goals of Care - Medical record lists CAD, chronic pain syndrome, tobacco use; as well as anxiety, depression, ADHD and polysubstance abuse. Distress and Loss - Patient is lonely and isolated. Strengths, Coping and Resources - Patient could not name any supportive people in her life; and there are no emergency contacts listed. Meaning, Beliefs and Spirituality - Patient shared that she has no advent beliefs. * Betty Manzanares RN - 03/14/2025 2:14 PM CDT Patient reports finding home meds in pocket when in the bathroom and taking it while using the bathroom. Patient was informed of risks/dangers of taking home meds and almost taking double doses. Provider made aware. Holding evening medications due to this. Patient verbalizes understanding of not taking future home medications during hospital stay, and to inform nursing staff of this and turn in medications forfuture * Maria G Jenkins PA-C - 03/14/2025 9:23 AM CDT [facility] Medicine Progress Note - Hospitalist Service Date of Admission: 03/13/2025 Assessment & Plan Marita Cunningham is a 44 y/o female with PMH significant for NSTEMI, MS, seizure disorder, nicotine dependence, ocular migraines, asthma, MIREILLE, MDD, ADHD, chronic pain syndrome, polysubstance abuse, factor V Leiden mutation, nontoxic multinodular goiter, and recent acute appendicitis with perforation, generalized peritonitis and gangrene s/p appendectomy on 03/08/2025 who presents to the ED on 03/14/2025 for worsening abdominal pain. Patient reports onset of abdominal pain around 03/05/2025 and discharged home after imaging showed that she had a cyst. Reports that she continued to have abdominal pain and went to the ED 3 days later. She was found to have appendicitis and underwent surgical repair. She reports that she was discharged on 03/11/2025 with antibiotics. States that she has been taking antibiotics as prescribed. However, continued to have significant abdominal pain so she decided come to the ED. In the ED, she was tachycardic and also had elevated blood pressures. WBC count was 14.5. Sodium was 133 with potassium of 4.9 but reported to be slightly hemolyzed. Calcium was 8.3 with chloride of 96. Lactic acid was 0.9.CT abdomen/pelvis showed postoperative changes of laparoscopic appendectomy.Also showed findings suggestive of peritonitis. Additionally, CT showed, A few loops of pelvic small bowel have a mildly thickened wall and demonstrate prominent enhancement probably explained as a reactive enteritis as well as at the appendectomy bed, there is a 2.5 x 0.6 cm loculation of rim-enhancing fluid suspicious for developing abscess. Additionally, there is a thin peripheral enhancingtubular fluid-filled structure extending from the left anterior pelvic wall near the laparoscopy port to the left adnexal region which may also be a developing abscess. Both appear to be too small for percutaneous drain placement. # Sepsis due to peritonitis # Developing peritoneal abscess # S/p laparoscopic appendectomy (03/08/2024 at [facility]) Patient with recent perforated appendicitis status post laparoscopic appendectomy at outside facility. Presented to the ED with complaints of worsening abdominal pain. Initially tachycardic with leukocytosis. CT showing peritonitis and also developing abscesses. -continue IV Zosyn -CLD initially, will advance to full liquid this afternoon with passing flatus and had a BM -General Surgery consult, no current intervention, developing abscesses on CT are too small to drain -pain control, may have difficult to control pain with history of polysubstance abuse -continue IVFs for today, reassess if needed pending intake on 03/15 -once pain has significantly improved then patient can transition to PO antibiotics to finish course pending how long she is admitted -will need outpatient follow up with primary surgeon as well follow up CT for monitoring # Hyponatremia, resolved Initially sodium of 133 with improvement to 140 after IVFs -continue IVFs until able to advance to full diet -follow BMP # CAD, h/o NSTEMI History of embolic SC in 11/2023. Initial coronary angiography demonstrated no significant obstructive CAD. Echocardiogram at that time showed anterior wall motion abnormality with preserved global LV function of 50-55%. MRI demonstrated discrete basilar anterior septal serpiginous infarction consistent with a for septal embolic infarction. Patient was started on dual antiplatelet therapy at thattime. Seen by hematology as an outpatient with labs nonconclusive and did not feel that patient needed to convert to anticoagulation and agreed with continuation of dual antiplatelet therapy. [facility] through [facility]. -completed 1 year of DAPT, should be able to stop Plavix, currently on hold in case procedure needed related to above -follow up with primary public address system mechanic about continuation of ASA, appears this was stopped in 10/2024due to desire to take NSAIDs and okayed to just continue Plavix -continue TELEPHONE REPAIRER Atorvastatin, Losartan, and Metoprolol with parameters # ADHD # Anxiety # Depression #H/o polysubstance abuse Previous regular meth use, sober since 2019. Follows with psychiatry for management. -continue Xanax, Paxil, Gabapentin, and Seroquel -hold Adderrall for ADHD for now # Chronic pain syndrome Chronic back pain, not on daily opioids. -continue TELEPHONE REPAIRER Gabapentin # Tobacco abuse Smoking cessation counseling. - Nicotine replacement therapy Diet: Combination Diet Clear Liquid DVT Prophylaxis: Pneumatic Compression Devices and Ambulate every shift Rodriguez Catheter: Not present Lines: None Cardiac Monitoring: None Code Status: Full Code Clinically Significant Risk Factors Present on Admission # Hyponatremia: Lowest Na = 133 mmol/L in last 2 days, will monitor as appropriate # Hypochloremia: Lowest Cl = 96 mmol/L in last 2 days, will monitor as appropriate # Hypocalcemia: Lowest Ca = 7.9 mg/dL in last 2 days, will monitor and replace as appropriate # Hypoalbuminemia: Lowest albumin = 3.3 g/dL at 03/13/2025 11:21 PM, will monitor as appropriate Social Drivers of Health Depression: At risk (12/05/2024) Received from [facility] PHQ-2 PHQ-2 TOTAL SCORE: 6 Tobacco Use: High Risk (12/21/2024) Received from [facility] [employer] [facility] Patient History Smoking Tobacco Use: Every Day Smokeless Tobacco Use: Never Interpersonal Safety: High Risk (03/14/2025) Interpersonal Safety Do you feel physically and emotionally safe where you currently live?: No Within the past 12 months, have you been hit, slapped, kicked or otherwise physically hurt by someone?: No Within the past 12 months, have you been humiliated or emotionally abused in other ways by your partner or ex-partner?: No Social Connections: Socially Isolated (11/10/2023) Received from [employer] [facility] Social Connections Do you often feel lonely or isolated from those around you?: 4 Disposition Plan Medically Ready for Discharge: Anticipated in 2-4 Days The patient's care was discussed with the Bedside Nurse, Patient, and General surgery Team. Maria G Jenkins PA-C Hospitalist Service [facility] Securely message with [facility] (more info) Text page via [facility] Paging/Directory Interval History Reports ongoing lower abdominal discomfort. She has intermittent nausea without vomiting due to pain. Reports having a bowel movement yesterday. She has not really passed much flatus since admission.Denies chest pain, shortness of breath, lightheadedness, or dizziness. She feels bloated. Patient is requesting when she will be able to have a full diet. Physical Exam Vital Signs: Temp: 98.4 ??F (36.9 ??C) Temp src: Oral BP: (!) 143/89 Pulse: 65 Resp: 18 SpO2: 97 % O2 Device: None (Room air) Weight: 118 lbs 12.8 oz General Appearance: Sitting up in bed, thin appearing, A&Ox3, NAD HEENT: poor dentition Respiratory: CTAB without wheezing or rales Cardiovascular: RRR without murmur or rub GI: soft, tenderness in lower quadrants, mild distention, normoactive bowel sounds, incision sites clean, dry, intact without surrounding erythema Skin: warm, dry Medical Decision Making 40 MINUTES SPENT BY ME on the date of service doing chart review, history, exam, documentation & further activities per the note. Data PAST 24 HR DATA REVIEWED * Aryan Srinivasan RN - 03/14/2025 3:08 AM CDT ROOM # [facility] Living Situation (if not independent, order SW consult): Facility name: Home alone personnel assistant: Valerie (friend) Activity level at baseline: Independent Activity level on admit: SBA Who will be transporting you at discharge: Barb(Friend) Patient registered to observation; given Patient Bill of Rights; given the opportunity to ask questions about observation status and their plan of care. Patient has been oriented to the observation room, bathroom and call light is in place. Discussed discharge goals and expectations with patient/family. documented in this encounter H&P Notes * Ricci Hunt MD - 03/14/2025 2:17 AM CDT [facility] History and Physical - Hospitalist Service Date of Admission: 03/13/2025 Assessment & Plan Marita Cunningham is a 44 year old female admitted on 03/13/2025. She has medical history significant for recent diagnosis of perforated appendicitis status post appendectomy and discharged home on 03/11/2025, chronic back pain since 2015, generalized anxiety disorder, multiple sclerosis, tobacco abuse, ADHD, depression, embolic myocardial infarction, nontoxic multinodular goiter, ocular migraine, depression, and seizures. She presented to the ED with complaints of worsening abdominal pain. Patient reports that she had abdominal pain on 12/20/2024. She presented to the ED at outside facility. She reports that she was discharged home after imaging showed that she had a cyst. Reports that she continued to have abdominal pain and went to the ED 3 days later. She was found to have appendicitis and underwent surgical repair. She reports that she was discharged on 03/11/2025 with antibiotics. States that she has been taking antibiotics as prescribed. However, continued to have significant abdominalpain so she decided come to the ED. In the ED, she was tachycardic and also had elevated blood pressures. WBC count was 14.5. Sodium was 133 with potassium of 4.9 but reported to be slightly hemolyzed. Calcium was 8.3 with chloride of 96. Lactic acid was 0.9. CT abdomen pelvis showed postoperative changes of laparoscopic appendectomy. Also showed findings suggestive of peritonitis. Additionally, CT showed, A few loops of pelvic small bowel have a mildly thickened wall and demonstrate prominent enhancement probably explained as areactive enteritis as well as At the appendectomy bed, there is a 2.5 x 0.6 cm loculation of rim-enhancing fluid suspicious for developing abscess. Additionally, there is a thin peripheral enhancing tubular fluid-filled structure extending from the left anterior pelvic wall near the laparoscopy port to the left adnexal region which may also be a developing abscess. Both appear to be too small for percutaneous drain placement. # Sepsis due to peritonitis # Developing peritoneal abscess: Patient with recent perforated appendicitis status post laparoscopic appendectomy at outside facility. Presented to the ED with complaints of worsening abdominal pain. She is tachycardic and has leukocytosis. CT showing peritonitis and also developing abscesses. Continue Zosyn Clear liquid diet General Surgery consult As needed pain regimen Monitor and replace electrolytes # Hyponatremia: Sodium of 133. IV fluids Monitor sodium levels # ADHD # Anxiety # Depression Continue Xanax, Paxil, and Seroquel # Chronic pain syndrome Continue home medications # Tobacco abuse Smoking cessation counseling Nicotine replacement therapy Diet: Combination Diet Clear Liquid DVT Prophylaxis: Low Risk/Ambulatory with no VTE prophylaxis indicated Rodriguez Catheter: Not present Lines: None Cardiac Monitoring: None Code Status: Full Code Clinically Significant Risk Factors Present on Admission # Hyponatremia: Lowest Na = 133 mmol/L in last 2 days, will monitor as appropriate # Hypochloremia: Lowest Cl = 96 mmol/L in last 2 days, will monitor as appropriate # Hypocalcemia: Lowest Ca = 8.3 mg/dL in last 2 days, will monitor and replace as appropriate # Hypoalbuminemia: Lowest albumin = 3.3 g/dL at 03/13/2025 11:21 PM, will monitor as appropriate Disposition Plan Medically Ready for Discharge: Anticipated in 2-4 Days Ricci Hunt MD Hospitalist Service [facility] Securely message with [facility] (KAYAK info) Text page via [facility] Paging/Directory Chief Complaint Chief Complaint Patient presents with Post-op Problem Abdominal pain. History is obtained from the patient History of Present Illness Marita Cunningham is a 44 year old female who has medical history significant for recent diagnosis of perforated appendicitis status post appendectomy and discharged home on 03/11/2025, chronic back pain since 2014, generalized anxiety disorder, multiple sclerosis, tobacco abuse, ADHD, depression, embolic myocardial infarction, nontoxic multinodular goiter, ocular migraine, depression, and seizures. She presented to the ED with complaints of worsening abdominal pain. Patient reports that she had abdominal pain on 12/20/2024. She presented to the ED at outside facility. She reports that she was discharged home after imaging showed that she had a cyst. Reports that she continued to have abdominal pain and went to the ED 3 days later. She was found to have appendicitis and underwent surgical repair. She reports that she was discharged on 03/11/2025 with antibiotics. States that she has been taking antibiotics as prescribed. However, continued to have significant abdominal pain so she decided come to the ED. She reports that she has been taking pain medications at home without any improvement.She reports that her abdomen has felt very warm to touch but did not check her temperature. She reports chills. Reports constipation. Reports that her menses started about 10 days ago but she is still spotting. She otherwise denies hematuria, dysuria, chest pain, shortness of breath, or any other new symptoms. Past Medical History No past medical history on file. Past Surgical History Past Surgical History: Procedure Laterality Date ARTHROSCOPY KNEE Right DILATION AND CURETTAGE OTHER SURGICAL HISTORY Cystoscopy, left retrograde pyelogram. Left flexible ureteroscopy. Stone removal, laser lithotripsy. Left double-J stent insertion. OTHER SURGICAL HISTORY 08/07/12 Right axillary irrigation and debridement Prior to Admission Medications Prior to Admission Medications Prescriptions Last Dose Informant Patient Reported? Taking? ALPRAZolam (XANAX) 2 MG tablet No No Sig: [ALPRAZOLAM (XANAX) 2 MG TABLET] Prescription declined. Must get through new provider. PARoxetine (PAXIL) 30 MG tablet No No Sig: [PAROXETINE (PAXIL) 30 MG TABLET] Take 1 tablet (30 mg total) by mouth 2 (two) times a day. QUEtiapine (SEROQUEL) 50 MG tablet No No Sig: [QUETIAPINE (SEROQUEL) 50 MG TABLET] Take 1-2 tablets (50-100 mg total) by mouth 3 (three) times a day as needed. Maximum of 4 a day. azithromycin (ZITHROMAX Z-RONAL) 250 MG tablet No No Sig: [AZITHROMYCIN (ZITHROMAX Z-RONAL) 250 MG TABLET] 2 tablets today and then 1 pill a day for 4 days. fluticasone (FLONASE) 50 mcg/actuation nasal spray Yes No Sig: [FLUTICASONE (FLONASE) 50 MCG/ACTUATION NASAL SPRAY] ibuprofen (ADVIL LIQUI-GEL) 200 mg cap Yes No Sig: [IBUPROFEN (ADVIL LIQUI-GEL) 200 MG CAP] Take by mouth. Facility-Administered Medications: None Review of Systems The 10 point Review of Systems is negative other than noted in the HPI or here. Physical Exam Vital Signs: Temp: 97.5 ??F (36.4 ??C) Temp src: Temporal BP: (!) 174/114 Pulse: 69 Resp: 21 SpO2: 96 % O2 Device: None (Room air) Weight: 118 lbs 6.19 oz General: AAOx3. Mild to moderate distress. Pleasant. HEENT: NCAT, pupils are equal and round, anicteric, oral mucosa is moist. Neck: Supple, Cardiac: RRR. No murmur. No rub or gallop. Respiratory: CTAB, no crackles, wheezes, rales, or rhonchi Abdomen: Laparoscopic incision with dressings in place. Soft, NT, ND, + bowel sounds Extremity: No edema, . Neuro: AAO x3, Psych: Calm and cooperative. Medical Decision Making >55 MINUTES SPENT BY ME on the date of service doing chart review, history, exam, documentation & further activities per the note. Data I have personally reviewed the following data over the past 24 hrs: 14.5 (H) \ 12.7 / 458 (H) 133 (L) 96 (L) 6.6 / 118 (H) 4.9 24 0.57 \ ALT: 12 AST: 34 AP: 74 TBILI: 0.2 ALB: 3.3 (L) TOT PROTEIN: 7.0 LIPASE: N/A Procal: N/A CRP: N/A Lactic Acid: 0.9 Imaging results reviewed over the past 24 hrs: Recent Results (from the past 24 hours) CT Abdomen Pelvis w Contrast Narrative EXAM: CT ABDOMEN PELVIS W CONTRAST LOCATION: [facility] DATE: 03/14/2025 INDICATION: post op pain COMPARISON: Pelvic ultrasound and CT of the abdomen and pelvis 03/05/2025. TECHNIQUE: CT scan of the abdomen and pelvis was performed following injection of IV contrast. Multiplanar reformats were obtained. Dose reduction techniques were used. CONTRAST: 60mL Isovue 370 FINDINGS: LOWER CHEST: Normal. HEPATOBILIARY: Tiny hypodensity in the right hepatic lobe too small to characterize has a benign appearance not warranting follow-up. Normal gallbladder and bile ducts. PANCREAS: Normal. SPLEEN: Normal. ADRENAL GLANDS: Normal. KIDNEYS/BLADDER: Normal. BOWEL: Postoperative changes of laparoscopic appendectomy including trace free air. Generalized edema, small amount of free fluid, and prominent peritoneal enhancement in the pelvis concerning for peritonitis. A few loops of pelvic small bowel have a mildly thickened wall and demonstrate prominent enhancement suggestive of a reactive enteritis. In the appendectomy bed, there is a 3.5 x 0.6 cm loculation of rim-enhancing fluid suspicious for developing abscess (images 126-131 of axial series 3, images 30-32 of coronal series 4). Additionally, there is a thin peripherally enhancing tubular fluid-filled structure of the anterior left pelvis extending from the left anterior pelvic wall near the laparoscopy port to the left adnexal region which measures 4 mm wide and about 8 cm long which is new from 03/05/2025 and may also be a developing abscess (images 122-154 of axial series 3, 17-25 of coronal series 4). No bowel obstruction. Liquid stool throughout the colon. LYMPH NODES: Normal. VASCULATURE: Normal. PELVIC ORGANS: Normal. MUSCULOSKELETAL: Normal. Impression IMPRESSION: 1. Postoperative changes of laparoscopic appendectomy. 2. Edema, small amount of free fluid, and generalized peritoneal enhancement in the pelvis suggestive of peritonitis. 3. A few loops of pelvic small bowel have a mildly thickened wall and demonstrate prominent enhancement probably explained as a reactive enteritis. 4. At the appendectomy bed, there is a 2.5 x 0.6 cm loculation of rim-enhancing fluid suspicious for developing abscess. Additionally, there is a thin peripheral enhancing tubular fluid-filled structure extending from the left anterior pelvic wall near the laparoscopy port to the left adnexal region which may also be a developing abscess. Both appearto be too small for percutaneous drain placement. 5. Liquid stool throughout colon consistent with a diarrheal state. documented in this encounter Consult Notes * Gregorio Duran MD - 03/14/2025 9:36 AM CDTAssociated Order(s): SURGERY GENERAL IP CONSULT Chief complaint: Abdominal pain HPI: This patient is a 44 year old female who presents with abdominal pain following an appendectomy fora ruptured appendix on 03/08/2025. The patient had actually been seen a couple days prior to that marti CT scan at that time did not reveal appendicitis. She underwent surgery on the sixth in [place], at which point she was found to have extensive purulent fluid in the abdomen and a gangrenous appendix. There was no obvious perforation, but this was felt to be from a small perforation. The patient was treated in the hospital with IV antibiotics and then was discharged to home on Augmentin. Thefollowing day, she presented to the emergency room here. CT scan revealed findings consistent with peritonitis and developing abscesses. The patient has not had a significant bowel movement since hersurgery. She did have a few pellets of stool yesterday. She states that she is passing gas. She is hungry. Past Medical History: NSTEMI Factor V Leiden Bipolar Seizures Multiple sclerosis ADHD [place] Chronic pain Past Surgical History: Past Surgical History: Procedure Laterality Date ARTHROSCOPY KNEE Right DILATION AND CURETTAGE OTHER SURGICAL HISTORY Cystoscopy, left retrograde pyelogram. Left flexible ureteroscopy. Stone removal, laser lithotripsy. Left double-J stent insertion. OTHER SURGICAL HISTORY 08/07/12 Right axillary irrigation and debridement Laparoscopic appendectomy -03/08/2025 Social History: Social History Socioeconomic History Marital status: Spouse name: Not on file Number of children: 5 Years of education: Not on file Highest education level: Not on file Occupational History Not on file Tobacco Use Smoking status: Every Day Current packs/day: 1.00 Types: Cigarettes Smokeless tobacco: Not on file Substance and Sexual Activity Alcohol use: Not on file Drug use: Not on file Sexual activity: Not on file Other Topics Concern Not on file Social History Narrative Not on file Social Drivers of Health Financial Resource Strain: Low Risk (03/14/2025) Financial Resource Strain Within the past 12 months, have you or your family members you live with been unable to get utilities (heat, electricity) when it was really needed?: No Food Insecurity: Low Risk (03/14/2025) Food Insecurity Within the past 12 months, did you worry that your food would run out before you got money to buy more?: No Within the past 12 months, did the food you bought just not last and you didn???t have money to getmore?: No Transportation Needs: Low Risk (03/14/2025) Transportation Needs Within the past 12 months, has lack of transportation kept you from medical appointments, getting your medicines, non-medical meetings or appointments, work, or from getting things that you need?: No Physical Activity: Not on file Stress: Not on file Social Connections: Socially Isolated (11/10/2023) Received from [facility] Social Connections Do you often feel lonely or isolated from those around you?: 4 Interpersonal Safety: High Risk (03/14/2025) Interpersonal Safety Do you feel physically and emotionally safe where you currently live?: No Within the past 12 months, have you been hit, slapped, kicked or otherwise physically hurt by someone?: No Within the past 12 months, have you been humiliated or emotionally abused in other ways by your partner or ex-partner?: No Housing Stability: Low Risk (03/14/2025) Housing Stability Do you have housing? : Yes Are you worried about losing your housing?: No Family History: Family History Problem Relation Age of Onset Hypertension Mother Hypertension Paternal Grandmother Multiple Sclerosis Mother Medications: aspirin chewable 81 mg chewable tablet Chew 1 Tablet (81 mg) by mouth once daily with a meal. Take once by mouth once daily indefinitely atorvastatin (LIPITOR) 40 mg tablet Take 1 Tablet (40 mg) by mouth once daily in the evening. Blood Pressure Monitor Kit Frequency of testing: daily clopidogreL (PLAVIX) 75 mg tablet Take 1 Tablet (75 mg) by mouth every morning. Take once daily by mouth x 1 year without interruption gabapentin (NEURONTIN) 300 mg capsule Take 900 mg (3 capsules) in the morning and at bedtime, take 600 mg (2 capsules) in the afternoon for 5 days. Then increase to 900 mg (3 capsules) three times daily. losartan (COZAAR) 25 mg tablet Take 1 Tablet (25 mg) by mouth once daily. metoprolol succinate (TOPROL XL) 25 mg Sustained-Release tablet Take 0.5 Tablets (12.5 mg) by mouthonce daily. nitroglycerin (NITROSTAT) 0.[address] 1 Tablet (0.4 mg) under the tongue every 5minutes if needed for Chest pain 1st choice (Hold if SBP less than 90 mmHg). Up to 3 tablets in 15 minutes. PARoxetine (PAXIL) 30 mg tablet Take 2 Tablets (60 mg) by mouth once daily. QUEtiapine (SEROQUEL) 25 mg tablet Take 2 Tablets (50 mg) by mouth at bedtime if needed (sleep). rizatriptan (MAXALT CONCRETE RUBBER) [address] 1 Tablet (10 mg) on the tongue 2 times daily if needed for Migraine. Give at minimum 2hrs apart. Max Dose: 30mg per 24hrs. Review of Systems: The 10 point Review of Systems is negative other than noted in the HPI and above. Physical Exam: General - This is a mildly uncomfortable appearing patient appearing older than her stated age. HEENT - Normocephalic, atraumatic. No scleral icterus. Dentition is poor Neck - supple without masses Lungs - clear to ascultation. Heart - Regular rate & rhythm without murmur Abdomen: soft, non-distended with tenderness noted in the lower abdomen. Bowel sounds are present and normal. Extremities - warm without edema Neurologic - nonfocal Relevant labs: White blood cell count on admission was 14,500. This has improved to 11,200 this morning. Imaging: CT scan: 1. Postoperative changes of laparoscopic appendectomy. 2. Edema, small amount of free fluid, and generalized peritoneal enhancement in the pelvis suggestive of peritonitis. 3. A few loops of pelvic small bowel have a mildly thickened wall and demonstrate prominent enhancement probably explained as a reactive enteritis. 4. At the appendectomy bed, there is a 2.5 x 0.6 cm loculation of rim-enhancing fluid suspicious for developing abscess. Additionally, there is a thin peripheral enhancing tubular fluid-filled structure extending from the left anterior pelvic wall near the laparoscopy port to the left adnexal region which may also be a developing abscess. Both appearto be too small for percutaneous drain placement. 5. Liquid stool throughout colon consistent with a diarrheal state Assessment and Plan: This is a patient with peritonitis and probable ileus after a ruptured appendix. She does have a couple of areas which look like developing abscesses. At this point, they are too small to drain. I would recommend IV antibiotics as you are. At this point, there is no role for surgical intervention.Once her pain has largely resolved, she could be discharged to home on oral antibiotics. She will eventually need a follow-up CT scan, either as an inpatient, or as an outpatient, depending on her clinical course. We will follow the patient with you. Gregorio Durna MD [facility] documented in this encounter ED Notes * Yenny Park RN - 03/14/2025 2:35 AM CDT [facility] ED Boarding Nurse Handoff Addendum Report: Date/time: 03/14/2025, 2:35 AM Activity Level: independent Fall Risk: Yes: nonskid shoes/slippers when out of bed, arm band in place, patient and family education, and activity supervised Active Infusions: none Current Meds Due: per MAR Current care needs: manage pain Oxygen requirements (liters/min and/or FiO2): RA Respiratory status: Room air Vital signs (within last 30 minutes): Vitals: 03/14/25 0120 03/14/25 0146 03/14/25 0150 03/14/25 0224 BP: (!) 174/114 (!) 169/101 Pulse: 68 Resp: 18 Temp: 97.8 ??F (36.6 ??C) TempSrc: SpO2: 99% 97% 96% 99% Weight: Focused assessment within last 30 minutes: Pt is alert and oriented x4 on room air. Pt is independent. VSS x elevated BP which pt is contributing to pain that is at 7/10. Doctor in room at time and noted elevated BP. Family in room. Pt statesto not have any SOB at this time. Managing pain at this time. Pt made aware of transfer. ED Boarding Nurse name: Yenny Park RN * Aryan Srinivasan RN - 03/14/2025 1:21 AM CDT [facility] ED Nurse Handoff Report ED Chief complaint: Post-op Problem . ED Diagnosis: Final diagnoses: None Allergies: Allergies Allergen Reactions Codeine Unknown Lidocaine Swelling edema Procaine Unknown Pyridium [Phenazopyridine] Unknown Code Status: Full Code Activity level - Baseline/Home: independent. Activity Level - Current: standby. Lift room needed: No. Bariatric: No Supervisor Floor Assembly Needed: No Isolation: Yes. Infection: MRSA. Respiratory status: Room air Vital Signs (within 30 minutes): Vitals: 03/14/25 0000 03/14/25 0043 03/14/25 0105 03/14/25 0120 BP: (!) 181/112 (!) 171/106 (!) 150/105 (!) 174/114 Pulse: 69 Resp: 21 Temp: TempSrc: SpO2: 100% 98% 100% 99% Weight: Cardiac Rhythm: , Pain level: Patient confused: No. Patient Falls Risk: patient and family education and activity supervised. Elimination Status: Has voided Patient Report - Initial Complaint: Presents to triage with increased post op pain. Patient had appendectomy 3 days ago. She took a nap this evening and woke up with pain that was much worse. . Focused Assessment: Marita Cunningham is a 44 year old female who presents with progressive abdominal pain after appendectomy on 03/08/25. She reports discharge from [facility] yesterday on augmentin. She feels warm, has nausea and feels generally unwell. She has been taking oxycodone religiously. Pain in her abdomen is more right sided. Abnormal Results: Labs Ordered and Resulted from Time of ED Arrival to Time of ED Departure COMPREHENSIVE METABOLIC PANEL - Abnormal Result Value Sodium 133 (*) Potassium 4.9 Carbon Dioxide (CO2) 24 Anion Gap 13 Urea Nitrogen 6.6 Creatinine 0.57 GFR Estimate >90 Calcium 8.3 (*) Chloride 96 (*) Glucose 118 (*) Alkaline Phosphatase 74 AST 34 ALT 12 Protein Total 7.0 Albumin 3.3 (*) Bilirubin Total 0.2 CBC WITH PLATELETS AND DIFFERENTIAL - Abnormal WBC Count 14.5 (*) RBC Count 4.17 Hemoglobin 12.7 Hematocrit 37.5 MCV 90 MCH 30.5 MCHC 33.9 RDW 13.8 Platelet Count 458 (*) LACTIC ACID WHOLE BLOOD WITH 1X REPEAT IN 2 HR WHEN >2 - Normal Lactic Acid, Initial 0.9 RBC AND PLATELET MORPHOLOGY BLOOD CULTURE BLOOD CULTURE CT Abdomen Pelvis w Contrast Final Result IMPRESSION: 1. Postoperative changes of laparoscopic appendectomy. 2. Edema, small amount of free fluid, and generalized peritoneal enhancement in the pelvis suggestive of peritonitis. 3. A few loops of pelvic small bowel have a mildly thickened wall and demonstrate prominent enhancement probably explained as a reactive enteritis. 4. At the appendectomy bed, there is a 2.5 x 0.6 cm loculation of rim-enhancing fluid suspicious for developing abscess. Additionally, there is a thin peripheral enhancing tubular fluid-filled structure extending from the left anterior pelvic wall near the laparoscopy port to the left adnexal region which may also be a developing abscess. Both appearto be too small for percutaneous drain placement. 5. Liquid stool throughout colon consistent with a diarrheal state. Treatments provided: See MAR Family Comments: at bedside OBS brochure/video discussed/provided to patient: N/A ED Medications: Medications ondansetron (ZOFRAN) injection 4 mg (4 mg Intravenous $Given 03/13/25 7170) HYDROmorphone (PF) (DILAUDID) injection 0.5 mg (0.5 mg Intravenous $Given 03/13/25 2333) sodium chloride 0.9% BOLUS 1,000 mL (0 mLs Intravenous Stopped 03/14/25 0023) piperacillin-tazobactam (ZOSYN) 4.5 g vial to attach to NS 100 mL bag (0 g Intravenous Stopped 03/14/25 0027) sodium chloride 0.9 % bag for CT scan flush (55 mLs Intravenous $Given 03/14/25 0017) iopamidol (ISOVUE-370) solution 500 mL (60 mLs Intravenous $Given 03/14/25 0017) Drips infusing: No For the majority of the shift this patient was Green. Sepsis treatment initiated: No Cares/treatment/interventions/medications to be completed following ED care: None at time of note. ED Nurse Name: Rossy Claudio RN 1:21 AM RECEIVING UNIT ED HANDOFF REVIEW Above ED Nurse Handoff Report was reviewed: Yes Reviewed by: Aryan Srinivasan RN on March 14, 2025 at 2:20 AM I Vocera called the ED to inform them the note was read: Yes * Rubén Burnett MD - 03/13/2025 10:47 PM CDT Emergency Department Note History of Present Illness Chief Complaint Post-op Problem HPI Marita Cunningham is a 44 year old female who presents with progressive abdominal pain after appendectomy on 03/08/25. She reports discharge from [facility] yesterday on augmentin. She feels warm,has nausea and feels generally unwell. She has been taking oxycodone religiously. Pain in her abdomen is more right sided. NO vomiting or diarrhea. NO urinary symptoms. Independent Historian None Review of External Notes Past Medical History Medical History and Problem List No past medical history on file. Medications ALPRAZolam (XANAX) 2 MG tablet azithromycin (ZITHROMAX Z-RONAL) 250 MG tablet fluticasone (FLONASE) 50 mcg/actuation nasal spray ibuprofen (ADVIL LIQUI-GEL) 200 mg cap PARoxetine (PAXIL) 30 MG tablet QUEtiapine (SEROQUEL) 50 MG tablet Surgical History Past Surgical History: Procedure Laterality Date ARTHROSCOPY KNEE Right DILATION AND CURETTAGE OTHER SURGICAL HISTORY Cystoscopy, left retrograde pyelogram. Left flexible ureteroscopy. Stone removal, laser lithotripsy. Left double-J stent insertion. OTHER SURGICAL HISTORY 08/07/12 Right axillary irrigation and debridement Physical Exam Patient Vitals for the past 24 hrs: BP Temp Temp src Pulse Resp SpO2 Weight 03/14/25 0150 -- -- -- -- -- 96 % -- 03/14/25 0146 -- -- -- -- -- 97 % -- 03/14/25 0120 (!) 174/114 -- -- -- -- 99 % -- 03/14/25 0105 (!) 150/105 -- -- -- -- 100 % -- 03/14/25 0043 (!) 171/106 -- -- -- -- 98 % -- 03/14/25 0000 (!) 181/112 -- -- 69 21 100 % -- 03/13/25 2330 (!) 180/116 -- -- 71 17 -- -- 03/13/25 2240 (!) 138/113 97.5 ??F (36.4 ??C) Temporal 102 18 100 % 53.7 kg (118 lb 6.2 oz) Physical Exam VS: Reviewed per above HENT: Mucous membranes moist EYES: sclera anicteric CV: Rate as noted, regular rhythm. RESP: Effort normal. Breath sounds are normal bilaterally. GI: moderate lower abdominal tenderness without rebound/guarding, not distended. NEURO: Alert, moving all extremities MSK: No deformity of the extremities SKIN: Warm and dry Diagnostics Lab Results Labs Ordered and Resulted from Time of ED Arrival to Time of ED Departure COMPREHENSIVE METABOLIC PANEL - Abnormal Result Value Sodium 133 (*) Potassium 4.9 Carbon Dioxide (CO2) 24 Anion Gap 13 Urea Nitrogen 6.6 Creatinine 0.57 GFR Estimate >90 Calcium 8.3 (*) Chloride 96 (*) Glucose 118 (*) Alkaline Phosphatase 74 AST 34 ALT 12 Protein Total 7.0 Albumin 3.3 (*) Bilirubin Total 0.2 CBC WITH PLATELETS AND DIFFERENTIAL - Abnormal WBC Count 14.5 (*) RBC Count 4.17 Hemoglobin 12.7 Hematocrit 37.5 MCV 90 MCH 30.5 MCHC 33.9 RDW 13.8 Platelet Count 458 (*) % Neutrophils 71 % Lymphocytes 19 % Monocytes 6 % Eosinophils 2 % Basophils 0 % Immature Granulocytes 2 NRBCs per 100 WBC 0 Absolute Neutrophils 10.4 (*) Absolute Lymphocytes 2.8 Absolute Monocytes 0.9 Absolute Eosinophils 0.2 Absolute Basophils 0.0 Absolute Immature Granulocytes 0.2 Absolute NRBCs 0.0 RBC AND PLATELET MORPHOLOGY - Abnormal RBC Morphology Confirmed RBC Indices Platelet Assessment Value: Automated Count Confirmed. Platelet morphology is normal. Reactive Lymphocytes Present (*) LACTIC ACID WHOLE BLOOD WITH 1X REPEAT IN 2 HR WHEN >2 - Normal Lactic Acid, Initial 0.9 BLOOD CULTURE BLOOD CULTURE Imaging CT Abdomen Pelvis w Contrast Final Result IMPRESSION: 1. Postoperative changes of laparoscopic appendectomy. 2. Edema, small amount of free fluid, and generalized peritoneal enhancement in the pelvis suggestive of peritonitis. 3. A few loops of pelvic small bowel have a mildly thickened wall and demonstrate prominent enhancement probably explained as a reactive enteritis. 4. At the appendectomy bed, there is a 2.5 x 0.6 cm loculation of rim-enhancing fluid suspicious for developing abscess. Additionally, there is a thin peripheral enhancing tubular fluid-filled structure extending from the left anterior pelvic wall near the laparoscopy port to the left adnexal region which may also be a developing abscess. Both appearto be too small for percutaneous drain placement. 5. Liquid stool throughout colon consistent with a diarrheal state. EKG Independent Interpretation None ED Course Medications Administered Medications ondansetron (ZOFRAN) injection 4 mg (4 mg Intravenous $Given 03/14/25 014) HYDROmorphone (PF) (DILAUDID) injection 0.5 mg (0.5 mg Intravenous $Given 03/14/25 0141) sodium chloride 0.9% BOLUS 1,000 mL (0 mLs Intravenous Stopped 03/14/25 0023) piperacillin-tazobactam (ZOSYN) 4.5 g vial to attach to NS 100 mL bag (0 g Intravenous Stopped 03/14/257) sodium chloride 0.9 % bag for CT scan flush (55 mLs Intravenous $Given 03/14/25 0017) iopamidol (ISOVUE-370) solution 500 mL (60 mLs Intravenous $Given 03/14/25 0017) Procedures Procedures Discussion of Management None ED Course ED Course as of 03/14/25 0217 [facility] Mar 14, 20[address] Smith- general surgery I spoke with Dr hunt admitting MD Additional Documentation None Medical Decision Making / Diagnosis [facility] Diagnoses: IV Antibiotics given and/or elevated Lactate of 0.9 and no sepsis note found - Delete this reminder and enter the sepsis note or '.edcms' before signing chart.>>>None MIPS None [facility] Marita Cunningham is a 44 year old female who presents to the ER for evaluation of abdominal pain and subjective fever in the setting of recent surgery for perforated appendicitis at [facility].On arrival she is hypertensive. On exam she does have significant lower abdominal tenderness. No rebound or guarding. Repeat CT scan here shows signs of peritonitis and possible pelvic fluid collections versus early abscess. Discussed with general surgery, and no plans for any emergent surgical intervention. Patient did not wish to transfer to [facility] and thus will be admitted here for IV antibiotics and surgical consultation. Disposition The patient was admitted to the hospital. Diagnosis ICD-10-CM 1. Peritonitis (H) K65.9 2. Intraabdominal fluid collection R18.8 Discharge Medications New Prescriptions No medications on file Rubén Burnett MD 03/14/258 * Samantha Todd RN - 03/13/2025 10:42 PM CDT Presents to triage with increased post op pain. Patient had appendectomy 3 days ago. She took a napthis evening and woke up with pain that was much worse. documented in this encounter Miscellaneous Notes * Plan of Care - Shekhar Salcido RN - 03/15/2025 12:15 PM CDT Patient's After Visit Summary was reviewed with patient and/or Friend. Patient verbalized understanding of After Visit Summary, recommended follow up and was given an opportunity to ask questions. Discharge medications sent home with patient/family: YES Discharged with friend. BP (!) 146/109 (BP Location: Right arm) Pulse 75 Temp 98.2 ??F (36.8 ??C) (Oral) Resp 18 Ht1.702 m (5' 7) Wt 53.9 kg (118 lb 12.8 oz) SpO2 98% BMI 18.61 kg/m?? Goal Outcome Evaluation: Plan of Care Reviewed With: patient Overall Patient Progress: improvingOverall Patient Progress: improving Outcome Evaluation: D/c per Hospital Team - [facility] * Plan of Care - Shekhar Salcido RN - 03/15/2025 12:14 PM CDT Inpatient: 0700 - 1214 Dx: Sepsis d/t Peritonitis S/p Laparoscopic Appendectomy ( at Outside Hospital) Pain elevated at 8/10 this AM - delegated to colleague to given AM medications along with hydromorphone for pain control. Prior to discharge, her dressings at laparoscopic sites were cleansed with sterile gauze and saline- new foam dressings applied. BP (!) 146/109 (BP Location: Right arm) Pulse 75 Temp 98.2 ??F (36.8 ??C) (Oral) Resp 18 Ht1.702 m (5' 7) Wt 53.9 kg (118 lb 12.8 oz) SpO2 98% BMI 18.61 kg/m?? Problem: Adult Inpatient Plan of Care Goal: Plan of Care Review Description: The Plan of Care Review/Shift note should be completed every shift. The Outcome Evaluation is a brief statement about your assessment that the patient is improving, declining, or no change. This information will be displayed automatically on your shift note. Outcome: Met Flowsheets (Taken 03/15/2025 1148) Outcome Evaluation: D/c per Hospital Team - Will Follow Up [facility] Plan of Care Reviewed With: patient Overall Patient Progress: improving Goal: Patient-Specific Goal (Individualized) Description: You can add care plan individualizations to a care plan. Examples of Individualizationmight be: Parent requests to be called daily at 9am for status, I have a hard time hearing out of my right ear, or Do not touch me to wake me up as it startles me. Outcome: Met Goal: Absence of Hospital-Acquired Illness or Injury Outcome: Met Goal: Optimal Comfort and Wellbeing Outcome: Met Goal: Readiness for Transition of Care Outcome: Met Problem: Pain Acute Goal: Optimal Pain Control and Function Outcome: Met Problem: Skin Injury Risk Increased Goal: Skin Health and Integrity Outcome: Met Goal Outcome Evaluation: Plan of Care Reviewed With: patient Overall Patient Progress: improvingOverall Patient Progress: improving Outcome Evaluation: D/c per Hospital Team - Will [facility] Up [facility] * Plan of Care - Milena Hogue RN - 03/15/2025 6:15 AM CDT Goal Outcome Evaluation: Plan of Care Reviewed With: patient Care from [id number] Inpatient Progress Note: For complete assessment see flow sheet documentation. BP (!) 137/106 (BP Location: Left arm) Pulse 57 Temp 97.8 ??F (36.6 ??C) (Oral) Resp 18 Wt 53.9 kg (118 lb 12.8 oz) SpO2 98% BMI 18.61 kg/m?? Akert & oriented x 4. SBA with mobility. Oral dilaudid administered for lundberg,On ABX Zosyn, tolerating. Has a couple of BM's tonight.Received some IV fluids. On full liquid diet. Attempting to obtain regular food from staff and roommate. Suspect to be vaping in room, as Vape found in bed, taken and locked up with security till d'c. GS following. Overall Patient Progress: no changeOverall Patient Progress: no change Problem: Adult Inpatient Plan of Care Goal: Plan of Care Review Description: The Plan of Care Review/Shift note should be completed every shift. The Outcome Evaluation is a brief statement about your assessment that the patient is improving, declining, or no change. This information will be displayed automatically on your shift note. Outcome: Progressing Flowsheets (Taken 03/15/2025 0615) Plan of Care Reviewed With: patient Overall Patient Progress: no change Goal: Patient-Specific Goal (Individualized) Description: You can add care plan individualizations to a care plan. Examples of Individualizationmight be: Parent requests to be called daily at 9am for status, I have a hard time hearing out of my right ear, or Do not touch me to wake me up as it startles me. Outcome: Progressing Goal: Absence of Hospital-Acquired Illness or Injury Outcome: Progressing Intervention: Identify and Manage Fall Risk Recent Flowsheet Documentation Taken 03/14/20252013 by Milena Hogue RN Safety Promotion/Fall Prevention: safety round/check completed Intervention: Prevent Skin Injury Recent Flowsheet Documentation Taken 03/14/20252013 by Milena Hogue RN Body Position: position changed independently Skin Protection: adhesive use limited incontinence pads utilized Intervention: Prevent Infection Recent Flowsheet Documentation Taken 03/14/20252013 by Milena Hogue RN Infection Prevention: cohorting utilized Goal: Optimal Comfort and Wellbeing Outcome: Progressing Goal: Readiness for Transition of Care Outcome: Progressing Flowsheets (Taken 03/15/2025 0615) Transportation Anticipated: family or friend will provide Concerns to be Addressed: discharge planning Intervention: Mutually Develop Transition Plan Recent Flowsheet Documentation Taken 03/15/2025 0615 by Milena Hogue RN Transportation Anticipated: family or friend will provide Concerns to be Addressed: discharge planning Problem: Pain Acute Goal: Optimal Pain Control and Function Outcome: Progressing Intervention: Prevent or Manage Pain Recent Flowsheet Documentation Taken 03/14/20252013 by Milena Hogue RN Medication Review/Management: medications reviewed Problem: Skin Injury Risk Increased Goal: Skin Health and Integrity Outcome: Progressing Intervention: Plan: Nurse Driven Intervention: Moisture Management Recent Flowsheet Documentation Taken 03/14/20251999 by Milena Hogue RN Moisture Interventions: Encourage regular toileting Bathing/Skin Care: other (see comments) Intervention: Optimize Skin Protection Recent Flowsheet Documentation Taken 03/14/20252013 by Milena Hogue RN Skin Protection: adhesive use limited incontinence pads utilized Activity Management: ambulated to bathroom * Plan of Care - Betty Manzanares RN - 03/14/2025 5:21 PM CDT Goal Outcome Evaluation: Plan of Care Reviewed With: patient Overall Patient Progress: no changeOverall Patient Progress: no change Outcome Evaluation: PT is a/ox4, c/ of abd pain, denies n/t/t in extremities, looks ill appearing, resting on safety check, NS IVF at 75ml/hr infusing, Gen surgery to assess, SBA in room. ABX q.6hr Zosyn. Clear liquid diet advanced to Full liquid diet. Dilaudid PO given, patient c/o of pain regardless of dosage or route.. no physical indicators of 7/10 pain noted Gen surgery will follow. Bed alarm on because patient will get up and workout. Problem: Adult Inpatient Plan of Care Goal: Plan of Care Review Description: The Plan of Care Review/Shift note should be completed every shift. The Outcome Evaluation is a brief statement about your assessment that the patient is improving, declining, or no change. This information will be displayed automatically on your shift note. Outcome: Progressing Flowsheets (Taken 03/14/2025 0715) Outcome Evaluation: PT is a/ox4, c/ of abd pain, denies n/t/t in extremities, looks ill appearing, resting on safety check, NS IVF at 75ml/hr infusing, Gen surgery to assess, SBA in room Plan of Care Reviewed With: patient Overall Patient Progress: no change Goal: Patient-Specific Goal (Individualized) Description: You can add care plan individualizations to a care plan. Examples of Individualizationmight be: Parent requests to be called daily at 9am for status, I have a hard time hearing out of my right ear, or Do not touch me to wake me up as it startles me. Outcome: Progressing Goal: Absence of Hospital-Acquired Illness or Injury Outcome: Progressing Goal: Optimal Comfort and Wellbeing Outcome: Progressing Goal: Readiness for Transition of Care Outcome: Progressing Problem: Pain Acute Goal: Optimal Pain Control and Function Outcome: Progressing * Plan of Care - Betty Manzanares RN - 03/14/2025 12:00 PM CDT PRIMARY DIAGNOSIS: ACUTE PAIN OUTPATIENT/OBSERVATION GOALS TO BE MET BEFORE DISCHARGE: 1. Pain Status: Improved-controlled with oral pain medications. 2. Return to near baseline physical activity: Yes 3. 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 Nurse to notify provider when observation goals have been met and patient is ready for discharge. Goal Outcome Evaluation: Plan of Care Reviewed With: patient Overall Patient Progress: no changeOverall Patient Progress: no change Outcome Evaluation: PT is a/ox4, c/ of abd pain, denies n/t/t in extremities, looks ill appearing, resting on safety check, NS IVF at 75ml/hr infusing, Gen surgery to assess, SBA in room. ABX q.6hr Zosyn. Clear liquid diet. Dilaudid PO given, patient c/o of pain regardless of dosage or route.. no physical indicators of 7/10 pain noted Gen surgery will follow. Problem: Adult Inpatient Plan of Care Goal: Plan of Care Review Description: The Plan of Care Review/Shift note should be completed every shift. The Outcome Evaluation is a brief statement about your assessment that the patient is improving, declining, or no change. This information will be displayed automatically on your shift note. Outcome: Progressing Flowsheets (Taken 03/14/2025 0715) Outcome Evaluation: PT is a/ox4, c/ of abd pain, denies n/t/t in extremities, looks ill appearing, resting on safety check, NS IVF at 75ml/hr infusing, Gen surgery to assess, SBA in room Plan of Care Reviewed With: patient Overall Patient Progress: no change Goal: Patient-Specific Goal (Individualized) Description: You can add care plan individualizations to a care plan. Examples of Individualizationmight be: Parent requests to be called daily at 9am for status, I have a hard time hearing out of my right ear, or Do not touch me to wake me up as it startles me. Outcome: Progressing Goal: Absence of Hospital-Acquired Illness or Injury Outcome: Progressing Goal: Optimal Comfort and Wellbeing Outcome: Progressing Goal: Readiness for Transition of Care Outcome: Progressing Problem: Pain Acute Goal: Optimal Pain Control and Function Outcome: Progressing * Pharmacy-Admission Medication History - Ramses Harrison [facility] - 03/14/2025 11:59 AM CDT Pharmacist Admission Medication History Admission medication history is complete. The information provided in this note is only as accurateas the sources available at the time of the update. Information Source(s): Patient, Clinic records, and CareEverywhere/SureScripts via in-person Pertinent Information: Patient not sure about some meds. Losartan 25 mg daily, mention in chart about possibly increasing to 50 mg but not clear if changed. Also thinks she stopped metoprolol XL 12.5daily. 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 Deleted: Xanax, azithromycin, Flonase Changed: Advil to tablets. Allergies reviewed with patient and updates made in EHR: yes Medication History Completed By: Ramses Harrison RPH 03/14/2025 11:59 AM TELEPHONE REPAIRER Med List Medication Sig Last Dose/Taking acetaminophen (TYLENOL) 500 MG tablet Take 1,000 mg by mouth every 6 hours as needed for mild pain.Past Week albuterol (PROAIR HFA/PROVENTIL HFA/VENTOLIN HFA) 108 (90 Base) MCG/ACT inhaler Inhale 1-2 puffs into the lungs every 6 hours as needed for shortness of breath, wheezing or cough. More than a month amoxicillin-clavulanate (AUGMENTIN) 875-125 MG tablet Take 1 tablet by mouth 2 times daily. 03/13/2025 amphetamine-dextroamphetamine (ADDERALL XR) 20 MG 24 hr capsule Take 20 mg by mouth every morning. Past Week amphetamine-dextroamphetamine (ADDERALL) 10 MG tablet Take 10 mg by mouth daily. At lunch time PastWeek atorvastatin (LIPITOR) 40 MG tablet Take 40 mg by mouth daily. Past Week clopidogrel (PLAVIX) 75 MG tablet Take 75 mg by mouth daily. Past Week gabapentin (NEURONTIN) 300 MG capsule Take 1,500 mg by mouth every morning. 03/13/2025 Morning gabapentin (NEURONTIN) 300 MG capsule Take 1,200 mg by mouth every evening. 03/13/2025 Evening ibuprofen (ADVIL/MOTRIN) 200 MG tablet Take 800 mg by mouth every 6 hours as needed for pain. Past Week losartan (COZAAR) 25 MG tablet Take 25 mg by mouth daily. Past Week oxyCODONE (ROXICODONE) 5 MG tablet Take 5 mg by mouth every 6 hours as needed for severe pain. PastWeek PARoxetine (PAXIL) 30 MG tablet Take 60 mg by mouth every morning. Past Week QUEtiapine (SEROQUEL) 25 MG tablet Take 25 mg by mouth nightly as needed (sleep). Taking As Needed * Plan of Care - Betty Manzanares RN - 03/14/2025 7:16 AM CDT PRIMARY DIAGNOSIS: ACUTE PAIN OUTPATIENT/OBSERVATION GOALS TO BE MET BEFORE DISCHARGE: 1. Pain Status: Improved-controlled with oral pain medications. 2. Return to near baseline physical activity: Yes 3. Cleared for discharge by consultants (if involved): No Sewer System Supervisor Nurse Safe discharge environment identified: Yes Barriers to discharge: Yes Entered by: Betty Manzanares RN 03/14/2025 1:46 PM Please review provider order for any additional goals. Nurse to notify provider when observation goals have been met and patient is ready for discharge. Goal Outcome Evaluation: Plan of Care Reviewed With: patient Overall Patient Progress: no changeOverall Patient Progress: no change Outcome Evaluation: PT is a/ox4, c/ of abd pain, denies n/t/t in extremities, looks ill appearing, resting on safety check, NS IVF at 75ml/hr infusing, Gen surgery to assess, SBA in room. ABX q.6hr Zosyn. Clear liquid diet. Dilaudid PO given, patient c/o of pain regardless of dosage or route.. no physical indicators of 7/10 pain noted Problem: Adult Inpatient Plan of Care Goal: Plan of Care Review Description: The Plan of Care Review/Shift note should be completed every shift. The Outcome Evaluation is a brief statement about your assessment that the patient is improving, declining, or no change. This information will be displayed automatically on your shift note. Outcome: Progressing Flowsheets (Taken 03/14/2025 6715) Outcome Evaluation: PT is a/ox4, c/ of abd pain, denies n/t/t in extremities, looks ill appearing, resting on safety check, NS IVF at 75ml/hr infusing, Gen surgery to assess, SBA in room Plan of Care Reviewed With: patient Overall Patient Progress: no change Goal: Patient-Specific Goal (Individualized) Description: You can add care plan individualizations to a care plan. Examples of Individualizationmight be: Parent requests to be called daily at 9am for status, I have a hard time hearing out of my right ear, or Do not touch me to wake me up as it startles me. Outcome: Progressing Goal: Absence of Hospital-Acquired Illness or Injury Outcome: Progressing Goal: Optimal Comfort and Wellbeing Outcome: Progressing Goal: Readiness for Transition of Care Outcome: Progressing Problem: Pain Acute Goal: Optimal Pain Control and Function Outcome: Progressing * Plan of Care - Aryan Srinivasan RN - 03/14/2025 5:26 AM CDT Goal Outcome Evaluation: Plan of Care Reviewed With: patient Overall Patient Progress: no changeOverall Patient Progress: no change Outcome Evaluation: A/O*4, c/o abominal pain 7/10. IV Dilaudid given was helpful. IVF NS/ 75ml/hr infusing Problem: Adult Inpatient Plan of Care Goal: Plan of Care Review Description: Outcome: Progressing Flowsheets (Taken 03/14/2025 0313) Outcome Evaluation: A/O*4, c/o abominal pain 7/10. Plan of Care Reviewed With: patient Overall Patient Progress: no change Goal: Patient-Specific Goal (Individualized) Description: You can add care plan individualizations to a care plan. Examples of Individualizationmight be: Parent requests to be called daily at 9am for status, I have a hard time hearing out of my right ear, or Do not touch me to wake me up as it startles me. Outcome: Progressing Goal: Absence of Hospital-Acquired Illness or Injury Outcome: Progressing Goal: Optimal Comfort and Wellbeing Outcome: Progressing Goal: Readiness for Transition of Care Outcome: Progressing Intervention: Mutually Develop Transition Plan Recent Flowsheet Documentation Taken 03/14/2025 0200 by Aryan Srinivasan, RN Equipment Currently Used at Home: none documented in this encounter Plan of Treatment Not on file documented as of this encounter Procedures Procedure Name Priority Date/Time Associated Diagnosis Comments CBC WITH PLATELETS AND DIFFERENTIAL Routine 03/15/2025 5:43 AM CDT CBC WITH PLATELETS & DIFFERENTIAL Routine 03/15/2025 5:43 AM CDT BASIC METABOLIC PANEL Routine 03/15/2025 5:43 AM CDT BASIC METABOLIC PANEL Routine 03/14/2025 5:43 AM CDT CBC WITH PLATELETS Routine 03/14/2025 5: [address] ABDOMEN PELVIS W CONTRAST STAT 03/14/2025 12:24 AM CDT BLOOD CULTURE STAT 03/13/2025 11:38 PM CDT LACTIC ACID WHOLE BLOOD WITH 1X REPEAT IN 2 HR WHEN >2 STAT 03/13/2025 11:21 PM CDT RBC AND PLATELET MORPHOLOGY STAT 03/13/2025 11:21 PM CDT CBC WITH PLATELETS AND DIFFERENTIAL STAT 03/13/2025 11:21 PM CDT CBC WITH PLATELETS & DIFFERENTIAL STAT 03/13/2025 11:21 PM CDT COMPREHENSIVE METABOLIC PANEL STAT 03/13/2025 11:21 PM CDT BLOOD CULTURE STAT 03/13/2025 11:21 PM CDT documented in this encounter Results * (ABNORMAL) CBC with platelets and differential (03/15/2025 5:43 AM CDT) [facility] WBC Count 9.6 4.0 - 11.0 10e3/uL 03/15/2025 5:55 AM CDT [facility] RBC Count 3.70(L) 3.80 - 5.20 10e6/uL 03/15/2025 5:55 AM CDT [facility] Hemoglobin 11.3(L) 11.7 - 15.7 g/dL 03/15/2025 5:55 AM CDT [facility] Hematocrit 34.1(L) 35.0 - 47.0 % 03/15/2025 5:55 AM CDT [facility] MCV 92 78 - 100 fL 03/15/2025 5:55 AM CDT [facility] MCH 30.5 26.5 - 33.0 pg 03/15/2025 5:55 AM CDT [facility] MCHC 33.1 31.5 - 36.5 g/dL 03/15/2025 5:55 AM CDT [facility] RDW 14.2 10.0 - 15.0 % 03/15/2025 5:55 AM CDT [facility] Platelet Count 424 150 - 450 10e3/uL 03/15/2025 5:55 AM CDT [facility] % Neutrophils 67 % 03/15/2025 5:55 AM CDT [facility] % Lymphocytes 22 % 03/15/2025 5:55 AM CDT [facility] % Monocytes 8 % 03/15/2025 5:55 AM CDT [facility] % Eosinophils 2 % 03/15/2025 5:55 AM CDT [facility] % Basophils 0 % 03/15/2025 5:55 AM CDT [facility] % Immature Granulocytes 1 % 03/15/2025 5:55 AM CDT [facility] NRBCs per 100 WBC 0 <1 /100 025 5:55 AM CDT [facility] Absolute Neutrophils 6.5 1.6 - 8.3 10e3/uL 03/15/2025 5:55 AM CDT [facility] Absolute Lymphocytes 2.1 0.8 - 5.3 10e3/uL 03/15/2025 5:55 AM CDT [facility] Absolute Monocytes 0.7 0.0 - 1.3 10e3/uL 03/15/2025 5:55 AM CDT [facility] Absolute Eosinophils 0.2 0.0 - 0.7 10e3/uL 03/15/2025 5:55 AM CDT [facility] Absolute Basophils 0.0 0.0 - 0.2 10e3/uL 03/15/2025 5:55 AM CDT [facility] Absolute Immature Granulocytes 0.1 <=0.4 10e3/uL 03/15/2025 5:55 AM CDT [facility] Absolute NRBCs 0.0 10e3/uL 03/15/2025 5:55 AM CDT [facility] Blood STRUCTURE OF LEFT HAND / Unknown Venipuncture / Unknown 03/15/2025 5:43 AM CDT 03/15/2025 5:53 AM CDT us Maria G Jenkins PA-C LAB - BLOOD ORDERABLES F inal Result [facility] Lab [address] Lab (1st floor, no room number) [place] [address], [facility] * (ABNORMAL) Basic metabolic panel (03/15/2025 5:43 AM CDT) Sodium 144 135 - 145 mmol/L 03/15/2025 6:17 AM CDT LABORATORY Potassium 4.3 3.4 - 5.3 mmol/L 03/15/2025 6:17 AM CDT LABORATORY Chloride 111(H) 98 - 107 mmol/L 03/15/2025 6:17 AM CDT LABORATORY Carbon Dioxide (CO2) 26 22 - 29 mmol/L 03/15/2025 6:17 AM CDT LABORATORY Anion Gap 7 7 - 15 mmol/L 03/15/2025 6:17 AM CDT LABORATORY Urea Nitrogen 4.2(L) 6.0 - 20.0 mg/dL 03/15/2025 6:17 AM CDT LABORATORY Creatinine 0.59 0.51 - 0.95 mg/dL 03/15/2025 6:17 AM CDT LABORATORY GFR Estimate >90 >60 mL/min/1.7 3m2 03/15/2025 6:17 AM CDT LABORATORY Comment:eGFR calculated usin g 2020 CKD-EPI equation. Calcium 7.9(L) 8.8 - 10.4 mg/dL 03/15/2025 6:17 AM CDT [facility] Glucose 92 70 - 99 mg/dL 03/15/2025 6:17 AM CDT [facility] Blood STRUCTURE OF LEFT HAND / Unknown Venipuncture / Unknown 03/15/2025 5:43 AM CDT 03/15/2025 5:53 AM CDT Maria G Jenkins PA-C LAB - BLOOD ORDERABLES F inal Result [facility] Lab [address] Lab (1st floor, no room number) [place] [address], [facility] * (ABNORMAL) CBC with platelets (03/14/2025 5:43 AM CDT) WBC Count 11.2(H) 4.0 - 11.0 10e3/uL 03/14/2025 5:53 AM CDT [facility] RBC Count 3.87 3.80 - 5.20 10e6/uL 03/14/2025 5:53 AM CDT [facility] Hemoglobin 11.9 11.7 - 15.7 g/dL 03/14/2025 5:53 AM CDT [facility] Hematocrit 35.3 35.0 - 47.0 % 03/14/2025 5:53 AM CDT [facility] MCV 91 78 - 100 fL 03/14/2025 5:53 AM CDT [facility] MCH 30.7 26.5 - 33.0 pg 03/14/2025 5:53 AM CDT [facility] MCHC 33.7 31.5 - 36.5 g/dL 03/14/2025 5:53 AM CDT [facility] RDW 14.1 10.0 - 15.0 % 03/14/2025 5:53 AM CDT [facility] Platelet Count 423 150 - 450 10e3/uL 03/14/2025 5:53 AM CDT [facility] Blood STRUCTURE OF RIGHT UPPER LIMB / Unknown Venipuncture / Unknown 03/14/2025 5:43 AM CDT 03/14/2025 5:50 AM CDT Ricci Hunt MD LAB - BLOOD ORDERABLES Final Result LABORATORY [facility] Lab [address] Lab (1st floor, no room number) [place] [address] * (ABNORMAL) Basic metabolic panel (03/14/2025 5:43 AM CDT) Sodium 140 135 - 145 mmol/L 03/14/2025 6:20 AM CDT LABORATORY Potassium 3.5 3.4 - 5.3 mmol/L 03/14/2025 6:20 AM CDT LABORATORY Chloride 104 98 - 107 mmol/L 03/14/2025 6:20 AM CDT LABORATORY Carbon Dioxide (CO2) 26 22 - 29 mmol/L 03/14/2025 6:20 AM CDT LABORATORY Anion Gap 10 7 - 15 mmol/L 03/14/2025 6:20 AM CDT LABORATORY Urea Nitrogen 5.5(L) 6.0 - 20.0 mg/dL 03/14/2025 6:20 AM CDT LABORATORY Creatinine 0.56 0.51 - 0.95 mg/dL 03/14/2025 6:20 AM CDT LABORATORY GFR Estimate >90 >60 mL/min/1.7 3m2 03/14/2025 6:20 AM CDT LABORATORY Comment:eGFR calculated usin g 2020 CKD-EPI equation. Calcium 7.9(L) 8.8 - 10.4 mg/dL 03/14/2025 6:20 AM CDT LABORATORY Glucose 105(H) 70 - 99 mg/dL 03/14/2025 6:20 AM CDT LABORATORY Blood STRUCTURE OF LEFT UPPER LIMB / Unknown Venipuncture / Unknown 03/14/2025 5:43 AM CDT 03/14/2025 5:50 AM CDT Ricci Hunt MD LAB - BLOOD ORDERABLES Final Result LABORATORY [facility] Lab [address] Lab (1st floor, no room number) [place] [address], [facility] * CT Abdomen Pelvis w Contrast (03/14/2025 12:24 AM CDT) Anatomical Region Laterality Modality Abdomen/Pelvis, SUBRAD CT DEISI DY, UMP CT ABDOMEN PELVIS, RAD CT Computed Tomography 03/14/2025 12:2 4 AM CDT Impressions 03/14/2025 1:01 AM CDT IMPRESSION: 1. Postoperative changes of laparoscopic appendectomy. 2. Edema, small amount of free fluid, and generalized peritoneal enhancement in the pelvis suggestive of peritonitis. 3. A few loops of pelvic small bowel have a mildly thickened wall and demonstrate prominent enhancement probably explained as a reactive enteritis. 4. At the appendectomy bed, there is a 2.5 x 0.6 cm loculation of rim-enhancing fluid suspicious for developing abscess. Additionally, there is a thin peripheral enhancing tubular fluid-filled structure extending from the left anterior pelvic wall near the laparoscopy port to the left adnexal region which may also be a developing abscess. Both appear to be too small for percutaneous drain placement. 5. Liquid stool throughout colon consistent with a diarrheal state. Narrative 03/14/2025 1:01 AM CDT EXAM: CT ABDOMEN PELVIS W CONTRAST LOCATION: [facility] DATE: 03/14/2025 INDICATION: post op pain COMPARISON: Pelvic ultrasound and CT of the abdomen and pelvis 03/05/2025. TECHNIQUE: CT scan of the abdomen and pelvis was performed following injection of IV contrast. Multiplanar reformats were obtained. Dose reduction techniques were used. CONTRAST: 60mL Isovue 370 FINDINGS: LOWER CHEST: Normal. HEPATOBILIARY: Tiny hypodensity in the right hepatic lobe too small to characterize has a benign appearance not warranting follow-up. Normal gallbladder and bile ducts. PANCREAS: Normal. SPLEEN: Normal. ADRENAL GLANDS: Normal. KIDNEYS/BLADDER: Normal. BOWEL: Postoperative changes of laparoscopic appendectomy including trace free air. Generalized edema, small amount of free fluid, and prominent peritoneal enhancement in the pelvis concerning for peritonitis. A few loops of pelvic small bowel have a mildly thickened wall and demonstrate prominent enhancement suggestive of a reactive enteritis. In the appendectomy bed, there is a 3.5 x 0.6 cm loculation of rim-enhancing fluid suspicious for developing abscess (images 126-131 of axial series 3, images 30-32 of coronal series 4). Additionally, there is a thin peripherally enhancing tubular fluid-filled structure of the anterior left pelvis extending from the left anterior pelvic wall near the laparoscopy port to the left adnexal region which measures 4 mm wide and about 8 cm long which is new from 03/05/2025 and may also be a developing abscess (images 122-154 of axial series 3, 17-25 of coronal series 4). No bowel obstruction. Liquid stool throughout the colon. LYMPH NODES: Normal. VASCULATURE: Normal. PELVIC ORGANS: Normal. MUSCULOSKELETAL: Normal. Procedure Note Christos Becerra MD - 03/14/2025 EXAM: CT ABDOMEN PELVIS W CONTRAST LOCATION: [facility] DATE: 03/14/2025 INDICATION: post op pain COMPARISON: Pelvic ultrasound and CT of the abdomen and pelvis 03/05/2025. TECHNIQUE: CT scan of the abdomen and pelvis was performed followinginjection of IV contrast. Multiplanar reformats were obtained. Dosereduction techniques were used. CONTRAST: 60mL Isovue 370 FINDINGS: LOWER CHEST: Normal. HEPATOBILIARY: Tiny hypodensity in the right hepatic lobe too small tocharacterize has a benign appearance not warranting follow-up. Normalgallbladder and bile ducts. PANCREAS: Normal. SPLEEN: Normal. ADRENAL GLANDS: Normal. KIDNEYS/BLADDER: Normal. BOWEL: Postoperative changes of laparoscopic appendectomy including tracefree air. Generalized edema, small amount of free fluid, and prominentperitoneal enhancement in the pelvis concerning for peritonitis. A fewloops of pelvic small bowel have a mildly thickened wall and demonstrate prominent enhancement suggestive ofa reactive enteritis. In the appendectomy bed, there is a 3.5 x 0.6 cmloculation of rim-enhancing fluid suspicious for developing abscess(images 126-131 of axial series 3, images 30-32 of coronal series 4). Additionally, there is a thin peripherallyenhancing tubular fluid-filled structure of the anterior left pelvisextending from the left anterior pelvic wall near the laparoscopy port tothe left adnexal region which measures 4 mm wide and about 8 cm long which is new from 03/05/2025 and may also be adeveloping abscess (images 122-154 of axial series 3, 17-25 of coronalseries 4). No bowel obstruction. Liquid stool throughout the colon. LYMPH NODES: Normal. VASCULATURE: Normal. PELVIC ORGANS: Normal. MUSCULOSKELETAL: Normal. IMPRESSION: 1. Postoperative changes of laparoscopic appendectomy. 2. Edema, small amount of free fluid, and generalized peritonealenhancement in the pelvis suggestive of peritonitis. 3. A few loops of pelvic small bowel have a mildly thickened wall anddemonstrate prominent enhancement probably explained as a reactiveenteritis. 4. At the appendectomy bed, there is a 2.5 x 0.6 cm loculation ofrim-enhancing fluid suspicious for developing abscess. Additionally, thereis a thin peripheral enhancing tubular fluid-filled structure extendingfrom the left anterior pelvic wall near the laparoscopy port to the left adnexal region which may also be adeveloping abscess. Both appear to be too small for percutaneous drainplacement. 5. Liquid stool throughout colon consistent with a diarrheal state. us Rubén Burnett MD IMG CT ORDERABLES Final Resul t * Blood Culture Peripheral blood (BC) Arm, Left (03/13/2025 11:38 PM CDT) Pathologist [facility] Culture No Growth 03/19/2025 2:16 AM CDT [facility] Peripheral blood (BC) STRUCTURE OF LEFT UPPER LIMB / Unknown Venipuncture / Unknown 03/13/2025 11:38 PM CDT 03/13/2025 11:43 PM CDT Rubén Burnett MD LAB - MICRO GENERAL ORDERABLE S Final Result [facility] Inf. Diseases Diag. Lab [address] [place] [address], [facility] * (ABNORMAL) RBC and Platelet Morphology (03/13/2025 11:21 PM CDT) Pathologist [facility] RBC Morphology Confirmed RBC Indices 03/14/2025 1:48 AM CDT [facility] Platelet Assessment Automated Count Confirmed. Platelet morphology is normal. Automated Count Confirmed. Platelet morphology is normal. MECCA 03/14/2025 1:48 AM CDT [facility] Reactive Lymphocytes Present(A) None Seen MECCA 03/14/2025 1:48 AM CDT [facility] Blood BLOOD SPECIMEN / Unknown Venipuncture / Unknown 03/13/2025 11:21 PM CDT 03/13/2025 11:29 PM CDT us Rubén Burnett MD LAB - BLOOD ORDERABLES Final Result [facility] [address] Lab (1st floor, no room number) [place] [address] * (ABNORMAL) CBC with platelets and differential (03/13/2025 11:21 PM CDT) WBC Count 14.5(H) 4.0 - 11.0 10e3/uL 03/14/2025 1:48 AM CDT [facility] RBC Count 4.17 3.80 - 5.20 10e6/uL 03/14/2025 1:48 AM CDT [facility] Hemoglobin 12.7 11.7 - 15.7 g/dL 03/14/2025 1:48 AM CDT [facility] Hematocrit 37.5 35.0 - 47.0 % 03/14/2025 1:48 AM CDT [facility] MCV 90 78 - 100 fL 03/14/2025 1:48 AM CDT [facility] MCH 30.5 26.5 - 33.0 pg 03/14/2025 1:48 AM CDT [facility] MCHC 33.9 31.5 - 36.5 g/dL 03/14/2025 1:48 AM CDT [facility] RDW 13.8 10.0 - 15.0 % 03/14/2025 1:48 AM CDT [facility] Platelet Count 458(H) 150 - 450 10e3/uL 03/14/2025 1:48 AM CDT [facility] % Neutrophils 71 % 03/14/2025 1:48 AM CDT [facility] % Lymphocytes 19 % 03/14/2025 1:48 AM CDT [facility] % Monocytes 6 % 03/14/2025 1:48 AM CDT [facility] % Eosinophils 2 % 03/14/2025 1:48 AM CDT [facility] % Basophils 0 % 03/14/2025 1:48 AM CDT [facility] % Immature Granulocytes 2 % 03/14/2025 1:48 AM CDT [facility] NRBCs per 100 WBC 0 <1 /100 025 1:48 AM CDT [facility] Absolute Neutrophils 10.4(H) 1.6 - 8.3 10e3/uL 03/14/2025 1:48 AM CDT [facility] Absolute Lymphocytes 2.8 0.8 - 5.3 10e3/uL 03/14/2025 1:48 AM CDT [facility] Absolute Monocytes 0.9 0.0 - 1.3 10e3/uL 03/14/2025 1:48 AM CDT [facility] Absolute Eosinophils 0.2 0.0 - 0.7 10e3/uL 03/14/2025 1:48 AM CDT [facility] Absolute Basophils 0.0 0.0 - 0.2 10e3/uL 03/14/2025 1:48 AM CDT [facility] Absolute Immature Granulocytes 0.2 <=0.4 10e3/uL 03/14/2025 1:48 AM CDT [facility] Absolute NRBCs 0.0 10e3/uL 03/14/2025 1:48 AM CDT [facility] Blood BLOOD SPECIMEN / Unknown Venipuncture / Unknown 03/13/2025 11:21 PM CDT 03/13/2025 11:29 PM CDT Rubén Burnett MD LAB - BLOOD ORDERABLES Final Result LABORATORY [facility] Lab [address] Lab (1st floor, no room number) [place] [address], [facility] * Blood Culture Peripheral blood (BC) Hand, Right (03/13/2025 11:21 PM CDT) Culture No Growth 03/19/2025 2:16 AM CDT [facility] Peripheral blood (BC) STRUCTURE OF RIGHT HAND / Unknown Venipuncture / Unknown 03/13/2025 11:21 PM CDT 03/13/2025 11:29 PM CDT Rubén Burnett MD LAB - MICRO GENERAL ORDERABLE S Final Result [facility] Inf. Diseases Diag. Lab [address] [place] [address], [facility] * Lactic Acid Whole Blood with 1X Repeat in 2 HR when >2 (03/13/2025 11:21 PM CDT) Lactic Acid, Initial 0.9 0.7 - 2.0 mmol/L 03/13/2025 11:35 PM CDT LABORATORY Blood BLOOD SPECIMEN / Unknown Venipuncture / Unknown 03/13/2025 11:21 PM CDT 03/13/2025 11:29 PM CDT us Rubén Burnett MD LAB - BLOOD ORDERABLES Final Result LABORATORY [facility] Lab [address] Lab (1st floor, no room number) [place] [address], [facility] * (ABNORMAL) Comprehensive metabolic panel (03/13/2025 11:21 PM CDT) Sodium 133(L) 135 - 145 mmol/L 03/13/2025 11:54 PM CDT LABORATORY Potassium 4.9 3.4 - 5.3 mmol/L 03/13/2025 11:54 PM CDT [facility] Comment:Specimen slightly he molyzed. The reported potassium value may be falsely elevated. Analysis of a non-hemolyzed specimen (i.e. re-draw) may result in a lower potassium value. Carbon Dioxide (CO2) 24 22 - 29 mmol/L 03/13/2025 11:54 PM CDT [facility] Anion Gap 13 7 - 15 mmol/L 03/13/2025 11:54 PM CDT [facility] Urea Nitrogen 6.6 6.0 - 20.0 mg/dL 03/13/2025 11:54 PM CDT [facility] Creatinine 0.57 0.51 - 0.95 mg/dL 03/13/2025 11:54 PM CDT [facility] GFR Estimate >90 >60 mL/min/1.7 3m2 03/13/2025 11:54 PM CDT [facility] Comment:eGFR calculated us2020 CKD-EPI equation. Calcium 8.3(L) 8.8 - 10.4 mg/dL 03/13/2025 11:54 PM CDT LABORATORY Chloride 96(L) 98 - 107 mmol/L 03/13/2025 11:54 PM CDT LABORATORY Glucose 118(H) 70 - 99 mg/dL 03/13/2025 11:54 PM CDT LABORATORY Alkaline Phosphatase 74 40 - 150 U/L 03/13/2025 11:54 PM CDT LABORATORY AST 34 0 - 45 U/L 03/13/2025 11:54 PM CDT LABORATORY Comment:Specimen is hemolyze d which can falsely elevate AST. Analysis of a non-hemolyzed specimen may result in a lower value. ALT 12 0 - 50 U/L 03/13/2025 11:54 PM CDT LABORATORY Protein Total 7.0 6.4 - 8.3 g/dL 03/13/2025 11:54 PM CDT LABORATORY Albumin 3.3(L) 3.5 - 5.2 g/dL 03/13/2025 11:54 PM CDT LABORATORY Bilirubin Total 0.2 <=1.2 mg/dL 03/13/2025 11:54 PM CDT LABORATORY Blood BLOOD SPECIMEN / Unknown Venipuncture / Unknown 03/13/2025 11:21 PM CDT 03/13/2025 11:29 PM CDT us Rubén Burnett MD LAB - BLOOD ORDERABLES Final Result [facility] Lab [address] Lab (1st floor, no room number) [place] [address], [facility] documented in this encounter Visit Diagnoses Diagnosis Abscess of abdominal cavity (H)- Primary Peritoneal abscess Peritonitis (H) Unspecified peritonitis Intraabdominal fluid collection Other ascites Intra-abdominal abscess post-procedure (H) Other postoperative infection Drug-induced constipation Other constipation Peritonitis (H) Unspecified peritonitis Intraabdominal fluid collection Other ascites documented in this encounter Admitting Diagnoses Diagnosis Peritonitis (H) Unspecified peritonitis Intraabdominal fluid collection Other ascites documented in this encounter Administered Medications Inactive Administered Medications - up to 3 most recent administrations Medication Order MAR Action Action Date Dose Rate Site acetaminophen (TYLENOL) Suppository 650 mg 650 mg, Rectal, EVERY 4 HOURS PRN, mild pain, other, and adjunct with moderate or severe pain or per patient request, Starting on Tawanna 03/14/25 at 0215, Alternate with ibuprofen if ordered. Maximum acetaminophen dose from all sources = 75 mg/kg/day not to exceed 4 grams/day. acetaminophen (TYLENOL) tablet 650 mg 650 mg, Oral, EVERY 4 HOURS PRN, mild pain, other, and adjunct with moderate or severe pain or per patient request, Starting on Tawanna 03/14/25 at 0215, Alternate with ibuprofen if ordered. Maximum acetaminophen dose from all sources = 75 mg/kg/day not to exceed 4 grams/day. $Given 03/14/2025 3:57 PM CDT 650 mg $Given 03/14/2025 12:01 PM CDT 650 mg $Given 03/14/2025 8:20 AM CDT 650 mg atorvastatin (LIPITOR) tablet 40 mg 40 mg, Oral, EVERY EVENING, First dose on Tawanna 03/14/25 at 2000 $Given 03/14/2025 8:18 PM CDT 40 mg gabapentin (NEURONTIN) capsule 1,200 mg 1,200 mg, Oral, EVERY EVENING, First dose on Tawanna 03/14/25 at 2000 $Given 03/14/2025 8:18 PM CDT 1,200 mg gabapentin (NEURONTIN) capsule 1,500 mg 1,500 mg, Oral, EVERY MORNING, First dose on Tawanna 03/14/25 at 1330 $Given 03/15/2025 10:01 AM CDT 1,500 mg HYDROmorphone (DILAUDID) half-tab 1 mg 1 mg, Oral, EVERY 4 HOURS PRN, moderate pain, IF pain not managed with non-pharmacological and non-opioid interventions, Starting on Tawanna 03/14/25 at 0216, May use concomitant with non-opioid analgesics. $Given 03/15/2025 10:01 AM CDT 1 mg $Given 03/15/2025 12:55 AM CDT 1 mg $Given 03/14/2025 8:17 PM CDT 1 mg HYDROmorphone (DILAUDID) injection 0.2 mg 0.2 mg, Intravenous, EVERY 2 HOURS PRN, moderate pain, IF patient cannot take oral opioid OR IF pain not managed with non-pharmacological, non-opioid, or oral opioid interventions if ordered, Starting on Tawanna 03/14/25 at 0216, May use concomitant with non-opioid analgesics. $Given 03/14/2025 5:48 AM CDT 0.2 mg $Given 03/14/2025 3:18 AM CDT 0.2 mg HYDROmorphone (DILAUDID) injection 0.4 mg 0.4 mg, Intravenous, EVERY 2 HOURS PRN, severe pain, IF patient cannot take oral opioid OR IF pain not managed with non-pharmacological, non-opioid, or oral opioid interventions if ordered, Starting on Tawanna 03/14/25 at 0216, May use concomitant with non-opioid analgesics. HYDROmorphone (DILAUDID) tablet 2 mg 2 mg, Oral, EVERY 4 HOURS PRN, severe pain, IF pain not managed with non-pharmacological and non-opioid interventions, Starting on Tawanna 03/14/25 at 0216, May use concomitant with non-opioid analgesics. $Given 03/15/2025 5:20 AM CDT 2 mg $Given 03/14/2025 3:57 PM CDT 2 mg $Given 03/14/2025 8:25 AM CDT 2 mg HYDROmorphone (PF) (DILAUDID) injection 0.5 mg 0.5 mg, Intravenous, EVERY 30 MIN PRN, moderate pain, severe pain, Starting on Tue03/13/25 at 2256, For 3 doses, Notify the provider to assess for uncontrolled pain or analgesic side effects. Hold while on IV MEAT BONER AND SLICER or with regular IV opioid dosing. $Given 03/14/2025 1:41 AM CDT 0.5 mg $Given 03/13/2025 11:33 PM CDT 0.5 mg iopamidol (ISOVUE-370) solution 500 mL 500 mL, Intravenous, ONCE, On Tawanna 03/14/25 at 0015, For 1 dose $Given 03/14/2025 12:17 AM CDT 60 mLs losartan (COZAAR) tablet 25 mg 25 mg, Oral, DAILY, First dose on T[place]anna 03/14/25 at 1330, Hold if SBP <120 $Given 03/15/2025 10:01 AM CDT 25 mg $Given 03/14/2025 1:59 PM CDT 25 mg melatonin tablet 5 mg 5 mg, Oral, AT BEDTIME PRN, sleep, Starting on Tawanna 03/14/25 at 0216, Do not give unless at least 6 hours of uninterrupted sleep is expected. If patient has multiple medications ordered PRN sleep/insomnia, offer melatonin first. metoprolol succinate ER (TOPROL-XL) 24 hr half-tab 12.5 mg 12.5 mg, Oral, DAILY, First dose on Tawanna 03/14/25 at 1330, DO NOT CRUSH. Tablet may be split in half along score line. Hold if SBP <115 $Given 03/15/2025 10:01 AM CDT 12.5 mg $Given 03/14/2025 1:59 PM CDT 12.5 mg naloxone (NARCAN) injection 0.2 mg 0.2 mg, Intravenous, EVERY 2 MIN PRN, opioid reversal, Starting on [place]anna 03/14/25 at 0945, Administer intravenous route when available and notify provider when administered. For unintended sedation or respiratory depression if all of the below criteria are met: ~ respiratory rate LESS than or EQUAL to 8. ~SaO2 less than 92% and or/end-tidal CO2 is greater than 50. ~ the patient is receiving an opioid, has unintended sedations assessed as RASS (-3), and is currently not on mechanical ventilation. RASS scale moderate (-3) is movement or eye opening to voice but no eye contact. Patient Monitoring Once the patient has demonstrated a response to the naloxone, continue to monitor respiratory rate, depth, oxygen saturation and end-tidal CO2 (if available) every 15 minutes x 2, then every 30 minutes x 2, then every 1 hour x 1 after each naloxone dose. Consider transfer to ICU if patient respiratory parameters have not improved after 4 naloxone doses. naloxone (NARCAN) injection 0.2 mg 0.2 mg, Intramuscular, EVERY 2 MIN PRN, opioid reversal, Starting on [place]anna 03/14/25 at 0945, Administer intramuscular if an intravenous route is not available and notify provider when administered. For unintended sedation or respiratory depression if all of the below criteria are met: ~ respiratory rate LESS than or EQUAL to 8. ~SaO2 less than 92% and or/end-tidal CO2 is greater than 50. ~ the patient is receiving an opioid, has unintended sedations assessed as RASS (-3), and is currently not on mechanical ventilation. RASS scale moderate (-3) is movement or eye opening to voice but no eye contact. Patient Monitoring Once the patient has demonstrated a response to the naloxone, continue to monitor respiratory rate, depth, oxygen saturation and end-tidal CO2 (if available) every 15 minutes x 2, then every 30 minutes x 2, then every 1 hour x 1 after each naloxone dose. Consider transfer to ICU if patient respiratory parameters have not improved after 4 naloxone doses. naloxone (NARCAN) injection 0.4 mg 0.4 mg, Intravenous, EVERY 2 MIN PRN, opioid reversal, Starting on [place]anna 03/14/25 at 0945, Administer intravenous route when available and notify provider when administered. For unintended sedation or respiratory depression if all of the below criteria are met: ~ respiratory rate LESS than or EQUAL to 8. ~ SaO2 less than 92% and or/end-tidal CO2 is greater than 50. ~ the patient is receiving an opioid, has unintended sedation assessed as RASS (-4) or (-5) and patient is currently not on mechanical ventilation. RASS scale (-4) is deep sedation with no response to voice but movement or eye opening to physical stimulation. RASS scale (-5) is unarousable. Patient Monitoring Once the patient has demonstrated a response to the naloxone, continue to monitor respiratory rate, depth, oxygen saturation and end-tidal CO2 (if available) every 15 minutes x 2, then every 30 minutes x 2, then every 1 hour x 1 after each naloxone dose. Consider transfer to ICU if patient respiratory parameters have not improved after 4 naloxone doses. naloxone (NARCAN) injection 0.4 mg 0.4 mg, Intramuscular, EVERY 2 MIN PRN, opioid reversal, Starting on [place] 03/14/25 at 0945, Administer intramuscular if an intravenous route is not available and notify provider when administered. For unintended sedation or respiratory depression if all of the below criteria are met: ~ respiratory rate LESS than or EQUAL to 8. ~ SaO2 less than 92% and or/end-tidal CO2 is greater than 50. ~ the patient is receiving an opioid, has unintended sedation assessed as RASS (-4) or (-5) and patient is currently not on mechanical ventilation. RASS scale (-4) is deep sedation with no response to voice but movement or eye opening to physical stimulation. RASS scale (-5) is unarousable. Patient Monitoring Once the patient has demonstrated a response to the naloxone, continue to monitor respiratory rate, depth, oxygen saturation and end-tidal CO2 (if available) every 15 minutes x 2, then every 30 minutes x 2, then every 1 hour x 1 after each naloxone dose. Consider transfer to ICU if patient respiratory parameters have not improved after 4 naloxone doses. nicotine (COMMIT) lozenge 2 mg 2 mg, Buccal, EVERY 1 HOUR PRN, nicotine withdrawal symptoms, Starting on Tue03/14/25 at 0217, Allow lozenge to dissolve slowly. Do not swallow. Not to exceed 40 mg in a 24 hour time period. nicotine (NICODERM CQ) 7 MG/24HR 24 hr patch 1 patch 1 patch, Transdermal, Administer over 24 Hours, DAILY, First dose on Tue03/14/25 at 0800, Reminder: Remove previous patch before applying new patch. Avoid heat exposure to application site or surrounding areas. This includes heat from external sources, such as heating pads, electric blankets, or other equipment. $Patch/Med Applied 03/15/2025 10:04 AM CDT 1 patch Right Arm $Patch/Med Applied 03/14/2025 8:19 AM CDT 1 patch Right Arm ondansetron (ZOFRAN) injection 4 mg 4 mg, Intravenous, EVERY 30 MIN PRN, nausea, vomiting, Administer over 2-5 Minutes, Starting on Tue03/13/25 at 2256, For 3 doses, May repeat in 30 minutes as needed, up to 3 doses. $Given 03/14/2025 8:27 AM CDT 4 mg $Given 03/14/2025 1:41 AM CDT 4 mg $Given 03/13/2025 11:30 PM CDT 4 mg PARoxetine (PAXIL) tablet 60 mg 60 mg, Oral, EVERY MORNING, First dose on Tue03/15/25 at 0800 $Given 03/15/2025 10:01 AM CDT 60 mg piperacillin-tazobactam (ZOSYN) 3.375 g vial to attach to NS 100 mL bag Routine, 3.375 g, Intravenous, EVERY 6 HOURS, First dose on Tue03/14/25 at 0600, Lactated Ringer's solution is not compatible with piperacillin-tazobactam for injection., Indications: Intra-Abdominal InfectionIndications:Intra-Abdominal Infection $New Bag 03/15/2025 5:45 AM CDT 3.375 g $New Bag 03/15/2025 12:55 AM CDT 3.375 g $New Bag 03/14/2025 5:11 PM CDT 3.375 g piperacillin-tazobactam (ZOSYN) 4.5 g vial to attach to NS 100 mL bag STAT, 4.5 g, Intravenous, ONCE, On Tue03/13/25 at 2300, For 1 dose, Lactated Ringer's solution is not compatible with piperacillin-tazobactam for injection., Indications: Intra-Abdominal InfectionIndications:Intra-Abdom inal Infection $New Bag 03/13/2025 11:57 PM CDT 4.5 g senna-docusate (SENOKOT-S/PERICOLACE) 8.6-50 MG per tablet 1 tablet 1 tablet, Oral, 2 TIMES DAILY PRN, constipation, Starting on Tue03/14/25 at 0213, If no bowel movement in 24 hours, increase to 2 tablets by mouth. IF more than 1 constipation PRN medication is ordered, administer step-garcia as indicated, moving to the next step ONLY if prior step ineffective. Step 1: senna-docusate (SENOKOT-S; PERICOLACE) OR bisacodyl (DULCOLAX) EC tablet Step 2: polyethylene glycol (MIRALAX/GLYCOLAX) Step 3: bisacodyl (DULCOLAX) suppository Step 4: enema Hold for loose stools. senna-docusate (SENOKOT-S/PERICOLACE) 8.6-50 MG per tablet 2 tablet 2 tablet, Oral, 2 TIMES DAILY PRN, constipation, Starting on [place]anna 03/14/25 at 0213, IF more than 1 constipation PRN medication is ordered, administer step-garcia as indicated, moving to the next step ONLY if prior step ineffective. Step 1: senna-docusate (SENOKOT-S; PERICOLACE) OR bisacodyl (DULCOLAX) EC tablet Step 2: polyethylene glycol (MIRALAX/GLYCOLAX) Step 3: bisacodyl (DULCOLAX) suppository Step 4: enema Hold for loose stools. sodium chloride (PF) 0.9% PF flush 3 mL 3 mL, Intracatheter, EVERY 8 HOURS SCHEDULED, First dose on Tue03/14/25 at 0600, to lock peripheral IV dormant line sodium chloride (PF) 0.9% PF flush 3 mL 3 mL, Intracatheter, EVERY 1 MIN PRN, line flush, other, to ensure patency or to lock dormant line, Starting on Tue03/14/25 at 0213 sodium chloride 0.9 % bag for CT scan flush Intravenous, 100 mL, ONCE, On Tue03/14/25 at 0015, For 1 dose, This entry is for use by Radiology to intermittently used as a flush in patients receiving a CT scan. $Given 03/14/2025 12:17 AM CDT 55 mLs sodium chloride 0.9 % infusion at 75 mL/hr, Intravenous, CONTINUOUS, Starting on Tue03/14/25 at 0300, Until Tue03/14/25 at 1423 $New Bag 03/14/2025 4:19 AM CDT 75 mL/hr sodium chloride 0.9% BOLUS 1,000 mL Intravenous, 1,000 mL, ONCE, at 1,000 mL/hr, Administer over 1 Hours, On Tue03/13/25 at 2300, For 1 dose $New Bag 03/13/2025 11:23 PM CDT 1,000 mLs 1000 mL/hr documented in this encounter Active and Recently Administered Medications Times are shown in CDT. Scheduled Medication Order 03/13/2025 03/14/2025 03/15/2025 amphetamine-dextroamphet amine (ADDERALL XR) ER cap 20 mg 20 mg, Oral, EVERY MORNING, First dose on Tue03/15/25 at 0800, DO NOT CRUSH., On hold since Tue03/14/2025 at 1329 until manually unheld 1329 (Held by provider - Provider: Maria G Jenkins PA-C - Reason: Other) 0800 (Automatically Held)1416 (Unheld by provider - Provider: Orders Generic Provider) amphetamine-dextroamphet amine (ADDERALL) per tablet 10 mg 10 mg, Oral, DAILY, First dose on Tue03/14/25 at 1330, On hold since Tue03/14/2025 at 1329 until manually unheld 1329 (Held by provider - Provider: Maria G Jenkins PA-C - Reason: Other)1330 (Automatically Held) 0800 (Automatically Held)1416 (Unheld by provider - Provider: Orders Generic Provider) atorvastatin (LIPITOR) tablet 40 mg 40 mg, Oral, EVERY EVENING, First dose on Tawanna 03/14/25 at 1999 2017 ($Given - Provider: Milena Hogue RN) clopidogrel (PLAVIX) tablet 75 mg 75 mg, Oral, DAILY, First dose on [place]anna 03/14/25 at 1330, On hold since T[place]anna 03/14/2025 at 1329 until manually unheld 1329 (Held by provider - Provider: Maria G Jenkins PA-C - Reason: Other)1330 (Automatically Held) 0800 (Automatically Held)1416 (Unheld by provider - Provider: Orders Generic Provider) gabapentin (NEURONTIN) capsule 1,200 mg 1,200 mg, Oral, EVERY EVENING, First dose on [place]anna 03/14/25 at 1999 2017 ($Given - Provider: Milena Hogue RN) gabapentin (NEURONTIN) capsule 1,500 mg 1,500 mg, Oral, EVERY MORNING, First dose on [place]anna 03/14/25 at 1330 1359 (Not Given - Provider: Betty Manzanares RN - Reason: Other - Comment: partient took own home med supply that found in pocket) 1001 ($Given - Provider: Kary Head RN) iopamidol (ISOVUE-370) solution 500 mL (COMPLETED) 500 mL, Intravenous, ONCE, On [place]anna 03/14/25 at 0015, For 1 dose 0017 ($Given - Provider: JARRETT Andres) losartan (COZAAR) tablet 25 mg 25 mg, Oral, DAILY, First dose on [place] 03/14/25 at 1330, Hold if SBP <120 1359 ($Given - Provider: Betty Manzanares RN) 1001 ($Given - Provider: Kary Head RN) metoprolol succinate ER (TOPROL-XL) 24 hr half-tab 12.5 mg 12.5 mg, Oral, DAILY, First dose on [place]anna 03/14/25 at 1330, DO NOT CRUSH. Tablet may be split in half along score line. Hold if SBP <115 1359 ($Given - Provider: Betty Manzanares RN) 1001 ($Given - Provider: Kary Head, RN) nicotine (NICODERM CQ) 7 MG/24HR 24 hr patch 1 patch 1 patch, Transdermal, Administer over 24 Hours, DAILY, First dose on Tue03/14/25 at 0800, Reminder: Remove previous patch before applying new patch. Avoid heat exposure to application site or surrounding areas. This includes heat from external sources, such as heating pads, electric blankets, or other equipment. 0819 ($Patch/Med Applied - Provider: Betty Manzanares RN) 1004 ($Patch/Med Applied - Provider: Kary Head, RN)1116 (Patch/Med Removed - Provider: Shekhar Salcido RN)1216 (Due: Patch/Med Removed - Provider: Orders Generic Provider - Comment: Time automatically adjusted from order being discontinued) PARoxetine (PAXIL) tablet 60 mg 60 mg, Oral, EVERY MORNING, First dose on Tue03/15/25 at 0800 1001 ($Given - Provider: Kary Head, RN) piperacillin-tazobactam (ZOSYN) 3.375 g vial to attach to NS 100 mL bag Routine, 3.375 g, Intravenous, EVERY 6 HOURS, First dose on Tue03/14/25 at 0600, Lactated Ringer's solution is not compatible with piperacillin-tazobactam for injection., Indications: Intra-Abdominal Infection 0541 ($New Bag - Provider: Aryan Srinivasan RN)1121 ($New Bag - Provider: Betty Manzanares RN)1711 ($New Bag - Provider: Betty Manzanares RN) 0055 ($New Bag - Provider: Milena Hogue, DALIA)0545 ($New Bag - Provider: Milena Hogue, DALIA)1200 (Canceled Entry - Provider: Orders Generic Provider - Comment: Automatically canceled at discontinue of medication order) piperacillin-tazobactam (ZOSYN) 4.5 g vial to attach to NS 100 mL bag (COMPLETED) STAT, 4.5 g, Intravenous, ONCE, On Tue03/13/25 at 2300, For 1 dose, Lactated Ringer's solution is not compatible with piperacillin-tazobactam for injection., Indications: Intra-Abdominal Infection 2357 ($New Bag - Provider: Alondra Wilson RN) 0027 (Stopped - Provider: Rossy Claudio, DALIA) sodium chloride (PF) 0.9% PF flush 3 mL 3 mL, Intracatheter, EVERY 8 HOURS SCHEDULED, First dose on [place]anna 03/14/25 at 0600, to lock peripheral IV dormant line 0554 (Not Given - Provider: Aryan Srinivasan RN - Reason: IV Infusing)1312 (Not Given - Provider: Betty Manzanares RN - Reason: IV Infusing)2109 (Not Given - Provider: Milena Hogue RN - Reason: IV Infusing) 0613 (Not Given - Provider: Milena Hogue RN - Reason: IV Infusing)1400 (Canceled Entry - Provider: Orders Generic Provider - Comment: Automatically canceled at discontinue of medication order) sodium chloride 0.9 % bag for CT scan flush (COMPLETED) Intravenous, 100 mL, ONCE, On [place]anna 03/14/25 at 0015, For 1 dose, This entry is for use by Radiology to intermittently used as a flush in patients receiving a CT scan. 0017 ($Given - Provider: JARRETT Andres) sodium chloride 0.9% BOLUS 1,000 mL (COMPLETED) Intravenous, 1,000 mL, ONCE, at 1,000 mL/hr, Administer over 1 Hours, On Tue03/13/25 at 2300, For 1 dose 2323 ($New Bag - Provider: Alondra Wilsno RN) 0023 (Stopped - Provider: Rossy Claudio, DALIA) Continuous Medication Order 03/13/2025 03/14/2025 03/15/2025 sodium chloride 0.9 % infusion (CANCELED) at 75 mL/hr, Intravenous, CONTINUOUS, Starting on [place]anna 03/14/25 at 0300, Until Tue03/14/25 at 1423 0419 ($New Bag - Provider: Aryan Srinivasan RN) sodium chloride 0.9 % infusion at 75 mL/hr, Intravenous, CONTINUOUS, Starting on [place] 03/14/25 at 1430, Until Tue03/15/25 at 0529 1445 (ED/Periop/Clinic Infusing on Admission/transfer - Provider: Betty Manzanares RN) 0613 (Stopped - Provider: Milena Hogue, RN) PRN Medication Order 03/13/2025 03/14/2025 03/15/2025 acetaminophen (TYLENOL) Suppository 650 mg(Linked Group 1) 650 mg, Rectal, EVERY 4 HOURS PRN, mild pain, other, and adjunct with moderate or severe pain or per patient request, Starting on [place]anna 03/14/25 at 0215, Alternate with ibuprofen if ordered. Maximum acetaminophen dose from all sources = 75 mg/kg/day not to exceed 4 grams/day. 0820 (See Alternative - Provider: Betty Manzanares RN)1201 (See Alternative - Provider: Betty Manzanares RN)1557 (See Alternative - Provider: Betty Manzanares RN) acetaminophen (TYLENOL) tablet 650 mg(Linked Group 1) 650 mg, Oral, EVERY 4 HOURS PRN, mild pain, other, and adjunct with moderate or severe pain or per patient request, Starting on [place]anna 03/14/25 at 0215, Alternate with ibuprofen if ordered. Maximum acetaminophen dose from all sources = 75 mg/kg/day not to exceed 4 grams/day. 0820 ($Given - Provider: Betty Manzanares RN)1201 ($Given - Provider: Betty Manzanares RN)1557 ($Given - Provider: Betty Manzanares RN) HYDROmorphone (DILAUDID) half-tab 1 mg 1 mg, Oral, EVERY 4 HOURS PRN, moderate pain, IF pain not managed with non-pharmacological and non-opioid interventions, Starting on [place]anna 03/14/25 at 0216, May use concomitant with non-opioid analgesics. 1201 ($Given - Provider: Betty Manzanares RN)2017 ($Given - Provider: Milena Hogue, DALIA) 0055 ($Given - Provider: Milena Hogue, DALIA)1001 ($Given - Provider: Kary Head RN) HYDROmorphone (DILAUDID) injection 0.2 mg 0.2 mg, Intravenous, EVERY 2 HOURS PRN, moderate pain, IF patient cannot take oral opioid OR IF pain not managed with non-pharmacological, non-opioid, or oral opioid interventions if ordered, Starting on [place]anna 6/12/25 at 0216, May use concomitant with non-opioid analgesics. 0318 ($Given - Provider: Aryan Srinivasan, DALIA)0548 ($Given - Provider: Aryan Srinivasan RN) HYDROmorphone (DILAUDID) injection 0.4 mg 0.4 mg, Intravenous, EVERY 2 HOURS PRN, severe pain, IF patient cannot take oral opioid OR IF pain not managed with non-pharmacological, non-opioid, or oral opioid interventions if ordered, Starting on Tue03/14/25 at 0216, May use concomitant with non-opioid analgesics. HYDROmorphone (DILAUDID) tablet 2 mg 2 mg, Oral, EVERY 4 HOURS PRN, severe pain, IF pain not managed with non-pharmacological and non-opioid interventions, Starting on Tue03/14/25 at 0216, May use concomitant with non-opioid analgesics. 0825 ($Given - Provider: Betty Manzanares RN)1557 ($Given - Provider: Betty Manzanares RN) 0520 ($Given - Provider: Milena Hogue RN) HYDROmorphone (PF) (DILAUDID) injection 0.5 mg (CANCELED) 0.5 mg, Intravenous, EVERY 30 MIN PRN, moderate pain, severe pain, Starting on Tue03/13/25 at 2256, For 3 doses, Notify the provider to assess for uncontrolled pain or analgesic side effects. Hold while on IV MEAT BONER AND SLICER or with regular IV opioid dosing. 2334 ($Given - Provider: Alondra Wilson RN) 0141 ($Given - Provider: Rossy Claudio RN) melatonin tablet 5 mg 5 mg, Oral, AT BEDTIME PRN, sleep, Starting on Tue03/14/25 at 0216, Do not give unless at least 6 hours of uninterrupted sleep is expected. If patient has multiple medications ordered PRN sleep/insomnia, offer melatonin first. naloxone (NARCAN) injection 0.2 mg(Linked Group 2) 0.2 mg, Intravenous, EVERY 2 MIN PRN, opioid reversal, Starting on Tue03/14/25 at 0945, Administer intravenous route when available and notify provider when administered. For unintended sedation or respiratory depression if all of the below criteria are met: ~ respiratory rate LESS than or EQUAL to 8. ~SaO2 less than 92% and or/end-tidal CO2 is greater than 50. ~ the patient is receiving an opioid, has unintended sedations assessed as RASS (-3), and is currently not on mechanical ventilation. RASS scale moderate (-3) is movement or eye opening to voice but no eye contact. Patient Monitoring Once the patient has demonstrated a response to the naloxone, continue to monitor respiratory rate, depth, oxygen saturation and end-tidal CO2 (if available) every 15 minutes x 2, then every 30 minutes x 2, then every 1 hour x 1 after each naloxone dose. Consider transfer to ICU if patient respiratory parameters have not improved after 4 naloxone doses. naloxone (NARCAN) injection 0.2 mg(Linked Group 2) 0.2 mg, Intramuscular, EVERY 2 MIN PRN, opioid reversal, Starting on [place] 03/14/25 at 0945, Administer intramuscular if an intravenous route is not available and notify provider when administered. For unintended sedation or respiratory depression if all of the below criteria are met: ~ respiratory rate LESS than or EQUAL to 8. ~SaO2 less than 92% and or/end-tidal CO2 is greater than 50. ~ the patient is receiving an opioid, has unintended sedations assessed as RASS (-3), and is currently not on mechanical ventilation. RASS scale moderate (-3) is movement or eye opening to voice but no eye contact. Patient Monitoring Once the patient has demonstrated a response to the naloxone, continue to monitor respiratory rate, depth, oxygen saturation and end-tidal CO2 (if available) every 15 minutes x 2, then every 30 minutes x 2, then every 1 hour x 1 after each naloxone dose. Consider transfer to ICU if patient respiratory parameters have not improved after 4 naloxone doses. naloxone (NARCAN) injection 0.4 mg(Linked Group 2) 0.4 mg, Intravenous, EVERY 2 MIN PRN, opioid reversal, Starting on [place] 03/14/25 at 0945, Administer intravenous route when available and notify provider when administered. For unintended sedation or respiratory depression if all of the below criteria are met: ~ respiratory rate LESS than or EQUAL to 8. ~ SaO2 less than 92% and or/end-tidal CO2 is greater than 50. ~ the patient is receiving an opioid, has unintended sedation assessed as RASS (-4) or (-5) and patient is currently not on mechanical ventilation. RASS scale (-4) is deep sedation with no response to voice but movement or eye opening to physical stimulation. RASS scale (-5) is unarousable. Patient Monitoring Once the patient has demonstrated a response to the naloxone, continue to monitor respiratory rate, depth, oxygen saturation and end-tidal CO2 (if available) every 15 minutes x 2, then every 30 minutes x 2, then every 1 hour x 1 after each naloxone dose. Consider transfer to ICU if patient respiratory parameters have not improved after 4 naloxone doses. naloxone (NARCAN) injection 0.4 mg(Linked Group 2) 0.4 mg, Intramuscular, EVERY 2 MIN PRN, opioid reversal, Starting on [place] 03/14/25 at 0945, Administer intramuscular if an intravenous route is not available and notify provider when administered. For unintended sedation or respiratory depression if all of the below criteria are met: ~ respiratory rate LESS than or EQUAL to 8. ~ SaO2 less than 92% and or/end-tidal CO2 is greater than 50. ~ the patient is receiving an opioid, has unintended sedation assessed as RASS (-4) or (-5) and patient is currently not on mechanical ventilation. RASS scale (-4) is deep sedation with no response to voice but movement or eye opening to physical stimulation. RASS scale (-5) is unarousable. Patient Monitoring Once the patient has demonstrated a response to the naloxone, continue to monitor respiratory rate, depth, oxygen saturation and end-tidal CO2 (if available) every 15 minutes x 2, then every 30 minutes x 2, then every 1 hour x 1 after each naloxone dose. Consider transfer to ICU if patient respiratory parameters have not improved after 4 naloxone doses. nicotine (COMMIT) lozenge 2 mg 2 mg, Buccal, EVERY 1 HOUR PRN, nicotine withdrawal symptoms, Starting on [place]anna 03/14/25 at 0217, Allow lozenge to dissolve slowly. Do not swallow. Not to exceed 40 mg in a 24 hour time period. ondansetron (ZOFRAN) injection 4 mg (COMPLETED) 4 mg, Intravenous, EVERY 30 MIN PRN, nausea, vomiting, Administer over 2-5 Minutes, Starting on Tue03/13/25 at 2256, For 3 doses, May repeat in 30 minutes as needed, up to 3 doses. 2330 ($Given - Provider: Alondra Wilson RN) 0141 ($Given - Provider: Rossy Claudio RN)1525 ($Given - Provider: Betty Manzanares RN) QUEtiapine (SEROquel) tablet 25 mg 25 mg, Oral, AT BEDTIME PRN, sleep, Starting on [place]anna 03/14/25 at 1329 senna-docusate (SENOKOT-S/PERICOLACE) 8.6-50 MG per tablet 1 tablet(Linked Group 3) 1 tablet, Oral, 2 TIMES DAILY PRN, constipation, Starting on [place] 03/14/25 at 0213, If no bowel movement in 24 hours, increase to 2 tablets by mouth. IF more than 1 constipation PRN medication is ordered, administer step-garcia as indicated, moving to the next step ONLY if prior step ineffective. Step 1: senna-docusate (SENOKOT-S; PERICOLACE) OR bisacodyl (DULCOLAX) EC tablet Step 2: polyethylene glycol (MIRALAX/GLYCOLAX) Step 3: bisacodyl (DULCOLAX) suppository Step 4: enema Hold for loose stools. senna-docusate (SENOKOT-S/PERICOLACE) 8.6-50 MG per tablet 2 tablet(Linked Group 3) 2 tablet, Oral, 2 TIMES DAILY PRN, constipation, Starting on Tawanna 03/14/25 at 0213, IF more than 1 constipation PRN medication is ordered, administer step-garcia as indicated, moving to the next step ONLY if prior step ineffective. Step 1: senna-docusate (SENOKOT-S; PERICOLACE) OR bisacodyl (DULCOLAX) EC tablet Step 2: polyethylene glycol (MIRALAX/GLYCOLAX) Step 3: bisacodyl (DULCOLAX) suppository Step 4: enema Hold for loose stools. sodium chloride (PF) 0.9% PF flush 3 mL 3 mL, Intracatheter, EVERY 1 MIN PRN, line flush, other, to ensure patency or to lock dormant line, Starting on Tawanna 03/14/25 at 0213 Linked Groups Order Group 1: acetaminophen (TYLENOL) tablet 650 mgJump to med 650 mg, Oral, EVERY 4 HOURS PRN, mild pain, other, and adjunct with moderate or severe pain or per patient request, Starting on Tawanna 03/14/25 at 0215, Alternate with ibuprofen if ordered. Maximum acetaminophen dose from all sources = 75 mg/kg/day not to exceed 4 grams/day. Or acetaminophen (TYLENOL) Suppository 650 mgJump to med 650 mg, Rectal, EVERY 4 HOURS PRN, mild pain, other, and adjunct with moderate or severe pain or per patient request, Starting on Tawanna 03/14/25 at 0215, Alternate with ibuprofen if ordered. Maximum acetaminophen dose from all sources = 75 mg/kg/day not to exceed 4 grams/day. Group 2: naloxone (NARCAN) injection 0.2 mgJump to med 0.2 mg, Intravenous, EVERY 2 MIN PRN, opioid reversal, Starting on Tawanna 03/14/25 at 0945, Administer intravenous route when available and notify provider when administered. For unintended sedation or respiratory depression if all of the below criteria are met: ~ respiratory rate LESS than or EQUAL to 8. ~SaO2 less than 92% and or/end-tidal CO2 is greater than 50. ~ the patient is receiving an opioid, has unintended sedations assessed as RASS (-3), and is currently not on mechanical ventilation. RASS scale moderate (-3) is movement or eye opening to voice but no eye contact. Patient Monitoring Once the patient has demonstrated a response to the naloxone, continue to monitor respiratory rate, depth, oxygen saturation and end-tidal CO2 (if available) every 15 minutes x 2, then every 30 minutes x 2, then every 1 hour x 1 after each naloxone dose. Consider transfer to ICU if patient respiratory parameters have not improved after 4 naloxone doses. Or naloxone (NARCAN) injection 0.4 mgJump to med 0.4 mg, Intravenous, EVERY 2 MIN PRN, opioid reversal, Starting on Tawanna 03/14/25 at 0945, Administer intravenous route when available and notify provider when administered. For unintended sedation or respiratory depression if all of the below criteria are met: ~ respiratory rate LESS than or EQUAL to 8. ~ SaO2 less than 92% and or/end-tidal CO2 is greater than 50. ~ the patient is receiving an opioid, has unintended sedation assessed as RASS (-4) or (-5) and patient is currently not on mechanical ventilation. RASS scale (-4) is deep sedation with no response to voice but movement or eye opening to physical stimulation. RASS scale (-5) is unarousable. Patient Monitoring Once the patient has demonstrated a response to the naloxone, continue to monitor respiratory rate, depth, oxygen saturation and end-tidal CO2 (if available) every 15 minutes x 2, then every 30 minutes x 2, then every 1 hour x 1 after each naloxone dose. Consider transfer to ICU if patient respiratory parameters have not improved after 4 naloxone doses. Or naloxone (NARCAN) injection 0.2 mgJump to med 0.2 mg, Intramuscular, EVERY 2 MIN PRN, opioid reversal, Starting on Tawanna 03/14/25 at 0945, Administer intramuscular if an intravenous route is not available and notify provider when administered. For unintended sedation or respiratory depression if all of the below criteria are met: ~ respiratory rate LESS than or EQUAL to 8. ~SaO2 less than 92% and or/end-tidal CO2 is greater than 50. ~ the patient is receiving an opioid, has unintended sedations assessed as RASS (-3), and is currently not on mechanical ventilation. RASS scale moderate (-3) is movement or eye opening to voice but no eye contact. Patient Monitoring Once the patient has demonstrated a response to the naloxone, continue to monitor respiratory rate, depth, oxygen saturation and end-tidal CO2 (if available) every 15 minutes x 2, then every 30 minutes x 2, then every 1 hour x 1 after each naloxone dose. Consider transfer to ICU if patient respiratory parameters have not improved after 4 naloxone doses. Or naloxone (NARCAN) injection 0.4 mgJump to med 0.4 mg, Intramuscular, EVERY 2 MIN PRN, opioid reversal, Starting on Tawanna 03/14/25 at 0945, Administer intramuscular if an intravenous route is not available and notify provider when administered. For unintended sedation or respiratory depression if all of the below criteria are met: ~ respiratory rate LESS than or EQUAL to 8. ~ SaO2 less than 92% and or/end-tidal CO2 is greater than 50. ~ the patient is receiving an opioid, has unintended sedation assessed as RASS (-4) or (-5) and patient is currently not on mechanical ventilation. RASS scale (-4) is deep sedation with no response to voice but movement or eye opening to physical stimulation. RASS scale (-5) is unarousable. Patient Monitoring Once the patient has demonstrated a response to the naloxone, continue to monitor respiratory rate, depth, oxygen saturation and end-tidal CO2 (if available) every 15 minutes x 2, then every 30 minutes x 2, then every 1 hour x 1 after each naloxone dose. Consider transfer to ICU if patient respiratory parameters have not improved after 4 naloxone doses. Group 3: senna-docusate (SENOKOT-S/PERICOLACE) 8.6-50 MG per tablet 1 tabletJump to med 1 tablet, Oral, 2 TIMES DAILY PRN, constipation, Starting on Tawanna 03/14/25 at 0213, If no bowel movement in 24 hours, increase to 2 tablets by mouth. IF more than 1 constipation PRN medication is ordered, administer step-garcia as indicated, moving to the next step ONLY if prior step ineffective. Step 1: senna-docusate (SENOKOT-S; PERICOLACE) OR bisacodyl (DULCOLAX) EC tablet Step 2: polyethylene glycol (MIRALAX/GLYCOLAX) Step 3: bisacodyl (DULCOLAX) suppository Step 4: enema Hold for loose stools. Or senna-docusate (SENOKOT-S/PERICOLACE) 8.6-50 MG per tablet 2 tabletJump to med 2 tablet, Oral, 2 TIMES DAILY PRN, constipation, Starting on Tawanna 03/14/25 at 0213, IF more than 1 constipation PRN medication is ordered, administer step-garcia as indicated, moving to the next step ONLY if prior step ineffective. Step 1: senna-docusate (SENOKOT-S; PERICOLACE) OR bisacodyl (DULCOLAX) EC tablet Step 2: polyethylene glycol (MIRALAX/GLYCOLAX) Step 3: bisacodyl (DULCOLAX) suppository Step 4: enema Hold for loose stools. documented in this encounter Care Teams Tool Radial Drill Press Set Up Operator Relationship Specialty Start Date End Date No Ref-Primary, Physician PCP - General 03/13/25 documented as of this encounter
[2025-03-26 11:23] VITALS: BP 141/92; PULSE 67; RESP 18; TEMP 36.3; O2SAT 100; BMI 18.3
--- OUTSIDE RECORDS SUMMARY | 2025-03-26 12:08 | XMS_ITS | Clinical Summary ---
Author Organization [facility] Address [address] [place] [address] Care Team Providers Care Water Jet Operator Name Role Phone No Ref-Primary, Physician Primary Care Provider Allergies Active Allergy Reactions Criticality Noted Date Comments Codeine Unknown 06/09/2014 Lidocaine Swelling 10/14/2014 edema Procaine Unknown 10/14/2014 Phenazopyridine Unknown 10/14/2014 Medications ibuprofen (ADVIL/MOTRIN) 200 MG tablet Take 800 mg by mouth every 6 hours as needed for pain. Active PARoxetine (PAXIL) 30 MG tablet Take 60 mg by mouth every morning. Active QUEtiapine (SEROQUEL) 25 MG tablet Take 25 mg by mouth nightly as needed (sleep). Active albuterol (PROAIR HFA/PROVENTIL HFA/VENTOLIN HFA) 108 (90 Base) MCG/ACT inhaler Inhale 1-2 puffs into the lungs every 6 hours as needed for shortness of breath, wheezing or cough. Active amphetamine-dext roamphetamine (ADDERALL) 10 MG tablet Take 10 mg by mouth daily. At lunch time Active amphetamine-dext roamphetamine (ADDERALL XR) 20 MG 24 hr capsule Take 20 mg by mouth every morning. Active atorvastatin (LIPITOR) 40 MG tablet Take 40 mg by mouth daily. Active clopidogrel (PLAVIX) 75 MG tablet Take 75 mg by mouth daily. Active gabapentin (NEURONTIN) 300 MG capsule Take 1,500 mg by mouth every morning. Active gabapentin (NEURONTIN) 300 MG capsule Take 1,200 mg by mouth every evening. Active losartan (COZAAR) 25 MG tablet Take 25 mg by mouth daily. Active metoprolol succinate ER (TOPROL XL) 25 MG 24 hr tablet Take 12.5 mg by mouth daily. Active acetaminophen (TYLENOL) 500 MG tablet Take 1,000 mg by mouth every 6 hours as needed for mild pain. Active oxyCODONE (ROXICODONE) 5 MG tablet Take 5 mg by mouth every 6 hours as needed for severe pain. Active HYDROmorphone (DILAUDID) 2 MG tabletIndication s:Intra-abdomina l abscess post-procedure (H) Take 0.5 tablets (1 mg) by mouth every 6 hours as needed. 12 tablet 03/15/20 25 Active senna-docusate (SENOKOT-S/PERIC OLACE) 8.6-50 MG tabletIndication s:Drug-induced constipation Take 1 tablet by mouth 2 times daily as needed for constipation. 30 tablet 03/15/20 25 Active polyethylene glycol (MIRALAX) 17 GM/Dose powderIndication s:Drug-induced constipation Take 17 g (1 Capful) by mouth daily. 116 g 03/15/20 25 Active ibuprofen (ADVIL LIQUI-GEL) 200 mg cap [IBUPROFEN (ADVIL LIQUI-GEL) 200 MG CAP] Take by mouth. 05/10/20 13 025 Discontinu ed(Med Rec(No AVS / No eCancel)) fluticasone (FLONASE) 50 mcg/actuation nasal spray [FLUTICASONE (FLONASE) 50 MCG/ACTUATION NASAL SPRAY] 05/23/20 15 025 Discontinu ed(Med Rec(No AVS / No eCancel)) azithromycin (ZITHROMAX Z-RONAL) 250 MG tablet [AZITHROMYCIN (ZITHROMAX Z-RONAL) 250 MG TABLET] 2 tablets today and then 1 pill a day for 4 days. 6 tablet 0 06/05/20 15 025 Discontinu ed(Med Rec(No AVS / No eCancel)) PARoxetine (PAXIL) 30 MG tabletIndication s:Anxiety [PAROXETINE (PAXIL) 30 MG TABLET] Take 1 tablet (30 mg total) by mouth 2 (two) times a day. 180 tablet 3 09/17/20 15 025 Discontinu ed(Med Rec(No AVS / No eCancel)) QUEtiapine (SEROQUEL) 50 MG tabletIndication s:Anxiety [QUETIAPINE (SEROQUEL) 50 MG TABLET] Take 1-2 tablets (50-100 mg total) by mouth 3 (three) times a day as needed. Maximum of 4 a day. 240 tablet 5 09/17/20 15 025 Discontinu ed(Med Rec(No AVS / No eCancel)) ALPRAZolam (XANAX) 2 MG tabletIndication s:Anxiety [ALPRAZOLAM (XANAX) 2 MG TABLET] Prescription declined. Must get through new provider. 0.1 tablet 0 01/05/20 16 025 Discontinu ed(Med Rec(No AVS / No eCancel)) amoxicillin-clav ulanate (AUGMENTIN) 875-125 MG tablet Take 1 tablet by mouth 2 times daily. 025 Discontinu ed(Stop at Discharge) amoxicillin-clav ulanate (AUGMENTIN) 875-125 MG tabletIndication s:Intra-abdomina l abscess post-procedure (H) Take 1 tablet by mouth 2 times daily for 5 days. 10 tablet 03/15/20 25 025 Active Problems Problem Noted Date Diagnosed Date Peritonitis 03/14/2025 Intraabdominal fluid collection 03/14/2025 CHRONIC PAIN PATIENT - Contract done 03/07/1503/2015 Overview (04/03/2021): Pain management done by Benjamin Almaraz MD. Hydrocodone is not to exceed 4 a day. Xanax is not to go up higher. 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 Encounters Date Type Department Care Team Description 03/13/2025 10:42 PM CDT - 03/15/2025 12:16 PM CDT Hospital Encounter [facility] Observation Dept [address] [place] [address] Rubén Burnett MD McDonald, Lindsey E, DO Asumeng, Gabriel, MD Abscess of abdominal cavity (H) (Primary Dx); Peritonitis (H); Intraabdominal fluid collection; Intra-abdominal abscess post-procedure (H); Drug-induced constipation Discharge Disposition: Home or Self Care 03/13/2025 Travel from Last 3 Months Immunizations Immunization Administration Dates Next Due Flu-nasal, Unspecified 09/03/2011 HepB, Unspecified 09/07/2000 TDAP (Adacel,Boostrix) 09/03/2011 Family History Medical History Relation Comments Hypertension Mother Multiple Sclerosis Mother Hypertension Paternal Grandmother Relation Status Comments Daughter 1 Alive Daughter 2 Alive Mother Alive Paternal Grandmother Son 1 Alive Son 2 Alive Son 3 Alive Social History Tobacco Use Types Packs/Day [...] Date Recorded Do you have housing? (Adair g is defined as stable permanent housing and does not include staying outside in a car, in a tent, in an abandoned building, in an overnight long term, or couch-surfing.) Yes 03/14/2025 Are you worried [...] on file Sexual Orientation Not on file Last Filed Vital Signs Vital Sign Reading [...] Mass Index 18.61 03/14/2025 2:55 AM CDT Plan of Treatment Health Maintenance Due Date Last Done Comments ADVANCE CARE PLANNING 1981 ANNUAL REVIEW OF HM ORDERS 1981 LIPID 1981 MAMMO SCREENING 1981 PNEUMOCOCCAL VACCINE: PEDIATRICS (0 to 5 YEARS) AND AT-RISK PATIENTS (6 to 49 YEARS) (1 of 2 - PCV) 2000 HEPATITIS B VACCINE (3 of 3 - 19+ 3-dose series) 07/12/2023 05/17/2023, 09/07/2000 COVID-19 VACCINE (1 - 2023-2 5 season) 2024 PHQ-2 (once per calendar year) 2024 INFLUENZA VACCINE (Season Ended) 2025 06/29/2010, 08/05/2009, 08/18/2004 MEDICARE ANNUAL WELLNESS VISIT 09/19/2025 09/19/2024 PAP 09/19/2027 09/19/2024 DIABETES SCREENING 03/15/2028 03/15/2025, 03/14/2025, 03/13/2025 ZOSTER VACCINE (1 of 2) 2031 DTAP/TDAP/TD VACCINE (3 - Td or Tdap) 02/20/2034 02/21/2024, 09/03/2011 HEPATITIS C SCREENING Completed 05/10/2023 HIV SCREENING Completed 02/04/2024 HPV VACCINE Aged Out No longer eligi ble based on patient's age to complete this topic MENINGITIS VACCINE Aged Out No longer eligible based on patient's age to complete this topic Procedures Procedure Name Priority Date/Time Associated Diagnosis Comments CBC WITH PLATELETS & DIFFERENTIAL Routine 03/15/2025 5:43 AM CDT CBC WITH PLATELETS AND DIFFERENTIAL Routine 03/15/2025 5:43 AM CDT BASIC METABOLIC PANEL Routine 03/15/2025 5:43 AM CDT CBC WITH PLATELETS Routine 03/14/2025 5: 43 AM CDT BASIC METABOLIC PANEL Routine 03/14/2025 5:[address] ABDOMEN PELVIS W CONTRAST STAT 03/14/2025 12:24 AM CDT BLOOD CULTURE STAT 03/13/2025 11:38 PM CDT CBC WITH PLATELETS & DIFFERENTIAL STAT 03/13/2025 11:21 PM CDT BLOOD CULTURE STAT 03/13/2025 11:21 PM CDT RBC AND PLATELET MORPHOLOGY STAT 03/13/2025 11:21 PM CDT CBC WITH PLATELETS AND DIFFERENTIAL STAT 03/13/2025 11:21 PM CDT LACTIC ACID WHOLE BLOOD WITH 1X REPEAT IN 2 HR WHEN >2 STAT 03/13/2025 11:21 PM CDT COMPREHENSIVE METABOLIC PANEL STAT 03/13/2025 11:21 PM CDT from Last 3 Months Results * (ABNORMAL) CBC with platelets and differential (03/15/2025 5:43 AM CDT) Only the most recent of2 resultswithin the time period is included. [facility] WBC Count 9.6 4.0 - 11.0 10e3/uL [...] - 0.2 10e3/uL 03/15/2025 5:55 AM CDT LABORATORY Absolute Immature Granulocytes 0.1 <=0.4 10e3/uL 03/15/2025 5:55 AM CDT LABORATORY Absolute NRBCs 0.0 10e3/uL 03/15/2025 5:55 AM CDT LABORATORY Blood STRUCTURE OF LEFT HAND / Unknown Venipuncture / Unknown 03/15/2025 5:43 AM CDT 03/15/2025 5:53 AM CDT Maria G Jenkins PA-C LAB - BLOOD ORDERABLES F inal Result LABORATORY [facility] [address] [facility], no room number) [place] [address] * (ABNORMAL) Basic metabolic panel (03/15/2025 5:43 AM CDT) Only the most recent of2 resultswithin the time period is included. Sodium 144 135 - 145 mmol/L 03/15/2025 [...] 03/15/2025 6:17 AM CDT LABORATORY Comment:eGFR calculated us2020 CKD-EPI equation. Calcium 7.9(L) 8.8 - 10.4 mg/dL 03/15/2025 6:17 AM CDT [facility] LABORATORY Glucose 92 70 - 99 mg/dL 03/15/2025 6:17 AM CDT [facility] LABORATORY Blood STRUCTURE OF LEFT HAND / Unknown Venipuncture / Unknown 03/15/2025 5:43 AM CDT 03/15/2025 5:53 AM CDT us Maria G Jenkins PA-C LAB - BLOOD ORDERABLES F inal Result [facility] LABORATORY [facility] [address] Lab (1st floor, no room number) [place] [address], [facility] * (ABNORMAL) CBC with platelets (03/14/2025 5:43 [...] MD LAB - BLOOD ORDERABLES Final Result [facility] [address] [facility] Lab (1st floor, no room number) [place] [address], [facility] * CT Abdomen Pelvis w Contrast (03/14/2025 [...] EXAM: CT ABDOMEN PELVIS W CONTRAST LOCATION: [facility] DATE: 03/14/2025 INDICATION: post op pain [...] EXAM: CT ABDOMEN PELVIS W CONTRAST LOCATION: [facility] DATE: 03/14/2025 INDICATION: post op pain [...] throughout colon consistent with a diarrheal state. Rubén Burnett MD IMG CT ORDERABLES Final Resul t * Blood Culture Peripheral blood (BC) Arm, Left (03/13/2025 11:38 PM CDT) Only the most recent of2 resultswithin the time period is included. [facility] Culture No Growth 03/19/2025 2:16 AM CDT [facility] Peripheral blood (BC) STRUCTURE OF LEFT UPPER LIMB / Unknown Venipuncture / Unknown 03/13/2025 11:38 PM CDT 03/13/2025 11:43 PM CDT Rubén Burnett MD LAB - MICRO GENERAL ORDERABLE S Final Result [facility] LABORATORY [facility]. [facility] Lab [address] [facility] [place] [address], [facility] * Lactic Acid Whole Blood with 1X Repeat in 2 HR when >2 (03/13/2025 11:21 PM CDT) [facility] Lactic Acid, Initial 0.9 0.7 - 2.0 mmol/L 03/13/2025 11:35 PM CDT [facility] LABORATORY Blood BLOOD SPECIMEN / Unknown Venipuncture / Unknown 03/13/2025 11:21 PM CDT 03/13/2025 11:29 PM CDT Rubén Burnett MD LAB - BLOOD ORDERABLES Final Result Performing Organization Address [facility] de Phone Number LABORATORY [facility] Lab [address] Lab (1st floor, no room number) [address] [place] [address] * (ABNORMAL) RBC and Platelet Morphology (03/13/2025 11:21 PM CDT) RBC Morphology Confirmed RBC Indices 03/14/2025 1:48 [...] MD LAB - BLOOD ORDERABLES Final Result Performing Organization Address [facility] de Phone Number [facility] Lab [address] Lab (1st floor, no room number) [address] * (ABNORMAL) Comprehensive metabolic panel (03/13/2025 11:21 [...] 22 - 29 mmol/L 03/13/2025 11:54 PM T LABORATORY Anion Gap 13 7 - 15 mmol/L 03/13/2025 11:54 PM T LABORATORY Urea Nitrogen 6.6 6.0 - 20.0 mg/dL 03/13/2025 11:54 PM T LABORATORY Creatinine 0.57 0.51 - 0.95 mg/dL 03/13/2025 11:54 PM CDT LABORATORY GFR Estimate >90 >60 mL/min/1.7 3m2 03/13/2025 11:54 PM CDT LABORATORY Comment:eGFR calculated usin 2020 CKD-EPI equation. Calcium 8.3(L) 8.8 - 10.4 mg/dL 03/13/2025 11:54 PM T LABORATORY Chloride 96(L) 98 - 107 mmol/L 03/13/2025 11:54 PM T LABORATORY Glucose 118(H) 70 - 99 mg/dL 03/13/2025 11:54 PM T LABORATORY Alkaline Phosphatase 74 40 - 150 U/L 03/13/2025 11:54 PM T LABORATORY AST 34 0 - 45 U/L 03/13/2025 11:54 PM T LABORATORY Comment:Specimen is hemolyze d which can falsely elevate AST. Analysis of a non-hemolyzed specimen may result in a lower value. ALT 12 0 - 50 U/L 03/13/2025 11:54 PM T LABORATORY Protein Total 7.0 6.4 - 8.3 g/dL 03/13/2025 11:54 PM T LABORATORY Albumin 3.3(L) 3.5 - 5.2 g/dL 03/13/2025 11:54 PM T LABORATORY Bilirubin Total 0.2 <=1.2 mg/dL 03/13/2025 11:54 PM T LABORATORY Blood BLOOD SPECIMEN / Unknown Venipuncture / Unknown 03/13/2025 11:21 PM CDT 03/13/2025 11:29 PM CDT us Rubén Burnett MD LAB - BLOOD ORDERABLES Final Result LABORATORY [facility] Lab [address] Lab (1st floor, no room number) [place] [address], [facility] from Last 3 Months Insurance MEDICARE Advance Directives For more information, please contact: [phone] * Full Code (Latest Code Status on File) Date Activated Date Inactivated Comments 03/14/2025 2:17 AM 03/15/2025 2:16 PM All basic an d advanced life-sustaining interventions are performed as appropriate Question Answer Comments Code status determined by: Discussion with patie nt/ legal decision maker Care Teams Water Jet Operator Relationship Specialty Start Date End Date No Ref-Primary, Physician PCP - General 03/13/25
--- OUTSIDE RECORDS SUMMARY | 2025-03-26 12:08 | XMS_ITS ---
Author Organization [facility] Address [address] [place] [id number] Care Team Providers Care Power Line Installer Name Role Phone No Ref-Primary, Physician Primary Care Provider Primary Care Care Coordination Status:Closed (Closed) Start date:03/16/2025 End date:03/16/2025 Close reason:Duplication of Care Management services Continued Care and Services Coordination
--- OUTSIDE RECORDS SUMMARY | 2025-03-26 12:08 | XMS_ITS | Clinical Summary ---
Author Organization [employer] [facility] Address [address] [place] [address] Care Team Providers Care Call Center Analyst Name Role Phone Benjamin Almaraz Hardik Unavailable Marce Mota NP Primary Care Provider [phone] Allergies Active Allergy Reactions Criticality Noted Date Comments Codeine 01/13/2010 Lidocaine Edema 03/25/2008 Morphine Anxiety,Agitation 11/11/2023 Procaine 01/13/2010 Medications rizatriptan (MAXALT WINDOW GLAZIER) 10 mg disintegrating tabletIndications: Atypical migraine Place [...] daily. 270 Capsule 1 02/26/20 25 Active oxyCODONE 5 mg immediate release tabletIndications: S/P appendectomy, follow-up exam,Generalized abdominal pain Take 1 Tablet (5 mg) by mouth every 6 hours if needed for Pain. 10 Tablet 03/19/20 25 Active metroNIDAZOLE 500 mg tabletIndications: Infection of organ or organ space after surgery, subsequent encounter Take 1 Tablet (500 mg) by mouth two times daily. 10 Tablet 03/19/20 25 Active gabapentin (NEURONTIN) 300 mg capsuleIndications :Anxiety Take 3 Capsules (900 mg) by mouth three times daily. 270 Capsule 2 12/06/19 25 025 Discontinu ed(*Availa bility/For mulary change/Cos t of medication ) dextroamphetamine- amphetamine (Adderall XR) 20 mg Extended-Release capsuleIndications :Attention deficit hyperactivity disorder (ADHD), unspecified ADHD type Take 1 Capsule (20 mg) by mouth once daily. 30 Capsule 01/28/20 25 025 fluconazole (Diflucan) 150 mg tabletIndications: Yeast infection Take 1 Tablet (150 mg) by mouth one time for 1 dose. 1 Tablet 03/19/20 25 025 cefuroxime axetil 250 mg tabletIndications: Infection of organ or organ space after surgery, subsequent encounter Take 2 Tablets (500 mg) by mouth two times daily for 5 days. 20 Tablet 03/19/20 25 025 Active Problems Problem Noted Date [...] cervical 03/22 Overview (10/26/2024): 07/2017 ASCUS/HPV+ 08/2017 [place]: No abnormality 01/2023 ASCUS/HPV Negative 09/2024 ASCUS/HPV [...] disorder 05/18/2024 06/12/2024 Polysubstance abuse 11/10/2023 06/12/20 Anxiety 03/28/2023 06/12/2024 Anxiety and depression 09/24/202006/12 Menstrual period late 09/24/20202023 Bipolar 1 disorder, depressed, moderate 05/20/2017 06/12/2024 Schizophrenia 05/20/2017 06/12/2024 Gestational diabetes mellitus 11/08/2011 02/10/2012 History of oligohydramnios i n prior , currently 09/03/2011 02/07/2024 Kidney stones 01/13/2010 02/07/2024 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 Martinez 03/08,reports to [facility] ED with possible abscess on CT) 03/11/2025 Travel 03/11/2025 Lab Requisition [facility] [phone] Flor Martinez MD 03/08/2025 8:00 AM CDT Office Visit [facility] at [address] [address] Flor Martinez MD 03/08/2025 Orders Only [facility] Scanner 1 scan: (1-Ord) [facility], CHEST 1V PORTABLE, 03/08/2025 03/08/2025 Orders Only [facility] Scanner 1 scan: (1-Ord) [place], ABDOMEN PELVIS W CON , 03/08/2025 03/06/2025 Telephone [facility] [address] [place] [address] Chavo Billy, Hospital F/U (Discussed patient with radiology, Dr. [...] CDT - 03/05/2025 1:42 PM CDT Emergency [facility] [address] [place] [address] Emmy Escudero MD Nausea and vomiting, unspecified vomiting type (Primary Dx); Ovarian cyst, follicular Discharge Disposition: Home Self Care 03/05/2025 Travel 02/23/2025 Refill [facility] [address] [place] [address] Nancy Mcdaniel NP Refill Request (Gabapentin) 02/01/2025 10:55 AM CDT - 02/01/2025 11:36 AM CDT Emergency [facility] [address] [place] [address] Genny Maynard DO Sore throat (Primary Dx); Elevated blood pressure reading Discharge Disposition: Home Self Care 02/01/2025 10:30 AM CDT Nurse/Clinic Staff Only [facility] [address] [place] [address] Blood Pressure 02/01/[address] [place] [address] Marce Mota NP Blood Pressure 02/01/2025 Travel 01/20/[address] [place] [address] Marce Mota NP Blood Pressure 01/11/2025 11:30 AM CDT Orders Only [address] [address] Lab, [facility] 01/11/2025 Travel 01/01/[address] [place] [address] Marce Mota NP Refill Request (Clopidogrel) from Last 3 Months Immunizations Immunization Administration [...] on file Legal Sex Female 5:31 AM OBIEE [employer]IA SOLUTION ARCHITECT Gender Identity Not on file Sexual Orientation [...] 37w 0d M Vag Livin g Sd 2008 SAB 5w0 d 2007 SAB /200 9 SAB 8w0 d Comments:d&c x2 after that preg. 2008 Term F Vag Livin g [place] y 2010 Term 39w 0d 9h 00m/ F Vag Livin g Baya Navneet 2011 Term 40w 0d 5h 00m/ 2.89 kg (6 lb 6 oz) M Vag Livin g Douglas Ovalles Delivery Location:[facility] Comments:System Genera maritza. Please review and update details. Last Filed Vital Signs Vital Sign Reading Time Taken Comments Blood Pressure 126/82 03/19/2025 2:54 PM CDT Pulse 85 03/19/2025 2:54 PM CDT Temperature 36.4 C (97.6 F) 03/05/2025 9:00 AM CDT Respiratory Rate 20 03/05/2025 9:00 AM CDT Oxygen Saturation 100% 03/19/2025 2:54 PM CDT Inhaled Oxygen Concentration - - Weight 52.8 kg (116 lb 4.8 oz) 03/19/2025 2:54 P M CDT Height 170.2 cm (5' 7) 03/05/2025 9:16 AM CDT Body Mass Index 18.22 03/05/2025 9:16 AM CDT Plan of Treatment Upcoming Encounters Date Type Department Care Team (Late st Contact Info) Description 06/28/2025 10:25 AM CDT Office Visit [facility] [address] [place] [address] Marce Mota NP [address] [place] [address] Health Maintenance Due Date Last Done Comments [...] Priority Date/Time Associated Diagnosis Comments CBC WITH AUTO DIFFERENTIAL Routine 03/19/2025 3:30 PM CDT S/P appendectomy, follow-up exam Generalized abdominal pain C-REACTIVE PROTEIN Routine 03/19/2025 3: 30 PM CDT S/P appendectomy, follow-up exam Generalized abdominal pain UA W/ SEDIMENT EXAM REFLEXED PER CRITERIA Routine 03/19/2025 3:29 PM CDT S/P appendectomy, follow-up exam Generalized abdominal pain PATH TISSUE EXAM Routine 03/08/2025 10:0 8 PM CDT LAB TRACKING EVENT Routine 03/08/2025 12 :00 PM CDT MO LAPAROSCOPIC APPENDECTOMY Routine 03/08/2025 12:00 AM CDT Acute appendicitis with generalized peritonitis and gangrene, without abscess, unspecified whether perforation present SCAN-RADIOLOGY REPORT 03/08/2025 12:00 AM CDT SCAN-CT INTERPRETATION 12:00 AM CDT US PELVIS COMPLETE TA AND TV WITH DUPLEX STAT 03/05/2025 1:06 PM CDT LACTATE VENOUS STAT 03/05/2025 11:[address] ABDOMEN PELVIS W STAT 03/05/2025 1 1:02 AM CDT URINALYSIS MICROSCOPIC STAT 10:04 AM CDT URINE STAT 03/05/2025 10:04 AM CDT UA W/ SEDIMENT EXAM REFLEXED PER CRITERIA STAT 03/05/2025 10:04 AM CDT CBC WITH AUTO DIFFERENTIAL STAT 03/05/2025 9:22 AM CDT LIPASE STAT 03/05/2025 9:22 AM CDT HEPATIC FUNCTION PANEL STAT 9:22 AM CDT LACTATE VENOUS STAT 03/05/2025 [...] 01/11/2025 12:07 PM CDT Diabetes mellitus screening HUMAN GEOGRAPHY INSTRUCTOR THIN PREP PAP DIAGNOSTIC IMAGED Routine 09/19/2024 2:17 PM OBIEE [employer]IA SOLUTION ARCHITECT ASCUS with positive high risk HPV cervical ANTI HIV 1/2 Routine 02/04/2024 9:14 AM CDT Screen for STD (sexually transmitted disease) LC HCV ANTIBODY RFX TO QUANT PCR Routine 05/10/2023 1:30 PM CDT Need for hepatitis C screening test from Last 3 Months or Most Recently Relevant to Health Maintenance Results * C-REACTIVE PROTEIN (03/19/2025 3:30 PM CDT) [facility] C-REACTIVE PROTEIN 4.7 <8.0 mg/L [facility] Blood BLOOD SPECIMEN / Unknown 03/19/2025 3:30 PM CDT 03/19/2025 3:30 PM CDT us Flor Martinez MD CHEMISTRY Final Re sult [employer] [facility] [address] [place] [address], [facility] [address] [place] [address] * (ABNORMAL) CBC AND DIFFERENTIAL (03/19/2025 3:30 PM CDT) Only the most recent of2 resultswithin the time period is included. [facility] WHITE BLOOD CELL COUNT 8.7 3.8 - 10.8 Thousand/u L [facility] RED BLOOD CELL COUNT 4.02 3.80 - 5.10 Million/uL [facility] HEMOGLOBIN 12.3 11.7 - 15.5 g/dL [facility] HEMATOCRIT 38.1 35.0 - 45.0 % [facility] MCV 94.8 80.0 - 100.0 fL [facility] MCH 30.6 27.0 - 33.0 pg [facility] MCHC 32.3 32.0 - 36.0 g/dL [facility] Comment: For adults, a slight decrease in the calculated MCHC value (in the range of 30 to 32 g/dL) is most likely not clinically significant; however, it should be interpreted with caution in correlation with other red cell parameters and the patient's clinical condition. RDW 13.2 11.0 - 15.0 % [facility] PLATELET COUNT 646(H) 140 - 400 Thousand/u L [facility] MPV 10.2 7.5 - 12.5 fL [facility] ABSOLUTE NEUTROPHILS 5,220 1,500 - 7,800 cells/uL [facility] ABSOLUTE LYMPHOCYTES 2,375 850 - 3,900 cells/uL [facility] ABSOLUTE MONOCYTES 974(H) 200 - 950 cells/uL [facility] ABSOLUTE EOSINOPHILS 61 15 - 500 cells/uL [facility] ABSOLUTE BASOPHILS 70 0 - 200 cells/uL [facility] NEUTROPHILS 60 % [facility] LYMPHOCYTES 27.3 % [facility] MONOCYTES 11.2 % [facility] EOSINOPHILS 0.7 % [facility] BASOPHILS 0.8 % [facility] Blood BLOOD SPECIMEN / Unknown 03/19/2025 3:30 PM CDT 03/19/2025 3:30 PM CDT us Flor Martinez MD HEMATOLOGY Final Re sult [facility] [address] [place] [address], [facility] [address] [place] [phone] * (ABNORMAL) UA W/ SEDIMENT EXAM REFLEXED PER CRITERIA (03/19/2025 3:29 PM CDT) Only the most recent of2 resultswithin the time period is included. COLOR Yellow Yellow Color 03/19/2025 11:23 PM CDT [facility] CLARITY Clear Clear Clarity 03/19/2025 11:23 PM CDT [facility] SPECIFIC GRAVITY,URINE 1.025 1.010, 1.015, 1.020, 1.025 03/19/2025 11:23 PM CDT [facility] PH,URINE 6.5 6.0, 7.0, 8.0, 5.5, 6.5, 7.5, 8.5 03/19/2025 11:23 PM CDT [facility] UROBILINOGEN, QUALITATIVE Normal Normal EU/dl 03/19/2025 11:23 PM CDT [facility] PROTEIN, URINE Negative Negative mg/dL 03/19/2025 11:23 PM CDT [facility] GLUCOSE, URINE Negative Negative mg/dL 03/19/2025 11:23 PM CDT [facility] KETONES,URINE Trace(A) Negative mg/dL 03/19/2025 11:23 PM CDT [facility] BILIRUBIN,URI NE Negative Negative 03/19/2025 11:23 PM CDT [facility] OCCULT BLOOD,URINE Negative Negative 03/19/2025 11:23 PM CDT [facility] NITRITE Negative Negative 03/19/2025 11:23 PM CDT [facility] LEUKOCYTE ESTERASE Negative Negative 03/19/2025 11:23 PM CDT [facility] Urine URINE SPECIMEN / Unknown Non-Blood / Unknown 03/19/2025 3:29 PM CDT 03/19/2025 3:29 PM CDT us Flor Martinez MD URINE Final Re sult [facility] [address] [place] [address], * PATH TISSUE EXAM (03/08/2025 10:08 PM CDT) Case Report Pathology Report Case: [id number] Authorizing Provider: Flor Martinez MD Collected: 03/08/20259 Ordering Location: [facility] Received: 03/11/2025 1644 Pathologist: Christofer Muhammad MD Specimen: Appendix 03/12/2025 3:45 PM CDT [facility] Final Diagnosis A) APPENDIX, APPENDECTOMY: 1. Acute appendicitis and periappendicitis 2. Negative for neoplasm 03/12/2025 3:45 PM CDT [facility] at 1545 CDT Clinical Information Ms. Cunningham is a 44 y.o. who undergoes appendectomy. 03/12/2025 3:45 PM CDT [facility] Gross Description A) Received in formalin, labeled with the patient's name and appendix, is a 5.3 cm long, 1 cm diameter appendix with dull hemorrhagic serosa and diffuse, dense fibropurulent exudate. On cut surface the lumen is stellate and the mucosa is oorna, glistening and hemorrhagic. No lesion is identified. Evidence of perforation is not seen. The margin is inked orange and manufacturer representative sections are submitted in 1 cassette. DPL 03/11/2025 03/12/2025 3:45 PM CDT [facility] Microscopic Description The final diagnosis is based on microscopic examination of appropriate sections of all specimens. 03/12/2025 3:45 PM CDT [facility] Additional Information Interpreted at [facility] - [address] [place], [place] [id number] 03/12/2025 3:45 PM CDT [facility] Other APPENDIX SPECIMEN / Unknown 03/08/2025 10:08 PM CDT 03/11/2025 4:44 PM CDT Flor Martinez MD PATHOLOGY/CYTOLOGY Final Result Performing Organization Address [facility]/ZIP Co de Phone Number [facility] [address] [place] [address], * LAB TRACKING EVENT (03/08/2025 12:00 PM CDT) Other (Other) Client Collect / Unknown 03/08/2025 12:00 PM CDT 03/11/2025 3:27 PM CDT Flor Martinez MD LAB BILL ONLY Final Re sult [facility] [address] [address], [place] * [place] LAPAROSCOPIC APPENDECTOMY (03/08/2025 12:00 AM CDT) us Flor Martinez MD PB - DIGESTIVE SYSTEM SE RVICES Final Result * SCAN-RADIOLOGY REPORT (03/08/2025 12:00 AM CDT) Anatomical Region Laterality Modality Other us Scanner OTHER Final Result * SCAN-CT INTERPRETATION (03/08/2025 12:00 AM CDT) Anatomical Region Laterality Modality Other us Scanner OTHER Final Result * US PELVIS COMPLETE TA AND TV [...] 1:32:04 PM (Electronically Signed) Emmy Escudero MD Final Result * LACTATE VENOUS (03/05/2025 11:37 AM CDT) Only the most recent of2 resultswithin the time period is included. LACTATE,VENOUS 0.8 0.5 - 2.0 mmol/L 03/05/2025 12:04 PM CDT [facility] Blood BLOOD SPECIMEN / Unknown Venipuncture / Unknown 03/05/2025 11:37 AM CDT 03/05/2025 11:43 AM CDT us Emmy Escudero MD CHEMISTRY Final Result [facility] [address] [place] [address] * CT ABD/PELVIS W IV CONTRAST (03/05/2025 [...] 03/06/2025 at 8:45 a.m. BENJAMIN WALTERS M.D. [email or web address] [email or web address] Impressions 03/05/2025 11:31 AM CDT 1. [...] For Patients: As a result of the 21st Century Cures Act, medical imaging exams and [...] None Seen /HPF 03/05/2025 10:22 AM CDT [facility] WBC 0-2 0-2, 3-5, None Seen /HPF 03/05/2025 10:22 AM CDT [facility] BACTERIA Few None Seen, Rare, Few Bacteria/ HPF 03/05/2025 10:22 AM CDT [facility] EPITHELIAL CELLS Moderate(A) None Seen, Few Epi/HPF 03/05/2025 10:22 AM CDT [facility] Mucus Present 03/05/2025 10:22 AM T [facility] Urine URINE SPECIMEN / Unknown Non-Blood / Unknown 03/05/2025 10:04 AM CDT 03/05/2025 10:11 AM CDT Emmy Escudero MD URINE Final Result [facility] [address] [place] [address] * URINE (03/05/2025 10:04 AM CDT) [facility] ,URIN E Negative Negative 03/05/2025 10:15 AM [facility] Urine URINE SPECIMEN / Unknown Non-Blood / Unknown 03/05/2025 10:04 AM CDT 03/05/2025 10:11 AM CDT us Emmy Escudero MD URINE Final Result [facility] [address] [place] [address] * CBC WITH AUTO DIFFERENTIAL (03/05/2025 9:22 AM CDT) [facility] WHITE BLOOD COUNT 9.0 4.5 - 11.0 thou/cu mm 03/05/2025 9:32 AM [facility] RED BLOOD COUNT 4.94 4.00 - 5.20 mil/cu mm 03/05/2025 9:32 AM [facility] HEMOGLOBIN 15.2 12.0 - 16.0 g/dL 03/05/2025 9:32 AM [facility] HEMATOCRIT 45.3 33.0 - 51.0 % 03/05/2025 9:32 AM [facility] MCV 92 80 - 100 fL 03/05/2025 9:32 AM [facility] MCH 30.8 26.0 - 34.0 pg 03/05/2025 9:32 AM [facility] MCHC 33.6 32.0 - 36.0 g/dL 03/05/2025 9:32 AM [facility] RDW 13.8 11.5 - 15.5 % 03/05/2025 9:32 AM [facility] PLATELET COUNT 273 140 - 440 thou/cu mm 03/05/2025 9:32 AM [facility] MPV 10.1 6.5 - 11.0 fL 03/05/2025 9:32 AM [facility] % NEUT 72.9 % 03/05/2025 9:32 AM [facility] % LYMPH 20.1 % 03/05/2025 9:32 AM [facility] % MONO 6.5 % 03/05/2025 9:32 AM [facility] % EOS 0.3 % 03/05/2025 9:32 AM [facility] % BASO 0.2 % 03/05/2025 9:32 AM [facility] ABSOLUTE NEUTROPHILS 6.6 1.7 - 7.0 thou/cu mm 03/05/2025 9:32 AM [facility] ABSOLUTE LYMPHOCYTES 1.8 0.9 - 2.9 thou/cu mm 03/05/2025 9:32 AM T [facility] ABSOLUTE MONOCYTES 0.6 <0.9 thou/cu mm 03/05/2025 9:32 AM [facility] ABSOLUTE EOSINOPHILS 0.0 <0.5 thou/cu mm 03/05/2025 9:32 AM [facility] ABSOLUTE BASOPHILS 0.0 <0.3 thou/cu mm 03/05/2025 9:32 AM [facility] Blood BLOOD SPECIMEN / Unknown Butterfly / Unknown 03/05/2025 9:22 AM CDT 03/05/2025 9:26 AM CDT us Emmy Escudero MD HEMATOLOGY Final Result [facility] [address] [place] [address] * LIPASE (03/05/2025 9:22 AM CDT) [facility] Signature LIPASE 15.8 13.0 - 60.0 IU/L 03/05/2025 9:50 AM T [facility] Blood BLOOD SPECIMEN / Unknown Butterfly / Unknown 03/05/2025 9:22 AM CDT 03/05/2025 9:26 AM CDT us Emmy Escudero MD CHEMISTRY Final Result [facility] [address] [place] [address] * (ABNORMAL) HEPATIC FUNCTION PANEL (03/05/2025 9:22 AM CDT) [facility] ALBUMIN 4.8 4.0 - 4.9 g/dL 03/05/2025 9:50 AM T [facility] PROTEIN,TOTAL 7.9 6.0 - 8.0 g/dL 03/05/2025 9:50 AM T [facility] BILIRUBIN,TOTAL 0.3 0.0 - 1.2 mg/dL 03/05/2025 9:50 AM [facility] BILIRUBIN,DIRECT 0.2 0.0 - 0.2 mg/dL 03/05/2025 9:50 AM [facility] BILIRUBIN,INDIRE CT 0.1(L) 0.2 - 0.8 mg/dL 03/05/2025 9:50 AM [facility] ALK PHOSPHATASE 83 35 - 104 IU/L 03/05/2025 9:50 AM [facility] ALT (SGPT) 14 10 - 35 IU/L 03/05/2025 9:50 AM [facility] AST (SGOT) 23 10 - 35 IU/L 03/05/2025 9:50 AM [facility] Blood BLOOD SPECIMEN / Unknown Butterfly / Unknown 03/05/2025 9:22 AM CDT 03/05/2025 9:26 AM CDT us Emmy Escudero MD CHEMISTRY Final Result [facility] [address] [place] [address] * (ABNORMAL) BASIC METABOLIC PANEL (03/05/2025 9:22 AM CDT) SODIUM 140 136 - 145 mmol/L 03/05/2025 9:50 AM [facility] POTASSIUM 3.3(L) 3.5 - 5.1 mmol/L 03/05/2025 9:50 AM [facility] CHLORIDE 102 98 - 107 mmol/L 03/05/2025 9:50 AM [facility] CO2,TOTAL 24 22 - 29 mmol/L 03/05/2025 9:50 AM [facility] ANION GAP 14 5 - 18 03/05/2025 9:50 AM [facility] GLUCOSE 137(H) 70 - 99 mg/dL 03/05/2025 9:50 AM [facility] CALCIUM 9.0 8.8 - 10.4 mg/dL 03/05/2025 9:50 AM [facility] Comment: Reference ranges for this test were updated on 08/07/2024 to reflect our healthy population more accurately. Reference range changes are not retroactively applied to results, but previous results using the same methodology can be interpreted in the context of the new reference range. BUN 10 6 - 20 mg/dL 03/05/2025 9:50 AM [facility] CREATININE 0.70 0.50 - 0.90 mg/dL 03/05/2025 9:50 AM [facility] BUN/CREAT RATIO 14 10 - 20 9:50 AM [facility] eGFR >90 >90 mL/min/1. 73m2 03/05/2025 9:50 AM [facility] Comment:As of 2021, eG FR is calculated by the CKD-EPI creatinine equation without race adjustment. eGFR can be influenced by muscle mass, exercise, and diet. The reported eGFR is an estimation only and is only applicable if the renal function is stable. Blood BLOOD SPECIMEN / Unknown Butterfly / Unknown 03/05/2025 9:22 AM CDT 03/05/2025 9:26 AM T us Emmy Escudero MD CHEMISTRY Final Result Performing Organization Address [facility]/ZIP Co de Phone Number [facility] [address] [place] [address] * STREP A PCR (02/01/2025 11:02 AM CDT) Pathologist [facility] GROUP A STREP Negative 02/02/2025 12:32 AM CDT [facility] Throat SPECIMEN FROM THROAT / Unknown Non-Blood / Unknown 02/01/2025 11:02 AM CDT 02/01/2025 11:15 AM CDT Genny Mcgowan DO MICROBIOLOGY Final Result Performing Organization Address [facility] Co de Phone Number [facility] [address] [place] [address], * THROAT RAPID STREP A WITH REFLEX (02/01/2025 11:02 AM CDT) [facility] STREP A ANTIGEN Negative 02/01/2025 11:15 AM CDT [facility] Comment:PCR to follow. Throat SPECIMEN FROM THROAT / Unknown Non-Blood / Unknown 02/01/2025 11:02 AM CDT 02/01/2025 11:06 AM CDT Genny Mcgowan DO MICROBIOLOGY Final Result Performing Organization Address [facility] Co de Phone Number [facility] [address] [place] [address] * HEMOGLOBIN A1C (01/11/2025 12:07 PM CDT) [facility] HEMOGLOBIN A1C 5.5 <5.7 % of total Hgb [employer] Comment: For the purpose of screening for the presence of diabetes: <5.7% Consistent with the absence of diabetes 5.7-6.4% Consistent with increased risk for diabetes (prediabetes) > or =6.5% Consistent with diabetes This assay result is consistent with a decreased risk of diabetes. Currently, no consensus exists regarding use of hemoglobin A1c for diagnosis of diabetes in children. According to [place] [employer] (ADA) guidelines, hemoglobin A1c <7.0% represents optimal control in non- diabetic patients. Different metrics may apply to specific patient populations. Standards of Medical Care in Diabetes(ADA). Blood BLOOD SPECIMEN / Unknown 01/11/2025 12:07 PM CDT 01/11/2025 12:08 PM CDT Marce Mota NP CHEMISTRY Final Result [employer] [facility] [address] [place] [address], [facility] [address] [place] [address] * LIPID PANEL (01/11/2025 12:07 PM CDT) [facility] Signature CHOLESTEROL, TOTAL 150 <200 mg/dL [employer] [place] HDL CHOLESTEROL 68 > OR = 50 mg/dL [employer] [facility] TRIGLYCERIDES 100 <150 mg/dL [employer] [place] LDL-CHOLESTEROL 63 mg/dL (calc) [facility] o[facility]ина Holm Comment: Reference range: <100 Desirable range <100 mg/dL for primary prevention; <70 mg/dL for patients with CHD or diabetic patients with > or = 2 CHD risk factors. LDL-C is now calculated using the Lawrence-Anushka calculation, which is a validated novel method providing better accuracy than the Friedewald equation in the estimation of LDL-C. Lawrence BUTCHER et al. ESCOBAR. 2013;310(19): 8540-0207 (http://education.GiveMeSport.[employer]/faq/LKR062) CHOL/HDLC RATIO 2.2 <5.0 (calc) [facility] Mihai NON HDL CHOLESTEROL 82 <130 mg/dL (calc) [facility] Holm Comment: For patients with diabetes plus 1 major ASCVD risk factor, treating to a non-HDL-C goal of <100 mg/dL (LDL-C of <70 mg/dL) is considered a therapeutic option. Blood BLOOD SPECIMEN / Unknown 01/11/2025 12:07 PM CDT 01/11/2025 12:08 PM CDT Marce Mota NP CHEMISTRY Final Result [employer] [facility] [address] [place] [address], [facility] [address] [place] [address] * COMP METABOLIC PANEL (01/11/2025 12:07 PM CDT) Pathologist [facility] GLUCOSE 86 65 - 99 mg/dL [facility] ood Mihai Comment: Fasting reference interval UREA NITROGEN (BUN) 14 7 - 25 mg/dL [facility] CREATININE 0.63 0.50 - 0.99 mg/dL [facility] EGFR 113 > OR = 60 mL/min/1. 73m2 [facility] BUN/CREATININE RATIO SEE NOTE: 6 - 22 (calc) [facility] Comment: Not Reported: BUN and Creatinine are within reference range. SODIUM 140 135 - 146 mmol/L [facility] POTASSIUM 4.9 3.5 - 5.3 mmol/L [facility] CHLORIDE 105 98 - 110 mmol/L [facility] CARBON DIOXIDE 30 20 - 32 mmol/L [facility] CALCIUM 9.0 8.6 - 10.2 mg/dL [facility] PROTEIN, TOTAL 7.1 6.1 - 8.1 g/dL [facility] ALBUMIN 4.1 3.6 - 5.1 g/dL [facility] GLOBULIN 3.0 1.9 - 3.7 g/dL (calc) [facility] ALBUMIN/GLOBULIN RATIO 1.4 1.0 - 2.5 (calc) [facility] BILIRUBIN, TOTAL 0.3 0.2 - 1.2 mg/dL [facility] ALKALINE PHOSPHATASE 70 31 - 125 U/L [facility] AST 17 10 - 30 U/L [facility] ALT 11 6 - 29 U/L [facility] Blood BLOOD SPECIMEN / Unknown 01/11/2025 12:07 PM CDT 01/11/2025 12:08 PM CDT Marce Mota NP CHEMISTRY Final Result [facility] [address] [place] [address], [facility] [address] [place] [address] * (ABNORMAL) HUMAN GEOGRAPHY INSTRUCTOR THIN PREP PAP DIAGNOSTIC IMAGED (09/19/2024 2:17 PM OBIEE OBIA SOLUTION ARCHITECT) Case Report Gynecologic Cytology Report Case: [id number] Authorizing Provider: Marce Mota NP Collected: 09/19/2024 1417 [facility] Received: 09/19/2024 1417 Clinic First Screen: Yehuda Burnette Pathologist: Gisela Brandon MD Specimen: HUMAN GEOGRAPHY INSTRUCTOR ThinPrep Vial Diagnostic, Cervical 10/05/2024 12:59 PM OBIEE OBIA SOLUTION ARCHITECT [facility] INTERPRETATION/ RESULT LOW GRADE SQUAMOUS INTRAEPITHELIAL LESION (LSIL)(A) (none) 10/05/2024 12:59 PM OBIEE OBIA SOLUTION ARCHITECT [facility] at [address] OBIEE OBIA SOLUTION ARCHITECT OTHER NON-NEOPLASTIC FINDING(S) Parakeratosis 10/05/2024 12:59 PM OBIEE OBIA SOLUTION ARCHITECT [facility] SPECIMEN ADEQUACY Satisfactory for evaluation Endocervical component present 10/05/2024 12:59 PM OBIEE OBIA SOLUTION ARCHITECT [facility] (EB[facility]) [facility] ENTRAL LABORATORY HPV REQUEST HPV and PAP 10/05/2024 12:59 PM OBIEE OBIA SOLUTION ARCHITECT [facility] ENTRAL LABORATORY Date of LMP 09/15/24 10/05/2024 12:59 PM OBIEE OBIA SOLUTION ARCHITECT [facility] Last Pap Date 02/10/23 10/05/2024 12:59 PM OBIEE OBIA SOLUTION ARCHITECT [facility] ENTRMA LABORATORY Last Pap Result [facility] 12:59 PM OBIEE OBIA SOLUTION ARCHITECT [facility] EN[facility]MA LAB[facility] Abnormal Pap or [place] Bx in last 5 years Yes 10/05/2024 12:59 PM OBIEE OBIA SOLUTION ARCHITECT [facility] ENTRAL LABORATORY Menstrual Status Regular Periods 10/05/2024 12:59 PM OBIEE OBIA SOLUTION ARCHITECT [facility] LABORATORY [place] Bx Done Today No 10/05/2024 12:59 PM OBIEE OBIA SOLUTION ARCHITECT [facility] Additional Information None Given 10/05/2024 12:59 PM OBIEE OBIA SOLUTION ARCHITECT [facility] ENTRMA LABORATORY Comment: Cytology is screened at [facility] - [address], [place] [address] and [facility] - [address], [place] [address] and [facility] - [address] [place] [address] Interpreted at [facility] - [address], [place] [address] Automated Review Successful 10/05/2024 12:59 PM OBIEE OBIA SOLUTION ARCHITECT [facility] ENTRMA LABOR[facility] Comment:Specimen processed s uccessfully by automated entry manager device, ThinPrep Imaging System, [employer] ANCILLARY TESTING HUMAN GEOGRAPHY INSTRUCTOR HPV Ordered, Please see separate report 10/05/2024 12:59 PM OBIEE OBIA SOLUTION ARCHITECT [facility] LAB[facility] Note The pap test is a screening technique, not a diagnostic procedure. It is used primarily to screen for squamous cancers and precursor lesions. Published studies have shown that it is subject to both false negative and false positive results. The pap test should not be used as the sole means to diagnose or exclude pre-malignant and malignant lesions. 10/05/2024 12:59 PM OBIEE OBIA SOLUTION ARCHITECT [facility] LAB[facility] Other (Cervical) Non-Blood / Unknown 09/19/2024 2:17 PM OBIEE OBIA SOLUTION ARCHITECT 09/19/2024 2:17 PM OBIEE OBIA SOLUTION ARCHITECT Comment:07/2017 ASCUS/HPV+ [place]: No [id number] ASCUS/HPV Negative Marce Mota NP PATHOLOGY/CYTOLOGY Final Result [facility] [address] [place] [address], [place] * ANTI HIV 1/2 (02/04/2024 9:14 AM CDT) Pathologist [facility] HIV-1/HIV-2 SCREEN Non-Reacti ve Non-Reacti ve 02/04/2024 2:01 PM CDT [facility] Comment:HIV-1 p24 and HIV-1/ HIV-2 Ab Not Detected. Blood BLOOD SPECIMEN / Unknown Venipuncture / Unknown 02/04/2024 9:14 AM CDT 02/04/2024 9:19 AM CDT us Kary Johns ASSOCIATE DIRECTOR OF SALES SEND OUTS Final Res ult Performing Organization Address [facility] Co de Phone Number [facility] [address] [place] [address], [place] * LC HCV ANTIBODY RFX TO QUANT PCR (05/10/2023 1:30 PM CDT) Pathologist [facility] HCV Ab Non Reactive Non Reactive 05/13/2023 4:08 AM CDT [facility] Blood BLOOD SPECIMEN / Unknown Venipuncture / Unknown 05/10/2023 1:30 PM CDT 05/10/2023 1:30 PM CDT Narrative [facility] - 05/13/2023 4:08 AM CDT Performed at: [address] [place] [id number] [employer] Dough Mixer: Michael Umana MD, Phone: [phone] us Milena Purvis MD LABORATORY Final Result Performing Organization Address City/[facility]/ZIP Co de Phone Number [facility] [address] [place] [address], from Last 3 Months or Most Recently Relevant to Health Maintenance Additional Health Concerns Infection Onset Date Last Indicated MRSA Clearance Comment:+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, right hand +MRSA 2014, arm Negative Nare 11/11/23 11/14/2023 11/14/[id number] [place] [id number] MEDICARE PART A HB ONLY MEDICARE PB ONLY Member Subscriber Plan / Payer ( fective 2014-Present) Name:CunninghamKga Yenifer Member ID:[id number] Relation to Subscriber:Self Name:Marita Cunningham Subscriber ID:[id number] Payer ID:Not on file Group ID:Not on file Type:Not on file Address: ATTN: CLAIMS [address] [place] [phone] MEDICARE PART B [place] ONLY [address] [place] [id number] [facility] [address] [place] [id number] MEDICARE PROVIDER BASED [facility] Advance Directives * Full Code (Latest Code [...] 12:40 PM 11/22/2014 4:20 PM Care Teams Call Center Analyst Relationship Specialty Start Date End Date Marce Mota NP [address] [place] [address] PCP - General Nurse Practitioner - Family 02/21/24 Benjamin Almaraz Internal Medicine 09/24/14
--- OUTSIDE RECORDS SUMMARY | 2025-03-26 12:08 | XMS_ITS | Encounter Summary ---
Author Organization [facility] Address [address] [place] [address] Care Team Providers Care Dairy Processing Equipment Operator Name Role Phone No Ref-Primary, Physician Primary Care Provider Encounter Details Date Type Department Care Team (Latest Contact Info) Description 03/13/2025 Travel Social History Tobacco Use Types Packs/Day Years [...] in an abandoned building, in an overnight care home, or couch-surfing.) Yes 03/14/2025 Are you worried [...] on file documented as of this encounter Plan of Treatment Not on file documented as of this encounter Visit Diagnoses Not on filedocumented in this encounter Care Teams Dairy Processing Equipment Operator Relationship Specialty Start Date End Date No Ref-Primary, Physician PCP - General 03/13/25 documented as of this encounter
--- OUTSIDE RECORDS SUMMARY | 2025-03-26 12:08 | XMS_ITS ---
Author Organization [facility] Address [address] [place] [address] Care Team Providers Care Director Of Surgery Name Role Phone No Ref-Primary, Physician Primary Care Provider Transitional Care Management Status:Enrolled (Active) Start date:03/16/2025 Enrollment date:03/18/2025 Continued Care and Services Coordination
--- NOTE | 2025-03-26 12:47 | CRLHL7_ITS ---
For Patients: As a result of the Century Cures Act, medical imaging exams and procedure reports are released immediately into your electronic medical record. You may view this report before your referring provider. If you have questions, please contact your health care provider. INDICATION: Abdominal pain. TECHNIQUE: Multiplanar CT examination of the abdomen and pelvis was performed after the administration of 57 mL Isovue 370 intravenous contrast. COMPARISON: CT abdomen pelvis 03/08/2025. FINDINGS: Lower chest: No focal consolidation. Normal heart size. No pleural effusions or pneumothorax. Subsegmental and dependent atelectasis. Liver: Diffuse hepatic steatosis. Gallbladder: Unremarkable. Biliary: Unremarkable. Pancreas: Within normal limits. Spleen: Unremarkable. Adrenal glands: Unremarkable. Renal/ureters/bladder: Normal in size and symmetrically enhancing. No obstructive uropathy. No hydronephrosis or obstructive urinary calculi. No suspicious renal masses. The ureters appear unremarkable. The bladder is within normal limits. Pelvis: Unremarkable uterus. No adnexal masses. Gastrointestinal: Mild diffuse wall thickening predominately involving the ascending colon, splenic flexure and sigmoid colon. No bowel obstruction. Mild pericolonic fat stranding, with mesenteric haziness most pronounced in the right lower quadrant. Mild wall thickening and hyperenhancement involving loops of nondistended, fluid-filled small bowel in the lower pelvis. No bowel obstruction. Appendectomy. No significant colonic diverticulosis. Mild colonic stool burden. Vasculature: No aortic aneurysm. The portal vein remains patent. No significant atherosclerotic calcifications. Lymph nodes: No pathologic lymphadenopathy by size criteria. Peritoneum: No free fluid or pneumoperitoneum. No drainable fluid collections. Abdominal wall/soft tissues: Unremarkable. Bones: No acute osseous abnormalities. Mild degenerative changes of the visualized thoracolumbar spine. IMPRESSION: Findings suggestive of a nonspecific infectious versus inflammatory enterocolitis. No bowel obstruction. Please note that all CT scans at this facility use dose modulation, iterative reconstruction, and/or weight-based dosing when appropriate to reduce radiation dose to as low as reasonably achievable. Dictated by Collin Arnold MD @ 03/26/2025 2:09:59 PM (Electronically Signed)
--- NOTE | 2025-03-26 12:52 | ED.ABDPAIN ---
HPI - Abdominal Pain General Date Seen: 03/26/25 Chief Complaint: Abdominal Pain Stated Complaint: abdominal pain- inlfamation Time Seen by Provider: 03/26/25 12:30 Source: patient Mode of arrival: ambulatory Limitations: no limitations History of Present Illness HPI narrative: Patient is a 44-year-old female presenting to the emergency department for left upper quadrant pain. She had an appendectomy on 03/08/2025. At that time was ruptured and she eventually developed ileus also. He was discharged home has been feeling well until last night. She started having left upper quadrant pain. She thought the pain would get better on its own but states the pain was much more severe today. She has not had any nausea that she is aware of. Does not remember if she ate anything this morning with think she did not because she does not usually eat in the mornings. Has not had any fevers or chills. Denies constipation. Has been having diarrhea since her surgery. Denies chest pain, shortness of breath, headache, vision changes, dizziness. No other concerns noted. States her left upper quadrant feels warm. Related Data Home Medications ?Medication ?Instructions ?Recorded ?Confirmed paroxetine HCl 30 mg tablet 60 mg PO DAILY 07/17/23 03/26/25 losartan 25 mg tablet 25 mg PO DAILY 01/08/25 03/26/25 metoprolol succinate 25 mg 12.5 mg PO DAILY 01/08/25 03/26/25 tablet,extended release 24 hr quetiapine 25 mg tablet 25 mg PO HS PRN 01/08/25 03/26/25 gabapentin 300 mg capsule 900 mg PO TID 03/08/25 03/26/25 albuterol sulfate 90 mcg/actuation 2 puff inhalation Q4H PRN wheezing 03/09/25 03/26/25 aerosol inhaler atorvastatin 40 mg tablet 40 mg PO HS 03/09/25 03/26/25 clopidogrel 75 mg tablet 75 mg PO DAILY 03/09/25 03/26/25 dextroamphetamine-amphetamine 10 1 tab PO DAILY 03/09/25 03/26/25 mg tablet Previous Rx's ?Medication ?Instructions ?Recorded oxycodone 5 mg tablet 5 - 10 mg (1 - 2 x 5 mg) PO Q6H 03/12/25 PRN #20 tabs oxycodone 5 mg tablet 5 mg PO Q6H PRN pain #4 tabs 03/26/25 Allergies Allergy/AdvReac Type Severity Reaction Status Date / Time lidocaine Allergy Severe Verified 03/26/25 14:23 codeine AdvReac Mild Makes Her Verified 03/26/25 14:23 Feel Weird morphine AdvReac Mild Makes Her Verified 03/26/25 14:23 Feel Weird Review of Systems Status of ROS Reports: 10 or more systems reviewed and unremarkable except as noted in History and below [facility] History Heterozygous factor V Leiden mutation ?D68.51 - Activated protein C resistance (ICD-10) Nontoxic multinodular goiter ?E04.2 - Nontoxic multinodular goiter (ICD-10) Nicotine dependence ?F17.200 - Nicotine dependence, unspecified, uncomplicated (ICD-10) Cavernous malformation ?Q28.3 - Other malformations of cerebral vessels (ICD-10) Ocular migraine ?G43.109 - Migraine with aura, not intractable, without status migrainosus (ICD-10) Seizures ?R56.9 - Unspecified convulsions (ICD-10) Dental abscess ?K04.7 - Periapical abscess without sinus (ICD-10) ASCUS with positive high risk HPV cervical ?R87.610 - Atypical squamous cells of undetermined significance on cytologic smear of cervix (ASC-US) (ICD-10) ?R87.810 - Cervical high risk human papillomavirus (HPV) DNA test positive (ICD-10) ADHD (attention deficit hyperactivity disorder) ?F90.9 - Attention-deficit hyperactivity disorder, unspecified type (ICD-10) NSTEMI (non-ST elevated myocardial infarction) ?I21.4 - Non-ST elevation (NSTEMI) myocardial infarction (ICD-10) Thyroid nodule ?E04.1 - Nontoxic single thyroid nodule (ICD-10) Polysubstance abuse ?F19.10 - Other psychoactive substance abuse, uncomplicated (ICD-10) Multiple sclerosis ?G35 - Multiple sclerosis (ICD-10) MRSA (methicillin resistant Staphylococcus aureus) ?A49.02 - Methicillin resistant Staphylococcus aureus infection, unspecified site (ICD-10) Kyphosis ?M40.209 - Unspecified kyphosis, site unspecified (ICD-10) Kidney stones ?N20.0 - Calculus of kidney (ICD-10) MIREILLE (generalized anxiety disorder) ?F41.1 - Generalized anxiety disorder (ICD-10) Bipolar 1 disorder, depressed, moderate ?F31.32 - Bipolar disorder, current episode depressed, moderate (ICD-10) Asthma ?J45.909 - Unspecified asthma, uncomplicated (ICD-10) Arthritis ?M19.90 - Unspecified osteoarthritis, unspecified site (ICD-10) Controlled substance agreement signed ?Z79.899 - Other regional 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 Has children who are in foster care due to her h/o meth use. She says she has not used meth for 5 years. She uses medical marijuana. She smokes 3/4 pack cigarettes per day for 30 years. She drinks 1-3 alcoholic drinks per month. Smoking Status: Current every day smoker Second hand tobacco smoke exposure: No How often do you have a drink containing alcohol: never AUDIT-C Alcohol total score: 0 Non-prescribed substance use: former substance user and marijuana (any form) Exam Narrative: Exam Narrative: Const: Well-nourished, Well-developed, in moderate distress Eyes: PERRL, no conjunctival injection, and symmetrical lids HENT: Atraumatic external nose and ears. Moist mucous membranes. Neck: Symmetric, trachea midline, No thyromegaly. CVS: RRR, No murmurs or gallops. Peripheral pulses 2+ and equal in all extremities RESP: Unlabored respiratory effort. Clear to auscultation bilaterally. GI: Diffuse tenderness most notable the left upper quadrant Nondistended, No rebound or guarding. MSK:Extremities w/o deformity, Normal Active ROM Skin: Warm, Dry. No rashes or lesions. Left upper quadrant does feel warmer to the touch than the rest of her abdomen. Neuro: Normal Muscle tone, No focal neurological deficits. Psych: Awake, Alert, & Oriented x3. Appropriate mood and affect. Const: Vital Signs, click to edit/add: Vital Signs - 24 hr 03/26/25 11:23 03/26/25 14:00 Temperature 97.4 F L Pulse Rate [Right Pulse Oximeter] 67 Respiratory Rate 18 Blood Pressure [Ri ght Upper Arm] 141/92 H Pulse Oximetry 100 96 Oxygen Delivery Me thod Room Air Course Vital Signs Vital signs: Initial Vital Signs Temperature 97.4 F L 03/26/25 11:23 Temperature Source Temporal Artery Scan 03/26/25 11:23 Pulse Rate 67 03/26/25 11:23 Pulse Rhythm Regular 03/26/25 11:23 Pulse Strength 3+ Normal 03/26/25 11:23 Respiratory Rate 18 03/26/25 11:23 Blood Pressure 141/92 H 03/26/25 11:23 Blood Pressure Mean 108 H 03/26/25 11:23 Blood Pressure Position Sitting 03/26/25 11:23 Pulse Oximetry 100 03/26/25 11:23 Oxygen Delivery Method Room Air 03/26/25 11:23 Vital Signs Temperature 97.4 F L 03/26/25 11:23 Pulse Rate 67 03/26/25 11:23 Respiratory Rate 18 03/26/25 11:23 Blood Pressure 141/92 H 03/26/25 11:23 Pulse Oximetry 100 03/26/25 11:23 Oxygen Delivery Method Room Air 03/26/25 11:23 Temperature 97.4 F L 03/26/25 11:23 Pulse Rate 67 03/26/25 11:23 Respiratory Rate 18 03/26/25 11:23 Blood Pressure 141/92 H 03/26/25 11:23 Pulse Oximetry 96 03/26/25 14:00 Oxygen Delivery Method Room Air 03/26/25 11:23 Medications Administered Medications: Discontinued Medications Generic Name Dose Route Start Last Admin Trade Name Freq PRN Reason Stop Dose Admin Hydromorphone HCl 0.5 mg 03/26/25 13:16 03/26/25 14:03 Hydromorphone 0.5 Mg/0.5 Ml Inj IVP 03/26/25 13:17 0.5 mg ONCE ONE Administration Ketorolac Tromethamine 15 mg 03/26/25 12:48 03/26/25 13:20 Ketorolac 15 Mg/Ml Inj IVP 03/26/25 12:49 Not Given ONCE ONE Ondansetron HCl 4 mg 03/26/25 14:08 03/26/25 14:16 Ondansetron 2 Mg/Ml Inj IVP 03/26/25 14:09 4 mg ONCE ONE Administration MDM - Abdominal Pain MDM Narrative Medical decision making narrative: Patient is a 44-year-old female presenting to the emergency department for left upper quadrant abdominal pain. Considering the recent surgery my biggest concern at this time is an abscess developing. No recent injuries the make me concerned about a splenic rupture. No signs of trauma acutely to splenic rupture. No CVA tenderness. Will do a CT scan with IV contrast for better evaluation along with a CBC and CMP. Toradol initially ordered for pain but she cannot take NSAIDs due to her clopidogrel. She has a and reaction to morphine so will give her a small dose of Dilaudid. Lab work returned showing no acute concerning abnormalities. CT scan reviewed by myself and the radiologist shows nonspecific infectious versus inflammatory enterocolitis. She is not having any blood in her stool and this does seem less likely to be infectious. She has not had a colonoscopy before but did inform her she should follow-up with her PCP to get 1 scheduled. She understands and agrees with this plan. Will give her 4 pills of oxycodone for pain managment Lab Data Labs: Lab Results 03/26/25 03/26/25 Range/Units 13:05 13:31 WBC 6.26 (4.50-11.00) K/uL RBC 4.11 (4.00-5.20) m/uL Hgb 12.5 (12.0-16.0) gm/dL Hct 38.8 (33.0-51.0) % MCV 94 (80-100) fL MCH 30 (26-34) pg MCHC 32 (32-36) gm/dL RDW Coeff of Tyrell 13.9 (11.5-15.5) % Plt Count 387 (140-440) K/uL Neut % (Auto) 43.2 (42.0-72.0) % Lymph % (Auto) 42.0 (20-44) % Bath % (Auto) 11.7 H (0.0-11.0) % Eos % (Auto) 2.6 (0.0-7.0) % Baso % (Auto) 0.5 (0.0-3.0) % Neut # (Auto) 2.71 (1.7-7.0) K/uL Lymph # (Auto) 2.63 (0.90-2.90) K/uL Bath # (Auto) 0.70 (0.00-0.90) K/UL Eos # (Auto) 0.16 (0.00-0.50) K/uL Baso # (Auto) 0.03 (0.00-0.30) K/uL Abs Immat Gran (auto) 0.00 (0.00-0.30) K/uL Imm/Tot Granulo (auto) 0.0 % Sodium 140 (135-149) mmol/L Potassium 3.9 (3.6-5.1) mmol/L Chloride 105 (96-114) mmol/L Carbon Dioxide 26 (20-32) mmol/L Anion Gap 9 (7-15) mEq/L BUN 11 (5-24) mg/dL Creatinine 0.5 (0.5-1.5) mg/dL Estimated Creat Clear 121.55 Estimated GFR 119 ml/min Glucose 90 (60-115) mg/dL Calcium 8.6 (8.4-10.6) mg/dL Total Bilirubin 0.3 (0.1-1.5) mg/dL AST 26 (12-35) U/L ALT 14 (4-35) U/L Alkaline Phosphatase 59 (40-150) U/L Total Protein 7.6 (6.0-8.3) g/dL Albumin 4.2 (3.3-5.0) g/dL Lab Acknowledgement Test Added Imaging Data CT scan abdomen pelvis: Attestation: I have reviewed the pertinent imaging results. Radiologist's impression: Findings suggestive of a nonspecific infectious versus inflammatory enterocolitis. No bowel obstruction. Please note that all CT scans at this facility use dose modulation, iterative reconstruction, and/or weight-based dosing when appropriate to reduce radiation dose to as low as reasonably achievable. Dictated by Collin Arnold MD @ 03/26/2025 2:09:59 PM Discharge Plan Discharge Clinical Impression: Colitis Patient Disposition: Home, Self-Care Condition: Stable Instructions: Colitis (ED) Additional Instructions: Your CT scan appears to show infectious versus inflammatory enterocolitis. No signs of bowel obstructions. This is most likely viral in nature. I do recommend following up with the primary care provider to talk about doing a colonoscopy to rule out any inflammatory colitis such as ulcerative colitis or Crohn's disease. Take [id number] pain medication. If that is not working try the oxycodone. Return to emergency department for new or worsening symptoms Prescriptions: New oxycodone 5 mg tablet 5 mg PO Q6H PRN (Reason: pain) Qty: 4 0RF No Action paroxetine HCl 30 mg tablet 60 mg PO DAILY Patient Comments: TAKE 2 TABLETS BY MOUTH EVERY DAY - Patient states she is only taking 1 tablet daily Rx Instructions: 2 tablets by mouth daily quetiapine 25 mg tablet 25 mg PO HS PRN Patient Comments: Takes 1-2 times a week metoprolol succinate 25 mg tablet extended release 24 hr 12.5 mg PO DAILY losartan 25 mg tablet 25 mg PO DAILY gabapentin 300 mg capsule 900 mg PO TID dextroamphetamine-amphetamine 10 mg tablet 1 tab PO DAILY atorvastatin 40 mg tablet 40 mg PO HS clopidogrel 75 mg tablet 75 mg PO DAILY albuterol sulfate 90 mcg/actuation HFA aerosol inhaler 2 puff INHALATION Q4H PRN (Reason: wheezing) oxycodone 5 mg Tablet 5 - 10 mg PO Q6H PRNQty: 20 0RF Follow Up/Referrals: Marce Mota CNP [Primary Care Provider, Family Practice] Stand Alone Forms: [employer] Info Instructions
--- OUTSIDE RECORDS SUMMARY | 2025-03-26 13:08 | XMS_ITS | CCD ---
Author Organization Unknown Care Team Providers Care Budget Manager Name Role Phone Icing Machine Operator, [place] Primary Care Provider Unava ilable Unavailable Chronic Care Management Unavaila ble Summary Purpose [employer] Insurance Providers Payer name Policy type / Coverage type Covered green party ID Effective Begin Date Effective End Date Medicare [place] Medicare Part B [id number] Unknown Unknown [employer] ([facility]) Medicare Part B [id number] Unknown Unknow n Family History Family History data not found Medication Administered No Medication Administered data Reason For Visit No Reason For Visit data
--- OUTSIDE RECORDS SUMMARY | 2025-03-26 13:08 | XMS_ITS | CCD ---
Author Organization Unknown Care Team Providers Care Health And Physical Education Professor Name Role Phone Hot Top Liner Helper, [place] Primary Care Provider Unava ilable Unavailable Chronic Care Management Unavaila ble Summary Purpose DataExchange Insurance Providers Payer name Policy type / Coverage type Covered alliance party ID Effective Begin Date Effective End Date Medicare [place] Medicare Part B [id number] Unknown Unknown [employer] ([facility]) Medicare Part B [id number] Unknown Unknow n Family History Family History data not found Medication Administered No Medication Administered data Reason For Visit No Reason For Visit data
[2025-03-26 13:27] LABS: Chloride* 105 mmol/L (96-114)
[2025-03-26 13:28] LABS: Albumin* 4.2 g/dL (3.3-5.0); Potassium* 3.9 mmol/L (3.6-5.1); Sodium* 140 mmol/L (135-149)
[2025-03-26 13:30] LABS: Alanine Aminotransferase* 14 U/L (4-35); Anion Gap 9 mEq/L (7-15); Aspartate Amino Transferase* 26 U/L (12-35); Blood Urea Nitrogen* 11 mg/dL (5-24); Carbon Dioxide* 26 mmol/L (20-32); Creatinine* 0.5 mg/dL (0.5-1.5); Est. Creatinine Clearance* 121.55; Estimated Glomerular Filt Rate 119 ml/min
[2025-03-26 13:31] LABS: Alkaline Phosphatase* 59 U/L (40-150); Bilirubin Total* 0.3 mg/dL (0.1-1.5); Calcium* 8.6 mg/dL (8.4-10.6); Glucose* 90 mg/dL (60-115); Total Protein* 7.6 g/dL (6.0-8.3)
[2025-03-26 13:39] LABS: Basophils Absolute Auto 0.03 K/uL (0.00-0.30); Basophils Percent Auto 0.5 % (0.0-3.0); Eosinophils Absolute Auto 0.16 K/uL (0.00-0.50); Eosinophils Percent Auto 2.6 % (0.0-7.0); Hematocrit 38.8 % (33.0-51.0); Hemoglobin* 12.5 gm/dL (12.0-16.0); Lymphocytes Absolute Auto 2.63 K/uL (0.90-2.90); Mean Corpuscular HGB Conc 32 gm/dL (32-36); Mean Corpuscular Hemoglobin 30 pg (26-34); Mean Corpuscular Volume 94 fL (80-100); Monocytes Percent Auto 11.7 % (0.0-11.0); Neutrophils Absolute Auto 2.71 K/uL (1.7-7.0); Neutrophils Percent Auto 43.2 % (42.0-72.0); Platelet Count* 387 K/uL (140-440); RDW Coefficient of Variation % 13.9 % (11.5-15.5); Red Blood Count 4.11 m/uL (4.00-5.20); White Blood Count* 6.26 K/uL (4.50-11.00)
[2025-03-26 13:44] LABS: Slide Review Reflex No
--- OUTSIDE RECORDS SUMMARY | 2025-03-26 13:58 | XMS_ITS | CCD ---
Author Organization Unknown Care Team Providers Care Certified Pesticide Applicator Name Role Phone Lead Refinery Supervisor, [place] Primary Care Provider Unava ilable Unavailable Chronic Care Management Unavaila ble Summary Purpose DataExchange Insurance Providers Payer name Policy type / Coverage type Covered libertarian ID Effective Begin Date Effective End Date Medicare [place] Medicare Part B [id number] Unknown Unknown [employer] ([facility]) Medicare Part B [id number] Unknown Unknow n Family History Family History data not found Medication Administered No Medication Administered data Reason For Visit No Reason For Visit data
--- OUTSIDE RECORDS SUMMARY | 2025-03-26 13:58 | XMS_ITS | CCD ---
Author Organization Unknown Care Team Providers Care Loading Unit Operator Crimping Name Role Phone Derrick Worker [employer], [place] Primary Care Provider Unava ilable Unavailable Chronic Care Management Unavaila ble Summary Purpose DataExchange Insurance Providers Payer name Policy type / Coverage type Covered green party ID Effective Begin Date Effective End Date Medicare [place] Medicare Part B [id number] Unknown Unknown [employer] ([facility]) Medicare Part B [id number] Unknown Unknow n Family History Family History data not found Medication Administered No Medication Administered data Reason For Visit No Reason For Visit data
[2025-03-26 14:00] VITALS: PULSE 70; RESP 16; O2SAT 96
[2025-03-26] MEDS: HYDROmorphone 0.5 mg/0.5 ml inj IVP (14:03)
[2025-03-26] MEDS: ONDANSETRON 2 MG/ML inj 4 MG IVP (14:16)
== END 2025-03-26 14:56 | disposition home or self-care (01) ==
PROVIDERS: Emergency Provider Student in an Organized Health Care Education/Training Program; PCP Family Medicine
DX: K52.9 Noninfective gastroenteritis and colitis, unspecified (principal); F15.21 Other stimulant dependence, in remission; F17.210 Nicotine dependence, cigarettes, uncomplicated; Z98.890 Other specified postprocedural states
CPT/HCPCS: 36415; 74177; 80053; 85025; 94761; 96374; 96375; 99284; 99285; J1171; J2405; Q9967

== ENCOUNTER 2025-05-03 15:48 | Outpatient (CLI) | payer MEDICARE, SELFPAY ==
[2025-05-03 23:48] LABS: Chlamydia DNA Amplified* NOT DETECTED (No Detected); GC DNA Amplified* NOT DETECTED (No Detected)
== END 2025-05-03 15:49 | disposition home or self-care (01) ==
PROVIDERS: PCP Family Medicine; Visit Provider Physician Assistant
DX: R30.0 Dysuria (principal); B37.31 Acute candidiasis of vulva and vagina
CPT/HCPCS: 87086; 87491; 87591

== ENCOUNTER 2025-07-03 12:38 | Outpatient (CLI) | payer MEDICARE, SELFPAY | END 2025-07-03 12:39 | disposition home or self-care (01) | LOC: NFLDREF 07-05 15:38 | PROVIDERS: PCP Family Medicine; Referring Provider Family Medicine; Visit Provider Physician Assistant | DX: N76.0 Acute vaginitis (principal); N39.0 Urinary tract infection, site not specified; R31.9 Hematuria, unspecified | CPT/HCPCS: 87086 ==

== ENCOUNTER 2025-07-26 17:54 | Emergency (ER) | payer MEDICARE, SELFPAY ==
[2025-07-26 18:34] VITALS: BP 169/106; PULSE 75; RESP 18; TEMP 36.9; O2SAT 98; BMI 18.8
--- NOTE | 2025-07-26 18:40 | CRLHL7_ITS ---
For Patients: As a result of the Century Cures Act, medical imaging exams and procedure reports are released immediately into your electronic medical record. You may view this report before your referring provider. If you have questions, please contact your health care provider. Indication: Right shoulder and scapular pain Technique: Three views right shoulder Comparison: None Findings/Impression: Bones: Alignment is normal. No fractures or bone lesions. Joint spaces: Unremarkable. Soft tissues: Unremarkable. Dictated by Gregorio Turk MD @ 07/26/2025 6:56:03 PM (Electronically Signed)
--- NOTE | 2025-07-26 19:40 | ED.GENADULT ---
HPI - General Adult General Chief complaint: Extremity Pain/Injury, Upper Stated complaint: R shoulder pain Time Seen by Provider: 07/26/25 19:40 History of Present Illness HPI narrative: Right shoulder pain ( underneath the shoulder blade) which is made worse with movement, twisting, and feels like it needs to crack or pop. Unknown injury. Pain started last night. Patient took 4 advils before coming 45-year-old woman presenting to the emergency department with complaint of intense right shoulder area pain. Demonstrates near the shoulder blade. Does not recall specific injury. She is right handed. Pain is worse particularly when she rotates torso to the right. She does feel also pulling sensation sometimes down her inner right arm. Not had trouble here before. Started to get an inkling of some discomfort yesterday evening and much worse today. Feels like she just needs to pop or crack somehow. Has not gotten pain under control with ibuprofen. Does have an underlying history of MS she reports. No rashes. Related Data Home Medications ?Medication ?Instructions ?Recorded ?Confirmed paroxetine HCl 30 mg tablet 60 mg PO DAILY 07/17/23 07/03/25 losartan 25 mg tablet 25 mg PO DAILY 01/08/25 07/03/25 metoprolol succinate 25 mg 12.5 mg PO DAILY 01/08/25 07/03/25 tablet,extended release 24 hr quetiapine 25 mg tablet 25 mg PO HS PRN 01/08/25 07/03/25 gabapentin 300 mg capsule 900 mg PO TID 03/08/25 07/03/25 albuterol sulfate 90 mcg/actuation 2 puff inhalation Q4H PRN wheezing 03/09/25 07/03/25 aerosol inhaler atorvastatin 40 mg tablet 40 mg PO HS 03/09/25 07/03/25 clopidogrel 75 mg tablet 75 mg PO DAILY 03/09/25 07/03/25 dextroamphetamine-amphetamine 10 1 tab PO DAILY 03/09/25 07/03/25 mg tablet Previous Rx's ?Medication ?Instructions ?Recorded fluconazole 150 mg tablet 150 mg PO Q3D 2 doses #2 tabs 05/03/25 fluconazole 150 mg tablet 150 mg PO ONCE #1 tab 07/03/25 diclofenac sodium 3 % topical gel 1 applic topical BID PRN #100 grams 07/26/25 hydrocodone 5 mg-acetaminophen 325 1 - 2 tab PO DAILY PRN pain #5 tabs 07/26/25 mg tablet Allergies Allergy/AdvReac Type Severity Reaction Status Date / Time lidocaine Allergy Severe Verified 07/03/25 12:37 codeine AdvReac Mild Makes Her Verified 07/03/25 12:37 Feel Weird morphine AdvReac Mild Makes Her Verified 07/03/25 12:37 Feel Weird Review of Systems Status of ROS: Reports: 6 or more systems reviewed and unremarkable except as noted in History and below [facility] Medical History Heterozygous factor V Leiden mutation ?D68.51 - Activated protein C resistance (ICD-10) Nontoxic multinodular goiter ?E04.2 - Nontoxic multinodular goiter (ICD-10) Nicotine dependence ?F17.200 - Nicotine dependence, unspecified, uncomplicated (ICD-10) Cavernous malformation ?Q28.3 - Other malformations of cerebral vessels (ICD-10) Ocular migraine ?G43.109 - Migraine with aura, not intractable, without status migrainosus (ICD-10) Seizures ?R56.9 - Unspecified convulsions (ICD-10) Dental abscess ?K04.7 - Periapical abscess without sinus (ICD-10) ASCUS with positive high risk HPV cervical ?R87.610 - Atypical squamous cells of undetermined significance on cytologic smear of cervix (ASC-US) (ICD-10) ?R87.810 - Cervical high risk human papillomavirus (HPV) DNA test positive (ICD-10) ADHD (attention deficit hyperactivity disorder) ?F90.9 - Attention-deficit hyperactivity disorder, unspecified type (ICD-10) NSTEMI (non-ST elevated myocardial infarction) ?I21.4 - Non-ST elevation (NSTEMI) myocardial infarction (ICD-10) Thyroid nodule ?E04.1 - Nontoxic single thyroid nodule (ICD-10) Polysubstance abuse ?F19.10 - Other psychoactive substance abuse, uncomplicated (ICD-10) Multiple sclerosis ?G35 - Multiple sclerosis (ICD-10) MRSA (methicillin resistant Staphylococcus aureus) ?A49.02 - Methicillin resistant Staphylococcus aureus infection, unspecified site (ICD-10) Kyphosis ?M40.209 - Unspecified kyphosis, site unspecified (ICD-10) Kidney stones ?N20.0 - Calculus of kidney (ICD-10) MIREILLE (generalized anxiety disorder) ?F41.1 - Generalized anxiety disorder (ICD-10) Bipolar 1 disorder, depressed, moderate ?F31.32 - Bipolar disorder, current episode depressed, moderate (ICD-10) Asthma ?J45.909 - Unspecified asthma, uncomplicated (ICD-10) Arthritis ?M19.90 - Unspecified osteoarthritis, unspecified site (ICD-10) Controlled substance agreement signed ?Z79.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 Has children who are in foster care due to her h/o meth use. She says she has not used meth for 5 years. She uses medical marijuana. She smokes 3/4 pack cigarettes per day for 30 years. She drinks 1-3 alcoholic drinks per month. Smoking Status: Current every day smoker Second hand tobacco smoke exposure: No How often do you have a drink containing alcohol: never AUDIT-C Alcohol total score: 0 Non-prescribed substance use: former substance user and marijuana (any form) Exam Narrative: Exam Narrative: Is halting or stilted in her movements. Little restless. Intermittently winces in apparent discomfort; catches her breath when rotating to the right. Well-perfused peripherally. Good distal pulses. Spurling's is negative. There is a point of tenderness in the mid right periscapular musculature right over a blue wing on tattoo. Intense tenderness in this area; in the rhomboid musculature. No swelling or erythema. No rashes. Does have good range of motion at her shoulders. Palpation about the shoulder itself does not elicit any discomfort. Const: Vital Signs, click to edit/add: Vital Signs - 24 hr 07/26/25 18:34 07/26/25 20:22 Temperature 98.4 F Pulse Rate 68 Pulse Rate [Pulse Oximeter] 75 Respiratory Rate 18 14 Blood Pressure 170/97 H Blood Pressure [Ri ght Upper Arm] 169/106 H Pulse Oximetry 98 99 Oxygen Delivery Me thod Room Air Room Air Documenting provider has reviewed patient's vital signs: yes Course Vital Signs Vital signs: Initial Vital Signs Temperature 98.4 F 07/26/25 18:34 Temperature Source Temporal Artery Scan 07/26/25 18:34 Pulse Rate 75 07/26/25 18:34 Respiratory Rate 18 07/26/25 18:34 Blood Pressure 169/106 H 07/26/25 18:34 Blood Pressure Mean 127 H 07/26/25 18:34 Blood Pressure Position Sitting 07/26/25 18:34 Pulse Oximetry 98 07/26/25 18:34 Oxygen Delivery Method Room Air 07/26/25 18:34 Vital Signs Temperature 98.4 F 07/26/25 18:34 Pulse Rate 75 07/26/25 18:34 Respiratory Rate 18 07/26/25 18:34 Blood Pressure 169/106 H 07/26/25 18:34 Pulse Oximetry 98 07/26/25 18:34 Oxygen Delivery Method Room Air 07/26/25 18:34 Temperature 98.4 F 07/26/25 18:34 Pulse Rate 68 07/26/25 20:22 Respiratory Rate 14 07/26/25 20:22 Blood Pressure 170/97 H 07/26/25 20:22 Pulse Oximetry 99 07/26/25 20:22 Oxygen Delivery Method Room Air 07/26/25 20:22 Medications Administered Medications: Discontinued Medications Generic Name Dose Route Start Last Admin Trade Name Freq PRN Reason Stop Dose Admin Hydrocodone Bitart/Acetaminophen 2 tab 07/26/25 20:04 07/26/25 20:15 Hydrocodone-Acetamin 5-325 Mg 1 Tab PO 07/26/25 20:05 2 tab ONCE ONE Administration Lidocaine 1 patch 07/26/25 20:04 07/26/25 20:35 Lidocaine 5% Patch TRANSDERMA 07/26/25 20:05 Not Given ONCE ONE Protocol Medical Decision Making MDM Narrative Medical decision making narrative: I have independently reviewed X-ray of the shoulder area by the time I am seeing Marita. It looks unremarkable. I did offer localized injections as pain seems quite local but this made her nervous. Settled on placement of lidocaine patch. And a couple ?pain pills? as she asked for this. Two tabs of Peoa. Over time in the emergency department overall was improved though still easily exacerbated with movement Discussed concerns related to medications and continued sobriety. See patient discharge plan for further discussion See handout for some ideas for stretches/exercises for the upper back. As I said I think rolling over tennis ball or racquetball or baseball helpful. Would consider getting a massage. Would continue to ice this area. You said it feels like it needs to be released -- locally you might see 1 of these 2 chiropractors Júnior Galvez [phone] or Sandra Santizo [phone]. I would call them tomorrow first thing. Prescribing diclofenac gel; you can buy [id number] but prescription strength is 3 times stronger. As well as a few ?pain pills? in the form of Peoa as discussed. I realize your concern of NSAIDs but like you said, intermittent use of ibuprofen is probably okay. Medical Records Medical records reviewed: Yes I reviewed the patient's medical records Discharge Plan Discharge Clinical Impression: Periscapular pain Patient Disposition: Home w/ Parent or Adult Condition: Stable Additional Instructions: <del>See</del> <del>handout</del> <del>for</del> <del>some</del> <del>ideas</del> <del>for</del> <del>stretches/exercises</del> <del>for</del> <del>the</del> <del>upper</del> <del>back.</del> <del>As</del> <del>I</del> <del>said</del> <del>I</del> <del>think</del> <del>rolling</del> <del>over</del> <del>tennis</del> <del>ball</del> <del>or</del> <del>racquetball</del> <del>or</del> <del>baseball</del> <del>helpful.</del> <del>Would</del> <del>consider</del> <del>getting</del> <del>a</del> <del>massage.</del> <del>Would</del> <del>continue</del> <del>to</del> <del>ice</del> <del>this</del> <del>area.</del> <del>You</del> <del>said</del> <del>it</del> <del>feels</del> <del>like</del> <del>it</del> <del>needs</del> <del>to</del> <del>be</del> <del>released</del> <del>--</del> <del>locally</del> <del>you</del> <del>might</del> <del>see</del> <del>1</del> <del>of</del> <del>these</del> <del>2</del> <del>chiropractors</del> <del>Júnior</del> <del>Madorey</del> <del>[phone]</del> <del>or</del> <del>Sandra</del> <del>Santizo</del> <del>[phone].</del> <del>I</del> <del>would</del> <del>call</del> <del>them</del> <del>tomorrow</del> <del>first</del> <del>thing.</del> <del>Prescribing</del> <del>diclofenac</del> <del>gel;</del> <del>you</del> <del>can</del> <del>buy</del> <del>rxdo-rxy-lobeyxh</del> <del>but</del> <del>prescription</del> <del>strength</del> <del>is</del> <del>3</del> <del>times</del> <del>stronger.</del> <del>As</del> <del>well</del> <del>as</del> <del>a</del> <del>few</del> <del>?pain</del> <del>pills?</del> <del>in</del> <del>the</del> <del>form</del> <del>of</del> <del>Peoa</del> <del>as</del> <del>discussed.</del> <del>I</del> <del>realize</del> <del>your</del> <del>concern</del> <del>of</del> <del>NSAIDs</del> <del>but</del> <del>like</del> <del>you</del> <del>said,</del> <del>intermittent</del> <del>use</del> <del>of</del> <del>ibuprofen</del> <del>is</del> <del>probably</del> <del>rosangela.</del> Prescriptions: New diclofenac sodium 3 % gel 1 applic topical BID PRNQty: 100 0RF hydrocodone-acetaminophen 5-325 mg tablet 1 - 2 tab PO DAILY PRN (Reason: pain) Qty: 5 0RF No Action fluconazole 150 mg tablet 150 mg PO Q3D Qty: 2 0RF Rx Instructions: may repeat second dose 72 hrs after first dose if symptoms persist fluconazole 150 mg tablet 150 mg PO ONCE Qty: 1 0RF Rx Instructions: as a single dose paroxetine HCl 30 mg tablet 60 mg PO DAILY Patient Comments: TAKE 2 TABLETS BY MOUTH EVERY DAY - Patient states she is only taking 1 tablet daily Rx Instructions: 2 tablets by mouth daily quetiapine 25 mg tablet 25 mg PO HS PRN Patient Comments: Takes 1-2 times a week metoprolol succinate 25 mg tablet extended release 24 hr 12.5 mg PO DAILY losartan 25 mg tablet 25 mg PO DAILY gabapentin 300 mg capsule 900 mg PO TID dextroamphetamine-amphetamine 10 mg tablet 1 tab PO DAILY atorvastatin 40 mg tablet 40 mg PO HS clopidogrel 75 mg tablet 75 mg PO DAILY albuterol sulfate 90 mcg/actuation HFA aerosol inhaler 2 puff INHALATION Q4H PRN (Reason: wheezing) Follow Up/Referrals: Marce Mota CNP [Primary Care Provider, Family Practice] Stand Alone Forms: [employer] Info Instructions
[2025-07-26] MEDS: HYDROCODONE-ACETAMIN 5-325 MG 1 TAB 2 TAB PO (20:15)
[2025-07-26 20:22] VITALS: BP 170/97; PULSE 68; RESP 14; O2SAT 99
--- OUTSIDE RECORDS SUMMARY | 2025-07-26 20:42 | XMS_ITS | Clinical Summary ---
Author Organization [facility] Address [address] [place] [address] Care Team Providers Care Stave Hewer Name Role Phone Benjamin Almaraz Unavailable Marce Mota NP Primary Care Provider [phone] Allergies Active Allergy Reactions Criticality Noted Date Comments Codeine 01/13/2010 Lidocaine Edema 03/25/2008 Morphine Anxiety,Agitation 11/11/2023 Procaine 01/13/2010 Medications rizatriptan (MAXALT COMPUTER SUPPORT TECHNICIAN) 10 mg disintegrating tabletIndications: Atypical migraine Place 1 Tablet (10 mg) on the tongue 2 times daily if needed for Migraine. Give at minimum 2hrs apart. Max Dose: 30mg per 24hrs. 10 Tablet 05/18/20 24 Active Blood Pressure Monitor KitIndications:NST MARTHA (non-ST elevated myocardial infarction) (HC) Frequency of testing: daily 1 Each 12/22/19 25 Active atorvastatin 40 mg tabletIndications: NSTEMI (non-ST elevated myocardial infarction) (HC),Mixed hyperlipidemia Take 1 Tablet (40 mg) by mouth once daily with evening meal. 90 Tablet 5 2:02 PM CDT 12/22/19 25 Active clopidogreL 75 mg tabletIndications: NSTEMI (non-ST elevated myocardial infarction) (HC) TAKE 1 TABLET BY MOUTH EVERY AM 90 Tablet 2 01/03/20 25 Active losartan 25 mg tabletIndications: NSTEMI (non-ST elevated myocardial infarction) (HC),Hypertension Take 2 Tablets (50 mg) by mouth once daily. 180 Tablet 04/01/20 25 Active Magnesium Glycinate 100 mg tabIndications:Sle ep disturbance Take 100-200 mg by mouth at bedtime. 60 Tablet 2 05/23/20 25 Active dextroamphetamine- amphetamine (ADDERALL XR) 20 mg Extended-Release capsuleIndications :Attention deficit hyperactivity disorder (ADHD), unspecified ADHD type Take 1 Capsule (20 mg) by mouth once daily in the morning. 30 Capsule 05/23/20 25 Active dextroamphetamine- amphetamine (ADDERALL) 15 mg tabletIndications: Attention deficit hyperactivity disorder (ADHD), unspecified ADHD type Take 1 Tablet (15 mg) by mouth once daily in the afternoon. 30 Tablet 05/23/20 25 Active albuterol HFA (PRO-AIR; VENTOLIN; PROVENTIL) 90 mcg/actuation inhalerIndications :History of asthma Inhale 2 Puffs by mouth every 4 hours if needed for Wheezing. 8.5 g 1 06/05/20 25 Active gabapentin (NEURONTIN) 300 mg capsuleIndications :MIREILLE (generalized anxiety disorder) Take 3 Capsules (900 mg) by mouth three times daily. 810 Capsule 06/17/20 25 Active PARoxetine (PAXIL) 30 mg tabletIndications: Severe episode of recurrent major depressive disorder, without psychotic features (HC),Trauma,MIREILLE (generalized anxiety disorder) Take 2 Tablets (60 mg) by mouth once daily. 180 Tablet 06/17/20 25 Active QUEtiapine (SEROQUEL) 25 mg tabletIndications: Severe episode of recurrent major depressive disorder, without psychotic features (HC),MIREILLE (generalized anxiety disorder) Take 1 Tablet (25 mg) by mouth at bedtime if needed (sleep). 90 Tablet 06/17/20 25 Active dextroamphetamine- amphetamine (Adderall XR) 20 mg Extended-Release capsuleIndications :Attention deficit hyperactivity disorder (ADHD), unspecified ADHD type Take 1 Capsule (20 mg) by mouth once daily. 30 Capsule 07/19/20 25 025 Active dextroamphetamine- amphetamine (Adderall XR) 20 mg Extended-Release capsuleIndications :Attention deficit hyperactivity disorder (ADHD), unspecified ADHD type Take 1 Capsule (20 mg) by mouth once daily. 30 Capsule 08/18/20 25 Active amphetamine-dextro amphetamine (AdderalL) 15 mg tabletIndications: Attention deficit hyperactivity disorder (ADHD), unspecified ADHD type Take 1 Tablet (15 mg) by mouth once daily in the afternoon. 30 Tablet 07/22/20 25 025 Active amphetamine-dextro amphetamine (AdderalL) 15 mg tabletIndications: Attention deficit hyperactivity disorder (ADHD), unspecified ADHD type Take 1 Tablet (15 mg) by mouth once daily in the afternoon. 30 Tablet 08/21/20 25 Active metoprolol succinate (TOPROL XL) 25 mg Sustained-Release tabletIndications: NSTEMI (non-ST elevated myocardial infarction) (HC) Take 0.5 Tablets (12.5 mg) by mouth once daily. 45 Tablet 07/06/20 25 Active metoprolol succinate 25 mg Sustained-Release tabletIndications: NSTEMI (non-ST elevated myocardial infarction) (HC) Take 0.5 Tablets (12.5 mg) by mouth once daily. 45 Tablet 2 12/22/19 25 025 Discontinu ed(*Availa bility/For mulary change/Cos t of medication ) dextroamphetamine- amphetamine (Adderall XR) 20 mg Extended-Release capsuleIndications :Attention deficit hyperactivity disorder (ADHD), unspecified ADHD type Take 1 Capsule (20 mg) by mouth once daily. 30 Capsule 06/19/20 25 025 amphetamine-dextro amphetamine (AdderalL) 15 mg tabletIndications: Attention deficit hyperactivity disorder (ADHD), unspecified ADHD type Take 1 Tablet (15 mg) by mouth once daily in the afternoon. 30 Tablet 06/22/20 25 025 Active Problems Problem Noted Date Diagnosed Date Heterozygous factor V Leiden mutation 06/28/2025 Overview (06/28/2025): VTE prophylaxis with SCDs and low-dose Lovenox. I spoke with the surgeon who is agreeable with starting this tomorrow evening. Tobacco abuse 06/28/2025 Severe episode of recurrent major depressive disorder, [...] cervical 03/22 Overview (10/26/2024): 07/2017 ASCUS/HPV+ 08/2017 [place]: No abnormality 01/2023 ASCUS/HPV Negative 09/2024 ASCUS/HPV 16+, HPV 18 Negative 10/2024: reassuring colposcopy: no biopsy, next Pap smear with HPV testing 09/2025 Controlled substance agreement signed 12/01/2022 Overview (12/01/2022): 12/01/22, Nancy Mcdaniel NP, Psychiatry Dental abscess 01/15/2022 Pain due to dental caries 09/24/2020 Seizures 09/24/2020 MS (multiple sclerosis) 05/20/2017 Ocular migraine 05/20/2017 Cannabis use without complication 03/08/2015 Cavernous malformation 12/25/2014 Spells 11/21/2014 Nicotine dependence [...] Encounters Date Type Department Care Team Description 07/05/2025 Refill [facility] [address] [place] [address] Marce Mota NP Refill Request (Metoprolol Succinate) 06/17/2025 12:45 PM CDT Office Visit [facility] [address] [place] [address] Nancy Mcdaniel NP Follow Up; Medication Management 06/17/2025 Travel 06/06/2025 Telephone [place] Prescription Assistance Program [facility]Ver[id number] [place] [address] [facility] Medication Management (Prescription Assistance) 05/27/2025 Telephone [facility] [address] [place] [address] Nancy Mcdaniel NP Refill Request; MAGNESIUM GLYCINATE 05/23/2025 1:45 PM CDT Telemedicine [facility] [address] [place] [address] Nancy Mcdaniel NP Telehealth; Medication Management; Follow Up 05/23/2025 Travel 05/22/2025 Telephone [address] [place] [address] Nancy Mcdaniel NP Prior Authorization (dextroamphetamine-amp hetamine (Adderall XR) 20 mg Extended-Release capsule APPEAL APPROVED 05/22/25 UNTIL FURTHER NOTICE) from Last 3 Months Immunizations Immunization Administration [...] Answer Date Recorded PHQ-2 TOTAL SCORE 6 06/17/2025 Social Connections Answer Date Recorded Do you [...] on file Legal Sex Female 5:31 AM STRAIGHT TOOTH 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 2008 Term F Courtney Arreola y 2010 Term 39w 0d 9h 00m/ F Vag Valeriano Toth 2011 Term 40w 0d 5h 00m/ 2.89 kg (6 lb 6 oz) M Courtney Bal hollie Douglas [place] Delivery Location:[facility] Comments:System Genera maritza. Please review and update details. Last Filed Vital Signs Vital Sign Reading Time Taken Comments Blood Pressure 130/90 06/17/2025 12:56 PM CDT Pulse 68 06/17/2025 12:56 PM CDT Temperature 36.4 C (97.6 F) 03/05/2025 9:00 AM CDT Respiratory Rate 20 03/05/2025 9:00 AM CDT Oxygen Saturation 100% 03/19/2025 2:54 PM CDT Inhaled Oxygen Concentration - - Weight 52.2 kg (115 lb) 06/17/2025 12:54 PM CDT Height 170.2 cm (5' 7) 03/05/2025 9:16 AM CDT Body Mass Index 18.01 03/05/2025 9:16 AM CDT Plan of Treatment Health Maintenance Due Date Last Done Comments Pneumococcal series for age 6-49 (1 of 2 - PCV) 2000 HPV series for age 9-45 (1 - 3-dose SCDM series) 2008 Hepatitis B series for 19+ ( 3 of 3 - 19+ 3-dose series) 07/12/2023 05/17/2023, 09/07/2000, 09/07/2000 COVID-19 vaccine series ( season) 2025 Influenza Vaccine (#1) 2025 1, 09/03/2011, 06/29/2010, Additional history exists BMI (ht and wt on same day) for age 18+ 09/19/2025 09/19/2024, 02/21/2024, 03/01/2023, Additional history exists Pap test for age 21-65 10/26/2025 5 (Verified in Care Everywhere or Patient Record), 09/19/2024, 09/19/2024, Additional history exists Depression screening for age 12+ 06/17/2026 06/17/2025, 12/05/2024, 07/24/2024, Additional history exists Tetanus booster 02/20/2034 02/21/2024, 09/03/2011 RSV vaccine for adults or (1 - 1-dose 75+ series) 2056 Hepatitis C screening for ag e 18-79 Completed 05/10/2023, 09/23/2020 HIV for age 15-65 Completed 02/04/2024, , 11/02/2021, Additional history exists Procedures Procedure Name Priority Date/Time Associated Diagnosis Comments COMPLIANCE DRUG ANALYSIS Routine 06/17/2025 1:42 PM CDT Attention deficit hyperactivity disorder (ADHD), unspecified ADHD type FITNESS/WELLNESS DIRECTOR THIN PREP PAP DIAGNOSTIC IMAGED Routine 09/19/2024 2:17 PM STRAIGHT TOOTH GEAR GENERATOR OPERATOR ASCUS with positive high risk HPV cervical ANTI HIV 1/2 Routine 02/04/2024 9:14 AM CDT Screen for STD (sexually transmitted disease) LC HCV ANTIBODY RFX TO QUANT PCR Routine 05/10/2023 1:30 PM CDT Need for hepatitis C screening test from Last 3 Months or Most Recently Relevant to Health Maintenance Results * (ABNORMAL) COMPLIANCE DRUG ANALYSIS (06/17/2025 1:42 PM CDT) 6-MONOACETYL MORPHINE NEG NEG ng/mL 06/21/2025 12:[address] [facility] AMPHETAMINE URINE POS(A) <=500 ng/mL 06/21/2025 12:[address] [facility] BARBITURATE URINE NEG <=200 ng/mL 06/21/2025 12:[address] [facility] BENZODIAZEPINE URINE NEG <=100 ng/mL 06/21/2025 12:[address] [facility] BUPRENORPHRINE URINE NEG <=5 ng/mL 06/03 12:53 PM [facility] COCAINE METAB URINE NEG <=300 ng/mL 06/21/2025 12:53 PM [facility] ETHYLGLUCURONIDE URINE POS(A) <=250 ng/mL 06/21/2025 12:53 PM [facility] Comment: Urine Ethylglucuronide (ETG) and Urine Ethylsulfate (ETS) confirmed positive by LC/MS/MS. The Confirmation Threshold Concentration for ETG is 250 ng/mL and ETS is 100 ng/mL. Urine Ethylglucuronide = 30,070 ng/mL Urine Ethylsulfate = 9370 ng/mL This test was developed and its performance characteristics determined by [facility]. It has not been cleared by the US Food and Drug Administration. FENTANYL URINE NEG <=5 ng/mL 06/21/2025 12:53 PM [facility] METHADONE URINE NEG <=300 ng/mL 06/21/2025 12:53 PM [facility] OPIATES URINE NEG <=300 ng/mL 06/21/2025 12:53 PM [facility] OXYCODONE URINE NEG <=100 ng/mL 06/21/2025 12:53 PM [facility] PROPOXYPHENE URINE NEG <=300 ng/mL 06/21/2025 12:53 PM [facility] THC 50 URINE POS(A) <=50 ng/mL 06/21/2025 12:53 PM [facility] TRAMADOL NEG <=200 ng/mL 06/21/2025 12:53 PM [facility] PH URINE 6.6 5.0 - 7.0 06/21/2025 12:53 PM [facility] CREAT UR 293 >=20 mg/dL 06/21/2025 12:53 PM [facility] MASS SPECTROMETRY See Below 025 12:53 PM [facility] Comment:Amphetamine present. Urine URINE SPECIMEN / Unknown Non-Blood / Unknown 06/17/2025 1:42 PM CDT 06/17/2025 1:[address] [facility] - 06/21/2025 12:53 PM CDT Current Outpatient Medications: albuterol HFA (PRO-AIR; VENTOLIN; PROVENTIL) 90 mcg/actuation inhaler, Inhale 2 Puffs by mouth every 4 hours if needed for Wheezing. atorvastatin 40 mg tablet, Take 1 Tablet (40 mg) by mouth once daily with evening meal. Blood Pressure Monitor Kit, Frequency of testing: daily clopidogreL 75 mg tablet, TAKE 1 TABLET BY MOUTH EVERY AM dextroamphetamine-amphetamine (ADDERALL XR) 20 mg Extended-Release capsule, Take 1 Capsule (20 mg) by mouth once daily in the morning. dextroamphetamine-amphetamine (ADDERALL) 15 mg tablet, Take 1 Tablet (15 mg) by mouth once daily in the afternoon. gabapentin (NEURONTIN) 300 mg capsule, TAKE 3 CAPSULES(900 MG) BY MOUTH THREE TIMES DAILY losartan 25 mg tablet, Take 2 Tablets (50 mg) by mouth once daily. Magnesium Glycinate 100 mg tab, Take 100-200 mg by mouth at bedtime. metoprolol succinate 25 mg Sustained-Release tablet, Take 0.5 Tablets (12.5 mg) by mouth once daily. PARoxetine (PAXIL) 30 mg tablet, Take 2 Tablets (60 mg) by mouth once daily. QUEtiapine (SEROQUEL) 25 mg tablet, Take 1 Tablet (25 mg) by mouth at bedtime if needed (sleep). rizatriptan (MAXALT COMPUTER SUPPORT TECHNICIAN) 10 mg disintegrating tablet, Place 1 Tablet (10 mg) on the tongue 2 times daily if needed for Migraine. Give at minimum 2hrs apart. Max Dose: 30mg per 24hrs. No current facility-administered medications for this visit. As of 06/17/2025 Release to patient->Immediate us Nancy Mcdaniel NP URINE Final Resul t [facility] [address] [place] [address], * (ABNORMAL) FITNESS/WELLNESS DIRECTOR THIN PREP PAP DIAGNOSTIC IMAGED (09/19/2024 2:17 PM STRAIGHT TOOTH GEAR GENERATOR OPERATOR) Case Report Gynecologic Cytology Report Case: [id number] Authorizing Provider: Marce Mota NP Collected: 09/19/2024 1417 Ordering Location: [facility] Received: 09/19/2024 1417 Clinic First Screen: Yehuda Burnette Pathologist: Gisela Brandon MD Specimen: FITNESS/WELLNESS DIRECTOR ThinPrep Vial Diagnostic, Cervical 10/05/2024 12:59 PM STRAIGHT TOOTH GEAR GENERATOR OPERATOR [facility] INTERPRETATION/ RESULT LOW GRADE SQUAMOUS INTRAEPITHELIAL LESION (LSIL)(A) (none) 10/05/2024 12:59 PM STRAIGHT TOOTH GEAR GENERATOR OPERATOR [facility] at 1259 STRAIGHT TOOTH GEAR GENERATOR OPERATOR OTHER NON-NEOPLASTIC FINDING(S) Parakeratosis 10/05/2024 12:59 PM STRAIGHT TOOTH GEAR GENERATOR OPERATOR [facility] SPECIMEN ADEQUACY Satisfactory for evaluation Endocervical component present 10/05/2024 12:59 PM STRAIGHT TOOTH GEAR GENERATOR OPERATOR [facility] HPV REQUEST HPV and PAP 10/05/2024 12:59 PM STRAIGHT TOOTH GEAR GENERATOR OPERATOR [facility] Date of LMP 09/15/24 10/05/2024 12:59 PM STRAIGHT TOOTH GEAR GENERATOR OPERATOR [facility] Last Pap Date 02/10/23 10/05/2024 12:59 PM STRAIGHT TOOTH GEAR GENERATOR OPERATOR [facility] Last Pap Result ASCUS 12:59 PM STRAIGHT TOOTH GEAR GENERATOR OPERATOR [facility] Abnormal Pap or [place] Bx in last 5 years Yes 10/05/2024 12:59 PM STRAIGHT TOOTH GEAR GENERATOR OPERATOR [facility] Menstrual Status Regular Periods 10/05/2024 12:59 PM STRAIGHT TOOTH GEAR GENERATOR OPERATOR [facility] [place] Bx Done Today No 10/05/2024 12:59 PM STRAIGHT TOOTH GEAR GENERATOR OPERATOR [facility] Additional Information None Given 10/05/2024 12:59 PM STRAIGHT TOOTH GEAR GENERATOR OPERATOR [facility] Comment: Cytology is screened at [facility] - [address], [place] [address] and [facility] - [address] [place] [address], [place] [address] and [facility] - [address] [place] [address] Interpreted at [facility] - [address], [place] [address] Automated Review Successful 10/05/2024 12:59 PM STRAIGHT TOOTH GEAR GENERATOR OPERATOR [facility] Comment:Specimen processed s uccessfully by automated apple picking supervisor device, [employer] System, [employer] ANCILLARY TESTING FITNESS/WELLNESS DIRECTOR HPV Ordered, Please see separate report 10/05/2024 12:59 PM STRAIGHT TOOTH GEAR GENERATOR OPERATOR [facility] Note The pap test is a screening technique, not a diagnostic procedure. It is used primarily to screen for squamous cancers and precursor lesions. Published studies have shown that it is subject to both false negative and false positive results. The pap test should not be used as the sole means to diagnose or exclude pre-malignant and malignant lesions. 10/05/2024 12:59 PM STRAIGHT TOOTH GEAR GENERATOR OPERATOR [facility] Other (Cervical) Non-Blood / Unknown 09/19/2024 2:17 PM STRAIGHT TOOTH GEAR GENERATOR OPERATOR 09/19/2024 2:17 PM STRAIGHT TOOTH GEAR GENERATOR OPERATOR Comment:07/2017 ASCUS/HPV+ [place]: No [id number] ASCUS/HPV Negative Marce Mota OPEN WINDER PATHOLOGY/CYTOLOGY Final Result [facility] [address] [place] [address], [place] * ANTI HIV 1/2 (02/04/2024 9:14 AM CDT) HIV-1/HIV-2 SCREEN Non-Reacti ve Non-Reacti ve 02/04/2024 2:01 PM CDT [facility] Comment:HIV-1 p24 and HIV-1/ HIV-2 Ab Not Detected. Blood BLOOD SPECIMEN / Unknown Venipuncture / Unknown 02/04/2024 9:14 AM CDT 02/04/2024 9:19 AM CDT Kary Johns OPEN WINDER SEND OUTS Final Res ult [facility] [address] [place] [address], [place] * LC HCV ANTIBODY RFX TO QUANT PCR (05/10/2023 1:30 PM CDT) HCV Ab Non Reactive Non Reactive 05/13/2023 4:08 AM CDT [facility] ([facility]) Blood BLOOD SPECIMEN / Unknown Venipuncture / Unknown 05/10/2023 1:30 PM CDT 05/10/2023 1:30 PM CDT [facility]ative [facility] - 05/13/2023 4:08 AM CDT Performed at: [address] [place] [address] [facility] Centerand [place], [place] [id number] Deputy Attorney General: Michael Umana MD, Phone: [phone] us Milena Purvis MD LABORATORY Final Result [facility] ([facility]) [address] [place] [address] from Last 3 Months or Most Recently Relevant to Health Maintenance Additional Health Concerns Infection Onset Date Last Indicated MRSA Clearance Comment:+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, right hand +MRSA 2014, arm Negative Nare 11/11/23 11/14/2023 11/14/2023 Insurance MEDICARE PART A HB ONLY MEDICARE PB ONLY MEDICARE PART B HB ONLY [facility] MEDIC[facility] PROVIDER BASED [facility] Advance Directives * Full Code (Latest Code [...] 12:40 PM 11/22/2014 4:20 PM Care Teams Stave Hewer Relationship Specialty Start Date End Date Marce Mota NP [address] [place] [address] MAX[place] BECK [id number] PCP - General Nurse Practitioner - Family 02/21/24 Benjamin Almaraz Internal Medicine 09/24/14
--- OUTSIDE RECORDS SUMMARY | 2025-07-26 20:43 | XMS_ITS | Clinical Summary ---
Author Organization [facility] Address [address] [place] [address] Care Team Providers Care Lace Winder Name Role Phone No Ref-Primary, Physician Primary [...] shortness of breath, wheezing or cough. Active amphetamine-dextr oamphetamine (ADDERALL) 10 MG tablet Take 10 mg by mouth daily. At lunch time Active amphetamine-dextr oamphetamine (ADDERALL XR) 20 MG 24 hr capsule [...] severe pain. Active HYDROmorphone (DILAUDID) 2 MG tabletIndications :Intra-abdominal abscess post-procedure (H) Take 0.5 tablets (1 mg) by mouth every 6 hours as needed. 12 tablet 5 Active senna-docusate (SENOKOT-S/ARIEL LACE) 8.6-50 MG tabletIndications :Drug-induced constipation Take 1 tablet by mouth 2 times daily as needed for constipation. 30 tablet 5 Active polyethylene glycol (MIRALAX) 17 GM/Dose powderIndications :Drug-induced constipation Take 17 g (1 Capful) by mouth daily. 116 g 5 Active Active Problems Problem Noted Date Diagnosed Date [...] Date Cavernous hemangioma of brain 11/26/2014 03/08/2015 Immunizations Immunization Administration Dates Next Due Flu-nasal, [...] in an abandoned building, in an overnight snf, or couch-surfing.) Yes 03/14/2025 Are you worried [...] ORDERS 1981 LIPID 1981 MAMMO SCREENING 1981 HEPATITIS B VACCINE (3 of 3 - 19+ 3-dose series) 07/12/2023 05/17/2023, 09/07/2000 PHQ-2 (once per calendar year) 2024 COVID-19 VACCINE (1 - 2024-2 6 season) 2025 INFLUENZA VACCINE (#1) 2025 0, 08/05/2009, 08/18/2004 MEDICARE ANNUAL WELLNESS VISIT 09/19/2025 09/19/2024 PAP 09/19/2027 09/19/2024 DIABETES SCREENING 03/15/2028 03/15/2025, 03/14/2025, 03/13/2025 ZOSTER VACCINE (1 of 2) 2031 DTAP/TDAP/TD VACCINE (3 - Td or Tdap) 02/20/2034 02/21/2024, 09/03/2011 HEPATITIS C SCREENING Completed 05/10/2023 HIV SCREENING Completed 02/04/2024 HPV VACCINE (No Doses Required) Completed MENINGITIS VACCINE Aged Out No longer eligible based on patient's age to complete this topic PNEUMOCOCCAL VACCINE: PEDIATRICS (0 to 5 YEARS) AND AT-RISK PATIENTS (6 to 49 YEARS) Aged Out No longer eligible b ased on patient's age to complete this topic Procedures Procedure Name Priority Date/Time Associated Diagnosis Comments BASIC METABOLIC PANEL Routine 03/15/2025 5:43 AM CDT from Last 3 Months or Most Recently Relevant to Health Maintenance Results * (ABNORMAL) Basic metabolic panel (03/15/2025 5:43 AM CDT) Sodium 144 135 - 145 mmol/L 03/15/2025 6:17 AM CDT [facility] Potassium 4.3 3.4 - 5.3 mmol/L 03/15/2025 6:17 AM CDT LABORATORY Chloride 111(H) 98 - 107 mmol/L 03/15/2025 6:17 AM CDT [facility] Carbon Dioxide (CO2) 26 22 - 29 mmol/L 03/15/2025 6:17 AM CDT [facility] Anion Gap 7 7 - 15 mmol/L 03/15/2025 6:17 AM CDT [facility] Urea Nitrogen 4.2(L) 6.0 - 20.0 mg/dL 03/15/2025 6:17 AM CDT [facility] Creatinine 0.59 0.51 - 0.95 mg/dL 03/15/2025 6:17 AM CDT [facility] GFR Estimate >90 >60 mL/min/1.7 3m2 03/15/2025 6:17 AM CDT [facility] Comment:eGFR calculated usin 2020 CKD-EPI equation. Calcium 7.9(L) 8.8 - 10.4 mg/dL 03/15/2025 6:17 AM CDT [facility] Glucose 92 70 - 99 mg/dL 03/15/2025 6:17 AM CDT [facility] Blood STRUCTURE OF LEFT HAND / Unknown Venipuncture / Unknown 03/15/2025 5:43 AM CDT 03/15/2025 5:53 AM CDT Maria G Jenkins PA-C LAB - BLOOD ORDERABLES F inal Result LABORATORY [facility] [address] [facility] (1st floor, no room number) [place] [address], [facility] from Last 3 Months or Most Recently Relevant to Health Maintenance Insurance MEDICARE Advance Directives For more information, please contact: [phone] * Full Code (Latest Code Status on File) Date Activated Date Inactivated Comments 03/14/2025 2:17 AM 03/15/2025 2:16 PM All basic an d advanced life-sustaining interventions are performed as appropriate Question Answer Comments Code status determined by: Discussion with patie nt/ legal decision maker Care Teams Lace Winder Relationship Specialty Start Date End Date No Ref-Primary, Physician PCP - General 03/13/25
--- OUTSIDE RECORDS SUMMARY | 2025-07-26 21:42 | XMS_ITS | CCD ---
Author Organization Unknown Care Team Providers Care Horse And Wagon Driver Name Role Phone Language Pathologist, [place] Primary Care Provider Unava ilable Unavailable Chronic Care Management Unavaila ble Summary Purpose DataExchange Insurance Providers Payer name Policy type / Coverage type Covered libertarian ID Effective Begin Date Effective End Date Medicare [place] Medicare Part B [id number] Unknown Unknown [employer] ([facility]) Medicare Part B [id number] Unknown Unknow n Family History Family History data not found Medication Administered No Medication Administered data Medical Equipment No Medical Equipment data Assessments No Assessment data Reason For Visit No Reason For Visit data Review of Systems No Review of Systems data Physical Exam No Physical Exam data History of Present Illness No History of Present Illness data Advance Directives No Advance Directive data
--- OUTSIDE RECORDS SUMMARY | 2025-07-26 21:42 | XMS_ITS | CCD ---
Author Organization Unknown Care Team Providers Care Strip Cutter Name Role Phone Environmental Manager, [place] Primary Care Provider Unava ilable Unavailable Chronic Care Management Unavaila ble Summary Purpose DataExchange Insurance Providers Payer name Policy type / Coverage type Covered constitution party ID Effective Begin Date Effective End Date Medicare [place] Medicare Part B [id number] Unknown Unknown [employer] ([facility]) Medicare Part B [id number] Unknown Unknow n Family History Family History [...]
--- OUTSIDE RECORDS SUMMARY | 2025-07-27 14:52 | XMS_ITS | Clinical Summary ---
Author Organization [facility] Address [address] [place] [address] Care Team Providers Care General Intern Name Role Phone Benjamin Almaraz Unavailable Marce Mota NP Primary Care Provider [phone] Allergies Active Allergy Reactions Criticality Noted Date Comments Codeine 01/13/2010 Lidocaine Edema 03/25/2008 Morphine Anxiety,Agitation 11/11/2023 Procaine 01/13/2010 Medications rizatriptan (MAXALT CUTTER WET MACHINE) 10 mg disintegrating tabletIndications: Atypical migraine Place [...] cervical 03/22 Overview (10/26/2024): 07/2017 ASCUS/HPV+ 08/2017 [place]: No abnormality 01/2023 ASCUS/HPV Negative 09/2024 [...] Type Department Care Team Description 07/05/2025 Refill [facility] [address] [place] [address] Marce Mota NP Refill Request (Metoprolol Succinate) 06/17/2025 12:45 PM CDT Office Visit [facility] [address] [place] [address] Nancy Mcdaniel NP Follow Up; Medication Management 06/17/2025 Travel 06/06/2025 Telephone [employer] Prescription Assistance Program [facility] [id number] [place] [address] [facility] Medication Management (Prescription Assistance) 05/27/2025 Telephone [facility] [address] [place] [address] Nancy Mcdaniel NP Refill Request; MAGNESIUM GLYCINATE 05/23/2025 1:45 PM CDT Telemedicine [facility] [address] [place] [address] Nancy Mcdaniel NP Telehealth; Medication Management; Follow Up 05/23/2025 Travel 05/22/2025 Telephone [facility] [address] [place] [address] Nancy Mcdaniel NP Prior Authorization (dextroamphetamine-amp hetamine [...] on file Legal Sex Female 5:31 AM CHECK SCALER Gender Identity Not on file Sexual Orientation [...] M Courtney Bal hollie Douglas Ovalles Delivery Location:[facility] Comments:System Genera maritza. Please review and update [...] deficit hyperactivity disorder (ADHD), unspecified ADHD type RESEARCH ENVIRONMENTAL SCIENTIST THIN PREP PAP DIAGNOSTIC IMAGED Routine 09/19/2024 2:17 PM CHECK SCALER ASCUS with positive high risk HPV cervical [...] NEG ng/mL 06/21/2025 12:[address] [facility] AMPHETAMINE URINE POS(A) <=500 ng/mL 06/21/2025 12:[address] [facility] BARBITURATE URINE NEG <=200 ng/mL 06/21/2025 12:[address] [facility] BENZODIAZEPINE URINE NEG <=100 ng/mL 06/21/2025 12:[address] [facility] BUPRENORPHRINE URINE NEG <=5 ng/mL 06/03 12:53 PM [facility] COCAINE METAB URINE NEG <=300 ng/mL 06/21/2025 12:53 PM [facility] ETHYLGLUCURONIDE URINE POS(A) <=250 ng/mL 06/21/2025 12:53 PM [facility] Comment: Urine Ethylglucuronide (ETG) and Urine Ethylsulfate (ETS) confirmed positive by LC/MS/MS. The Confirmation Threshold Concentration for ETG is 250 ng/mL and ETS is 100 ng/mL. Urine Ethylglucuronide = 30,070 ng/mL Urine Ethylsulfate = 9370 ng/mL This test was developed and its performance characteristics determined by [facility]. It has not been cleared by the [place] Food and Drug Administration. FENTANYL URINE NEG <=5 ng/mL 06/21/2025 12:53 PM [facility] METHADONE URINE NEG <=300 ng/mL 06/21/2025 12:53 PM [facility] OPIATES URINE NEG <=300 ng/mL 06/21/2025 12:53 PM [facility] OXYCODONE URINE NEG <=100 ng/mL 06/21/2025 12:53 PM [facility] PROPOXYPHENE URINE NEG <=300 ng/mL 06/21/2025 12:53 PM [facility] THC 50 URINE POS(A) <=50 ng/mL 06/21/2025 12:53 PM [facility] TRAMADOL NEG <=200 ng/mL 06/21/2025 12:53 PM [facility] PH URINE 6.6 5.0 - 7.0 06/21/2025 12:53 PM [facility] CREAT UR 293 >=20 mg/dL 06/21/2025 12:53 PM [facility] MASS SPECTROMETRY See Below 025 12:53 PM [facility] Comment:Amphetamine present. Urine URINE SPECIMEN / Unknown Non-Blood / Unknown 06/17/2025 1:42 PM CDT 06/17/2025 1:[address] [facility] - 06/21/2025 12:53 PM CDT Current Outpatient [...] at bedtime if needed (sleep). rizatriptan (MAXALT CUTTER WET MACHINE) 10 mg disintegrating tablet, Place 1 Tablet (10 mg) on the tongue 2 times daily if needed for Migraine. Give at minimum 2hrs apart. Max Dose: 30mg per 24hrs. No current facility-administered medications for this visit. As of 06/17/2025 Release to patient->Immediate us Nancy Mcdaniel NP URINE Final Resul t [facility] [address] [place] [address], * (ABNORMAL) RESEARCH ENVIRONMENTAL SCIENTIST THIN PREP PAP DIAGNOSTIC IMAGED (09/19/2024 2:17 PM CHECK SCALER) Case Report Gynecologic Cytology Report Case: [id number] Authorizing Provider: Marce Mota NP Collected: 09/19/2024 1417 Ordering Location: [facility] Received: 09/19/2024 1417 Clinic First Screen: Yehuda Burnette Pathologist: Gisela Brandon MD Specimen: RESEARCH ENVIRONMENTAL SCIENTIST ThinPrep Vial Diagnostic, Cervical 10/05/2024 12:59 PM CHECK SCALER [facility] INTERPRETATION/ RESULT LOW GRADE SQUAMOUS INTRAEPITHELIAL LESION (LSIL)(A) (none) 10/05/2024 12:59 PM CHECK SCALER [facility] at 1259 CHECK SCALER OTHER NON-NEOPLASTIC FINDING(S) Parakeratosis 10/05/2024 12:59 PM CHECK SCALER [facility] SPECIMEN ADEQUACY Satisfactory for evaluation Endocervical component present 10/05/2024 12:59 PM CHECK SCALER [facility] HPV REQUEST HPV and PAP 10/05/2024 12:59 PM CHECK SCALER [facility] Date of LMP 09/15/24 10/05/2024 12:59 PM CHECK SCALER [facility] Last Pap Date 02/10/23 10/05/2024 12:59 PM CHECK SCALER [facility] Last Pap Result ASCUS 12:59 PM CHECK SCALER [facility] Abnormal Pap or [place] Bx in last 5 years Yes 10/05/2024 12:59 PM CHECK SCALER [facility] Menstrual Status Regular Periods 10/05/2024 12:59 PM CHECK SCALER [facility] [place] Bx Done Today No 10/05/2024 12:59 PM CHECK SCALER [facility] Additional Information None Given 10/05/2024 12:59 PM CHECK SCALER [facility] Comment: Cytology is screened at [facility] - [address], [place] [address] and [facility] - [address] [place] [address], [place] [address] and [facility] - [address] [place] [address] Interpreted at [facility] - [address], [place] [address] Automated Review Successful 10/05/2024 12:59 PM CHECK SCALER [facility] Comment:Specimen processed s uccessfully by automated making machine catcher device, [employer] Imaging System, [employer] ANCILLARY TESTING RESEARCH ENVIRONMENTAL SCIENTIST HPV Ordered, Please see separate report 10/05/2024 12:59 PM CHECK SCALER [facility] Note The pap test is a screening technique, not a diagnostic procedure. It is used primarily to screen for squamous cancers and precursor lesions. Published studies have shown that it is subject to both false negative and false positive results. The pap test should not be used as the sole means to diagnose or exclude pre-malignant and malignant lesions. 10/05/2024 12:59 PM CHECK SCALER [facility] Other (Cervical) Non-Blood / Unknown 09/19/2024 2:17 PM CHECK SCALER 09/19/2024 2:17 PM CHECK SCALER Comment:07/2017 ASCUS/HPV+ [place]: No awnwsaimita07/2023 ASCUS/HPV Negative Marce Mota MORNING SHOW PRODUCER PATHOLOGY/CYTOLOGY Final Result [facility] [address] [place] [address], [place] * ANTI HIV 1/2 (02/04/2024 9:14 AM CDT) HIV-1/HIV-2 SCREEN Non-Reacti ve Non-Reacti ve 02/04/2024 2:01 PM CDT [facility] Comment:HIV-1 p24 and HIV-1/ HIV-2 Ab Not Detected. Blood BLOOD SPECIMEN / Unknown Venipuncture / Unknown 02/04/2024 9:14 AM CDT 02/04/2024 9:19 AM CDT Kary Johns MORNING SHOW PRODUCER SEND OUTS Final Res ult [facility] [address] [place] [address], [place] * LC HCV ANTIBODY RFX TO QUANT PCR (05/10/2023 1:30 PM CDT) HCV Ab Non Reactive Non Reactive 05/13/2023 4:08 AM CDT [facility] ([facility]) Blood BLOOD SPECIMEN / Unknown Venipuncture / Unknown 05/10/2023 1:30 PM CDT 05/10/2023 1:30 PM CDT [facility]ative [facility] - 05/13/2023 4:08 AM CDT Performed at: [address] [place] [address] [facility] [place], [place] [id number] Line Leader: Michael Umana MD, Phone: [phone] us Milena Purvis MD LABORATORY Final Result [facility] ([facility]ET) [address] [place] [address] from Last 3 Months or Most Recently Relevant to Health Maintenance Additional Health Concerns Infection Onset Date Last Indicated MRSA Clearance Comment:+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
--- OUTSIDE RECORDS SUMMARY | 2025-07-27 14:52 | XMS_ITS | Clinical Summary ---
Author Organization [facility] Address [address] [place] [address] Care Team Providers Care Director Safety Council Name Role Phone No Ref-Primary, Physician Primary [...] in an abandoned building, in an overnight group home, or couch-surfing.) Yes 03/14/2025 Are you [...] - BLOOD ORDERABLES F inal Result LABORATORY [facility] [address] [facility] (1st floor, no room number) [place] [address], [facility] from Last 3 Months or Most Recently Relevant to Health Maintenance Insurance MEDICARE Advance Directives For more information, please contact: [phone] * Full Code (Latest Code Status on File) Date Activated Date Inactivated Comments 03/14/2025 2:17 AM 03/15/2025 2:16 PM All basic an d advanced life-sustaining interventions are performed as appropriate Question Answer Comments Code status determined by: Discussion with patie nt/ legal decision maker Care Teams Director Safety Council Relationship Specialty Start Date End Date No Ref-Primary, Physician PCP - General 03/13/25
--- OUTSIDE RECORDS SUMMARY | 2025-07-27 15:51 | XMS_ITS | CCD ---
Author Organization Unknown Care Team Providers Care Licensed Professional Counselor Name Role Phone Gear Room Keeper, [place] Primary Care Provider Unava ilable Unavailable Chronic Care Management Unavaila ble Summary Purpose DataExchange Insurance Providers Payer name Policy type / Coverage type Covered democrat ID Effective Begin Date Effective End Date Medicare [place] Medicare Part B [id number] Unknown Unknown [employer] ([facility]) Medicare Part B [id number] Unknown Unknow n Family History Family History [...]
--- OUTSIDE RECORDS SUMMARY | 2025-07-27 15:52 | XMS_ITS | CCD ---
Author Organization Unknown Care Team Providers Care Molder Trimmer Name Role Phone Visual Journalist, [place] Primary Care Provider Unava ilable Unavailable Chronic Care Management Unavaila ble Summary Purpose DataExchange Insurance Providers Payer name Policy type / Coverage type Covered constitution party ID Effective Begin Date Effective End Date Medicare [place] Medicare Part B [id number] Unknown Unknown [employer] ([facility]) Medicare Part B [id number] Unknown Unknow n Family History Family History [...]
== END 2025-07-26 21:15 | disposition home or self-care (01) ==
PROVIDERS: Emergency Provider Family Medicine; PCP Family Medicine
DX: M25.511 Pain in right shoulder (principal); F17.210 Nicotine dependence, cigarettes, uncomplicated
CPT/HCPCS: 73030; 99283; 99284; A9270